=== PATIENT | male | born 1940 | race Caucasian/White ===

== ENCOUNTER 2016-10-09 20:54 | Inpatient (IN) ==
--- NOTE | 2016-10-09 21:07 | Emergency Department Note ---
Recheck HPI - General Chief Complaint: Recheck/Abnormal Lab/Rx Stated Complaint: abnormal lab Time Seen by Provider: 10/09/16 21:04 Source: family Mode of arrival: ambulatory Limitations: no limitations - History of Present Illness HPI Narrative: Patient is being sent in to the emergency department secondary to Dr. Marmolejo, her recommendations. She called me on the phone and recommended that he get Lasix 200 mg IV immediately when he comes in, he's been having decreased urine output , is at the point where his kidneys are shutting down. He does straight catheterize himself, has had some nerve damage and in the last 24 hours. He's had only about 500 cc out. He's continuing to swell more and more, his penis is very large, his scrotum is very large, his lower extremity swelling has worsened. He feels a little bit short of breath, although his O2 sat is still 96% on room air. MD complaint: abnormal lab - Related Data Home Medications Medication Instructions Recorded Confirmed aspirin 81 mg chewable tablet 81 mg PO QDAY tab 01/15/15 10/02/16 carvedilol 6.25 mg tablet 6.25 mg PO DAILY tab 01/15/15 10/02/16 sertraline 100 mg tablet 100 mg PO BID tab 01/15/15 10/02/16 atorvastatin 80 mg tablet 80 mg PO HS 90 Days 07/23/15 10/02/16 apixaban 5 mg tablet 5 mg PO BID 30 Days 04/21/16 10/02/16 Calcitriol [Rocaltrol] 0.25 mcg PO DAILY 10/02/16 Gabapentin 600 mg PO DAILY@1200 10/02/16 10/02/16 Gabapentin 900 mg PO BID@0900,2100 10/02/16 10/02/16 Lactobacillus [Culturelle] 1 cap PO DAILY 10/02/16 10/02/16 busPIRone [Buspar] 15 mg PO BID 10/02/16 10/02/16 morphine ER 15 mg tablet,extended 15 mg PO BID 30 Days 10/02/16 10/02/16 release Previous Rx's Medication Instructions Recorded torsemide 20 mg tablet 40 mg PO BID 30 Days 10/08/16 Allergies Allergy/AdvReac Type Severity Reaction Status Date / Time Penicillins Allergy Unknown Hives Verified 10/02/16 13:55 Review of Systems Constitutional: Denies: fever, chills ENT ED: Denies: ear pain Cardiovascular: Reports: palpitations, dyspnea on exertion. Denies: chest pain Respiratory: Denies: cough Gastrointestinal: Denies: abdominal pain, nausea Musculoskeletal: Reports: back pain Integumentary: Denies: rash Neurological: Reports: headache Endocrine: Reports: fatigue Hematological/Lymphatic: Reports: easy bleeding Past Medical History - Past Medical History Medical history: Reports: arthritis, coronary artery disease, hypertension, renal disease, other (Atrial fibrillation, coronary artery disease, cervical radiculopathy just of heart failure, hypertension, hyperlipidemia, hyperkalemia) Surgical history ED: Reports: coronary bypass (CABG), other (aaa, back surgery, CABG procedure, surgery, total right knee) Family history: Reports: no significant family history - Social History smoking status: Former smoker Alcohol use: Reports: Occasionally Drug use: Reports: none Physical Exam - General Limitations: no limitations General appearance: alert, in no apparent distress - Head Head exam: atraumatic, normocephalic - Eye Eye exam: Present: normal appearance, PERRL, EOMI - ENT ENT exam: normal exam, mucous membranes dry, TM's normal bilaterally - Neck Neck exam: Present: normal inspection, trachea midline. Absent: full ROM - Chest Chest inspection: Present: normal inspection - Respiratory Respiratory exam: Present: normal lung sounds bilaterally. Absent: respiratory distress, wheezes - Cardiovascular Cardiovascular exam: Present: irregular rhythm, gallop - Abdominal Exam Abdominal exam: Present: soft, distention, normal bowel sounds. Absent: tenderness, guarding - exam: Present: scrotal swelling, other (massive amount of scrotal and penile swelling). Absent: testicular tenderness - Extremities Exam Extremities exam: Present: normal inspection - Back Exam Back exam: Present: normal inspection, full ROM, other (History of back surgery with very limited range of motion.). Absent: CVA tenderness (R), CVA tenderness (L), vertebral tenderness - Neurological Exam Neurological exam: Present: alert, oriented X3, CN II-XII intact. Absent: motor sensory deficit - Psychiatric Psychiatric exam: Present: depressed - Skin Skin exam: Present: warm, dry. Absent: rash Course - Reevaluation(s) Reevaluation #1: Patient started on IV Lasix, we did give him a dose of carvedilol as we'll start him on nitrates as his blood pressure was too high. Casillas catheter was placed, Vital Signs Temperature 98.6 F 10/09/16 20:56 Pulse Rate 121 H 10/09/16 20:56 Respiratory Rate 18 10/09/16 20:56 Blood Pressure 161/119 10/09/16 20:56 Pulse Oximetry (%) 97 10/09/16 20:56 Temperature 98.6 F 10/09/16 20:56 Pulse Rate 141 H 10/09/16 22:30 Respiratory Rate 18 10/09/16 20:56 Blood Pressure 140/97 10/09/16 22:30 Pulse Oximetry (%) 99 10/09/16 22:30 Recheck/Abnormal Lab/Rx - MDM Narrative Medical decision making narrative: impressions end-stage renal failure. Plan is admit to hospital for dialysis. - Lab Data Result diagrams: 10/09/16 21:14 10/09/16 21:14 Lab Results 10/09/16 10/09/16 10/09/16 Range/Units 21:14 21:14 21:14 WBC 8.2 (4.5-11.0) K/mcL RBC 3.84 L (4.50-5.90) M/mcL Hgb 12.0 L (13.5-16.5) g/dL Hct 36.3 L (41.0-55.0) % POC Hct 40.0 L (41.0-55.0) % MCV 94.5 (80.0-100.0) fL MCH 31.2 (26.0-34.0) pg MCHC 33.0 (31.0-36.0) g/dL RDW 16.9 H (11.5-14.5) % Plt Count 135 L (140-440) K/mcL MPV 9.5 (7.4-10.4) fL Total Counted 100 Seg Neutrophils % 78 (38-78) % Band Neutrophils % Not Reportable Lymphocytes % 10 L (15-49) % Monocytes % (Manual) 11 H (1-9) % Basophils % (Manual) 1 (0-2) % WBC Morphology Normal (NORMAL) Platelet Estimate Decreased A (NORMAL) RBC Morphology Abnorm A (NORMAL) Anisocytosis 1+ A (NONE SEEN) PT 25.4 H (11.9-14.5) sec INR 2.2 H (0.9-1.1) APTT 41 H (20-37) sec POC Sodium 135 (133-145) mmol/L Sodium 134 (133-145) mmol/L POC Potassium 5.2 H (3.3-5.1) mmol/L Potassium 5.3 H (3.3-5.1) mmol/L POC Chloride 99 (96-108) mmol/L Chloride 95 L (96-108) mmol/L Carbon Dioxide 18 L (22-30) mmol/L POC Total CO2 22 (22-30) mmol/L Anion Gap 21.0 H (8-16) POC BUN 86 H (8-23) mg/dl BUN 91 H (8-23) mg/dl Creatinine 5.1 H* (0.7-1.2) mg/dl POC Creatinine 4.5 H (0.7-1.2) mg/dl GFR Calculation 10 Glucose 102 (70-105) mg/dL POC Glucose 102 (70-105) mg/dL Uric Acid 12.0 H (2.5-8.0) mg/dL Calcium 8.4 L (8.6-10.4) mg/dl POC WB Ioniz Calcium 1.02 L (1.16-1.32) mmol/L Phosphorus 6.4 H* (2.7-4.5) mg/dL Magnesium 2.2 (1.6-2.5) mg/dL Total Bilirubin 1.2 H (0.0-1.0) mg/dL Direct Bilirubin 0.4 H (0.0-0.3) mg/dL GGT 40 (8-61) U/L AST 27 (0-37) U/l ALT 24 (0-40) U/l Alkaline Phosphatase 139 H (39-117) U/L Lactate Dehydrogenase 188 (94-250) U/L Total Protein 6.7 (5.9-8.4) gm/dL Albumin 3.6 (3.2-5.2) gm/dL Globulin 3.1 (2.2-3.7) gm/dL Albumin/Globulin Ratio 1.2 (1.0-2.3) Triglycerides 88 (<150) mg/dl Disposition Clinical Impression: Secondary hyperparathyroidism of renal origin, Acute on chronic renal failure Disposition: Xfer As Inpt ([facility]) Condition: Serious Referrals: Naila Savage ARNP [Primary Care Provider] -
[2016-10-09] MEDS ORDERED: FUROSEMIDE 100 MG/10 ML VIAL IV ONE (21:11)
[2016-10-09] MEDS ORDERED: CARVEDILOL 6.25 MG TABLET PO ONE (21:12)
[2016-10-09] MEDS ORDERED: NITROGLYCERIN 1 GM OINT.TOP TD ONE (21:12)
[2016-10-09 21:58] LABS: Mean Cell Volume 94.5 fL (80.0-100.0); Mean Corpuscular Hemoglobin 31.2 pg (26.0-34.0); Platelet Count 135 K/mcL (140-440); RBC 3.84 M/mcL (4.50-5.90); Red Cell Distribution Width 16.9 % (11.5-14.5)
[2016-10-09 22:25] LABS: Anisocytosis 1+ (NONE SEEN); Basophils % (Manual) 1 % (0-2); Lymphocytes % 10 % (15-49); Monocytes % (Manual) 11 % (1-9); Platelet Estimate DECREASED (NORMAL); RBC Morphology ABNORM (NORMAL); Segmented Neutrophils % 78 % (38-78)
--- NOTE | 2016-10-09 22:30 | Nephrology Consult Note ---
History of Present Illness - Reason for Consult Patient information: Note initiated : 10/09/16 at 10:21 pm Service Date, if different from initiated Date: [] Patient: Marcello Nelson a 76 y/o M admitted on for abnormal lab. Chief Complaint: [] Consult date: 10/09/16 acute renal failure Requesting physician: Moses Singletary - Chief Complaint sob, edema - History of Present Illness Mr Nelson is a 76 y/o pleasant white male with PMH of HTN, Afib, CHF, AAA anuerysm endovascular repair and other medical issues who presented to the ED with SOB Patient has a complicated recent medical history Patient underwent angiogram recently for type 1 endoleak repair (had a leak in his enodvascular graft), the procedure was complicated by contrast induced nephropathy (he had h/o CKD stag iii, baseline s.creat of 1.5-1.7) He had some improvement in his renal function and was discharged, 2-3 weeks post procedure he developed acute worsening of his renal function again with hyperkalemia and worsening edema (last week). There was some concern of acute right ischemic limb so he was transferred to [facility], Patient there refused to initiate dialysis. He was not advised any vascular intervention by vascular surgery Patient now c/o worsening edema, SOB and poor urinary output He was asked to come to ED by me His exam is signifiant for 3+ edema, scrotal and penile edema He is hypertensive, has RVR and he has left pleural effusion with mild IE His labs are pending when I saw him, bu this K on POC lab was 5.2 Review of Systems All systems PM: reviewed and no additional remarkable complaints except as stated (fatigue, dry mouth) Past History Past medical history: HTN Afib CHF h/O CKD stage III Renal artery stenosis dyslipidemia anemia of chronic disease renal osteodystrophy Past surgical history: multiple spine surgery, has h/o trauma h/o AAA anuerysm repair in 2-3 yrs ago h/o endovascular leak (type 1) with aortogram and extension of AAA graft done in Aug 2016 Past family history: not contributory Past social history: lives in [facility] has daughters who support him his has he has no active addictions Medications and Allergies Home Medications Medication Instructions Recorded Confirmed Type aspirin 81 mg chewable tablet 81 mg PO QDAY tab 01/15/15 10/02/16 History carvedilol 6.25 mg tablet 6.25 mg PO DAILY tab 01/15/15 10/02/16 History sertraline 100 mg tablet 100 mg PO BID tab 01/15/15 10/02/16 History atorvastatin 80 mg tablet 80 mg PO HS 90 Days 07/23/15 10/02/16 History apixaban 5 mg tablet 5 mg PO BID 30 Days 04/21/16 10/02/16 History Calcitriol [Rocaltrol] 0.25 mcg PO DAILY 10/02/16 History Lactobacillus [Culturelle] 1 cap PO DAILY 10/02/16 10/02/16 History RX: Gabapentin 600 mg PO DAILY@1200 10/02/16 10/02/16 History RX: Gabapentin 900 mg PO BID@0900,2100 10/02/16 10/02/16 History busPIRone [Buspar] 15 mg PO BID 10/02/16 10/02/16 History morphine ER 15 mg tablet,extended 15 mg PO BID 30 Days 10/02/16 10/02/16 History release torsemide 20 mg tablet 40 mg PO BID 30 Days 10/08/16 Rx Allergies Allergy/AdvReac Type Severity Reaction Status Date / Time Penicillins Allergy Unknown Hives Verified 10/02/16 13:55 Exam - Vital Signs Vital signs: Temp Pulse Resp BP Pulse Ox 98.6 F 89 18 162/131 99 10/09/16 20:56 10/09/16 22:00 10/09/16 20:56 10/09/16 22:00 10/09/16 22:00 - General Appearance General appearance: appears started age, frail EENT: mucous membranes dry Neck: JVD Respiratory: clear Cardiology: no rub, edema (3+), irregular rhythm Gastrointestinal: no tenderness, no guarding Integumentary: hyperpigmentation, chronic venous stasis Neurologic: no focal deficit, alert and oriented x3 Musculoskeletal: no cyanosis, no clubbing Psychiatric: mood/affect appropriate Results - Lab Results 10/09/16 21:14 10/09/16 21:14 Assessment and Plan (1) Acute on chronic renal failure acute on chronic renal failure with fluid overload weight upto 210 lbs gained 6 lbs overnight, 3+ edema on exam, CXR shows interstitial edema with left pleural effusion mild hyperkalemia patient however is not tachypneic and saturating 97% on room air his INR Is 2.2 and PTT is mildy elevated to 41 and is on apixaban for anticoagulation Patient needs to initiate dialysis, he has been refusing this but now agrees I do not see a need for emergent dialysis tonight however I have discussed with surgery, we will plan for a temporary dial;ysis cath placement tomorrow and initiate HD he has received 100mg lasix in ED, I will repeat the same in 6 hrs, he has made around 300cc urine with this he will be NPO after midnight for cathetor placement tomorrow If he has K of more than 5.5 we will given him a dose of kayexalate tonight HTN: uncontrolled, received coreg if remains uncontrolled consider IV labetalol or hydralazine Please call if any concerns overnight Will follow Thank you for giving me an opportunity to participate in Mr Nelson's medical care , appreciate it Status: Acute
[2016-10-09 22:35] LABS: ALT/SGPT 24 U/l (0-40); Albumin 3.6 gm/dL (3.2-5.2); Albumin/Globulin Ratio 1.2 (1.0-2.3); Alkaline Phosphatase 139 U/L (39-117); Bilirubin,Direct 0.4 mg/dL (0.0-0.3); Blood Urea Nitrogen 91 mg/dl (8-23); Gamma Glutamyl Transpeptidase 40 U/L (8-61); Magnesium 2.2 mg/dL (1.6-2.5)
[2016-10-09] MEDS ORDERED: ONDANSETRON 4 MG/2 ML VIAL IV PRN ×2 (22:48→23:53)
[2016-10-09] MEDS ORDERED: oxyCODONE/APAP 5/325MG TABLET PO PRN ×2 (22:48→23:53)
[2016-10-09] MEDS ORDERED: DEXTROSE 5%-1/2NS 1,000 ML IV SCH (23:00)
[2016-10-09] MEDS ORDERED: ACETAMINOPHEN 1,000 MG/100 ML BOTTLE IV PRN (23:53)
[2016-10-09] MEDS ORDERED: guaiFENesin/CODEINE 10 ML UDC PO PRN (23:53)
[2016-10-09] MEDS ORDERED: ACETAMINOPHEN 325 MG TABLET PO PRN (23:53)
[2016-10-09] MEDS ORDERED: traZODone HCL 50 MG TABLET PO PRN (23:53)
[2016-10-10] MEDS: METOPROLOL TARTRATE 5 MG/5 ML VIAL IV SCH ×2 (02:05→02:06)
[2016-10-10 03:17] LABS: Appearance,Urine CLEAR; Bacteria,Urine FEW /hpf (0); Bilirubin,Urine NEG (NEG); Color,Urine STRAW; Glucose,Urine (UA) NEGATIVE (NEG); Leukocyte Esterase,Urine 25 /uL (NEG); Mucus,Urine FEW /hpf (0); Nitrate,Urine NEG (NEG); Protein,Urine NEG (NEG); Specific Gravity,Urine 1.006 (1.000-1.035); Urine Blood 0.2 mg/dL (<0.03); Urine Hyaline Cast 7 /lpf (0-2); Urine RBC 8 /hpf (0-1); Urine Squamous Epithelial Cell < 1 /hpf (0-4); Urine WBC 14 /hpf (0-4); Urobilinogen,Urine NEG (NEG)
[2016-10-10 05:38] LABS: Mean Cell Volume 97.2 fL (80.0-100.0); Mean Corpuscular HGB Conc 32.9 g/dL (31.0-36.0); Platelet Count 119 K/mcL (140-440); RBC 3.45 M/mcL (4.50-5.90); Red Cell Distribution Width 17.5 % (11.5-14.5)
[2016-10-10 06:05] LABS: ALT/SGPT 20 U/l (0-40); Albumin 3.1 gm/dL (3.2-5.2); Albumin/Globulin Ratio 1.1 (1.0-2.3); Alkaline Phosphatase 121 U/L (39-117); Bilirubin,Direct 0.4 mg/dL (0.0-0.3); Blood Urea Nitrogen 94 mg/dl (8-23); Gamma Glutamyl Transpeptidase 34 U/L (8-61); Magnesium 2.2 mg/dL (1.6-2.5); Uric Acid 12.5 mg/dL (2.5-8.0)
--- NOTE | 2016-10-10 06:56 | XRay Report ---
CLINICAL INFORMATION: Dyspnea COMPARISON: 05/03/2015 FINDINGS: The heart has increased slightly and now moderately enlarged. It is exaggerated by leftward rotation. Mediastinum is normal. Pulmonary vessels are slightly distended and there is minimal interstitial edema. Small left pleural effusion is noted. There is minor bibasilar atelectasis. IMPRESSION: Mild CHF Small left pleural effusion Interpreted and Authenticated by: Dwight Nguyen 10/10/16
[2016-10-10 06:58] LABS: Anisocytosis 1+ (NONE SEEN); Lymphocytes % 13 % (15-49); Monocytes % (Manual) 7 % (1-9); Platelet Estimate DECREASED (NORMAL); RBC Morphology ABNORM (NORMAL); Segmented Neutrophils % 80 % (38-78)
[2016-10-10] MEDS ORDERED: CARVEDILOL 6.25 MG TABLET PO SCH (08:00)
[2016-10-10] MEDS ORDERED: FUROSEMIDE 100 MG/10 ML VIAL IV SCH (09:00)
[2016-10-10] MEDS: FUROSEMIDE 100 MG/10 ML VIAL IV SCH ×2 (09:18→21:05)
[2016-10-10] MEDS: DOCUSATE SODIUM 100 MG CAPSULE PO SCH ×2 (09:27→21:05)
[2016-10-10] MEDS: MULTIVIT,THER IRON,CA,FA & MIN 1 TABLET PO SCH (09:27)
--- NOTE | 2016-10-10 09:58 | Internal Med Progress Note ---
Medical - PN: Subj Patient information: Note initiated : 10/10/16 at 9:56 am Service Date, if different from initiated Date: [] Patient: Marcello Nelson 76 y/o M admitted on 10/09/16 for abnormal lab. Chief Complaint: [] Interval history: 10/09- patient admitted with worsening shortness of breath and uremic symptoms. Referred by nephrology. BUN 91. Evidence of uremic encephalopathy/volume overload anasarca. However electrolytes stable not requiring emergent dialysis. Patient admitted for coordination of initiation of hemodialysis per nephrology. Admitted to telemetry in light of A. fib with occasional runs of RVR up to 130. 10/10- patient due for hemodialysis catheter placement at [place] by Dr. Dwight Javier. Patient consents for procedure. no overnight events. Foleys draining clear urine in response to high-dose Lasix per nephrology. Heart rate stable around 90s on twice-daily Coreg - Constitutional Vitals: Vital Signs Temp Pulse Resp BP Pulse Ox 97.2 F L 88 15 158/97 97 10/10/16 04:00 10/10/16 04:00 10/10/16 04:00 10/10/16 04:00 10/10/16 04:00 Period Temp Pulse Resp BP Sys/Whittaker Pulse Ox Last 24 Hr 97.2 F-98.7 F 86-110 15-18 158-162/97-112 92-99 Intake and Output 10/09/16 10/10/16 10/10/16 21:59 05:59 13:59 Intake Total 200 / 200 0 / 0 Output Total 950 / 1150 Balance -750 / -950 0 / 0 Intake & Output: Intake & Output 10/09/16 10/10/16 10/10/16 21:59 05:59 13:59 Intake Total 200 / 200 0 / 0 Output Total 950 / 1150 Balance -750 / -950 0 / 0 Intake: Oral 200 / 200 0 / 0 Output: Urine Catheter Amount 950 / 950 Other: Meal Breakfast Percent of Meal Consumed 0% # Voids 450 General appearance: cooperative, moderate distress (short of breath) Exam: generalized edema minimal anxiety Asterixis Abdomen nondistended late inspiratory Crackles in diminished breath sounds bases Medical - PN: Obj Da - Labs CBC & Chem 7: 10/10/16 03:35 10/10/16 03:35 Labs: Abnormal Lab Results 10/10/16 10/10/16 10/10/16 03:35 03:35 02:02 RBC 3.45 L Hgb 11.1 L Hct 33.6 L RDW 17.5 H Plt Count 119 L Seg Neutrophils % 80 H Lymphocytes % 13 L Platelet Estimate Decreased A RBC Morphology Abnorm A Anisocytosis 1+ A Carbon Dioxide 18 L Anion Gap 21.0 H BUN 94 H Creatinine 5.0 H Uric Acid 12.5 H Calcium 8.0 L Phosphorus 6.2 H* Direct Bilirubin 0.4 H Alkaline Phosphatase 121 H Total Protein 5.8 L Albumin 3.1 L Urine Occult Blood 0.2 A Ur Leukocyte Esterase 25 A Urine RBC 8 H Urine WBC 14 H Urine Bacteria Few A Hyaline Casts 7 H Meds: Medications Acetaminophen (Tylenol) 650 mg PO Q4-6HP PRN PRN Reason: PAIN/FEVER > 101 Carvedilol (Coreg) 6.25 mg PO BIDCC [facility] Last Admin: 10/10/16 09:16 Dose: 6.25 mg Docusate Sodium (Colace) 100 mg PO BID [facility] Last Admin: 10/10/16 09:27 Dose: Not Given Furosemide (Lasix) 100 mg IV Q12 [facility] Last Admin: 10/10/16 09:18 Dose: 100 mg Guaifenesin/Codeine Phosphate (Robitussin Ac) 10 ml PO Q4HP PRN PRN Reason: Cough Acetaminophen (Ofirmev) 1,000 mg in 100 mls @ 200 mls/hr IV Q6HP PRN PRN Reason: PAIN/FEVER > 101 Iron Carb/Multivit/[employer]/Folic Acid (Multivitamin W/Minerals) 1 tab PO DAILY [facility] Last Admin: 10/10/16 09:27 Dose: Not Given Ondansetron HCl (Zofran) 4 mg IV Q4HP PRN PRN Reason: Nausea And Vomiting Oxycodone/Acetaminophen (Percocet 5-325 Mg) 1 tab PO Q4HP PRN PRN Reason: Pain Senna/Docusate Sodium (Senna Plus Tablet) 1 tab PO [facility] Trazodone HCl (Desyrel) 50 mg PO HSP PRN PRN Reason: Insomnia Medical - PN: A/P - Time Spent With Patient Total time spent is greater than 50% in coordination of care (as documented) at patient's floor/unit and/or counseling patient: 25 - 35 minutes (1) Acute on chronic renal failure Status: Acute Assessment and plan: * Acute on chronic renal failure progressing to ESRD with uremic encephalopathy and volume overload-managed per nephrology. IR to place tunnel dialysis catheter. * Dyspnea secondary to volume overload from ESRD. Anticipate HD initiation in 24 hours for volume removal * A. fib with intermittent RVR on beta jhonny * Hyperlipidemia on statin * Anticoagulation for CVA prophylaxis on apixiban * Anxiety on BuSpar/sertraline * Recent renal stent placement/aortic endograft repair on aspirin * Neuropathy and gabapentin * CODE STATUS full code plan * IR to place HD catheter * HD per nephrology * Medical condition management as above * continue telemetry onitoring Current Visit: Yes Medical - PN: Qual - VTE Deep Vein Thrombosis/Pulmonary Embolism Present on Admission: No
--- NOTE | 2016-10-10 10:01 | History and Physical Report ---
DATE OF ADMISSION: 10/09/2016 REASON FOR ADMISSION: Worsening shortness of breath, weakness and generalized swelling. HISTORY OF CHIEF COMPLAINT: The patient is a 76-year-old who came to [facility] Emergency Room after he was referred by speech and drama teacher in light of progression of his stage 4 kidney disease to end-stage renal disease in anticipation of dialysis. The patient has been getting progressively fatigued, weak, lethargic, short of breath along with rising creatinine. He complains of generalized swelling affecting his lower extremities, scrotum and significant effort intolerance along with orthopnea. However, denies fever, chills, productive sputum. Significant to presenting history, the patient underwent AAA endograft placement [address] Dwight Javier, and he also carries history of atrial flutter-fibrillation along with CHF. He was transferred a week ago to [facility] with concerns of iliac artery occlusion. However, did not require any vascular interventions. The patient has been continued on antiplatelets along with anticoagulation on apixiban. Initial workup in the ER was significant for creatinine of 5.1, BUN 91, potassium 5.2, phosphorous 6.4 along with uremic symptoms with asterixis and uremic encephalopathy. Hospitalist Service was consulted for admission while Surgery and Nephrology was consulted for management of renal issues along with dialysis catheter placement. At the time of examination, the patient is alert, but intermittently confused. Involuntary jerking is noted. He was able to answer most of the questions. He was able to provide most of the history and also recent visit at [facility]. REVIEW OF SYSTEMS: Ten-point review of system was performed and negative except for the ones discussed above. PAST MEDICAL HISTORY: 1. Anxiety disorder. 2. ESRD. 3. History of renal stent placement. 4. Contrast-induced nephropathy after a recent AAA endograft placement at [facility]. 5. History of congestive heart failure. 6. Atrial flutter-fibrillation. 7. Anticoagulation for CVA prophylaxis on apixaban. 8. Hyperlipidemia. 9. Neuropathy. 10. Anemia of chronic disease. 11. Renal osteodystrophy. CURRENT MEDICATIONS: List is being verified; however, as per chart: 1. Gabapentin 600 a.m., 900 mg b.i.d. 2. Apixaban 5 mg. 3. Calcitriol 0.25 mcg daily. 4. Aspirin 81 mg. 5. Atorvastatin 80 mg. 6. BuSpar 15 mg b.i.d. 7. Coreg 6.25 mg daily. 8. Morphine 15 mg b.i.d. extended release. 9. Sertraline 100 mg b.i.d. 10. Torsemide 40 b.i.d. PAST SURGICAL HISTORY: Recent aortic endograft repair at [facility] by Dr. Javier. FAMILY HISTORY: Given advanced age and presenting symptoms noncontributory. SOCIAL HISTORY: The patient is . He denies a history of active smoking or alcoholism. He lives in [place]. CODE STATUS: FULL CODE. PHYSICAL EXAMINATION: GENERAL: The patient is alert, but intermittently confused. BMI 30. Height 5 feet 10 inches. VITAL SIGNS: Blood pressure 116/131, respiration rate 18, temperature 98.6, pulse 89, sats 99%. HEENT: Pupils bilaterally symmetric. Head normocephalic, atraumatic. No ear or nose discharge. NECK: No lymphadenopathy. Distended jugular veins noted. CHEST: S1 and S2, irregular rhythm. Atrial flutter on telemetry with variable block. ESM grade 1. Diminished breath sounds bilateral bases with late inspiratory crackles. ABDOMEN: Soft and nontender. LOWER EXTREMITIES: 2+ pitting edema, bilateral lower extremity along with scrotal edema. Bilateral stasis venous changes but no ulceration. SKIN: Otherwise, no suspicious lesions. PSYCH: Alert and cooperative, intermittent confusion, but oriented to place and person. NEURO: Nonfocal, normal higher functions. Moving all four extremities. LABS AND IMAGING: White count 8.2, hemoglobin 12, platelets 135. INR 2.2. Sodium 135, potassium 5.2, creatinine 5.1, BUN 91, phosphorous 6.2, calcium 8.4. LFTs unremarkable. UA 14 WBCs and bacteria. ASSESSMENT AND PLAN: A 76-year-old with advancing from chronic disease to end-stage renal disease admitted for hemodialysis and management of uremic encephalopathy and volume overload. 1. End-stage renal disease. Will be managed by Nephrology. With volume overload and uremic encephalopathy, the patient meets the criteria for hemodialysis. 2. Initiation of dialysis. Will be managed by Nephrology in coordination with Surgery/Interventional Radiology for tunneled catheter placement. 3. Issues managed by Hospitalist Service: a. Atrial flutter. Continue Coreg along with rate control measures as indicated. b. Anticoagulation for CVA prophylaxis, currently on Eliquis. Will discuss with Interventional Radiology with recent endograft repair and stent placement if holding anticoagulation would be a minimal risk as opposed to endograft occlusion/stent occlusion risk. The patient is also on antiplatelets for aspirin 81 mg. c. Hypertension. Will be managed by Nephrology. d. Hyperlipidemia. Continue statin. e. Anxiety disorder, continue BuSpar, sertraline. f. Neuropathy. Continue gabapentin. PLAN FOR TODAY: 1. Admit as inpatient. 2. Hemodialysis coordination as per Nephrology and Surgery. 3. Preexisting medical condition management as above. AA:myriam Job ID: [id number] Doc ID: [id number] Flip Beach MD [facility]
--- NOTE | 2016-10-10 12:28 | Nephrology Progress Note ---
Subjective Patient information: Note initiated : 10/10/16 at 12:25 pm Service Date, if different from initiated Date: [] Patient: Marcello Nelson 76 y/o M admitted on 10/09/16 for Abnormal Lab/ Hemodialysis, Volume Overload. Chief Complaint: SOB, edema] Principal diagnosis: acute on chronic renal failure, fluid overload Interval history: fair urinary output, edema a little better but still has significant edema SOB no worsening of symptoms no CP BUN is in 90's and s.creatinine is around [address] Yaya fagan tunneled cath at [facility], will dialyse the patient once he comes back Pertinent ROS: as above no nausea, vomiting no CP edema is a little better Objective - Vital Signs Vital signs: Vital Signs Temp Pulse Pulse Resp BP Pulse Ox 10/10/16 08:00 98.2 F 94 H 16 174/111 95 10/10/16 04:00 97.2 F L 88 15 158/97 97 10/10/16 00:10 97 10/10/16 00:09 110 H 18 99 10/10/16 00:00 86 16 159/112 99 10/09/16 23:53 98.7 F 95 H 16 162/101 92 Intake and Output 10/09/16 10/10/16 10/10/16 21:59 05:59 13:59 Intake Total 200 / 200 0 / 0 Output Total 950 / 1150 Balance -750 / -950 0 / 0 Intake: Oral 200 / 200 0 / 0 Output: Urine Catheter Amount 950 / 950 Other: Meal Breakfast Percent of Meal Consumed 0% # Voids 450 Weight 210 lb Patient Weight 10/11/16 05:59 Weight 210 lb Intake & Output: Intake & Output 10/09/16 10/10/16 10/10/16 21:59 05:59 13:59 Intake Total 200 / 200 0 / 0 Output Total 950 / 1150 Balance -750 / -950 0 / 0 Weight 210 lb Intake: Oral 200 / 200 0 / 0 Output: Urine Catheter Amount 950 / 950 Other: Meal Breakfast Percent of Meal Consumed 0% # Voids 450 - General Appearance General appearance: appears started age, chronically ill EENT: mucous membranes dry Neck: JVD Respiratory: clear Cardiology: no rub, edema, irregular rhythm Gastrointestinal: no tenderness, no guarding Integumentary: no rash, warm and dry Neurologic: alert and oriented x3 Musculoskeletal: no cyanosis, no clubbing Psychiatric: mood/affect appropriate - Lab 10/10/16 03:35 10/10/16 03:35 Most recent lab results Calcium 8.0 mg/dl (8.6-10.4) L 10/10/16 03:35 Phosphorus 6.2 mg/dL (2.7-4.5) H* 10/10/16 03:35 Magnesium 2.2 mg/dL (1.6-2.5) 10/10/16 03:35 Assessment and Plan (1) Acute on chronic renal failure will initiate HD today after tunneled cath is placed HD today for 2 hrs using revaclear 300 dialyser QB 200ml/min and QD 400ml/min, 2K/2.5 ca dialysate and UF goal of 500, will continue with HD over the weekend will ct furosemide 100mg bid will increase coreg to 12.5mg bid given HR and uncontrolled HTN Will add phoslo for elevated phosphorus ct other meds please dose meds to HD Will follow along Appreciate dr Campos's and Dr Beach's help in managing this pt Status: Acute
[2016-10-10] MEDS ORDERED: CARVEDILOL 6.25 MG TABLET PO ONE (12:30)
[2016-10-10] MEDS: CARVEDILOL 6.25 MG TABLET PO SCH ×2 (16:50→18:22)
[2016-10-10] MEDS: CALCIUM ACETATE 667 MG CAPSULE PO SCH (16:51)
[2016-10-10] MEDS ORDERED: amLODIPine 5 MG TABLET PO ONE (20:41)
[2016-10-10] MEDS: SENNOSIDES/DOCUSATE SODIUM 1 TAB TABLET PO SCH (21:05)
[2016-10-11 05:05] LABS: Mean Cell Volume 96.6 fL (80.0-100.0); Mean Corpuscular Hemoglobin 31.9 pg (26.0-34.0); Platelet Count 123 K/mcL (140-440); Red Cell Distribution Width 17.5 % (11.5-14.5)
[2016-10-11 05:18] LABS: ALT/SGPT 17 U/l (0-40); Albumin 3.1 gm/dL (3.2-5.2); Albumin/Globulin Ratio 1.3 (1.0-2.3); Alkaline Phosphatase 116 U/L (39-117); Bilirubin,Direct 0.4 mg/dL (0.0-0.3); Blood Urea Nitrogen 65 mg/dl (8-23); Gamma Glutamyl Transpeptidase 32 U/L (8-61); Magnesium 2.1 mg/dL (1.6-2.5); Uric Acid 10.3 mg/dL (2.5-8.0)
[2016-10-11 05:35] LABS: Anisocytosis 1+ (NONE SEEN); Eosinophils % (Manual) 1 % (0-7); Lymphocytes % 8 % (15-49); Monocytes % (Manual) 8 % (1-9); Platelet Estimate DECREASED (NORMAL); RBC Morphology ABNORM (NORMAL); Segmented Neutrophils % 83 % (38-78)
--- NOTE | 2016-10-11 09:28 | Internal Med Progress Note ---
Medical - PN: Subj Patient information: Note initiated : 10/11/16 at 9:25 am Service Date, if different from initiated Date: [] Patient: Marcello Nelson 76 y/o M admitted on 10/09/16 for Abnormal Lab/ Hemodialysis, Volume Overload. Chief Complaint: [] Interval history: 10/09- patient admitted with worsening shortness of breath and uremic symptoms. Referred by nephrology. BUN 91. Evidence of uremic encephalopathy/volume overload anasarca. However electrolytes stable not requiring emergent dialysis. Patient admitted for coordination of initiation of hemodialysis per nephrology. Admitted to telemetry in light of A. fib with occasional runs of RVR up to 130. 10/10- patient due for hemodialysis catheter placement at [place] by Dr. Dwight Javier. Patient consents for procedure. no overnight events. Foleys draining clear urine in response to high-dose Lasix per nephrology. Heart rate stable around 90s on twice-daily Coreg 10/11- Pt seen in ICU stable overnight, S/p temp HD catheter placement at [facility] , S/p HD yesterday, managed per Neph. Npo F/C/N/V. No active concerns. Tunnelled dialysis catheter placement prior to discharge as per Nephrology recommendations. - Constitutional Vitals: Vital Signs Temp Pulse Resp BP Pulse Ox 98.8 F 91 H 20 140/75 93 10/11/16 04:00 10/10/16 23:00 10/11/16 04:00 10/11/16 04:00 10/11/16 04:00 Period Temp Pulse Resp BP Sys/Whittaker Pulse Ox Last 24 Hr 98.3 F-99.6 F 81-123 14-20 130-172/60-120 91-94 Intake and Output 10/10/16 10/11/16 10/11/16 21:59 05:59 13:59 Intake Total 240 / 240 150 / 150 Output Total 2774 / 2774 250 / 250 Balance -2534 / -2534 -100 / -100 Weight 196 lb 1.6 oz Intake & Output: Intake & Output 10/10/16 10/11/16 10/11/16 21:59 05:59 13:59 Intake Total 240 / 240 150 / 150 Output Total 2774 / 2774 250 / 250 Balance -2534 / -2534 -100 / -100 Weight 196 lb 1.6 oz Intake: IV 100 / 100 Oral 240 / 240 50 / 50 Output: Urine Catheter Amount 700 / 700 250 / 250 Hemodialysis UF 2073 Other: Meal Lunch Dinner Percent of Meal Consumed 100% 40 Feeding Ability Assist with Tray Set Up # of times incontinent of 1 Bowels General appearance: cooperative, no acute distress Exam: A & O No labored breathing Non distended abd improved Lymphedema Medical - PN: Obj Da - Labs CBC & Chem 7: 10/11/16 03:30 10/11/16 03:30 Labs: Abnormal Lab Results 10/11/16 10/11/16 10/10/16 03:30 03:30 03:35 RBC 3.30 L Hgb 10.5 L Hct 31.9 L RDW 17.5 H Plt Count 123 L Seg Neutrophils % 83 H Lymphocytes % 8 L Platelet Estimate Decreased A RBC Morphology Abnorm A Anisocytosis 1+ A Carbon Dioxide 18 L Anion Gap 17.0 H 21.0 H BUN 65 H 94 H Creatinine 3.9 H 5.0 H Glucose 125 H Uric Acid 10.3 H 12.5 H Calcium 7.9 L 8.0 L Phosphorus 4.9 H 6.2 H* Direct Bilirubin 0.4 H 0.4 H Alkaline Phosphatase 121 H Total Protein 5.5 L 5.8 L Albumin 3.1 L 3.1 L Urine Occult Blood Ur Leukocyte Esterase Urine RBC Urine WBC Urine Bacteria Hyaline Casts 10/10/16 10/10/16 03:35 02:02 RBC 3.45 L Hgb 11.1 L Hct 33.6 L RDW 17.5 H Plt Count 119 L Seg Neutrophils % 80 H Lymphocytes % 13 L Platelet Estimate Decreased A RBC Morphology Abnorm A Anisocytosis 1+ A Carbon Dioxide Anion Gap BUN Creatinine Glucose Uric Acid Calcium Phosphorus Direct Bilirubin Alkaline Phosphatase Total Protein Albumin Urine Occult Blood 0.2 A Ur Leukocyte Esterase 25 A Urine RBC 8 H Urine WBC 14 H Urine Bacteria Few A Hyaline Casts 7 H Meds: Medications Acetaminophen (Tylenol) 650 mg PO Q4-6HP PRN PRN Reason: PAIN/FEVER > 101 Calcium Acetate (Phoslo) 667 mg PO TIDCC [facility] Last Admin: 10/10/16 16:51 Dose: Not Given Carvedilol (Coreg) 12.5 mg PO BIDCC [facility] Last Admin: 10/10/16 18:22 Dose: 12.5 mg Docusate Sodium (Colace) 100 mg PO BID [facility] Last Admin: 10/10/16 21:05 Dose: Not Given Furosemide (Lasix) 100 mg IV Q12 [facility] Last Admin: 10/10/16 21:05 Dose: 100 mg Guaifenesin/Codeine Phosphate (Robitussin Ac) 10 ml PO Q4HP PRN PRN Reason: Cough Acetaminophen (Ofirmev) 1,000 mg in 100 mls @ 200 mls/hr IV Q6HP PRN PRN Reason: PAIN/FEVER > 101 Last Infusion: 10/10/16 22:15 Dose: Infused Iron Carb/Multivit/[place]/Folic Acid (Multivitamin W/Minerals) 1 tab PO DAILY [facility] Last Admin: 10/10/16 09:27 Dose: Not Given Ondansetron HCl (Zofran) 4 mg IV Q4HP PRN PRN Reason: Nausea And Vomiting Oxycodone/Acetaminophen (Percocet 5-325 Mg) 1 tab PO Q4HP PRN PRN Reason: Pain Senna/Docusate Sodium (Senna Plus Tablet) 1 tab PO HS [facility] Last Admin: 10/10/16 21:05 Dose: Not Given Trazodone HCl (Desyrel) 50 mg PO HSP PRN PRN Reason: Insomnia Medical - PN: A/P - Time Spent With Patient Total time spent is greater than 50% in coordination of care (as documented) at patient's floor/unit and/or counseling patient: 15 - 24 minutes (1) Acute on chronic renal failure Status: Acute Assessment and plan: * Acute on chronic renal failure progressing to ESRD with uremic encephalopathy and volume overload-S/p HD by neph. Ongoing management per Nephrology * Dyspnea secondary to volume overload from ESRD. Clinical improvement noted * A. 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
--- NOTE | 2016-10-11 09:35 | Nephrology Progress Note ---
Subjective Patient information: Note initiated : 10/11/16 at 9:29 am Service Date, if different from initiated Date: [] Patient: Marcello Nelson 76 y/o M admitted on 10/09/16 for Abnormal Lab/ Hemodialysis, Volume Overload. Chief Complaint: [] Principal diagnosis: acute on chronic renal failure, fluid overload Interval history: IR could not place tunneled cathetor given risk of bleeding, he did get temp cathetor and dialysed after that he has no concerns today his edema is getting better but still 2+ no SOB today urine output also a little better with IV lasix Pertinent ROS: no SOB, CP no GI symptoms no dizziness Objective - Vital Signs Vital signs: Vital Signs Temp Pulse Pulse Resp BP BP Pulse Ox 10/11/16 04:00 98.8 F 20 140/75 93 10/11/16 00:00 99.1 F 20 130/60 93 10/10/16 23:00 91 H 10/10/16 20:29 100 H 91 10/10/16 20:05 99.6 F 102 H 155/89 10/10/16 20:00 99.5 F 20 155/89 93 10/10/16 19:27 123 H 154/114 10/10/16 18:57 102 H 157/103 10/10/16 18:29 92 H 140/81 10/10/16 18:05 98.6 F 81 142/120 10/10/16 15:45 99.1 F 92 H 18 172/102 94 10/10/16 12:00 98.3 F 89 14 172/105 94 Intake and Output 10/10/16 10/11/16 10/11/16 21:59 05:59 13:59 Intake Total 240 / 240 150 / 150 Output Total 2774 / 2774 250 / 250 Balance -2534 / -2534 -100 / -100 Intake: IV 100 / 100 Oral 240 / 240 50 / 50 Output: Urine Catheter Amount 700 / 700 250 / 250 Hemodialysis UF 2073 Other: Meal Lunch Dinner Percent of Meal Consumed 100% 40 Feeding Ability Assist with Tray Set Up # of times incontinent of 1 Bowels Weight 196 lb 1.6 oz Intake & Output: Intake & Output 10/10/16 10/11/16 10/11/16 21:59 05:59 13:59 Intake Total 240 / 240 150 / 150 Output Total 2774 / 2774 250 / 250 Balance -2534 / -2534 -100 / -100 Weight 196 lb 1.6 oz Intake: IV 100 / 100 Oral 240 / 240 50 / 50 Output: Urine Catheter Amount 700 / 700 250 / 250 Hemodialysis UF 2073 Other: Meal Lunch Dinner Percent of Meal Consumed 100% 40 Feeding Ability Assist with Tray Set Up # of times incontinent of 1 Bowels - General Appearance General appearance: appears started age EENT: mucous membranes moist Neck: no JVD Respiratory: clear Cardiology: edema, irregular rhythm Gastrointestinal: no tenderness, no guarding Integumentary: no rash, warm and dry Neurologic: alert and oriented x3 Musculoskeletal: no cyanosis, no clubbing Psychiatric: mood/affect appropriate - Lab 10/11/16 03:30 10/11/16 03:30 Most recent lab results Calcium 7.9 mg/dl (8.6-10.4) L 10/11/16 03:30 Phosphorus 4.9 mg/dL (2.7-4.5) H 10/11/16 03:30 Magnesium 2.1 mg/dL (1.6-2.5) 10/11/16 03:30 Assessment and Plan (1) Acute on chronic renal failure HD today for 3 hrs using revaclear 300 dialyser, QB 250ml/min, QD 600ML/MIN, 3k/ 2.5CA Dialyser, 1-1.5L if UF removal will need to optimize anticoagulation for tunnled cathetor placement early next week no discharge until then will ct IV lasix monitor I/O, daily weights dose meds to HD HTN: coreg increased to 12.5mg bid will add amlodipine 5mg po daily also fluid removal will help optimize HTN control Anemia: will obtain work up if tsat is at goal will need to initiate JOSE once Hb is below 10 renal osteodystrophy: started on phosphate binders malnutrition: Albumin down to 3.1 please give nepro with every meal will follow along Status: Acute
[2016-10-11] MEDS: FUROSEMIDE 100 MG/10 ML VIAL IV SCH ×2 (10:25→20:36)
[2016-10-11] MEDS: MULTIVIT,THER IRON,CA,FA & MIN 1 TABLET PO SCH (10:26)
[2016-10-11] MEDS: CARVEDILOL 6.25 MG TABLET PO SCH ×2 (10:26→18:29)
[2016-10-11] MEDS: CALCIUM ACETATE 667 MG CAPSULE PO SCH ×3 (10:26→19:53)
[2016-10-11] MEDS: DOCUSATE SODIUM 100 MG CAPSULE PO SCH ×2 (10:27→19:53)
[2016-10-11] MEDS: APIXABAN 2.5 MG TABLET PO SCH ×2 (16:22→20:36)
[2016-10-11] MEDS: SENNOSIDES/DOCUSATE SODIUM 1 TAB TABLET PO SCH (19:53)
[2016-10-11] MEDS ORDERED: HEPARIN 5,000 UNIT/ML VIAL SQ SCH (21:00)
[2016-10-12 05:07] LABS: Mean Cell Volume 96.9 fL (80.0-100.0); Mean Corpuscular HGB Conc 32.6 g/dL (31.0-36.0); Mean Corpuscular Hemoglobin 31.6 pg (26.0-34.0); Platelet Count 129 K/mcL (140-440); RBC 3.49 M/mcL (4.50-5.90); Red Cell Distribution Width 18.4 % (11.5-14.5)
[2016-10-12 05:30] LABS: ALT/SGPT 13 U/l (0-40); Albumin/Globulin Ratio 1.2 (1.0-2.3); Alkaline Phosphatase 122 U/L (39-117); Bilirubin,Direct 0.4 mg/dL (0.0-0.3); Blood Urea Nitrogen 39 mg/dl (8-23); Gamma Glutamyl Transpeptidase 33 U/L (8-61); Uric Acid 6.5 mg/dL (2.5-8.0)
[2016-10-12 06:44] LABS: Anisocytosis 1+ (NONE SEEN); Band Neutrophils % 2 % (0-10); Eosinophils % (Manual) 2 % (0-7); Lymphocytes % 8 % (15-49); Monocytes % (Manual) 6 % (1-9); Platelet Estimate DECREASED (NORMAL); RBC Morphology ABNORMAL (NORMAL); Segmented Neutrophils % 82 % (38-78)
[2016-10-12] MEDS ORDERED: VANCOMYCIN PER PHARMACY IV SCH (08:25)
[2016-10-12] MEDS ORDERED: GABAPENTIN 900 MG PO SCH (09:00)
--- NOTE | 2016-10-12 09:31 | Internal Med Progress Note ---
Medical - PN: Subj Patient information: Note initiated : 10/12/16 at 9:26 am Service Date, if different from initiated Date: [] Patient: Marcello Nelson 76 y/o M admitted on 10/09/16 for Abnormal Lab/ Hemodialysis, Volume Overload. Chief Complaint: [] Interval history: 10/09- patient admitted with worsening shortness of breath and uremic symptoms. Referred by nephrology. BUN 91. Evidence of uremic encephalopathy/volume overload anasarca. However electrolytes stable not requiring emergent dialysis. Patient admitted for coordination of initiation of hemodialysis per nephrology. Admitted to telemetry in light of A. fib with occasional runs of RVR up to 130. 10/10- patient due for hemodialysis catheter placement at [place] by Dr. Dwight Javier. Patient consents for procedure. no overnight events. Foleys draining clear urine in response to high-dose Lasix per nephrology. Heart rate stable around 90s on twice-daily Coreg 10/11- Pt seen in ICU stable overnight, S/p temp HD catheter placement at [facility] , S/p HD yesterday, managed per Neph. Npo F/C/N/V. No active concerns. Tunnelled dialysis catheter placement prior to discharge as per Nephrology recommendations. 10/12 Transfer of Care new hospitalist on service. The patient seen examined, no acute overnight issues. The patient had low grade temp overnight. Denies any chest pains, cough, nausea or vomiting, Tolerating po well. he was feeling low and not sure if he wanted to continue with Hemodialysis given that he lives alone. I have resumed his anti depressants and reassess his situation. He was off eliquis since admission. Given his stent and afib, He was given 2.5mg eliquis yesterday and one dose this AM. He will be off anti coagulation now till he gets his catheter tomorrow. His Urine culture is positive for enterococcus, started on IV vancomycin for same till sensitivities come back. Plan is to get Tunneled cath in place which will likely happen tomorrow. CXR chest to r/o pna given new temp. Pertinent ROS: Denies headache, dizziness Denies chest pain, palpitations Denies cough or shortness of breath Denies abdominal pain, nausea or vomiting. - Constitutional Vitals: Vital Signs Temp Pulse Resp BP Pulse Ox 100 F H 86 16 141/79 98 10/12/16 04:00 10/12/16 04:00 10/12/16 04:00 10/12/16 04:00 10/12/16 04:00 Period Temp Pulse Resp BP Sys/Whittaker Pulse Ox Last 24 Hr 98.1 F-100 F 80-100 14-20 138-175/74-96 96-98 Intake and Output 10/11/16 10/12/16 10/12/16 21:59 05:59 13:59 Intake Total 120 / 120 Output Total 7676 / 7676 175 / 175 400 / 400 Balance -7556 / -7556 -175 / -175 -400 / -400 Weight 200 lb 8 oz Intake & Output: Intake & Output 10/11/16 10/12/16 10/12/16 21:59 05:59 13:59 Intake Total 120 / 120 Output Total 7676 / 7676 175 / 175 400 / 400 Balance -7556 / -7556 -175 / -175 -400 / -400 Weight 200 lb 8 oz Intake: Oral 120 / 120 Output: Urine Catheter Amount 800 / 800 175 / 175 400 / 400 Hemodialysis UF 6876 / 6876 Other: Meal Dinner Percent of Meal Consumed 50% Feeding Ability Independent # Bowel Movements 1 Exam: Constitutional; Afebrile, cooperative, alert, not in distress. Eyes- No icterus, Pupils equal, reactive, No periorbital swelling Ears- Ext ear normal, hearing normal to conversation. Neck- Midline trachea, supple Respiratory system: Air Entry equal on both sides, No crackles or wheezing, no rhonchi. CVS- Rate rhythm regular, S1,S2 heard, no gallop, no rub. Abdomen- Soft nontender abdomen, no organomegaly, no tenderness, no guarding or rigidity, [employer]- AOOx3, moving all extremities, no focal deficit noted. Medical - PN: Obj Da - Labs CBC & Chem 7: 10/12/16 03:38 10/12/16 03:38 Labs: Abnormal Lab Results 10/12/16 10/12/16 10/11/16 03:38 03:38 03:30 RBC 3.49 L Hgb 11.0 L Hct 33.8 L RDW 18.4 H Plt Count 129 L Seg Neutrophils % 82 H Lymphocytes % 8 L Platelet Estimate Decreased A RBC Morphology Anisocytosis 1+ A Carbon Dioxide Anion Gap 17.0 H BUN 39 H 65 H Creatinine 3.1 H 3.9 H Glucose 125 H Uric Acid 10.3 H Calcium 8.0 L 7.9 L Phosphorus 4.9 H Direct Bilirubin 0.4 H 0.4 H Alkaline Phosphatase 122 H Total Protein 5.5 L 5.5 L Albumin 3.0 L 3.1 L Urine Occult Blood Ur Leukocyte Esterase Urine RBC Urine WBC Urine Bacteria Hyaline Casts 10/11/16 10/10/16 10/10/16 03:30 03:35 03:35 RBC 3.30 L 3.45 L Hgb 10.5 L 11.1 L Hct 31.9 L 33.6 L RDW 17.5 H 17.5 H Plt Count 123 L 119 L Seg Neutrophils % 83 H 80 H Lymphocytes % 8 L 13 L Platelet Estimate Decreased A Decreased A RBC Morphology Abnorm A Abnorm A Anisocytosis 1+ A 1+ A Carbon Dioxide 18 L Anion Gap 21.0 H BUN 94 H Creatinine 5.0 H Glucose Uric Acid 12.5 H Calcium 8.0 L Phosphorus 6.2 H* Direct Bilirubin 0.4 H Alkaline Phosphatase 121 H Total Protein 5.8 L Albumin 3.1 L Urine Occult Blood Ur Leukocyte Esterase Urine RBC Urine WBC Urine Bacteria Hyaline Casts 10/10/16 02:02 RBC Hgb Hct RDW Plt Count Seg Neutrophils % Lymphocytes % Platelet Estimate RBC Morphology Anisocytosis Carbon Dioxide Anion Gap BUN Creatinine Glucose Uric Acid Calcium Phosphorus Direct Bilirubin Alkaline Phosphatase Total Protein Albumin Urine Occult Blood 0.2 A Ur Leukocyte Esterase 25 A Urine RBC 8 H Urine WBC 14 H Urine Bacteria Few A Hyaline Casts 7 H Meds: Medications Acetaminophen (Tylenol) 650 mg PO Q4-6HP PRN PRN Reason: PAIN/FEVER > 101 Atorvastatin Calcium (Lipitor) 80 mg PO HS ON LICENSE OF [facility] Buspirone HCl (Buspar) 15 mg PO BID ON LICENSE OF [facility] Calcium Acetate (Phoslo) 667 mg PO TIDCC ON LICENSE OF [facility] Last Admin: 10/11/16 19:53 Dose: 667 mg [facility] Admin: 10/11/16 18:29 Dose: 12.5 mg Docusate Sodium (Colace) 100 mg PO BID [facility] Last Admin: 10/11/16 19:53 Dose: Not Given Furosemide (Lasix) 100 mg IV Q12 [facility] Last Admin: 10/11/16 20:36 Dose: 100 mg Guaifenesin/Codeine Phosphate (Robitussin Ac) 10 ml PO Q4HP PRN PRN Reason: Cough Acetaminophen (Ofirmev) 1,000 mg in 100 mls @ 200 mls/hr IV Q6HP PRN PRN Reason: PAIN/FEVER > 101 Last Infusion: 10/10/16 22:15 Dose: Infused Iron Carb/Multivit/[place]/Folic Acid (Multivitamin W/Minerals) 1 tab PO DAILY [facility] Last Admin: 10/11/16 10:26 Dose: 1 tab Ondansetron HCl (Zofran) 4 mg IV Q4HP PRN PRN Reason: Nausea And Vomiting Oxycodone/Acetaminophen (Percocet 5-325 Mg) 1 tab PO Q4HP PRN PRN Reason: Pain Pantoprazole Sodium (Protonix) 40 mg PO QAMAC [facility] Senna/Docusate Sodium (Senna Plus Tablet) 1 tab PO HS [facility] Last Admin: 10/11/16 19:53 Dose: Not Given Sertraline HCl (Zoloft) 100 mg PO BID [facility] Trazodone HCl (Desyrel) 50 mg PO HSP PRN PRN Reason: Insomnia Vancomycin HCl (Vancomycin Per Pharmacy) 1 order IV ONCE ONE Stop: 10/12/16 08:26 Medical - PN: A/P - Time Spent With Patient Total time spent is greater than 50% in coordination of care (as documented) at patient's floor/unit and/or counseling patient: - Narrative A/P Narrative: ESRD with fluid overload- On HD as per nephrology, Place and Tunneled Cath in AM. Hold eliquis for 24 hrs before procedure. Enterococcus UTI- Noted on microbiology, Sensitivities pending, Started on IV vancomycin. atrial fibrillation- Rate controlled, on beta blockers coreg, On eliquis for anticoagulatino Chr anticoagulation- for cva prophylaxis, on eliquis, dose held s/p recent Aortic endograft placement- on eliquis and asa (asa on hold in light of procedure and bleeding noted during last attempt) Fever - c xr , blood cultures, ordered CAD - on statin, bb, will resume asa after procedure, no cp or sob. Medical - PN: Qual - VTE Deep Vein Thrombosis/Pulmonary Embolism Present on Admission: No
[2016-10-12] MEDS: FUROSEMIDE 100 MG/10 ML VIAL IV SCH ×2 (09:37→21:04)
[2016-10-12] MEDS: SERTRALINE 50 MG TABLET PO SCH ×2 (09:37→21:04)
[2016-10-12] MEDS: CALCIUM ACETATE 667 MG CAPSULE PO SCH ×3 (09:38→17:47)
[2016-10-12] MEDS: MULTIVIT,THER IRON,CA,FA & MIN 1 TABLET PO SCH (09:38)
[2016-10-12] MEDS: CARVEDILOL 6.25 MG TABLET PO SCH ×2 (09:38→17:48)
[2016-10-12] MEDS: PANTOPRAZOLE 40 MG TABLET PO SCH (09:38)
[2016-10-12] MEDS: DOCUSATE SODIUM 100 MG CAPSULE PO SCH ×2 (09:39→21:04)
[2016-10-12] MEDS: busPIRone 5 MG TABLET PO SCH ×2 (09:46→21:21)
--- NOTE | 2016-10-12 10:06 | XRay Report ---
CLINICAL INFORMATION: Fever COMPARISON: 10/09/2016 FINDINGS: Moderate cardiomegaly is unchanged. Sternotomy changes noted. Mediastinum is unremarkable. Central venous catheter tip overlies the SVC right atrial junction. No pneumothorax or other complication from line placement The pulmonary vessels are normal. Airspace disease in left base has has worsened: there is now moderate consolidation atelectasis or filtrate. Small left pleural effusion noted. There is minor atelectasis in the right base also worsening IMPRESSION: 1. Moderate size region of consolidated atelectasis or infiltrate left base with small left pleural effusion worsening from exam three days ago. 2. minor right basilar atelectasis also worsening 3. Moderate cardiomegaly - CHF resolved Interpreted and Authenticated by: Dwight Nguyen 10/12/16
--- NOTE | 2016-10-12 10:35 | Nephrology Progress Note ---
Subjective Patient information: Note initiated : 10/12/16 at 10:32 am Service Date, if different from initiated Date: [] Patient: Marcello Nelson 76 y/o M admitted on 10/09/16 for Abnormal Lab/ Hemodialysis, Volume Overload. Chief Complaint: [] Principal diagnosis: acute on chronic renal failure, fluid overload Interval history: Patient tolerated HD well yesterday his edema is much improved He denies SOB, CP he does feel a little depressed because of multiple medical issues, restarted on antidepressants also had mild fever, Uc SHOWS enterococcus, on antibiotics for the same Pertinent ROS: as above Objective - Vital Signs Vital signs: Vital Signs Temp Pulse Pulse Resp BP BP Pulse Ox 10/12/16 04:00 100 F H 86 16 141/79 98 10/11/16 23:45 99.2 F 95 H 175/93 96 10/11/16 19:56 99.2 F 84 14 161/74 97 10/11/16 19:25 98.1 F 80 153/81 10/11/16 18:58 93 H 157/92 10/11/16 18:27 86 163/96 10/11/16 17:57 80 157/91 10/11/16 17:27 90 146/82 10/11/16 16:58 100 H 148/85 10/11/16 16:25 98.7 F 87 142/90 10/11/16 16:00 98.7 F 88 18 146/82 96 10/11/16 12:00 98.3 F 20 138/76 97 Intake and Output 10/11/16 10/12/16 10/12/16 21:59 05:59 13:59 Intake Total 120 / 120 Output Total 7676 / 7676 175 / 175 400 / 400 Balance -7556 / -7556 -175 / -175 -400 / -400 Intake: Oral 120 / 120 Output: Urine Catheter Amount 800 / 800 175 / 175 400 / 400 Hemodialysis UF 6876 / 6876 Other: Meal Dinner Percent of Meal Consumed 50% Feeding Ability Independent # Bowel Movements 1 Weight 200 lb 8 oz Intake & Output: Intake & Output 10/11/16 10/12/16 10/12/16 21:59 05:59 13:59 Intake Total 120 / 120 Output Total 7676 / 7676 175 / 175 400 / 400 Balance -7556 / -7556 -175 / -175 -400 / -400 Weight 200 lb 8 oz Intake: Oral 120 / 120 Output: Urine Catheter Amount 800 / 800 175 / 175 400 / 400 Hemodialysis UF 6876 / 6876 Other: Meal Dinner Percent of Meal Consumed 50% Feeding Ability Independent # Bowel Movements 1 - General Appearance General appearance: appears started age, chronically ill EENT: mucous membranes moist Neck: no JVD Respiratory: clear Cardiology: edema (much improved ), irregular rhythm Gastrointestinal: no tenderness, no guarding Integumentary: warm and dry Neurologic: alert and oriented x3 Musculoskeletal: no erythema, no clubbing Psychiatric: depressed - Lab 10/12/16 03:38 10/12/16 03:38 Most recent lab results Calcium 8.0 mg/dl (8.6-10.4) L 10/12/16 03:38 Phosphorus 2.9 mg/dL (2.7-4.5) 10/12/16 03:38 Magnesium 2.0 mg/dL (1.6-2.5) 10/12/16 03:38 Assessment and Plan (1) Acute on chronic renal failure will hold off on hd TODAY Hope to get tunneled cath tomorrow or thursday, so that he can be discharge home fluid status improving slowly BP also somewhat better follow i/o, dose meds to HD Will follow along Status: Acute
[2016-10-12] MEDS ORDERED: VANCOMYCIN 1,500 MG in 0.9 % SODIUM CHLORIDE 500 ML IV ONE (11:00)
[2016-10-12] MEDS ORDERED: NON FORMULARY MEDICATION 1 DOSE MISCELL (Gabapentin [Gabapentin] 600 MG) PO SCH (12:00)
[2016-10-12] MEDS: GABAPENTIN 300 MG CAPSULE PO SCH ×2 (12:03→21:04)
[2016-10-12] MEDS ORDERED: ATORVASTATIN 20 MG TABLET PO SCH (21:00)
[2016-10-12] MEDS: SENNOSIDES/DOCUSATE SODIUM 1 TAB TABLET PO SCH (21:04)
[2016-10-13 05:31] LABS: Mean Cell Volume 96.2 fL (80.0-100.0); Mean Corpuscular Hemoglobin 31.8 pg (26.0-34.0); Platelet Count 121 K/mcL (140-440); RBC 3.31 M/mcL (4.50-5.90); Red Cell Distribution Width 18.1 % (11.5-14.5)
[2016-10-13 05:39] LABS: ALT/SGPT 12 U/l (0-40); Albumin 2.9 gm/dL (3.2-5.2); Albumin/Globulin Ratio 1.3 (1.0-2.3); Alkaline Phosphatase 106 U/L (39-117); Bilirubin,Direct 0.4 mg/dL (0.0-0.3); Blood Urea Nitrogen 45 mg/dl (8-23); Gamma Glutamyl Transpeptidase 30 U/L (8-61); Uric Acid 7.7 mg/dL (2.5-8.0)
[2016-10-13] MEDS ORDERED: 0.9 % SODIUM CHLORIDE 10 ML SYRINGE IV SCH (06:00)
[2016-10-13 06:45] LABS: Anisocytosis 1+ (NONE SEEN); Eosinophils % (Manual) 2 % (0-7); Lymphocytes % 7 % (15-49); Monocytes % (Manual) 13 % (1-9); Platelet Estimate DECREASED (NORMAL); RBC Morphology ABNORM (NORMAL); Segmented Neutrophils % 78 % (38-78)
[2016-10-13] MEDS: PANTOPRAZOLE 40 MG TABLET PO SCH (07:27)
--- NOTE | 2016-10-13 08:29 | Internal Med Progress Note ---
Medical - PN: Subj Patient information: Note initiated : 10/13/16 at 8:27 am Service Date, if different from initiated Date: [] Patient: Marcello Nelson 76 y/o M admitted on 10/09/16 for Abnormal Lab/ Hemodialysis, Volume Overload. Chief Complaint: [] Interval history: 10/09- patient admitted with worsening shortness of breath and uremic symptoms. Referred by nephrology. BUN 91. Evidence of uremic encephalopathy/volume overload anasarca. However electrolytes stable not requiring emergent dialysis. Patient admitted for coordination of initiation of hemodialysis per nephrology. Admitted to telemetry in light of A. fib with occasional runs of RVR up to 130. 10/10- patient due for hemodialysis catheter placement at [place] by Dr. Dwight Javier. Patient consents for procedure. no overnight events. Foleys draining clear urine in response to high-dose Lasix per nephrology. Heart rate stable around 90s on twice-daily Coreg 10/11- Pt seen in ICU stable overnight, S/p temp HD catheter placement at [facility] , S/p HD yesterday, managed per Neph. Npo F/C/N/V. No active concerns. Tunnelled dialysis catheter placement prior to discharge as per Nephrology recommendations. 10/12 Transfer of Care new hospitalist on service. The patient seen examined, no acute overnight issues. The patient had low grade temp overnight. Denies any chest pains, cough, nausea or vomiting, Tolerating po well. he was feeling low and not sure if he wanted to continue with Hemodialysis given that he lives alone. I have resumed his anti depressants and reassess his situation. He was off eliquis since admission. Given his stent and afib, He was given 2.5mg eliquis yesterday and one dose this AM. He will be off anti coagulation now till he gets his catheter tomorrow. His Urine culture is positive for enterococcus, started on IV vancomycin for same till sensitivities come back. Plan is to get Tunneled cath in place which will likely happen tomorrow. CXR chest to r/o pna given new temp. 10/13: Pt seen examined, no fever overnight, sitting comfortably in chair having breakfast. Will continue HD and see how it works for him for now. he is off anticoagulation in anticipation of tunneled HD catheter today by Dr Javier at [facility] The patient CXR shows pna vs ateletasis, treat with incentive spirometery for now. The patient also had diarrhea, Cdiff positive and started on po vancomycin. Pt BP was on the higher end and we started him on amlodipine 5mg once daily. Plan to d/c to rehab once we have tunneled cath in place likely tomorrow or day. Pertinent ROS: Denies headache, dizziness Denies chest pain, palpitations Denies cough or shortness of breath Denies abdominal pain, nausea or vomiting. - Constitutional Vitals: Vital Signs Temp Pulse Resp BP Pulse Ox 98.4 F 88 20 173/101 98 10/13/16 07:31 10/13/16 07:31 10/13/16 07:31 10/13/16 07:31 10/13/16 07:31 Period Temp Pulse Resp BP Sys/Whittaker Pulse Ox Last 24 Hr 98.2 F-98.9 F 74-94 16-20 145-173/80-101 95-98 Intake and Output 10/12/16 10/13/16 10/13/16 21:59 05:59 13:59 Intake Total 720 / 720 740 / 740 Output Total 1950 / 1949 850 / 850 Balance -1230 / -1230 -110 / -110 Weight 194 lb Intake & Output: Intake & Output 10/12/16 10/13/16 10/13/16 21:59 05:59 13:59 Intake Total 720 / 720 740 / 740 Output Total 1949 / 1950 850 / 850 Balance -1230 / -1230 -110 / -110 Weight 194 lb Intake: Oral 720 / 720 740 / 740 Output: Urine Catheter Amount 1300 / 1300 800 / 800 Void Amount 650 / 650 Uretheral ([place]) 650 / 650 Stool 50 / 50 Other: Meal Dinner Percent of Meal Consumed 100% Feeding Ability Independent # Bowel Movements 1 1 # of times incontinent of 1 1 Bowels Exam: Constitutional; Afebrile, cooperative, alert, not in distress. Eyes- No icterus, Pupils equal, reactive, No periorbital swelling Ears- Ext ear normal, hearing normal to conversation. Neck- Midline trachea, supple Respiratory system: Air Entry equal on both sides, No crackles or wheezing, no rhonchi. CVS- Rate rhythm regular, S1,S2 heard, no gallop, no rub. Abdomen- Soft nontender abdomen, no organomegaly, no tenderness, no guarding or rigidity, INCLUSION SPECIALIST- AOOx3, moving all extremities, no focal deficit noted. Medical - PN: Obj Da - Labs CBC & Chem 7: 10/13/16 04:00 10/13/16 04:00 Labs: Abnormal Lab Results 10/13/16 10/13/16 10/12/16 04:00 04:00 03:38 RBC 3.31 L Hgb 10.5 L Hct 31.8 L RDW 18.1 H Plt Count 121 L Seg Neutrophils % Lymphocytes % 7 L Monocytes % (Manual) 13 H Platelet Estimate Decreased A RBC Morphology Abnorm A Anisocytosis 1+ A Anion Gap BUN 45 H 39 H Creatinine 3.4 H 3.1 H Glucose Uric Acid Calcium 7.9 L 8.0 L Phosphorus Total Bilirubin 1.1 H Direct Bilirubin 0.4 H 0.4 H Alkaline Phosphatase 122 H Total Protein 5.2 L 5.5 L Albumin 2.9 L 3.0 L 10/12/16 10/11/16 10/11/16 03:38 03:30 03:30 RBC 3.49 L 3.30 L Hgb 11.0 L 10.5 L Hct 33.8 L 31.9 L RDW 18.4 H 17.5 H Plt Count 129 L 123 L Seg Neutrophils % 82 H 83 H Lymphocytes % 8 L 8 L Monocytes % (Manual) Platelet Estimate Decreased A Decreased A RBC Morphology Abnorm A Anisocytosis 1+ A 1+ A Anion Gap 17.0 H BUN 65 H Creatinine 3.9 H Glucose 125 H Uric Acid 10.3 H Calcium 7.9 L Phosphorus 4.9 H Total Bilirubin Direct Bilirubin 0.4 H Alkaline Phosphatase Total Protein 5.5 L Albumin 3.1 L Meds: Medications Acetaminophen (Tylenol) 650 mg PO Q4-6HP PRN PRN Reason: PAIN/FEVER > 101 Last Admin: 10/12/16 09:37 Dose: 650 mg Amlodipine Besylate (Norvasc) 5 mg PO DAILY [facility] Atorvastatin Calcium (Lipitor) 80 mg PO HS [facility] Last Admin: 10/12/16 21:21 Dose: 80 mg Buspirone HCl (Buspar) 15 mg PO BID [facility] Last Admin: 10/12/16 21:21 Dose: 15 mg Calcium Acetate (Phoslo) 667 mg PO TIDCC [facility] Last Admin: 10/12/16 17:47 Dose: 667 mg Carvedilol (Coreg) 12.5 mg PO BIDCC [facility] Last Admin: 10/12/16 17:48 Dose: 12.5 mg Docusate Sodium (Colace) 100 mg PO BID [facility] Last Admin: 10/12/16 21:04 Dose: 100 mg Furosemide (Lasix) 100 mg IV Q12 [facility] Last Admin: 10/12/16 21:04 Dose: 100 mg Gabapentin (Neurontin) 900 mg PO BID [facility] Last Admin: 10/12/16 21:04 Dose: 900 mg Guaifenesin/Codeine Phosphate (Robitussin Ac) 10 ml PO Q4HP PRN PRN Reason: Cough Acetaminophen (Ofirmev) 1,000 mg in 100 mls @ 200 mls/hr IV Q6HP PRN PRN Reason: PAIN/FEVER > 101 Last Infusion: 10/10/16 22:15 Dose: Infused Iron Carb/Multivit/Senior It Engineer/Folic Acid (Multivitamin W/Minerals) 1 tab PO DAILY [facility] Last Admin: 10/12/16 09:38 Dose: 1 tab Ondansetron HCl (Zofran) 4 mg IV Q4HP PRN PRN Reason: Nausea And Vomiting Oxycodone/Acetaminophen (Percocet 5-325 Mg) 1 tab PO Q4HP PRN PRN Reason: Pain Last Admin: 10/13/16 02:42 Dose: 1 tab Pantoprazole Sodium (Protonix) 40 mg PO QAMAC [facility] Last Admin: 10/13/16 07:27 Dose: 40 mg Senna/Docusate Sodium (Senna Plus Tablet) 1 tab PO HS [facility] Last Admin: 10/12/16 21:04 Dose: 1 tab Sertraline HCl (Zoloft) 100 mg PO BID [facility] Last Admin: 10/12/16 21:04 Dose: 100 mg Sodium Chloride (Saline Flush) 10 ml IV Q8 [facility] Last Admin: 10/13/16 05:40 Dose: 10 ml Trazodone HCl (Desyrel) 50 mg PO HSP PRN PRN Reason: Insomnia Vancomycin HCl (Vancomycin Per Pharmacy) 1 order IV UD [facility] Vancomycin HCl (Vancomycin Oral Ingrid) 250 mg PO QID [facility] Medical - PN: A/P - Time Spent With Patient Total time spent is greater than 50% in coordination of care (as documented) at patient's floor/unit and/or counseling patient: - Narrative A/P Narrative: ESRD with fluid overload- On HD as per nephrology, Place and Tunneled Cath in today. eliquis held for 24 hrs before procedure. Enterococcus UTI- Noted on microbiology, Sensitivities reviewed, iraheta sensitive, pt allergic to penicillin, continue vancomycin IV for now. Cdiff Colitis: Start on po vancomycin, Atelectasis vs pna: noted on chest x ray, will monitor for now unlikely pna, incentive spirometry and aggressive pulmonary toilet, if develops fever again, will broaden antibiotic spectrum. 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 fever resolved. CAD - on statin, bb, will resume asa after procedure, no cp or sob. DVT prophylaxis: resume eqlius when able, Diet Renal Medical - PN: Qual - VTE Deep Vein Thrombosis/Pulmonary Embolism Present on Admission: No
[2016-10-13] MEDS: CARVEDILOL 6.25 MG TABLET PO SCH ×2 (08:58→17:18)
[2016-10-13] MEDS ORDERED: amLODIPine 5 MG TABLET PO SCH (09:00)
[2016-10-13] MEDS ORDERED: VANCOMYCIN ORAL SOL 1,000 MG/10 ML BOTTLE PO SCH (09:00)
[2016-10-13] MEDS ORDERED: HEPARIN 5,000 UNIT/ML VIAL SQ SCH ×2 (09:00→09:45)
[2016-10-13] MEDS: CALCIUM ACETATE 667 MG CAPSULE PO SCH ×3 (09:11→21:23)
[2016-10-13] MEDS: SERTRALINE 50 MG TABLET PO SCH ×2 (09:11→21:20)
[2016-10-13] MEDS: busPIRone 5 MG TABLET PO SCH ×2 (09:11→21:21)
[2016-10-13] MEDS: GABAPENTIN 300 MG CAPSULE PO SCH ×2 (09:11→21:21)
[2016-10-13] MEDS: FUROSEMIDE 100 MG/10 ML VIAL IV SCH (09:12)
[2016-10-13] MEDS: MULTIVIT,THER IRON,CA,FA & MIN 1 TABLET PO SCH (09:12)
[2016-10-13] MEDS: DOCUSATE SODIUM 100 MG CAPSULE PO SCH ×2 (09:12→21:23)
[2016-10-13] MEDS ORDERED: ACETAMINOPHEN 325 MG TABLET PO PRN (10:34)
[2016-10-13] MEDS ORDERED: guaiFENesin/CODEINE 10 ML UDC PO PRN (10:34)
[2016-10-13] MEDS ORDERED: traZODone HCL 50 MG TABLET PO PRN (10:34)
[2016-10-13] MEDS ORDERED: ONDANSETRON 4 MG/2 ML VIAL IV PRN (10:34)
[2016-10-13] MEDS ORDERED: VANCOMYCIN PER PHARMACY IV SCH (10:34)
[2016-10-13] MEDS ORDERED: ACETAMINOPHEN 1,000 MG/100 ML BOTTLE IV PRN (10:34)
--- NOTE | 2016-10-13 14:12 | Nephrology Progress Note ---
Subjective Patient information: Note initiated : 10/13/16 at 2:07 pm Service Date, if different from initiated Date: [] Patient: Marcello Nelson 76 y/o M admitted on 10/09/16 for Abnormal Lab/ Hemodialysis, Volume Overload. Chief Complaint: [] Principal diagnosis: acute on chronic renal failure, fluid overload Interval history: no overnight events no SOB, CP, dizziness edema much improved diagnosed to enterococcal UTI and C diff colitis on antibiotics discussed with Dr Javier, plan to have TCC placed tomorrow Pertinent ROS: as above Objective - Vital Signs Vital signs: Vital Signs Temp Pulse Pulse Pulse Resp BP BP 10/13/16 14:01 88 165/114 10/13/16 13:30 80 161/88 10/13/16 13:10 98.1 F 80 154/96 10/13/16 11:36 98.5 F 80 82 16 10/13/16 07:31 98.4 F 88 20 173/101 10/13/16 05:38 10/13/16 04:00 98.9 F 94 H 16 10/13/16 00:00 98.8 F 92 H 16 10/12/16 21:35 98.2 F 89 16 10/12/16 16:00 98.8 F 74 16 BP Pulse Ox 10/13/16 14:01 10/13/16 13:30 10/13/16 13:10 10/13/16 11:36 160/101 99 10/13/16 07:31 98 10/13/16 05:38 96 10/13/16 04:00 149/91 97 10/13/16 00:00 145/80 98 10/12/16 21:35 152/86 98 10/12/16 16:00 96 Intake and Output 10/13/16 10/13/16 10/13/16 05:59 13:59 21:59 Intake Total 740 / 740 420 / 420 Output Total 850 / 850 846 / 846 319 / 319 Balance -110 / -110 -426 / -426 -319 / -319 Intake: Oral 740 / 740 420 / 420 Output: Urine Catheter Amount 800 / 800 650 / 650 Stool 50 / 50 Hemodialysis UF 196 / 196 319 / 319 Other: Meal Lunch Percent of Meal Consumed 90 # Voids 1 # Bowel Movements 1 1 # of times incontinent of 1 Bowels Intake & Output: Intake & Output 04/03/17 04/03/17 04/03/17 05:59 13:59 21:59 Intake Total 740 / 740 420 / 420 Output Total 850 / 850 846 / 846 319 / 319 Balance -110 / -110 -426 / -426 -319 / -319 Intake: Oral 740 / 740 420 / 420 Output: Urine Catheter Amount 800 / 800 650 / 650 Stool 50 / 50 Hemodialysis UF 196 / 196 319 / 319 Other: Meal Lunch Percent of Meal Consumed 90 # Voids 1 # Bowel Movements 1 1 # of times incontinent of 1 Bowels - General Appearance General appearance: appears started age, chronically ill EENT: mucous membranes moist Neck: no JVD Respiratory: clear Cardiology: no rub, edema, irregular rhythm Gastrointestinal: no tenderness, no guarding Integumentary: warm and dry, skin tear, hyperpigmentation Neurologic: alert and oriented x3 Musculoskeletal: no erythema, no cyanosis Psychiatric: mood/affect appropriate (does feel depressed about his medical issues ) - Lab 10/13/16 04:00 10/13/16 04:00 Most recent lab results Calcium 7.9 mg/dl (8.6-10.4) L 10/13/16 04:00 Phosphorus 3.2 mg/dL (2.7-4.5) 10/13/16 04:00 Magnesium 2.0 mg/dL (1.6-2.5) 10/13/16 04:00 Assessment and Plan (1) Acute on chronic renal failure HD today for 3.5 hrs using revaclear dialyser, 3K/2.5Ca dialysate, UF goal of 0.5-1L patient can be discharged after Tunneled cath placement tomorrow if other medical issues not a problem he will then have dialysis as outpatient please dose meds per HD HTN: uncontrolled amlodipine added today will change to oral diuretics, torsemide 40mg bid ct coreg at 12.5mg bid (home dose is 6.25mg bid so this needs [place] changed on discharged) neuropathy on high dose gabapentin: will need to taper and cut back to 300mg po maintenance dose to avoid adverse effects Anemia: Hb stable and above threshold for denise renal osteodystrophy: Phos improved, on phoslo for phosphate binding no hyperkalemia Will follow along Appreciate hospitalist help in managing this patient Status: Acute
[2016-10-13] MEDS ORDERED: cloNIDine HCL 0.1 MG TABLET PO ONE (14:45)
[2016-10-13] MEDS: VANCOMYCIN ORAL SOL 1,000 MG/10 ML BOTTLE PO SCH ×3 (16:53→21:24)
[2016-10-13] MEDS: TORSEMIDE 10 MG TABLET PO SCH (16:55)
[2016-10-13] MEDS: 0.9 % SODIUM CHLORIDE 10 ML SYRINGE IV SCH ×2 (16:55→21:24)
[2016-10-13] MEDS ORDERED: ATORVASTATIN 20 MG TABLET PO SCH (21:00)
[2016-10-13] MEDS ORDERED: FUROSEMIDE 100 MG/10 ML VIAL IV SCH (21:00)
[2016-10-13] MEDS ORDERED: SENNOSIDES/DOCUSATE SODIUM 1 TAB TABLET PO SCH (21:00)
[2016-10-13] MEDS: oxyCODONE/APAP 5/325MG TABLET PO PRN (21:28)
[2016-10-14] MEDS: oxyCODONE/APAP 5/325MG TABLET PO PRN (01:14)
[2016-10-14 05:38] LABS: Mean Cell Volume 95.7 fL (80.0-100.0); Mean Corpuscular HGB Conc 33.2 g/dL (31.0-36.0); Mean Corpuscular Hemoglobin 31.7 pg (26.0-34.0); Platelet Count 116 K/mcL (140-440); RBC 3.34 M/mcL (4.50-5.90)
[2016-10-14] MEDS: 0.9 % SODIUM CHLORIDE 10 ML SYRINGE IV SCH ×2 (05:46→13:55)
[2016-10-14 06:20] LABS: ALT/SGPT 13 U/l (0-40); Albumin 2.7 gm/dL (3.2-5.2); Alkaline Phosphatase 100 U/L (39-117); Bilirubin,Direct 0.4 mg/dL (0.0-0.3); Blood Urea Nitrogen 26 mg/dl (8-23); Gamma Glutamyl Transpeptidase 28 U/L (8-61); Magnesium 1.9 mg/dL (1.6-2.5); Uric Acid 4.6 mg/dL (2.5-8.0)
[2016-10-14 06:45] LABS: Vancomycin,Random 11.2 ug/ml
[2016-10-14 06:47] LABS: Anisocytosis 1+ (NONE SEEN); Band Neutrophils % 1 % (0-10); Eosinophils % (Manual) 7 % (0-7); Lymphocytes % 10 % (15-49); Monocytes % (Manual) 6 % (1-12); Myelocytes % 1 % (0-0); Platelet Estimate DECREASED (NORMAL); RBC Morphology ABNORM (NORMAL); Segmented Neutrophils % 75 % (38-78)
[2016-10-14] MEDS ORDERED: PANTOPRAZOLE 40 MG TABLET PO SCH (07:30)
[2016-10-14] MEDS: SERTRALINE 50 MG TABLET PO SCH (07:34)
[2016-10-14] MEDS: GABAPENTIN 300 MG CAPSULE PO SCH (07:34)
[2016-10-14] MEDS: TORSEMIDE 10 MG TABLET PO SCH ×2 (07:34→16:07)
[2016-10-14] MEDS: CARVEDILOL 6.25 MG TABLET PO SCH (07:35)
[2016-10-14] MEDS: DOCUSATE SODIUM 100 MG CAPSULE PO SCH (07:35)
[2016-10-14] MEDS: busPIRone 5 MG TABLET PO SCH (07:35)
[2016-10-14] MEDS: CALCIUM ACETATE 667 MG CAPSULE PO SCH ×2 (07:36→11:55)
[2016-10-14] MEDS: VANCOMYCIN ORAL SOL 1,000 MG/10 ML BOTTLE PO SCH ×3 (07:36→17:35)
[2016-10-14] MEDS ORDERED: MULTIVIT,THER IRON,CA,FA & MIN 1 TABLET PO SCH (09:00)
[2016-10-14] MEDS ORDERED: amLODIPine 5 MG TABLET PO SCH (09:00)
[2016-10-14] MEDS ORDERED: VANCOMYCIN 1,500 MG in 0.9 % SODIUM CHLORIDE 500 ML IV ONE (10:00)
--- NOTE | 2016-10-14 13:09 | Internal Med Progress Note ---
Medical - PN: Subj Patient information: Note initiated : 10/14/16 at 1:07 pm Service Date, if different from initiated Date: [] Patient: Marcello Nelson 76 y/o M admitted on 10/09/16 for Abnormal Lab/ Hemodialysis, Volume Overload. Chief Complaint: [] Interval history: 10/09- patient admitted with worsening shortness of breath and uremic symptoms. Referred by nephrology. BUN 91. Evidence of uremic encephalopathy/volume overload anasarca. However electrolytes stable not requiring emergent dialysis. Patient admitted for coordination of initiation of hemodialysis per nephrology. Admitted to telemetry in light of A. fib with occasional runs of RVR up to 130. 10/10- patient due for hemodialysis catheter placement at [place] by Dr. Dwight Javier. Patient consents for procedure. no overnight events. Foleys draining clear urine in response to high-dose Lasix per nephrology. Heart rate stable around 90s on twice-daily Coreg 10/11- Pt seen in ICU stable overnight, S/p temp HD catheter placement at [facility] , S/p HD yesterday, managed per Neph. Npo F/C/N/V. No active concerns. Tunnelled dialysis catheter placement prior to discharge as per Nephrology recommendations. 10/12 Transfer of Care new hospitalist on service. The patient seen examined, no acute overnight issues. The patient had low grade temp overnight. Denies any chest pains, cough, nausea or vomiting, Tolerating po well. he was feeling low and not sure if he wanted to continue with Hemodialysis given that he lives alone. I have resumed his anti depressants and reassess his situation. He was off eliquis since admission. Given his stent and afib, He was given 2.5mg eliquis yesterday and one dose this AM. He will be off anti coagulation now till he gets his catheter tomorrow. His Urine culture is positive for enterococcus, started on IV vancomycin for same till sensitivities come back. Plan is to get Tunneled cath in place which will likely happen tomorrow. CXR chest to r/o pna given new temp. 10/13: Pt seen examined, no fever overnight, sitting comfortably in chair having breakfast. Will continue HD and see how it works for him for now. he is off anticoagulation in anticipation of tunneled HD catheter today by Dr Javier at [facility] The patient CXR shows pna vs ateletasis, treat with incentive spirometery for now. The patient also had diarrhea, Cdiff positive and started on po vancomycin. Pt BP was on the higher end and we started him on amlodipine 5mg once daily. Plan to d/c to rehab once we have tunneled cath in place likely tomorrow or day. 4/4 pt seen examined, no acute overnight events, wants to go home after HD catheter, which will happen at 2 today in another hospital otherwise doing well. NPO now for procedure. If he returns from procedure in time, will talk with nephrology and consider D/ C today evening, vs tomorrow AM after HD. Pertinent ROS: Denies headache, dizziness Denies chest pain, palpitations Denies cough or shortness of breath Denies abdominal pain, nausea or vomiting. - Constitutional Vitals: Vital Signs Temp Pulse Resp BP Pulse Ox 98.4 F 97 H 18 155/92 97 10/14/16 11:53 10/14/16 11:53 10/14/16 11:53 10/14/16 11:53 10/14/16 11:53 Period Temp Pulse Resp BP Sys/Whittaker Pulse Ox Last 24 Hr 98.1 F-99.8 F 75-97 16-20 144-175/75-139 94-100 Intake and Output 10/13/16 10/14/16 10/14/16 21:59 05:59 13:59 Intake Total 650 / 650 500 / 500 Output Total 7337 / 7337 400 / 400 Balance -7337 / -7337 250 / 250 500 / 500 Intake & Output: Intake & Output 10/13/16 10/14/16 10/14/16 21:59 05:59 13:59 Intake Total 650 / 650 500 / 500 Output Total 7337 / 7337 400 / 400 Balance -7337 / -7337 250 / 250 500 / 500 Intake: IV 500 / 500 Oral 650 / 650 Output: Urine Catheter Amount 1050 / 1050 400 / 400 Hemodialysis UF 6287 / 6287 Other: # Bowel Movements 1 # of times incontinent of 1 1 Bowels Exam: Constitutional; Afebrile, cooperative, alert, not in distress. Eyes- No icterus, no periorbital swelling. Ears- Ext ear normal, hearing normal to conversation. Neck- Midline trachea, supple Respiratory system: Air Entry equal on both sides, No crackles or wheezing, no rhonchi. CVS- Rate normal rhythm irregular, S1,S2 heard, no gallop, no rub. Abdomen- Soft nontender abdomen, no organomegaly, no tenderness, no guarding or rigidity, FRONT END ENGINEER- AOOx3, moving all extremities, no focal deficit noted. Medical - PN: Obj Da - Labs CBC & Chem 7: 10/14/16 04:35 10/14/16 04:35 Labs: Abnormal Lab Results 10/14/16 10/14/16 10/13/16 04:35 04:35 18:38 RBC 3.34 L Hgb 10.6 L Hct 31.9 L RDW 18.0 H Plt Count 116 L Seg Neutrophils % Lymphocytes % 10 L Monocytes % (Manual) Myelocytes % 1 H Platelet Estimate Decreased A RBC Morphology Abnorm A Anisocytosis 1+ A PT 16.8 H INR 1.3 H BUN 26 H Creatinine 2.8 H Calcium 7.9 L Total Bilirubin 1.2 H Direct Bilirubin 0.4 H Alkaline Phosphatase Total Protein 5.3 L Albumin 2.7 L 10/13/16 10/13/16 10/12/16 04:00 04:00 03:38 RBC 3.31 L Hgb 10.5 L Hct 31.8 L RDW 18.1 H Plt Count 121 L Seg Neutrophils % Lymphocytes % 7 L Monocytes % (Manual) 13 H Myelocytes % Platelet Estimate Decreased A RBC Morphology Abnorm A Anisocytosis 1+ A PT INR BUN 45 H 39 H Creatinine 3.4 H 3.1 H Calcium 7.9 L 8.0 L Total Bilirubin 1.1 H Direct Bilirubin 0.4 H 0.4 H Alkaline Phosphatase 122 H Total Protein 5.2 L 5.5 L Albumin 2.9 L 3.0 L 10/12/16 03:38 RBC 3.49 L Hgb 11.0 L Hct 33.8 L RDW 18.4 H Plt Count 129 L Seg Neutrophils % 82 H Lymphocytes % 8 L Monocytes % (Manual) Myelocytes % Platelet Estimate Decreased A RBC Morphology Anisocytosis 1+ A PT INR BUN Creatinine Calcium Total Bilirubin Direct Bilirubin Alkaline Phosphatase Total Protein Albumin Meds: Medications Acetaminophen (Tylenol) 650 mg PO Q4-6HP PRN PRN Reason: PAIN/FEVER > 101 Amlodipine Besylate (Norvasc) 5 mg PO DAILY [facility] Last Admin: 10/14/16 07:36 Dose: 5 mg Atorvastatin Calcium (Lipitor) 80 mg PO HS [facility] Last Admin: 10/13/16 21:20 Dose: 80 mg Buspirone HCl (Buspar) 15 mg PO BID [facility] Last Admin: 10/14/16 07:35 Dose: 15 mg Calcium Acetate (Phoslo) 667 mg PO TIDCC [facility] Last Admin: 10/14/16 11:55 Dose: Not Given Carvedilol (Coreg) 12.5 mg PO BIDCC [facility] Last Admin: 10/14/16 07:35 Dose: 12.5 mg Docusate Sodium (Colace) 100 mg PO BID [facility] Last Admin: 10/14/16 07:35 Dose: 100 mg Gabapentin (Neurontin) 900 mg PO BID [facility] Last Admin: 10/14/16 07:34 Dose: 900 mg Guaifenesin/Codeine Phosphate (Robitussin Ac) 10 ml PO Q4HP PRN PRN Reason: Cough Acetaminophen (Ofirmev) 1,000 mg in 100 mls @ 200 mls/hr IV Q6HP PRN PRN Reason: PAIN/FEVER > 101 Iron Carb/Multivit/[place]/Folic Acid (Multivitamin W/Minerals) 1 tab PO DAILY [facility] Last Admin: 10/14/16 07:36 Dose: 1 tab Ondansetron HCl (Zofran) 4 mg IV Q4HP PRN PRN Reason: Nausea And Vomiting Oxycodone/Acetaminophen (Percocet 5-325 Mg) 1 tab PO Q4HP PRN PRN Reason: Pain Last Admin: 10/14/16 01:14 Dose: 1 tab Pantoprazole Sodium (Protonix) 40 mg PO QAMAC [facility] Last Admin: 10/14/16 07:35 Dose: 40 mg Senna/Docusate Sodium (Senna Plus Tablet) 1 tab PO HS [facility] Last Admin: 10/13/16 21:23 Dose: Not Given Sertraline HCl (Zoloft) 100 mg PO BID [facility] Last Admin: 10/14/16 07:34 Dose: 100 mg Sodium Chloride (Saline Flush) 10 ml IV Q8 [facility] Last Admin: 10/14/16 05:46 Dose: 10 ml Torsemide (Demadex) 40 mg PO BIDD [facility] Last Admin: 10/14/16 07:34 Dose: 40 mg Trazodone HCl (Desyrel) 50 mg PO HSP PRN PRN Reason: Insomnia Last Admin: 10/13/16 21:28 Dose: 50 mg Vancomycin HCl (Vancomycin Oral Ingrid) 250 mg PO QID [facility] Last Admin: 10/14/16 11:55 Dose: Not Given Vancomycin HCl (Vancomycin Per Pharmacy) 1 order IV UD [facility] Medical - PN: A/P - Time Spent With Patient Total time spent is greater than 50% in coordination of care (as documented) at patient's floor/unit and/or counseling patient: - Narrative A/P Narrative: ESRD with fluid overload- On HD as per nephrology, Tunneled Cath planned today. will resume anticoagulation after procedure. Enterococcus UTI- Noted on microbiology, Sensitivities reviewed, iraheta sensitive, pt allergic to penicillin, continue vancomycin IV for now, will d/c on orals Cdiff Colitis: on po vancomycin Doing well, Atelectasis vs pna: noted on chest x ray, will monitor for now unlikely pna, incentive spirometry and aggressive pulmonary toilet, if develops fever again, will broaden antibiotic spectrum. 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 fever resolved. CAD - on statin, bb, will resume asa after procedure, no cp or sob. HTN: Uncontrolled, statarted on amlodipine yesterday with good response, monitor for now, consider increasing dose as outpatient. DVT prophylaxis: resume eqlius when able, Diet Renal Medical - PN: Qual - VTE Deep Vein Thrombosis/Pulmonary Embolism Present on Admission: No
--- NOTE | 2016-10-14 17:12 | Discharge Summary ---
Medical - DS: Prov Patient information: Note initiated : 10/14/16 at 5:06 pm Service Date, if different from initiated Date: [] Patient: Marcello Nelson 76 y/o M admitted on 10/09/16 for Abnormal Lab/ Hemodialysis, Volume Overload. Chief Complaint: [] Date of admission: 10/09/16 23:47 Discharge date: 10/14/16 Primary care physician: [f_Reg Prim Care Provider] Medical - DS: Meds - Discharge Medications Prescriptions: Apixaban [Eliquis] 2.5 mg PO BID #60 tablet Carvedilol [Coreg] 12.5 mg PO BIDCC #60 tablet Ciprofloxacin HCl [Cipro] 500 mg PO DAILY #6 tablet Vancomycin Oral Ingrid 250 mg PO QID #120 bottle amLODIPine [Norvasc] 5 mg PO DAILY #30 tablet Active and Home Medications: Home Medications aspirin 81 mg chewable tablet 81 mg PO QDAY tab 01/15/15 [History Confirmed Last Taken 10/09/16 08:00] carvedilol 6.25 mg tablet 6.25 mg PO DAILY tab 01/15/15 [History Confirmed Last Taken 10/10/16 09:15] sertraline 100 mg tablet 100 mg PO BID tab 01/15/15 [History Confirmed Last Taken 10/09/16 08:00] atorvastatin 80 mg tablet 80 mg PO HS 90 Days 07/23/15 [History Confirmed Last Taken 10/08/16 21:00] apixaban 5 mg tablet 5 mg PO BID 30 Days 04/21/16 [History Confirmed 10/10/16 Last Taken 10/09/16 08:00] Gabapentin 900 mg PO BID@0900,2100 10/02/16 [History Confirmed 10/10/16 Last Taken 10/09/16 08:00] busPIRone [Buspar] 15 mg PO BID 10/02/16 [History Confirmed 10/10/16 Last Taken 10/09/16 09:00] morphine ER 15 mg tablet,extended release 15 mg PO BID 30 Days 10/02/16 [ History Confirmed 10/10/16 Last Taken 10/09/16 08:00] torsemide 20 mg tablet 40 mg PO BID 30 Days 10/08/16 [Rx Confirmed 10/10/16 Last Taken 10/09/16 08:00] Gabapentin 600 mg PO DAILY@1200 10/10/16 [History Confirmed 10/10/16 Last Taken Unknown] Omeprazole [PriLOSEC] 20 mg PO ACB 10/10/16 [History Confirmed 10/10/16 Last Taken Unknown] Medical - DS: Hosp Hospital course: Mr nelson is a 76 [address] male admitted from [facility] for shortness of berath , anuria and uremic symptoms. on 10/09, he had a BUN 91. Evidence of uremic encephalopathy/volume overload anasarca. However electrolytes stable not requiring emergent dialysis. Patient admitted for coordination of initiation of hemodialysis per nephrology. Admitted to telemetry in light of A. fib with occasional runs of RVR up to 130. The patient plan was to have tunneled cath placed intially, however due to excessive bleeding the patient was unable to get a tunneled cath. Instead a temp cath was placed to initiate dialysis. Today the patient was able to have a tunneled cath. Pt underwent HD sessions as per Nephrology, last dialysis was yesterday, he will be on TTS schedule, next session is on as outpatient. Urinary tract infection, Urine cultures positive for enterococcus, iraheta sensitive , pt is allergic to penicillin, therefore he will be discharged on ciprofloxcin 500mg qd x 6 days. He had 1-2 days of IV vancomycin while he was here. Cdiff: Diarrhea while inpatient, positive for cdiff treat with oral vancomycin x 14 days total. HTN Bu was uncontrolled while in the hospital. Treated with increasing the dose of his coreg from 6.25mg bid to 12.5mg bid. He is also started on low dose amlodipine 5mg once daily. Chr pain: Pt takes morhpine as well as high dose of gabapentin. The dose of gabapentin needs to be adjusted for renal function. Presently takes 900mg bid and 600mg in AM. I have stopped the 600mg AM dose, and he needs to further be weaned off the Gabapentin dose as per his renal function. Afib, with RVR on beta blockers for rate control, on eliquis for anti coagulation. Pt needs to be 2.5mg bid of eliquis. Not 5mg bid as per his renal clearnce. If possible and if pt is willing he would be better of on coumadin. Aortic stent,: On statin and asa to continue same. Pt will be d/c home with his daughter and sister to take care of him. All changes in medications and plan of care has been explained, all questions answered. Discharge diagnosis: Acute Kidney INjury - Time Spent with Patient Total time spent providing and/or coordinating discharge services: Greater than 30 minutes Medical - DS: Exam - Constitutional Vitals: Vital Signs Temp Pulse Resp BP BP BP Pulse Ox 10/14/16 11:53 98.4 F 97 H 18 155/92 97 10/14/16 07:45 95 10/14/16 06:48 98.3 F 80 18 157/89 95 10/14/16 04:00 98.3 F 75 18 145/75 95 10/14/16 00:00 98.2 F 83 18 152/85 96 10/13/16 19:38 99.8 F H 20 150/95 94 Intake and Output 10/14/16 10/14/16 10/14/16 05:59 13:59 21:59 Intake Total 650 / 650 500 / 500 Output Total 400 / 400 Balance 250 / 250 500 / 500 Intake: IV 500 / 500 Oral 650 / 650 Output: Urine Catheter Amount 400 / 400 Other: # Voids 1 # Bowel Movements 1 # of times incontinent of 1 Bowels Weight 194 lb Patient Weight 10/15/16 05:59 Weight 194 lb Additional comments: Constitutional; Afebrile, cooperative, alert, not in distress. Eyes- No icterus, , No periorbital swelling Ears- Ext ear normal, hearing normal to conversation. Neck- Midline trachea, supple Respiratory system: Air Entry equal on both sides, No crackles or wheezing, no rhonchi. CVS- Rate rhythm regular, S1,S2 heard, no gallop, no rub. VARIETY LATHE OPERATOR- AOOx3, moving all extremities, no gross focal deficit noted. Medical - DS: Data Labs on day of discharge: Labs from last 24 hours 10/14/16 10/14/16 10/14/16 05:30 04:35 04:35 WBC 6.5 RBC 3.34 L Hgb 10.6 L Hct 31.9 L MCV 95.7 MCH 31.7 MCHC 33.2 RDW 18.0 H Plt Count 116 L MPV 8.7 Total Counted 100 Seg Neutrophils % 75 Band Neutrophils % 1 Lymphocytes % 10 L Monocytes % (Manual) 6 Eosinophils % (Manual) 7 Myelocytes % 1 H Platelet Estimate Decreased A RBC Morphology Abnorm A Anisocytosis 1+ A PT INR Sodium 135 Potassium 3.5 Chloride 96 Carbon Dioxide 27 Anion Gap 12.0 BUN 26 H Creatinine 2.8 H GFR Calculation 21 Glucose 99 Uric Acid 4.6 Calcium 7.9 L Phosphorus 3.0 Magnesium 1.9 Total Bilirubin 1.2 H Direct Bilirubin 0.4 H GGT 28 AST 19 ALT 13 Alkaline Phosphatase 100 Lactate Dehydrogenase 128 Total Protein 5.3 L Albumin 2.7 L Globulin 2.6 Albumin/Globulin Ratio 1.0 Triglycerides 70 Random Vancomycin 11.2 Vancomycin Dose Not Reportable Vanco Last Dose Time Not Reportable 10/13/16 18:38 WBC RBC Hgb Hct MCV MCH MCHC RDW Plt Count MPV Total Counted Seg Neutrophils % Band Neutrophils % Lymphocytes % Monocytes % (Manual) Eosinophils % (Manual) Myelocytes % Platelet Estimate RBC Morphology Anisocytosis PT 16.8 H INR 1.3 H Sodium Potassium Chloride Carbon Dioxide Anion Gap BUN Creatinine GFR Calculation Glucose Uric Acid Calcium Phosphorus Magnesium Total Bilirubin Direct Bilirubin GGT AST ALT Alkaline Phosphatase Lactate Dehydrogenase Total Protein Albumin Globulin Albumin/Globulin Ratio Triglycerides Random Vancomycin Vancomycin Dose Vanco Last Dose Time Preliminary micro results at discharge 10/12/16 09:00 Blood Culture - Preliminary Blood 10/12/16 08:55 Blood Culture - Preliminary Blood Medical - DS: A/P - Patient/Caregiver Discharge Instructions Activity: increase activity as tolerated Diet: Renal Additional Instructions: Outpatient Dialysis Thursday, , Thursday at 3:30 pm Dose of Coreg is increased from 6.25mg to 12.5mg Start on amlodipine 5mg once daily for blood pressure Stop the gabapentin 600mg AM dose, only take the 900mg BID, you need to be weaned off this medication to a renally appropriate dose. To be done by your physician Take only 2.5mg Eliquis twice daily, start your asa 81 again. Take ciprofloxacin 500mg once daily for 6 days. Continue self cath as before. Follow up with your pcp in 7-14 days. - Follow up Plan Follow up with: Naila Savage ARNP [Primary Care Provider] - Disposition: Home Health Service Prognosis: Fair Rehab Potential: Fair I certify that the patient requires SNF services: No Overall status at discharge: patient is progressing back to baseline Medical - DS: Qual - VTE Deep Vein Thrombosis/Pulmonary Embolism Present on Admission: No
== END 2016-10-14 18:15 | disposition home health service (06) | DRG 698 ==
LOC: ED 20:54 → ICU 23:47 → MEDSUR 10-13 19:16
PROVIDERS: ADMIT Internal Medicine; ATTEND Internal Medicine

== ENCOUNTER 2017-08-10 13:50 | Inpatient (IN) ==
[2017-08-10 15:15] LABS: Basophils # (Auto) 0 K/mcL (0.0-0.3); Basophils % (Auto) 0.5 % (0.0-2.0); Eosinophils # (Auto) 0.1 K/mcL (0.0-0.7); Eosinophils % (Auto) 2.1 % (0.0-7.0); Granulocytes % (Auto) 78.4 % (38.0-78.0); Lymphocytes # (Auto) 0.7 K/mcL (1.5-4.8); Lymphocytes % (Auto) 12.5 % (15.5-49.0); Mean Cell Volume 98.7 fL (80.0-100.0); Mean Corpuscular HGB Conc 33.1 g/dL (31.0-36.0); Mean Corpuscular Hemoglobin 32.7 pg (26.0-34.0); Monocytes # (Auto) 0.4 K/mcL (0.1-0.9); Monocytes % (Auto) 6.5 % (1.0-12.0); Platelet Count 87 K/mcL (140-440); RBC 2.79 M/mcL (4.50-5.90); Red Cell Distribution Width 17.3 % (11.5-14.5)
--- NOTE | 2017-08-10 15:17 | Emergency Department Note ---
Weakness HPI - General Chief complaint: Weakness Stated complaint: weakness Time Seen by Provider: 08/10/17 14:29 Source: patient, family Mode of arrival: ambulatory Limitations: no limitations - History of Present Illness HPI Narrative: Patient presents with family to the ER. States "feels achy and weak". Apparently off dialysis for more than 25 days. Had been noncompliant prior to that point. Did contact Dr. Marmolejo, had been advised to come to the ER for labs. No chest pain no shortness of breath above his baseline, no fevers or chills. No abdominal complaints. No lower extremity edema. - Related Data Home Medications Medication Instructions Recorded Confirmed aspirin 81 mg chewable tablet 81 mg PO QDAY tab 01/15/15 06/24/17 apixaban 2.5 mg tablet 2.5 mg PO QDAY tab 07/30/17 pantoprazole 40 mg tablet,delayed 40 mg PO QAM 07/30/17 release Previous Rx's Medication Instructions Recorded atorvastatin 80 mg tablet 80 mg PO HS 90 Days #90 tab 03/20/17 buspirone 15 mg tablet 15 mg PO BID #90 tab 03/20/17 carvedilol 6.25 mg tablet 12.5 mg PO BIDCC #60 tab 03/20/17 cyanocobalamin (vit B-12) ER 2,000 2,000 mcg PO QDAY #90 tab 03/20/17 mcg tablet,extended release gabapentin 600 mg tablet 300 mg PO QDAY #30 tab 03/20/17 sertraline 100 mg tablet 100 mg PO BID #60 tab 03/20/17 vitamin B complex-vitamin C 100 1 tab PO QDAY #90 tab 03/20/17 mg-folic acid 1 mg tablet Allergies Allergy/AdvReac Type Severity Reaction Status Date / Time Penicillins Allergy Mild Hives Verified 10/11/16 10:18 Review of Systems All systems ED: reviewed and negative except as stated. Past Medical History - Past Medical History Attestation: Yes: The following information was validated with the patient. Medical history: Reports: arthritis, coronary artery disease, hypertension, renal disease (Dialysis dependent), other (Atrial fibrillation, coronary artery disease, cervical radiculopathy just of heart failure, hypertension, hyperlipidemia, hyperkalemia) Surgical history ED: Reports: coronary bypass (CABG), other (aaa, back surgery, CABG procedure, surgery, total right knee) - Social History smoking status: Former smoker Alcohol use: Reports: Occasionally Drug use: Reports: none Physical Exam Limitations: no limitations General appearance: alert, in no apparent distress Head: atraumatic Eye: Present: normal appearance ENT: normal exam, mucous membranes moist Neck: Present: normal inspection Chest: Present: normal inspection Respiratory: Present: normal lung sounds bilaterally. Absent: respiratory distress Cardiovascular: Present: regular rate, irregular rhythm Abdominal: Present: soft. Absent: tenderness Extremities: Present: normal inspection. Absent: pedal edema, pretibial edema Neurological: Present: alert, oriented X3 Skin: Present: warm Course Vital Signs Temperature 98.1 F 08/10/17 13:51 Pulse Rate 112 H 08/10/17 13:51 Respiratory Rate 22 08/10/17 13:51 Blood Pressure 158/104 08/10/17 13:51 Pulse Oximetry (%) 99 08/10/17 13:51 Temperature 98.1 F 08/10/17 13:51 Pulse Rate 118 H 08/10/17 15:01 Respiratory Rate 20 08/10/17 15:01 Blood Pressure 158/130 08/10/17 15:01 Pulse Oximetry (%) 98 08/10/17 15:01 Weakness - Lab Data Lab results reviewed: Yes I reviewed the patient's lab results. Result diagrams: 08/10/17 14:47 08/10/17 14:47 Lab Results 08/10/17 Range/Units 14:47 WBC 5.6 (4.5-11.0) K/mcL RBC 2.79 L (4.50-5.90) M/mcL Hgb 9.1 L (13.5-16.5) g/dL Hct 27.6 L (41.0-55.0) % MCV 98.7 (80.0-100.0) fL MCH 32.7 (26.0-34.0) pg MCHC 33.1 (31.0-36.0) g/dL RDW 17.3 H (11.5-14.5) % Plt Count 87 L (140-440) K/mcL MPV 8.7 (7.4-10.4) fL Gran % 78.4 H (38.0-78.0) % Lymph % (Auto) 12.5 L (15.5-49.0) % [place] % (Auto) 6.5 (1.0-12.0) % Eos % (Auto) 2.1 (0.0-7.0) % Baso % (Auto) 0.5 (0.0-2.0) % Gran # 4.4 (1.8-8.0) K/mcL Lymph # (Auto) 0.7 L (1.5-4.8) K/mcL [place] # (Auto) 0.4 (0.1-0.9) K/mcL Eos # (Auto) 0.1 (0.0-0.7) K/mcL Baso # (Auto) 0 (0.0-0.3) K/mcL Disposition Pt seen by [employer] DRIER OPERATOR/PA only: No Clinical Impression: CKD (chronic kidney disease) requiring chronic dialysis, Hyperkalemia Summary: signed out to Dr Abby Marmolejo called with lab result, requested to bedside Disposition: Still a Patient Referrals: Naila Savage ARNP [Primary Care Provider] -
[2017-08-10 15:55] LABS: ALT/SGPT 9 U/l (0-40); Albumin 3.6 gm/dL (3.2-5.2); Albumin/Globulin Ratio 1.4 (1.0-2.3); Alkaline Phosphatase 89 U/L (39-117); Blood Urea Nitrogen 56 mg/dl (8-23)
[2017-08-10] MEDS ORDERED: INSULIN REGULAR, HUMAN 1 UNIT/0.01 ML UNIT IV ONE (16:17)
[2017-08-10] MEDS ORDERED: CALCIUM GLUCONATE 7 MEQ in DEXTROSE 5% IN WATER 50 ML IV ONE (16:17)
[2017-08-10] MEDS ORDERED: ALBUTEROL SULFATE 5 MG/ML NEB SOLUTION BOTTLE NEB ONE (16:17)
[2017-08-10] MEDS ORDERED: DEXTROSE 50% 50 ML VIAL IV ONE (16:17)
[2017-08-10] MEDS ORDERED: SODIUM POLYSTYRENE SULFONATE 15 GM/60 ML SUSPENSION PO ONE (16:18)
[2017-08-10] MEDS ORDERED: CALCIUM GLUCONATE IV ONE ×3 (16:30→17:48)
[2017-08-10] MEDS ORDERED: WATER IV ONE (16:30)
[2017-08-10] MEDS ORDERED: SODIUM BICARBONATE 50 MEQ/50 ML VIAL IV SCH (16:30)
[2017-08-10] MEDS ORDERED: DEXTROSE 5% IV ONE (16:30)
[2017-08-10] MEDS ORDERED: SODIUM CHLORIDE 0.9% IV ONE ×2 (16:30→17:48)
[2017-08-10] MEDS ORDERED: CALCIUM GLUCONATE 4.65 MEQ/10 ML VIAL ONE (16:36)
--- NOTE | 2017-08-10 16:38 | XRay Report ---
HISTORY: Reason for Exam:weakness, chf? FINDINGS: Heart is moderately enlarged. This is unchanged since four 0-17. There are bibasilar alveolar opacities. There is greater involvement on the right side than left. Bibasilar infiltrates are also seen on four 0-17. The right lower lobe infiltrate is worse today than it was previously and the left side is less densely consolidated. The upper lung shukla are clear. The pulmonary vessels, best seen in the upper lobes are normal in caliber. No pleural effusion is present. Dual lumen catheter remains well-positioned in the superior vena cava. There are Kenny rods in the lumbar spine and lower thoracic spine. The patient has also had a prior sternotomy performed and cervical fusion. IMPRESSION: Stable moderate cardiomegaly Mild to moderate infiltrate in the right lower lobe with small left lower lobe infiltrate. The appearance is more compatible with that of pneumonia rather than pulmonary edema. Interpreted and Authenticated by: Allen Ro 08/10/17
[2017-08-10] MEDS ORDERED: SODIUM BICARBONATE 50 MEQ/50 ML VIAL ONE (16:45)
--- NOTE | 2017-08-10 16:47 | Nephrology Consult Note ---
History of Present Illness - Reason for Consult Patient information: Note initiated : 08/10/17 at 4:44 pm Service Date, if different from initiated Date: [] Patient: Marcello Nelson a 77 y/o M admitted on for weakness. Chief Complaint: [] Consult date: 08/10/17 end stage renal disease, hyperkalemia Requesting physician: Hussain Jerome - Chief Complaint SOB, weakness - History of Present Illness Mr Nelson is a 77 y/o white male with multiple medical issues who was requested to go to ER by me given progressive SOB and weakness Patient has h/o ESRD from HTN and ended up on dialysis post contrast procedure for aortic bypass repair Patient was maintained on three times a week dialysis but he decided to stop this and do it only if needed even though he was explained sudden cardiac from severe hyperkalemia. His dialysis was on 07/16 He did have dialysis cath dressing change since He states that he was getting more weak and had more SOB and hence decided to resume dialysis and came to ER today. One of his daughters have been staying with him to help with his ADL'S He denies nausea, vomiting no c/o fever or cough but CXR is suggestive of ? PNA he does have some worsening LE edema he denies CP no other issues Review of Systems All systems PM: reviewed and no additional remarkable complaints except as stated Past History Past medical history: HTN Afib/CHF, CAD h/o ESRD on HD PVD h/o neurogenic bladder dyslipidemia CVA h/o c diff infection Past surgical history: h/o trauma to spine and back surgery h/o Aortic aneurysm and endograft repair x 2 h/o knee surgery Past family history: father had CAD, mother had h/o ca breast Past social history: lives alone, currently one of his daughter is helping him out, plan to eventually move to [place] to be with his kids no addictions Medications and Allergies Home Medications Medication Instructions Recorded Confirmed Type aspirin 81 mg chewable tablet 81 mg PO QDAY tab 01/15/15 06/24/17 History atorvastatin 80 mg tablet 80 mg PO HS 90 Days #90 tab 03/20/17 06/24/17 Rx buspirone 15 mg tablet 15 mg PO BID #90 tab 03/20/17 06/24/17 Rx carvedilol 6.25 mg tablet 12.5 mg PO BIDCC #60 tab 03/20/17 06/24/17 Rx cyanocobalamin (vit B-12) ER 2,000 2,000 mcg PO QDAY #90 tab 03/20/17 06/24/17 Rx mcg tablet,extended release gabapentin 600 mg tablet 300 mg PO QDAY #30 tab 03/20/17 06/24/17 Rx sertraline 100 mg tablet 100 mg PO BID #60 tab 03/20/17 06/24/17 Rx vitamin B complex-vitamin C 100 1 tab PO QDAY #90 tab 03/20/17 06/24/17 Rx mg-folic acid 1 mg tablet apixaban 2.5 mg tablet 2.5 mg PO QDAY tab 07/30/17 History pantoprazole 40 mg tablet,delayed 40 mg PO QAM 07/30/17 History release Allergies Allergy/AdvReac Type Severity Reaction Status Date / Time Penicillins Allergy Mild Hives Verified 10/11/16 10:18 Exam - Vital Signs Vital signs: Temp Pulse Resp BP Pulse Ox 98.1 F 126 H 23 H 156/135 97 08/10/17 13:51 08/10/17 16:31 08/10/17 16:31 08/10/17 16:31 08/10/17 16:31 - General Appearance General appearance: appears started age, chronically ill EENT: mucous membranes moist Neck: JVD Respiratory: clear Cardiology: edema, rapid rhythm, irregular rhythm Gastrointestinal: no tenderness, no guarding Integumentary: warm and dry Neurologic: alert and oriented x3 Musculoskeletal: no erythema, no cyanosis Psychiatric: mood/affect appropriate Results - Lab Results 08/10/17 14:47 08/10/17 14:47 Most recent lab results Calcium 8.2 mg/dl (8.6-10.4) L 08/10/17 14:47 Assessment and Plan (1) ESRD (end stage renal disease) on dialysis Patient with severe hyperkalemia with EKG changes, hyperkalemia secondary to stopping HD does have some fluid overload CXR with PNA, pt has rapid ventricular rhythm mild anemia sec to ESRD labs discussed with the pt given his hemodynamics, Xray finding and severe hyperkalemia would recommend admission to tele requested to start hyperkalemia protocol telma given again severe hyperkalemia will arrange for dialysis TELMA PNA and management of other medical issues per hospitalist will need to involve case management to decide regarding goals of care in this patient eventual prognosis extremely poor Status: Acute
[2017-08-10] MEDS ORDERED: VANCOMYCIN PER PHARMACY IV SCH (17:48)
[2017-08-10] MEDS ORDERED: ONDANSETRON 4 MG/2 ML VIAL IV PRN (17:48)
[2017-08-10] MEDS ORDERED: CEFEPIME 1 GM VIAL IV ONE (17:48)
[2017-08-10] MEDS ORDERED: NALOXONE HCL 0.4 MG/ML VIAL IV PRN (17:48)
[2017-08-10] MEDS ORDERED: VANCOMYCIN 1,000 MG in 0.9 % SODIUM CHLORIDE 250 ML IV ONE (18:00)
--- NOTE | 2017-08-10 19:47 | Internal Med History&Physical ---
Medical - H&P: HPI Patient information: Note initiated : 08/10/17 at 7:43 pm Service Date, if different from initiated Date: [] Patient: Marcello Nelson 77 y/o M admitted on 08/10/17 for weakness. Chief Complaint: [] History of present illness: Mr. Nelson is a 77 year old Male with multiple medical issues, ESRd on HD, who had missed dialysis for 25 days presents ot the ER today with complaints of not feeling well over last few days. The patient noted that he did not feel dialysis was helping him much and therefore decided not to come for his HD sessions. HE was home and did not have any issues, unitil a few days ago, he started to feel tired,fatigued and worn out, he had shortness of breath with minimal exertion. He had some cough, with light sputum, no blood. The patient denies any fever, chills, does have poor appetite, has some headache, mild dizziness, denies any palpitations, chest pain, or sob at rest, he has no nausea or vomiting, able to urinate well, no constipation, intermittent diarrhea. The patient called his women's soccer coach with the above symptoms, and since he had no HD over 25 days, he was asked to come to the ER In the ER he was noted to have normal white count, but severly elvated K, at 7.5 , His bun was 56, creat 5.3, bicarb 17 , EKG showed lafb, rbbb, peak t waves and broaded qrs complex Valve Setter evaluated the patient promplty and advised medical management of his Elevated K till dialysis could be instituted. The pt got calcium gluconate, insulin dextrose, albuterol neb, and bicarbonaet INj, and was admitted to ICU for close monitoring patient x ray showed left lobe pna, blod cx and antibiotics ordered. All systems: reviewed and no additional remarkable complaints except as stated ( as per HPI) Medical - H&P: PMH Medical history: Medical History Chest wall pain (Acute) Postop check (Acute) Acute on chronic renal failure (Acute) Hyperparathyroidism due to renal insufficiency (Chronic) Renal artery stenosis (Chronic) Secondary hyperparathyroidism of renal origin (Chronic) UTI (urinary tract infection) (Acute) Renal failure, acute (Acute) Pulmonary hypertension (Acute) Peripheral vascular disease (Acute) Onychomycosis (Acute) Neuropathy (Acute) Acquired portal-systemic shunt (Acute) Hypertensive renal disease (Chronic 08/09/13) Hypertension (Acute) Hyperlipemia (Acute) Hyperkeratosis (Acute) Hyperkalemia (Acute 08/09/13) Edema (Acute) Depressive disorder (Acute) Disc degeneration (Acute) Cystitis, acute (Acute) Congestive heart failure (Acute) Chronic kidney disease, stage IV (severe) (Acute 09/23/13) Chronic kidney disease, stage III (moderate) (Chronic 07/20/13) Cervical radiculopathy (Acute) CAD (coronary artery disease) (Acute) Atrial fibrillation (Acute) Arthralgia (Acute) Surgical history: Past Surgical History History of knee surgery (Acute) History of total knee arthroplasty (Acute) History of coronary artery bypass graft (Acute) History of colonoscopy (Acute 01/02/91) History of back surgery (Acute) History of aortic aneurysm repair (Acute) Pertinent family history: Family History Brother Alcohol abuse Family history of lung disease Family history of coronary artery disease Father Congestive heart failure Family history of coronary artery disease Mother Family history of malignant neoplasm of breast Acute myocardial infarction Sister Essential hypertension Medical - H&P: Meds Home Medications Medication Instructions Recorded Confirmed Type aspirin 81 mg chewable tablet 81 mg PO QDAY tab 01/15/15 06/24/17 History atorvastatin 80 mg tablet 80 mg PO HS 90 Days #90 tab 03/20/17 06/24/17 Rx buspirone 15 mg tablet 15 mg PO BID #90 tab 03/20/17 06/24/17 Rx carvedilol 6.25 mg tablet 12.5 mg PO BIDCC #60 tab 03/20/17 06/24/17 Rx cyanocobalamin (vit B-12) ER 2,000 2,000 mcg PO QDAY #90 tab 03/20/17 06/24/17 Rx mcg tablet,extended release gabapentin 600 mg tablet 300 mg PO QDAY #30 tab 03/20/17 06/24/17 Rx sertraline 100 mg tablet 100 mg PO BID #60 tab 03/20/17 06/24/17 Rx vitamin B complex-vitamin C 100 1 tab PO QDAY #90 tab 03/20/17 06/24/17 Rx mg-folic acid 1 mg tablet apixaban 2.5 mg tablet 2.5 mg PO QDAY tab 01/18/18 History pantoprazole 40 mg tablet,delayed 40 mg PO QAM 07/30/17 History release Allergies Allergy/AdvReac Type Severity Reaction Status Date / Time Penicillins Allergy Mild Hives Verified 10/11/16 10:18 Medical - H&P: Exam - Constitutional Vitals: Temp Pulse Resp BP Pulse Ox 97.4 F 93 H 21 161/89 96 08/10/17 18:35 08/10/17 19:39 08/10/17 17:54 08/10/17 19:39 08/10/17 17:54 Exam: GENERAL: The patient is a well-developed, well-nourished in no apparent distress. Is alert and oriented x3. VITAL SIGNS: Reviewed and as noted elsewhere. HEENT: Head is normocephalic and atraumatic. Extraocular muscles are intact. Pupils are equal, round, and reactive to light. Nares appeared normal. Mouth appears any without lesions. Mucous membranes are dry NECK: Normal to inspection, Supple, No lymphadenopathy or thyromegaly. LUNGS: Air entry equal on both sides, no wheezing,bibasilar crackles left > right, No accessory muscles of respiration HEART: Regular rate and rhythm irregular, S1 and S2 heard, no Gallop, S3 or Rub Noted, ABDOMEN: Soft, nontender, and nondistended. Positive bowel sounds. No hepatosplenomegaly was noted. EXTREMITIES: No cyanosis, clubbing, rash, lesions or edema. NEUROLOGIC: Cranial nerves II through XII are grossly intact. Motor and Sensory System Grossly Intact PSYCHIATRIC: Normal affect, Normal Mood. Appropriate Behavior. SKIN: No ulceration or wounds noted, No jaundice, No rash noted. Medical - H&P: Reslt - Labs CBC & Chem 7: 08/10/17 14:47 08/10/17 14:47 Labs: Short CBC 08/10/17 Range/Units 14:47 WBC 5.6 (4.5-11.0) K/mcL Hgb 9.1 L (13.5-16.5) g/dL Hct 27.6 L (41.0-55.0) % Plt Count 87 L (140-440) K/mcL BMP 08/10/17 14:47 Sodium 138 Potassium 7.5 H* Chloride 108 Carbon Dioxide 17 L BUN 56 H Creatinine 5.3 H* Glucose 96 Calcium 8.2 L Liver Function 08/10/17 Range/Units 14:47 Total Bilirubin 0.3 (0.0-1.0) mg/dL AST 10 (0-37) U/l ALT 9 (0-40) U/l Alkaline Phosphatase 89 (39-117) U/L Albumin 3.6 (3.2-5.2) gm/dL Medical - H&P: A/P - Narrative A/P Narrative: A/P Acute hyperkalemia: with ekg changes, Calcium gluconate given promptly, nephrology plans of HD as soon as pt is moved to ICU, HCAP pneumonia: vanco and cefepime for now, blood cx ordered. trend labs ESRD on HD,: poor comploance with same, followed by nephrology HTN: elevated bp, resume home bp meds after dialysis and no concern for severe sepsis CHF: h/o systolic chf, last echo? patient does not seem to be today in acute exacerbation, JVP not raised, no gross edema, and lung crackes likely from pna than chf. DM: sliding scale insulin for now, and lantus Anemia: due to anemia of chr disease, monotor Acidosis/ nagma: due to renal failure, HD by nephrology, bicarb given in the ER AFib: ion eliqluis continue same, rate controlled, today. CAD: resume asa, and statin as soon as verified. DVT on eliqluis DNR code status Diet: renal diabetic, cardiac diet. Medical - H&P: Qual - Stroke Symptom Onset Unknown: No - VTE Deep Vein Thrombosis/Pulmonary Embolism Present on Admission: No Social History - Tobacco smoking status: Never smoker - Alcohol alcohol intake frequency: former alcohol drinker
[2017-08-10] MEDS ORDERED: SENNOSIDES 1 TABLET PO PRN (21:00)
[2017-08-10] MEDS: HEPARIN 5,000 UNIT/ML VIAL SQ SCH (23:41)
[2017-08-10] MEDS: FAMOTIDINE/PF 20 MG/2 ML VIAL IV SCH (23:42)
[2017-08-10] MEDS: 0.9 % SODIUM CHLORIDE 10 ML SYRINGE IV SCH (23:44)
[2017-08-11] MEDS: ACETAMINOPHEN 325 MG TABLET PO PRN ×2 (00:01→22:36)
[2017-08-11] MEDS: HYDROmorphone 2 MG/ML VIAL IV PRN ×2 (02:17→23:03)
[2017-08-11 05:34] LABS: Basophils # (Auto) 0 K/mcL (0.0-0.3); Basophils % (Auto) 0.5 % (0.0-2.0); Eosinophils # (Auto) 0.2 K/mcL (0.0-0.7); Eosinophils % (Auto) 3.6 % (0.0-7.0); Granulocytes % (Auto) 76.2 % (38.0-78.0); Lymphocytes # (Auto) 0.7 K/mcL (1.5-4.8); Lymphocytes % (Auto) 12.1 % (15.5-49.0); Mean Cell Volume 99.2 fL (80.0-100.0); Mean Corpuscular Hemoglobin 32.7 pg (26.0-34.0); Monocytes # (Auto) 0.5 K/mcL (0.1-0.9); Monocytes % (Auto) 7.6 % (1.0-12.0); Platelet Count 89 K/mcL (140-440); RBC 2.71 M/mcL (4.50-5.90); Red Cell Distribution Width 16.4 % (11.5-14.5)
[2017-08-11] MEDS: 0.9 % SODIUM CHLORIDE 10 ML SYRINGE IV SCH ×3 (05:53→21:39)
[2017-08-11 06:00] LABS: ALT/SGPT 8 U/l (0-40); Albumin 3.2 gm/dL (3.2-5.2); Albumin/Globulin Ratio 1.5 (1.0-2.3); Alkaline Phosphatase 82 U/L (39-117); Bilirubin,Direct < 0.2 mg/dL (0.0-0.3); Blood Urea Nitrogen 27 mg/dl (8-23); Gamma Glutamyl Transpeptidase 16 U/L (8-61); Uric Acid 3.5 mg/dL (2.5-8.0)
[2017-08-11] MEDS: HEPARIN 5,000 UNIT/ML VIAL SQ SCH ×2 (08:24→21:37)
--- NOTE | 2017-08-11 13:16 | Nephrology Progress Note ---
Subjective Patient information: Note initiated : 08/11/17 at 1:14 pm Service Date, if different from initiated Date: [] Patient: Marcello Nelson 77 y/o M admitted on 08/10/17 for Weakness/Hyperkalemia , Pneumonia. Chief Complaint: [] Principal diagnosis: hyperkalemia, pneumonia Interval history: Patient was dialysed yesterday, no overnight events feels better, did PT with no issues still feels weak but no SOB, CP no other concerns reported Pertinent ROS: as above Objective - Vital Signs Vital signs: Vital Signs Temp Pulse Resp BP BP Pulse Ox 08/11/17 12:14 86 16 98 08/11/17 12:05 98.6 F 89 18 162/106 100 08/11/17 11:03 85 99 08/11/17 11:01 78 146/85 98 08/11/17 10:01 85 144/69 98 08/11/17 09:08 83 12 100 08/11/17 09:01 86 17 149/92 96 08/11/17 08:02 101 H 21 168/90 96 08/11/17 08:00 99 H 21 168/90 95 08/11/17 07:14 93 H 17 174/104 97 08/11/17 07:08 16 08/11/17 07:07 19 08/11/17 07:00 174/104 08/11/17 06:01 83 13 195/111 99 08/11/17 06:00 97 08/11/17 05:40 83 16 94 08/11/17 05:01 83 179/107 97 08/11/17 04:01 89 16 165/97 96 08/11/17 03:01 88 12 147/95 95 08/11/17 02:01 101 H 19 147/95 91 08/11/17 01:35 85 22 95 08/11/17 01:01 65 21 131/102 96 08/11/17 00:52 96 08/11/17 00:01 99.5 F H 92 H 17 174/94 95 08/10/17 23:01 87 19 165/97 97 08/10/17 22:46 90 21 164/92 98 08/10/17 22:34 59 L 19 184/122 95 08/10/17 22:31 69 18 163/109 99 08/10/17 22:23 17 177/107 08/10/17 22:20 98.1 F 91 H 163/109 08/10/17 22:10 101 H 177/107 08/10/17 22:01 20 175/90 08/10/17 21:56 96 H 175/90 08/10/17 21:46 19 184/114 08/10/17 21:39 100 H 184/114 08/10/17 21:31 18 178/113 08/10/17 21:27 96 H 178/113 08/10/17 21:16 14 178/106 08/10/17 21:10 84 178/106 08/10/17 21:01 19 171/94 08/10/17 20:59 96 H 171/94 08/10/17 20:46 82 20 179/105 93 08/10/17 20:39 87 179/105 08/10/17 20:31 96 H 22 167/102 88 L 08/10/17 20:24 91 H 167/102 08/10/17 20:16 91 H 19 161/83 100 08/10/17 20:11 89 161/83 08/10/17 20:01 98.7 F 84 15 158/101 97 08/10/17 19:56 85 158/101 08/10/17 19:46 87 19 161/89 96 08/10/17 19:39 93 H 161/89 08/10/17 19:31 18 165/90 08/10/17 19:26 81 165/90 08/10/17 19:23 98 08/10/17 19:16 19 190/102 08/10/17 19:09 88 190/102 08/10/17 19:01 39 L 20 195/128 99 08/10/17 18:54 96 H 195/128 08/10/17 18:46 95 H 19 171/122 94 08/10/17 18:45 95 H 177/122 08/10/17 18:40 91 H 24 H 201/124 95 08/10/17 18:35 97.4 F 95 H 201/124 08/10/17 18:31 78 22 182/123 100 08/10/17 18:01 90 22 163/110 100 08/10/17 17:54 98.5 F 21 157/104 96 08/10/17 17:53 109 H 21 157/104 95 08/10/17 17:31 92 H 17 163/96 100 08/10/17 17:01 136 H 23 H 172/126 99 08/10/17 16:46 129 H 20 168/134 100 08/10/17 16:31 126 H 23 H 156/135 97 08/10/17 16:16 129 H 21 166/120 99 08/10/17 16:01 127 H 22 152/107 99 08/10/17 15:47 127 H 20 164/112 99 08/10/17 15:31 130 H 24 H 146/111 100 08/10/17 15:17 125 H 21 168/123 99 08/10/17 15:01 118 H 20 158/130 98 08/10/17 14:31 98 H 22 173/111 100 08/10/17 14:13 133 H 22 156/118 98 08/10/17 13:51 98.1 F 112 H 22 158/104 99 Intake and Output 08/10/17 08/11/17 08/11/17 21:59 05:59 13:59 Intake Total 840 / 840 240 / 240 Output Total 780 / 780 Balance 60 / 60 240 / 240 Intake: Oral 840 / 840 240 / 240 Output: Hemodialysis UF 780 / 780 Other: Meal Dinner Lunch Percent of Meal Consumed 100% 90 Feeding Ability Assist with Tray Set Up Assist with Tray Set Up # Voids 1 # Bowel Movements 1 # Emeses 1 Weight 173 lb 6.4 oz Intake & Output: Intake & Output 08/10/17 08/11/17 08/11/17 21:59 05:59 13:59 Intake Total 840 / 840 240 / 240 Output Total 780 / 780 Balance 60 / 60 240 / 240 Weight 173 lb 6.4 oz Intake: Oral 840 / 840 240 / 240 Output: Hemodialysis UF 780 / 780 Other: Meal Dinner Lunch Percent of Meal Consumed 100% 90 Feeding Ability Assist with Tray Set Up Assist with Tray Set Up # Voids 1 # Bowel Movements 1 # Emeses 1 - General Appearance General appearance: appears started age EENT: mucous membranes moist Neck: no JVD Respiratory: clear Cardiology: no rub, irregular rhythm Gastrointestinal: no tenderness, no guarding Integumentary: no rash, warm and dry Neurologic: no asterixis, alert and oriented x3 Musculoskeletal: no erythema, no cyanosis Psychiatric: mood/affect appropriate - Lab 08/11/17 03:49 08/11/17 03:49 Most recent lab results Calcium 7.9 mg/dl (8.6-10.4) L 08/11/17 03:49 Phosphorus 2.5 mg/dL (2.7-4.5) L 08/11/17 03:49 Magnesium 1.7 mg/dL (1.6-2.5) 08/11/17 03:49 Assessment and Plan (1) ESRD (end stage renal disease) on dialysis Status: Acute (2) ESRD (end stage renal disease) on dialysis no indication for dialysis discussed further plan, patient wants to continue with dialysis, states does not want to he however has been struggling as outpatient with short term memory loss due to which he his not able to help himself did discuss that it is unsafe for him to live by himself He wants to continues to aggressive intervention he would either need placement or he will have move to [place] to be closer to his family as he has very little help here in [place] Discussed with case management and Ms Schuster will discuss with family and let me know, would be happy to discuss this with them Appreciate hospitalist help in managing this pt Status: Acute (3) Anemia Status: Acute
--- NOTE | 2017-08-11 14:27 | Internal Med Progress Note ---
Medical - PN: Subj Patient information: Note initiated : 08/11/17 at 2:22 pm Service Date, if different from initiated Date: [] Patient: Marcello Nelson 77 y/o M admitted on 08/10/17 for Weakness/Hyperkalemia , Pneumonia. Chief Complaint: [] Interval history: Mr. Nelson is a 77 year old Male with multiple medical issues, ESRd on HD, who had missed dialysis for 25 days presents ot the ER today with complaints of not feeling well over last few days. The patient noted that he did not feel dialysis was helping him much and therefore decided not to come for his HD sessions. HE was home and did not have any issues, unitil a few days ago, he started to feel tired,fatigued and worn out, he had shortness of breath with minimal exertion. He had some cough, with light sputum, no blood. The patient denies any fever, chills, does have poor appetite, has some headache, mild dizziness, denies any palpitations, chest pain, or sob at rest, he has no nausea or vomiting, able to urinate well, no constipation, intermittent diarrhea. 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 The pt got calcium gluconate, insulin dextrose, albuterol neb, and bicarbonaet INj, and was admitted to ICU for close monitoring patient x ray showed left lobe pna, blod cx and antibiotics ordered. 08/11-patient doing better. Status post dialysis. Potassium down to 4.5 from 7.5. Breathing a lot better. On antibiotic coverage for healthcare pneumonia. Cultures negative so far. Plan to de-escalate antibiotics in 24 hours if clinically improved. Possible discharge with clinical improvement with outpatient hemodialysis. On today's at home medications. No overnight fever chills hemodynamic changes. No concerns per staff. Patient alert and sitting on chair nondistressed. - Constitutional Vitals: Vital Signs Temp Pulse Resp BP Pulse Ox 98.6 F 84 19 119/79 99 08/11/17 12:05 08/11/17 14:00 08/11/17 14:00 08/11/17 14:00 08/11/17 14:00 Period Temp Pulse Resp BP Sys/Whittaker Pulse Ox Last 24 Hr 97.4 F-99.5 F 39-136 12-24 119-201/69-135 88-100 Intake and Output 08/11/17 08/11/17 08/11/17 05:59 13:59 21:59 Intake Total 840 / 840 240 / 240 Output Total 780 / 780 Balance 60 / 60 240 / 240 Intake & Output: Intake & Output 08/11/17 08/11/17 08/11/17 05:59 13:59 21:59 Intake Total 840 / 840 240 / 240 Output Total 780 / 780 Balance 60 / 60 240 / 240 Intake: Oral 840 / 840 240 / 240 Output: Hemodialysis UF 780 / 780 Other: Meal Dinner Lunch Percent of Meal Consumed 100% 90 Feeding Ability Assist with Tray Set Up Assist with Tray Set Up # Voids 1 # Bowel Movements 1 # Emeses 1 General appearance: cooperative, no acute distress Exam: alert oriented nonlabored breathing Nondistended abdomen No telemetry events no anxiety Medical - PN: Obj Da - Labs CBC & Chem 7: 08/11/17 03:49 08/11/17 03:49 Labs: Abnormal Lab Results 08/11/17 08/11/17 08/10/17 03:49 03:49 14:47 RBC 2.71 L Hgb 8.9 L Hct 26.9 L RDW 16.4 H Plt Count 89 L Gran % Lymph % (Auto) 12.1 L Lymph # (Auto) 0.7 L Potassium 7.5 H* Carbon Dioxide 17 L BUN 27 H 56 H Creatinine 3.0 H 5.3 H* Glucose 111 H Calcium 7.9 L 8.2 L Phosphorus 2.5 L Total Protein 5.4 L 08/10/17 14:47 RBC 2.79 L Hgb 9.1 L Hct 27.6 L RDW 17.3 H Plt Count 87 L Gran % 78.4 H Lymph % (Auto) 12.5 L Lymph # (Auto) 0.7 L Potassium Carbon Dioxide BUN Creatinine Glucose Calcium Phosphorus Total Protein Meds: Medications Acetaminophen (Tylenol) 650 mg PO Q4-6HP PRN PRN Reason: PAIN/FEVER > 101 Last Admin: 08/11/17 00:01 Dose: 650 mg Cefepime HCl (Maxipime) 0.5 gm IV Q24H [facility] Famotidine (Pepcid) 20 mg IV HS [facility] Last Admin: 08/10/17 23:42 Dose: 20 mg Heparin Sodium (Porcine) (Heparin) 5,000 unit SQ Q12 [facility] Last Admin: 08/11/17 08:24 Dose: 5,000 unit Hydromorphone HCl (Dilaudid) 0.5 mg IV Q2HP PRN PRN Reason: PAIN LEVEL > 6 Last Admin: 08/11/17 02:17 Dose: 0.5 mg Naloxone HCl (Narcan) 0.1 mg IV Q2MIN PRN PRN Reason: Opiate Reversal Ondansetron HCl (Zofran) 4 mg IV Q4-6HP PRN PRN Reason: Nausea And Vomiting Last Admin: 08/11/17 06:52 Dose: 4 mg Senna (Senokot) 2 tab PO HSP PRN PRN Reason: Constipation Sodium Chloride (Saline Flush) 10 ml IV Q8 [facility] Last Admin: 08/11/17 05:53 Dose: 10 ml Vancomycin HCl (Vancomycin Per Pharmacy) 1 order [place] [facility] [place] - PN: A/P - Time Spent With Patient Total time spent is greater than 50% in coordination of care (as documented) at patient's floor/unit and/or counseling patient: 25 - 35 minutes - Narrative A/P Narrative: [id number] with ESRDadmitted with critical hyperkalemia after he missed dialysis for approximately 25 days * life threatening hyperkalemia with classic EKG changes with QRS widening and T waves. Status post emergent dialysis with potassium down from 7.5-4.5. * Healthcare associated pneumonia clinically improving on antibiotic coverage continue renally adjusted cefepime and vancomycin and de-escalate based on clinical improvement and cultures results. * Volume overload with CHF status post hemodialysis and fluid removal- clinically much improved with resolution of dyspnea.now on room air * ESRD on HD management nephrology * Hypertension restart home meds. * history of CAD on home meds * Anemia at baseline. * DM type II-continue basal prandial insulin * anticoagulation on apixiban * full code Plan * awaiting blood cultures rule out catheter infection * Continue antibiotic coverage and de-escalate as indicated * pre-existing medical condition management as above * Physical therapy Medical - PN: Qual - Stroke Symptom Onset Unknown: No - VTE Deep Vein Thrombosis/Pulmonary Embolism Present on Admission: No
[2017-08-11] MEDS ORDERED: CEFEPIME 1 GM VIAL IV SCH (15:00)
[2017-08-11] MEDS ORDERED: APIXABAN 5 MG TABLET PO ONE (15:30)
[2017-08-11] MEDS: CARVEDILOL 12.5 MG TABLET PO SCH (16:18)
[2017-08-11] MEDS ORDERED: VANCOMYCIN 1,000 MG in 0.9 % SODIUM CHLORIDE 250 ML IV ONE (19:00)
[2017-08-11] MEDS ORDERED: ATORVASTATIN 20 MG TABLET PO SCH (21:00)
[2017-08-11] MEDS: FAMOTIDINE/PF 20 MG/2 ML VIAL IV SCH (21:36)
[2017-08-11] MEDS: busPIRone 15 MG TABLET PO SCH (21:37)
[2017-08-11] MEDS: SERTRALINE 50 MG TABLET PO SCH (21:38)
[2017-08-12] MEDS: 0.9 % SODIUM CHLORIDE 10 ML SYRINGE IV SCH ×3 (05:46→21:59)
[2017-08-12 06:32] LABS: Basophils # (Auto) 0 K/mcL (0.0-0.3); Basophils % (Auto) 0.5 % (0.0-2.0); Eosinophils # (Auto) 0.2 K/mcL (0.0-0.7); Eosinophils % (Auto) 3.1 % (0.0-7.0); Granulocytes % (Auto) 68.3 % (38.0-78.0); Lymphocytes % (Auto) 18.1 % (15.5-49.0); Mean Cell Volume 99.3 fL (80.0-100.0); Mean Corpuscular Hemoglobin 32.8 pg (26.0-34.0); Monocytes # (Auto) 0.5 K/mcL (0.1-0.9); Platelet Count 92 K/mcL (140-440); RBC 2.72 M/mcL (4.50-5.90)
[2017-08-12 07:11] LABS: ALT/SGPT 8 U/l (0-40); Albumin 3.3 gm/dL (3.2-5.2); Albumin/Globulin Ratio 1.4 (1.0-2.3); Alkaline Phosphatase 83 U/L (39-117); Bilirubin,Direct < 0.2 mg/dL (0.0-0.3); Blood Urea Nitrogen 34 mg/dl (8-23); Gamma Glutamyl Transpeptidase 18 U/L (8-61); Uric Acid 4.6 mg/dL (2.5-8.0)
[2017-08-12] MEDS ORDERED: PANTOPRAZOLE 40 MG TABLET PO SCH (07:30)
[2017-08-12 07:38] LABS: Vitamin B12 1323 pg/ml (232-1245)
[2017-08-12] MEDS: CARVEDILOL 12.5 MG TABLET PO SCH ×2 (08:12→17:18)
[2017-08-12] MEDS: SERTRALINE 50 MG TABLET PO SCH ×2 (08:12→21:56)
[2017-08-12] MEDS: HEPARIN 5,000 UNIT/ML VIAL SQ SCH ×2 (08:12→21:59)
[2017-08-12] MEDS: busPIRone 15 MG TABLET PO SCH ×2 (08:44→21:55)
[2017-08-12] MEDS ORDERED: CARVEDILOL 12.5 MG TABLET PO ONE (08:45)
[2017-08-12] MEDS ORDERED: APIXABAN 5 MG TABLET PO SCH (09:00)
[2017-08-12] MEDS ORDERED: GABAPENTIN 300 MG CAPSULE PO SCH (09:00)
[2017-08-12] MEDS ORDERED: ASPIRIN 81 MG TAB.CHEW PO SCH (09:00)
--- NOTE | 2017-08-12 09:27 | Internal Med Progress Note ---
Medical - PN: Subj Patient information: Note initiated : 08/12/17 at 9:23 am Service Date, if different from initiated Date: [] Patient: Marcello Nelson 77 y/o M admitted on 08/10/17 for Weakness/Hyperkalemia , Pneumonia. Chief Complaint: [] Interval history: Mr. Nelson is a 77 year old Male with multiple medical issues, ESRd on HD, who had missed dialysis for 25 days presents ot the ER today with complaints of not feeling well over last few days. The patient noted that he did not feel dialysis was helping him much and therefore decided not to come for his HD sessions. HE was home and did not have any issues, unitil a few days ago, he started to feel tired,fatigued and worn out, he had shortness of breath with minimal exertion. He had some cough, with light sputum, no blood. The patient denies any fever, chills, does have poor appetite, has some headache, mild dizziness, denies any palpitations, chest pain, or sob at rest, he has no nausea or vomiting, able to urinate well, no constipation, intermittent diarrhea. The patient called his pressure control supervisor with the above symptoms, and since he had no HD over 25 days, he was asked to come to the ER In the ER he was noted to have normal white count, but severly elvated K, at 7.5 , His bun was 56, creat 5.3, bicarb 17 , EKG showed lafb, rbbb, peak t waves and broaded qrs complex Resident Surgeon evaluated the patient promplty and advised medical management of his Elevated K till dialysis could be instituted. The pt got calcium gluconate, insulin dextrose, albuterol neb, and bicarbonaet INj, and was admitted to ICU for close monitoring patient x ray showed left lobe pna, blod cx and antibiotics ordered. 08/11-patient doing better. Status post dialysis. Potassium down to 4.5 from 7.5. Breathing a lot better. On antibiotic coverage for healthcare pneumonia. Cultures negative so far. Plan to de-escalate antibiotics in 24 hours if clinically improved. Possible discharge with clinical improvement with outpatient hemodialysis. On today's at home medications. No overnight fever chills hemodynamic changes. No concerns per staff. Patient alert and sitting on chair nondistressed. 08/12-patient doing better. Status post hemodialysis 2. Cultures negative so far. nephrology following. Recommends additional 24-hour monitoring. No leukocytosis. Electrolytes within normal range. Transfer to telemetry. No overnight cardiac arrhythmias chest pain shortness of breath or concerns per staff - Constitutional Vitals: Vital Signs Temp Pulse Resp BP Pulse Ox 99.3 F H 90 17 179/108 96 08/12/17 04:00 08/12/17 06:00 08/12/17 07:01 08/12/17 07:01 08/12/17 07:01 Period Temp Pulse Resp BP Sys/Whittaker Pulse Ox Last 24 Hr 98.6 F-100.6 F 61-115 13-26 117-184/60-128 94-100 Intake and Output 08/11/17 08/12/17 08/12/17 21:59 05:59 13:59 Intake Total 930 / 930 360 / 360 Output Total 2 / 2 Balance 928 / 928 360 / 360 Weight 174 lb Intake & Output: Intake & Output 08/11/17 08/12/17 08/12/17 21:59 05:59 13:59 Intake Total 930 / 930 360 / 360 Output Total 2 / 2 Balance 928 / 928 360 / 360 Weight 174 lb Intake: IV 250 / 250 Vancomycin 1,000 mg In Sodium 250 / 250 Chloride 0.9% 250 ml @ 250 mls/ hr IV ONCE ONE Rx#:[id number] Oral 320 / 320 GI Tube Flush 360 / 360 360 / 360 Output: # of times incontinent of urine 2 / 2 Other: Meal Dinner Percent of Meal Consumed 100% # [place]es[place] 1 General appearance: cooperative, no acute distress Exam: alert , no anxiety nonlabored breathing Nondistended abdomen No telemetry events Minimally confused Medical - PN: Obj Da - Labs CBC & Chem 7: 08/12/17 03:54 08/12/17 03:54 Labs: Abnormal Lab Results 08/12/17 08/12/17 08/11/17 03:54 03:54 03:49 RBC 2.72 L Hgb 8.9 L Hct 27.0 L RDW 17.0 H Plt Count 92 L Gran % Lymph % (Auto) Lymph # (Auto) 1.0 L Potassium Carbon Dioxide BUN 34 H 27 H Creatinine 3.5 H 3.0 H Glucose 120 H 111 H Calcium 8.0 L 7.9 L Phosphorus 2.5 L Total Protein 5.7 L 5.4 L Vitamin B12 1323 H 08/11/17 08/10/17 08/10/17 03:49 14:47 14:47 RBC 2.71 L 2.79 L Hgb 8.9 L 9.1 L Hct 26.9 L 27.6 L RDW 16.4 H 17.3 H Plt Count 89 L 87 L Gran % 78.4 H Lymph % (Auto) 12.1 L 12.5 L Lymph # (Auto) 0.7 L 0.7 L Potassium 7.5 H* Carbon Dioxide 17 L BUN 56 H Creatinine 5.3 H* Glucose Calcium 8.2 L Phosphorus Total Protein Vitamin B12 Meds: Medications Acetaminophen (Tylenol) 650 mg PO Q4-6HP PRN PRN Reason: PAIN/FEVER > 101 Last Admin: 08/11/17 22:36 Dose: 650 mg Aspirin (Aspirin) 81 mg PO QDAY [facility] Last Admin: 08/12/17 08:12 Dose: 81 mg Atorvastatin Calcium (Lipitor) 80 mg PO [facility] Last Admin: 08/11/17 21:36 Dose: 80 mg Buspirone HCl (Buspar) 15 mg PO BID [facility] Last Admin: 08/12/17 08:44 Dose: 15 mg [facility] Cefepime HCl (Maxipime) 0.5 gm IV Q24H [facility] Last Admin: 08/11/17 15:17 Dose: 0.5 gm Famotidine (Pepcid) 20 mg IV [facility] Last Admin: 08/11/17 21:36 Dose: 20 mg Gabapentin (Neurontin) 300 mg PO DAILY [facility] Last Admin: 08/12/17 08:13 Dose: 300 mg Heparin Sodium (Porcine) (Heparin) 5,000 unit SQ Q12 [facility] Last Admin: 08/12/17 08:12 Dose: 5,000 unit Hydromorphone HCl (Dilaudid) 0.5 mg IV Q2HP PRN PRN Reason: PAIN LEVEL > 6 Last Admin: 08/11/17 23:03 Dose: 0.5 mg Naloxone HCl (Narcan) 0.1 mg IV Q2MIN PRN PRN Reason: Opiate Reversal Ondansetron HCl (Zofran) 4 mg IV Q4-6HP PRN PRN Reason: Nausea And Vomiting Last Admin: 08/11/17 06:52 Dose: 4 mg Pantoprazole Sodium (Protonix) 40 mg PO QAMAC [facility] Last Admin: 08/12/17 08:12 Dose: 40 mg Senna (Senokot) 2 tab PO HSP PRN PRN Reason: Constipation Sertraline HCl (Zoloft) 100 mg PO BID [facility] Last Admin: 08/12/17 08:12 Dose: 100 mg Sodium Chloride (Saline Flush) 10 ml IV Q8 [facility] Last Admin: 08/12/17 05:46 Dose: 10 ml Vancomycin HCl (Vancomycin Per Pharmacy) 1 order IV UD [facility] Medical - PN: A/P - Time Spent With Patient Total time spent is greater than 50% in coordination of care (as documented) at patient's floor/unit and/or counseling patient: 15 - 24 minutes - Narrative A/P Narrative: [id number] with ESRDadmitted with critical hyperkalemia after he missed dialysis for approximately 25 days * Critical Hyperkalemia 7.5 with classic EKG changes with QRS widening and T waves. Status post emergent dialysis. esolved * Healthcare associated pneumonia clinically improving on antibiotic coverage- continue renally adjusted cefepime and vancomycin. Cultures negative so far * Volume overload with CHF -resolved with hemodialysis.now on room air. * ESRD on HD management nephrology * suboptimally controlled hypertension managed per nephrology with active dose titration * history of CAD on home meds * Anemia at baseline around 9 * DM type II-continue basal prandial insulin * anticoagulation on apixiban * full code Plan * continue antibiotic coverage * Hemodialysis and hypertension management per nephrology * pre-existing medical condition management as above * Physical therapy * discharge as per nephrology recommendations likely in 24-48 hours if cultures negative. Medical - PN: Qual - Stroke Symptom Onset Unknown: No - VTE Deep Vein Thrombosis/Pulmonary Embolism Present on Admission: No
[2017-08-12] MEDS ORDERED: NALOXONE HCL 0.4 MG/ML VIAL IV PRN (10:05)
[2017-08-12] MEDS ORDERED: HYDROmorphone 2 MG/ML VIAL IV PRN (10:05)
[2017-08-12] MEDS ORDERED: SENNOSIDES 1 TABLET PO PRN (10:05)
[2017-08-12] MEDS ORDERED: VANCOMYCIN PER PHARMACY IV SCH (10:05)
[2017-08-12] MEDS ORDERED: ONDANSETRON 4 MG/2 ML VIAL IV PRN (10:05)
[2017-08-12] MEDS: ACETAMINOPHEN 325 MG TABLET PO PRN ×2 (13:12→22:04)
[2017-08-12 13:28] LABS: Iron 38 mcg/dl (61-157); Transferrin % Saturation 14 % (20-50); Unsaturated Iron Binding 227 mcg/dL (112-346)
[2017-08-12] MEDS ORDERED: cloNIDine HCL 0.1 MG TABLET PO ONE (13:45)
[2017-08-12] MEDS ORDERED: amLODIPine 10 MG TABLET PO ONE (16:10)
--- NOTE | 2017-08-12 16:13 | Nephrology Progress Note ---
Subjective Patient information: Note initiated : 08/12/17 at 4:11 pm Service Date, if different from initiated Date: [] Patient: Marcello Nelson 77 y/o M admitted on 08/10/17 for Weakness/Hyperkalemia , Pneumonia. Chief Complaint: [] Principal diagnosis: hyperkalemia, pneumonia Interval history: no overnight events though BP remains elevated and so does HR no other concerns denies SOB, CP no edema no other concerns Pertinent ROS: as above Objective - Vital Signs Vital signs: Vital Signs Temp Pulse Pulse Resp BP Pulse Ox 08/12/17 14:04 95 H 184/110 08/12/17 13:58 78 190/111 08/12/17 13:44 68 162/111 08/12/17 13:29 97 H 165/122 08/12/17 13:12 89 191/114 08/12/17 12:42 91 H 166/107 08/12/17 12:17 97 H 141/93 08/12/17 11:48 98.0 F 18 140/83 99 08/12/17 11:39 77 140/83 08/12/17 11:21 16 112/88 98 08/12/17 11:18 99.0 F H 77 112/88 08/12/17 11:01 16 127/66 98 08/12/17 10:01 18 144/76 95 08/12/17 09:01 14 161/126 96 08/12/17 08:01 98.4 F 16 178/96 95 08/12/17 08:00 118 H 18 96 08/12/17 07:01 17 179/108 96 08/12/17 06:01 21 178/128 100 08/12/17 06:00 90 17 168/119 97 08/12/17 05:46 80 20 96 08/12/17 05:02 93 H 16 174/95 98 08/12/17 04:01 88 13 149/99 98 08/12/17 04:00 99.3 F H 81 13 149/99 97 08/12/17 03:01 83 15 146/89 97 08/12/17 03:00 99 H 17 94 08/12/17 02:29 88 15 97 08/12/17 02:01 93 H 13 134/67 97 08/12/17 01:03 107 H 17 97 08/12/17 01:00 114 H 19 170/110 97 08/12/17 00:15 91 H 15 97 08/12/17 00:01 99.3 F H 92 H 16 117/60 96 08/11/17 23:10 61 19 95 08/11/17 23:04 99 H 20 159/119 98 08/11/17 23:02 96 H 19 161/101 99 08/11/17 23:01 68 18 164/104 96 08/11/17 22:36 100.6 F H 08/11/17 22:31 88 18 98 08/11/17 22:01 91 H 26 H 138/78 97 08/11/17 21:14 89 19 100 08/11/17 21:01 99.9 F H 85 18 129/68 99 08/11/17 20:52 80 17 99 08/11/17 20:01 86 20 158/92 99 08/11/17 20:00 99.0 F H 90 14 158/92 99 08/11/17 19:01 95 H 16 148/103 99 08/11/17 18:30 87 20 97 08/11/17 17:12 19 08/11/17 17:01 98 H 18 184/103 99 08/11/17 16:43 84 17 164/107 100 08/11/17 16:30 91 H 22 175/108 99 08/11/17 16:16 84 20 100 Intake and Output 08/12/17 08/12/17 08/12/17 05:59 13:59 21:59 Intake Total 360 / 360 Output Total 300 / 300 1502 / 1502 Balance 360 / 360 -300 / -300 -1502 / -1502 Intake: GI Tube Flush 360 / 360 Output: Void Amount 300 / 300 # of times incontinent of urine 2 / 2 Hemodialysis UF 1500 / 1500 Other: Weight 174 lb Patient Weight 08/13/17 05:59 Weight 174 lb Intake & Output: Intake & Output 08/12/17 08/12/17 08/12/17 05:59 13:59 21:59 Intake Total 360 / 360 Output Total 300 / 300 1502 / 1502 Balance 360 / 360 -300 / -300 -1502 / -1502 Weight 174 lb Intake: GI Tube Flush 360 / 360 Output: Void Amount 300 / 300 # of times incontinent of urine 2 / 2 Hemodialysis UF 1500 / 1500 - General Appearance General appearance: appears started age, chronically ill EENT: mucous membranes moist Neck: no JVD Respiratory: clear Cardiology: no rub, no edema, irregular rhythm Gastrointestinal: no tenderness, no guarding Integumentary: warm and dry Neurologic: alert and oriented x3 Musculoskeletal: no erythema Psychiatric: mood/affect appropriate - Lab 08/12/17 03:54 08/12/17 03:54 Most recent lab results Calcium 8.0 mg/dl (8.6-10.4) L 08/12/17 03:54 Phosphorus 3.1 mg/dL (2.7-4.5) 08/12/17 03:54 Magnesium 1.8 mg/dL (1.6-2.5) 08/12/17 03:54 Assessment and Plan (1) ESRD (end stage renal disease) on dialysis HD done today for 3 hrs using revaclear dialyser, 2K/2.5Ca dialysate, UF goal of 0.5-1L next HD on thursday HTN: uncontrolled given dose of clonidine with some improvement coreg increased to 25mg bid and amlodipine will be added will follow and optimize if needed anemia: low tsat will initiate IV iron replacement other labs stable Will follow Status: Acute (2) ESRD (end stage renal disease) on dialysis no indication for dialysis discussed further plan, patient wants to continue with dialysis, states does not want to he however has been struggling as outpatient with short term memory loss due to which he his not able to help himself did discuss that it is unsafe for him to live by himself He wants to continues to aggressive intervention he would either need placement or he will have move to [place] to be closer to his family as he has very little help here in [place] Discussed with case management and Ms Schuster will discuss with family and let me know, would be happy to discuss this with them Appreciate hospitalist help in managing this pt Status: Acute (3) Anemia Status: Acute
[2017-08-12] MEDS ORDERED: CARVEDILOL 12.5 MG TABLET PO SCH (17:30)
[2017-08-12] MEDS ORDERED: VANCOMYCIN 1,000 MG in 0.9 % SODIUM CHLORIDE 250 ML IV ONE (18:00)
[2017-08-12] MEDS: FAMOTIDINE/PF 20 MG/2 ML VIAL IV SCH (21:54)
[2017-08-12] MEDS: ATORVASTATIN 20 MG TABLET PO SCH (21:54)
[2017-08-12] MEDS: CEFEPIME 1 GM VIAL IV SCH (21:56)
[2017-08-13] MEDS: 0.9 % SODIUM CHLORIDE 10 ML SYRINGE IV SCH ×3 (05:24→20:16)
[2017-08-13] MEDS: ACETAMINOPHEN 325 MG TABLET PO PRN (05:28)
[2017-08-13 06:26] LABS: Basophils # (Auto) 0 K/mcL (0.0-0.3); Basophils % (Auto) 0.6 % (0.0-2.0); Eosinophils # (Auto) 0.2 K/mcL (0.0-0.7); Eosinophils % (Auto) 3.6 % (0.0-7.0); Granulocytes % (Auto) 65.4 % (38.0-78.0); Lymphocytes % (Auto) 20.2 % (15.5-49.0); Mean Cell Volume 97.7 fL (80.0-100.0); Mean Corpuscular HGB Conc 33.6 g/dL (31.0-36.0); Mean Corpuscular Hemoglobin 32.8 pg (26.0-34.0); Monocytes # (Auto) 0.5 K/mcL (0.1-0.9); Monocytes % (Auto) 10.2 % (1.0-12.0); Platelet Count 99 K/mcL (140-440); RBC 2.66 M/mcL (4.50-5.90); Red Cell Distribution Width 16.7 % (11.5-14.5)
[2017-08-13] MEDS ORDERED: IRON SUCROSE COMPLEX 100 MG/5 ML VIAL IV ONE (06:44)
[2017-08-13] MEDS: PANTOPRAZOLE 40 MG TABLET PO SCH (06:55)
[2017-08-13 07:06] LABS: ALT/SGPT 7 U/l (0-40); Albumin 3.4 gm/dL (3.2-5.2); Albumin/Globulin Ratio 1.6 (1.0-2.3); Alkaline Phosphatase 79 U/L (39-117); Bilirubin,Direct < 0.2 mg/dL (0.0-0.3); Blood Urea Nitrogen 22 mg/dl (8-23); Gamma Glutamyl Transpeptidase 17 U/L (8-61); Uric Acid 3.2 mg/dL (2.5-8.0)
[2017-08-13] MEDS: HEPARIN 5,000 UNIT/ML VIAL SQ SCH ×2 (08:44→20:15)
[2017-08-13] MEDS: APIXABAN 5 MG TABLET PO SCH (08:45)
[2017-08-13] MEDS: GABAPENTIN 300 MG CAPSULE PO SCH (08:46)
[2017-08-13] MEDS: SERTRALINE 50 MG TABLET PO SCH ×2 (08:46→20:15)
[2017-08-13] MEDS: busPIRone 15 MG TABLET PO SCH ×2 (08:47→20:16)
[2017-08-13] MEDS: amLODIPine 5 MG TABLET PO SCH (08:47)
[2017-08-13] MEDS: ASPIRIN 81 MG TAB.CHEW PO SCH (08:47)
[2017-08-13] MEDS: CARVEDILOL 12.5 MG TABLET PO SCH ×2 (08:52→17:53)
[2017-08-13] MEDS ORDERED: amLODIPine 10 MG TABLET PO SCH (09:00)
--- NOTE | 2017-08-13 17:00 | Nephrology Progress Note ---
Subjective Patient information: Note initiated : 08/13/17 at 4:58 pm Service Date, if different from initiated Date: [] Patient: Marcello Nelson 77 y/o M admitted on 08/10/17 for Weakness/Hyperkalemia , Pneumonia. Chief Complaint: [] Principal diagnosis: hyperkalemia, pneumonia Interval history: no new issues denies SOB, CP no edema confused overnight BP control improved with addition of amlodipine Pertinent ROS: as above Objective - Vital Signs Vital signs: Vital Signs Temp Pulse Resp BP Pulse Ox 08/13/17 16:00 97.9 F 76 18 140/71 96 08/13/17 12:00 97.8 F 78 18 146/74 96 08/13/17 07:36 97.0 F 85 18 141/85 98 08/13/17 04:00 98.5 F 84 16 126/84 93 08/13/17 00:00 97.3 F 81 14 120/80 95 08/12/17 19:44 96.8 F L 77 18 116/60 93 Intake and Output 08/13/17 08/13/17 08/13/17 05:59 13:59 21:59 Intake Total 100 / 100 120 / 120 240 / 240 Output Total Balance 97 / 97 120 / 120 239 / 239 Intake: Oral 100 / 100 120 / 120 240 / 240 Output: # of times incontinent of urine Other: Meal Breakfast Lunch Percent of Meal Consumed 100% 100% Feeding Ability Independent Independent Weight 171 lb 8 oz Intake & Output: Intake & Output 08/13/17 08/13/17 08/13/17 05:59 13:59 21:59 Intake Total 100 / 100 120 / 120 240 / 240 Output Total Balance 97 / 97 120 / 120 239 / 239 Weight 171 lb 8 oz Intake: Oral 100 / 100 120 / 120 240 / 240 Output: # of times incontinent of urine Other: Meal Breakfast Lunch Percent of Meal Consumed 100% 100% Feeding Ability Independent Independent - General Appearance General appearance: appears started age EENT: mucous membranes moist Neck: no JVD Respiratory: clear Cardiology: no edema, irregular rhythm Gastrointestinal: no tenderness, no guarding Integumentary: no rash, warm and dry Neurologic: alert and oriented x3 Musculoskeletal: no erythema, no cyanosis Psychiatric: mood/affect appropriate - Lab 08/13/17 05:17 08/13/17 05:17 Most recent lab results Calcium 8.1 mg/dl (8.6-10.4) L 08/13/17 05:17 Phosphorus 3.0 mg/dL (2.7-4.5) 08/13/17 05:17 Magnesium 1.8 mg/dL (1.6-2.5) 08/13/17 05:17 Assessment and Plan (1) ESRD (end stage renal disease) on dialysis HD tomorrow HTN: improved control, ct coreg and amlodipine anemia: low tsat IV iron today will ct every day other labs stable patient will change to swing status, unsafe for discharge, no caregivers locally , has confusion from short term memory loss, case management will touch base with his daughters/POA and arrange for safe discharge plan Will follow Status: Acute (2) ESRD (end stage renal disease) on dialysis no indication for dialysis discussed further plan, patient wants to continue with dialysis, states does not want to he however has been struggling as outpatient with short term memory loss due to which he his not able to help himself did discuss that it is unsafe for him to live by himself He wants to continues to aggressive intervention he would either need placement or he will have move to [place] to be closer to his family as he has very little help here in [place] Discussed with case management and Ms Schuster will discuss with family and let me know, would be happy to discuss this with them Appreciate hospitalist help in managing this pt Status: Acute (3) Anemia Status: Acute
--- NOTE | 2017-08-13 18:58 | Internal Med Progress Note ---
Medical - PN: Subj Patient information: Note initiated : 08/13/17 at 6:55 pm Service Date, if different from initiated Date: [] Patient: Marcello Nelson 77 y/o M admitted on 08/10/17 for Weakness/Hyperkalemia , Pneumonia. Chief Complaint: f/u missed HD, PNA Interval history: Mr. Nelson is a 77 year old Male with multiple medical issues, ESRD on HD, who had missed dialysis for 25 days presents ot the ER today with complaints of not feeling well over last few days. The patient noted that he did not feel dialysis was helping him much and therefore decided not to come for his HD sessions. HE was home and did not have any issues, until a few days ago, he started to feel tired,fatigued and worn out, he had shortness of breath with minimal exertion. He had some cough, with light sputum, no blood. The patient denies any fever, chills, does have poor appetite, has some headache, mild dizziness, denies any palpitations, chest pain, or sob at rest, he has no nausea or vomiting, able to urinate well, no constipation, intermittent diarrhea. The patient called his superintendent meters with the above symptoms, and since he had no HD over 25 days, he was asked to come to the ER In the ER he was noted to have normal white count, but severely elevated K, at 7.5, His bun was 56, creat 5.3, bicarb 17, EKG showed lafb, rbbb, peak t waves and broadened qrs complex Environmental Services Aide evaluated the patient promptly and advised medical management of his Elevated K till dialysis could be instituted. The pt got calcium gluconate, insulin dextrose, albuterol neb, and bicarbonate INj, and was admitted to ICU for close monitoring patient x ray showed left lobe pna, blood cx and antibiotics ordered. 08/11-patient doing better. Status post dialysis. Potassium down to 4.5 from 7.5. Breathing a lot better. On antibiotic coverage for healthcare pneumonia. Cultures negative so far. Plan to de-escalate antibiotics in 24 hours if clinically improved. Possible discharge with clinical improvement with outpatient hemodialysis. On today's at home medications. No overnight fever chills hemodynamic changes. No concerns per staff. Patient alert and sitting on chair non-distressed. 08/12-patient doing better. Status post hemodialysis 2. Cultures negative so far. nephrology following. Recommends additional 24-hour monitoring. No leukocytosis. Electrolytes within normal range. Transfer to telemetry. No overnight cardiac arrhythmias chest pain shortness of breath or concerns per staff 08/13-no particular complaints today. No dyspnea. No nausea or vomiting. Appetite is improved. Case discussed with Dr. Marmolejo, patient does not have local support, has memory issues, possibly from recent cerebrovascular accident. Not safe for discharge, as does not fully understand and follow up with dialysis. - Constitutional Vitals: Vital Signs Temp Pulse Resp BP Pulse Ox 97.9 F 76 18 140/71 96 08/13/17 16:00 08/13/17 16:00 08/13/17 16:00 08/13/17 16:00 08/13/17 16:00 Period Temp Pulse Resp BP Sys/Whittaker Pulse Ox Last 24 Hr 96.8 F-98.5 F 76-85 14-18 116-146/60-85 93-98 Intake and Output 08/13/17 08/13/17 08/13/17 05:59 13:59 21:59 Intake Total 100 / 100 120 / 120 240 / 240 Output Total Balance 97 / 97 120 / 120 239 / 239 Weight 171 lb 8 oz Intake & Output: Intake & Output 08/13/17 08/13/17 08/13/17 05:59 13:59 21:59 Intake Total 100 / 100 120 / 120 240 / 240 Output Total Balance 97 / 97 120 / 120 239 / 239 Weight 171 lb 8 oz Intake: Oral 100 / 100 120 / 120 240 / 240 Output: # of times incontinent of urine Other: Meal Breakfast Lunch Percent of Meal Consumed 100% 100% Feeding Ability Independent Independent Exam: General: Sitting up eating dinner, no acute distress Chest: Clear, no rales Cardiovascular: Irregular, no edema Abdomen: Soft, nontender Neuro: Alert, oriented to self,in the hospital, is not fully appear to grasp severity of illness Medical - PN: Obj Da - Labs CBC & Chem 7: 08/13/17 05:17 08/13/17 05:17 Labs: Abnormal Lab Results 08/13/17 08/13/17 08/12/17 05:17 05:17 03:54 RBC 2.66 L Hgb 8.7 L Hct 26.0 L RDW 16.7 H Plt Count 99 L Lymph % (Auto) Lymph # (Auto) 1.0 L BUN 34 H Creatinine 2.5 H 3.5 H Glucose 120 H Calcium 8.1 L 8.0 L Phosphorus Iron 38 L Transferrin % Sat 14 L Total Protein 5.5 L 5.7 L Globulin 2.1 L Vitamin B12 1323 H 08/12/17 08/11/17 08/11/17 03:54 03:49 03:49 RBC 2.72 L 2.71 L Hgb 8.9 L 8.9 L Hct 27.0 L 26.9 L RDW 17.0 H 16.4 H Plt Count 92 L 89 L Lymph % (Auto) 12.1 L Lymph # (Auto) 1.0 L 0.7 L BUN 27 H Creatinine 3.0 H Glucose 111 H Calcium 7.9 L Phosphorus 2.5 L Iron Transferrin % Sat Total Protein 5.4 L Globulin Vitamin B12 Meds: Medications Acetaminophen (Tylenol) 650 mg PO Q4-6HP PRN PRN Reason: PAIN/FEVER > 101 Last Admin: 08/13/17 05:28 Dose: 650 mg Amlodipine Besylate (Norvasc) 5 mg PO DAILY [facility] Last Admin: 08/13/17 08:47 Dose: 5 mg Aspirin (Aspirin) 81 mg PO QDAY [facility] Last Admin: 08/13/17 08:47 Dose: 81 mg Atorvastatin Calcium (Lipitor) 80 mg PO HS [facility] Last Admin: 08/12/17 21:54 Dose: 80 mg Buspirone HCl (Buspar) 15 mg PO BID [facility] Last Admin: 08/13/17 08:47 Dose: 15 mg [facility] Last Admin: 08/13/17 17:53 Dose: 25 mg Cefepime HCl (Maxipime) 0.5 gm IV Q24H [facility] Last Admin: 08/12/17 21:56 Dose: 0.5 gm Famotidine (Pepcid) 20 mg IV HS [facility] Last Admin: 08/12/17 21:54 Dose: 20 mg Gabapentin (Neurontin) 300 mg PO DAILY [facility] Last Admin: 08/13/17 08:46 Dose: 300 mg Heparin Sodium (Porcine) (Heparin) 5,000 unit SQ Q12 [facility] Last Admin: 08/13/17 08:44 Dose: 5,000 unit Hydromorphone HCl (Dilaudid) 0.5 mg IV Q2HP PRN PRN Reason: PAIN LEVEL > 6 Naloxone HCl (Narcan) 0.1 mg IV Q2MIN PRN PRN Reason: Opiate Reversal Ondansetron HCl (Zofran) 4 mg IV Q4-6HP PRN PRN Reason: Nausea And Vomiting Pantoprazole Sodium (Protonix) 40 mg PO QAMAC [facility] Last Admin: 08/13/17 06:55 Dose: 40 mg Senna (Senokot) 2 tab PO HSP PRN PRN Reason: Constipation Sertraline HCl (Zoloft) 100 mg PO BID [facility] Last Admin: 08/13/17 08:46 Dose: 100 mg Sodium Chloride (Saline Flush) 10 ml IV Q8 [facility] Last Admin: 08/13/17 13:46 Dose: 10 ml Vancomycin HCl (Vancomycin Per Pharmacy) 1 order IV UD [facility] Medical - PN: A/P - Narrative A/P Narrative: 77-year-old with ESRD admitted with critical hyperkalemia after he missed dialysis for approximately 25 days Missed dialysis with critical hyperkalemia, volume overload, pulmonary edema. Resolved after hemodialysis in hospital. Plan: Continue scheduled dialysis. Healthcare associated pneumonia, present on admission. Improving. Cultures without growth. Lungs clear. Plan: Continue with cefepime and vancomycin. Hypertension. Improving with addition of amlodipine. Plan: Titrate as needed Coronary artery disease without current symptoms. Plan: Continue medical regimen. Type 2 diabetes mellitus. Plan: Continue insulin. Atrial fibrillation. Apixiban discontinued, now on SQ heparin. Plan: Continue Anemia associated with ESRD Plan: Monitor Medical - PN: Qual - Stroke Symptom Onset Unknown: No - VTE Deep Vein Thrombosis/Pulmonary Embolism Present on Admission: No
[2017-08-13] MEDS: ATORVASTATIN 20 MG TABLET PO SCH (20:15)
[2017-08-13] MEDS: CEFEPIME 1 GM VIAL IV SCH (20:15)
[2017-08-13] MEDS: FAMOTIDINE/PF 20 MG/2 ML VIAL IV SCH (20:16)
[2017-08-14] MEDS: 0.9 % SODIUM CHLORIDE 10 ML SYRINGE IV SCH ×2 (04:07→14:49)
[2017-08-14 06:05] LABS: Basophils # (Auto) 0 K/mcL (0.0-0.3); Basophils % (Auto) 0.7 % (0.0-2.0); Eosinophils # (Auto) 0.2 K/mcL (0.0-0.7); Eosinophils % (Auto) 3.7 % (0.0-7.0); Granulocytes % (Auto) 69.3 % (38.0-78.0); Lymphocytes # (Auto) 0.9 K/mcL (1.5-4.8); Lymphocytes % (Auto) 16.2 % (15.5-49.0); Mean Corpuscular HGB Conc 33.4 g/dL (31.0-36.0); Mean Corpuscular Hemoglobin 32.7 pg (26.0-34.0); Monocytes # (Auto) 0.5 K/mcL (0.1-0.9); Monocytes % (Auto) 10.1 % (1.0-12.0); Platelet Count 113 K/mcL (140-440); Red Cell Distribution Width 16.5 % (11.5-14.5)
[2017-08-14 06:41] LABS: ALT/SGPT 7 U/l (0-40); Albumin 3.5 gm/dL (3.2-5.2); Albumin/Globulin Ratio 1.5 (1.0-2.3); Alkaline Phosphatase 84 U/L (39-117); Bilirubin,Direct < 0.2 mg/dL (0.0-0.3); Blood Urea Nitrogen 35 mg/dl (8-23); Gamma Glutamyl Transpeptidase 20 U/L (8-61); Uric Acid 4.4 mg/dL (2.5-8.0)
[2017-08-14] MEDS: PANTOPRAZOLE 40 MG TABLET PO SCH (07:29)
[2017-08-14] MEDS: CARVEDILOL 12.5 MG TABLET PO SCH (07:46)
[2017-08-14] MEDS: busPIRone 15 MG TABLET PO SCH (08:58)
[2017-08-14] MEDS: GABAPENTIN 300 MG CAPSULE PO SCH (08:58)
[2017-08-14] MEDS: ASPIRIN 81 MG TAB.CHEW PO SCH (08:58)
[2017-08-14] MEDS: amLODIPine 5 MG TABLET PO SCH (08:59)
[2017-08-14] MEDS: SERTRALINE 50 MG TABLET PO SCH (08:59)
[2017-08-14] MEDS: HEPARIN 5,000 UNIT/ML VIAL SQ SCH (09:00)
[2017-08-14] MEDS: APIXABAN 5 MG TABLET PO SCH (09:00)
--- NOTE | 2017-08-14 17:13 | Discharge Summary ---
Medical - DS: Prov Patient information: Note initiated : 08/14/17 at 4:55 pm Service Date, if different from initiated Date: [] Patient: Marcello Nelson 77 y/o M admitted on 08/10/17 for Weakness/Hyperkalemia , Pneumonia. Date of admission: 08/10/17 17:39 Discharge date: 08/14/17 Primary care physician: Naila Savage Admitting clinician: Billy Robin Consults: 08/10/17 16:28 Consult to Physician [CONS] Stat Comment: Consulting Provider: Cindi Marmolejo Reason For Exam: Physician to Consult Consult to Physician [CONS] Stat Comment: Consulting Provider: Billy Robin Reason For Exam: Physician to Consult Discharging clinician: Antonella Nguyen Medical - DS: Meds - Discharge Medications Active and Home Medications: Home Medications aspirin 81 mg chewable tablet 81 mg PO QDAY tab 01/15/15 [History Confirmed Last Taken 10/09/16 08:00] buspirone 15 mg tablet 15 mg PO BID #90 tab 03/20/17 [Rx Confirmed 08/11/17 Last Taken Unknown] cyanocobalamin (vit B-12) ER 2,000 mcg tablet,extended release 2,000 mcg PO QDAY #90 tab 03/20/17 [Rx Confirmed 08/11/17 Last Taken Unknown] gabapentin 600 mg tablet 300 mg PO QDAY #30 tab 03/20/17 [Rx Confirmed 08/11/17 Last Taken Unknown] vitamin B complex-vitamin C 100 mg-folic acid 1 mg tablet 1 tab PO QDAY #90 tab 03/20/17 [Rx Confirmed 08/11/17 Last Taken Unknown] apixaban 2.5 mg tablet 2.5 mg PO QDAY tab 07/30/17 [History Confirmed 08/11/17 Last Taken Unknown] pantoprazole 40 mg tablet,delayed release 40 mg PO QAM 07/30/17 [History Confirmed 08/11/17 Last Taken Unknown] Acetaminophen [Tylenol] 650 mg PO Q4-6HP PRN tablet 08/14/17 [Rx Last Taken Unknown] Atorvastatin [Lipitor] 80 mg PO HS tablet 08/14/17 [Rx Last Taken Unknown] Carvedilol [Coreg] 25 mg PO BIDCC tablet 02/02/18 [Rx Last Taken Unknown] Cefepime [Maxipime] 0.5 gm IV Q24H vial 08/14/17 [Rx Last Taken Unknown] Heparin 5,000 unit SQ Q12 vial 08/14/17 [Rx Last Taken Unknown] Ondansetron [Zofran] 4 mg IV Q4-6HP PRN vial 08/14/17 [Rx Last Taken Unknown] Sennosides [Senokot] 2 tab PO HSP PRN tablet 08/14/17 [Rx Last Taken Unknown] Sertraline [Zoloft] 100 mg PO BID tablet 08/14/17 [Rx Last Taken Unknown] amLODIPine [Norvasc] 5 mg PO DAILY tablet 08/14/17 [Rx Last Taken Unknown] Medical - DS: Hosp Hospital course: Mr. Nelson is a 77 year old Male with multiple medical issues, ESRD on HD, who had missed dialysis for 25 days presents ot the ER today with complaints of not feeling well over last few days. The patient noted that he did not feel dialysis was helping him much and therefore decided not to come for his HD sessions. HE was home and did not have any issues, until a few days ago, he started to feel tired,fatigued and worn out, he had shortness of breath with minimal exertion. He had some cough, with light sputum, no blood. The patient denies any fever, chills, does have poor appetite, has some headache, mild dizziness, denies any palpitations, chest pain, or sob at rest, he has no nausea or vomiting, able to urinate well, no constipation, intermittent diarrhea. The patient called his household personal assistant with the above symptoms, and since he had no HD over 25 days, he was asked to come to the ER In the ER he was noted to have normal white count, but severely elevated K, at 7.5, His bun was 56, creat 5.3, bicarb 17, EKG showed lafb, rbbb, peak t waves and broadened qrs complex Engineering Operator evaluated the patient promptly and advised medical management of his Elevated K till dialysis could be instituted. The pt got calcium gluconate, insulin dextrose, albuterol neb, and bicarbonate INj, and was admitted to ICU for close monitoring patient x ray showed left lobe pna, blood cx and antibiotics ordered. 08/11-patient doing better. Status post dialysis. Potassium down to 4.5 from 7.5. Breathing a lot better. On antibiotic coverage for healthcare pneumonia. Cultures negative so far. Plan to de-escalate antibiotics in 24 hours if clinically improved. Possible discharge with clinical improvement with outpatient hemodialysis. On today's at home medications. No overnight fever chills hemodynamic changes. No concerns per staff. Patient alert and sitting on chair non-distressed. 08/12-patient doing better. Status post hemodialysis 2. Cultures negative so far. nephrology following. Recommends additional 24-hour monitoring. No leukocytosis. Electrolytes within normal range. Transfer to telemetry. No overnight cardiac arrhythmias chest pain shortness of breath or concerns per staff 08/13-no particular complaints today. No dyspnea. No nausea or vomiting. Appetite is improved. Case discussed with Dr. Marmolejo, patient does not have local support, has memory issues, possibly from recent cerebrovascular accident. Not safe for discharge, as does not fully understand and follow up with dialysis. 08/14-Patient initially very adamant about leaving the hospital. He displays decreased insight into his condition. That has raised difficulties with his care, as he is missed dialysis in the past (was without dialysis for approximately 25 days prior to presentation with hyperkalemia). Made a comment about getting a gun and shooting himself, was seen by crisis intervention, was cleared of suicidality, that appears to have been a gesture of frustration with being in the hospital. He was also resistant hearing that it's unsafe for him to drive. Patient is now amenable to continue with hospitalization on swing bed status to continue with IV antibiotics for treatment of his pneumonia which was present on admission. Patient would be best served having antibiotics given intravenously under supervision to assure drug delivery. Patient is amenable to swing bed admission. Hospital Problems: -Missed dialysis with critical hyperkalemia, volume overload, pulmonary edema. Resolved. -Healthcare associated pneumonia, present on admission. Improving. Continuing antibiotics on swing bed. -Hypertension. Improving with addition of amlodipine. -Coronary artery disease without current symptoms. -Type 2 diabetes mellitus. -Atrial fibrillation. On Apixiban. -Anemia associated with ESRD Discharge diagnosis: Hyperkalemia, Pneumonia - Time Spent with Patient Total time spent providing and/or coordinating discharge services: Greater than 30 minutes Medical - DS: Exam - Constitutional Vitals: Vital Signs Temp Pulse Resp BP Pulse Ox 08/14/17 15:25 97.8 F 86 16 121/74 99 08/14/17 11:59 97.8 F 16 121/74 99 08/14/17 07:01 98.4 F 16 122/73 99 08/14/17 04:00 98.2 F 74 18 142/78 95 08/14/17 00:00 98.3 F 80 18 156/74 98 08/13/17 20:00 97.6 F 79 22 170/82 100 Intake and Output 08/14/17 08/14/17 08/14/17 05:59 13:59 21:59 Intake Total 400 / 400 Output Total 3 / 3 Balance 397 / 397 Intake: Oral 400 / 400 Output: # of times incontinent of urine 3 / 3 Other: Meal sandwich, jello Percent of Meal Consumed 100% Feeding Ability Independent # of times incontinent of 1 Bowels Additional comments: General: No acute distress Chest: Respirations are unlabored Cardiovascular: Irregular, no peripheral edema Abdomen: Nondistended Neuro: Alert, oriented to self, displays poor grasp of situation. Medical - DS: Data Labs on day of discharge: Labs from last 24 hours 08/14/17 08/14/17 08/14/17 04:46 04:46 04:46 WBC 5.3 RBC 2.70 L Hgb 8.8 L Hct 26.5 L MCV 98.0 MCH 32.7 MCHC 33.4 RDW 16.5 H Plt Count 113 L MPV 8.6 Gran % 69.3 Lymph % (Auto) 16.2 Garfield % (Auto) 10.1 Eos % (Auto) 3.7 Baso % (Auto) 0.7 Gran # 3.7 Lymph # (Auto) 0.9 L Garfield # (Auto) 0.5 Eos # (Auto) 0.2 Baso # (Auto) 0 Sodium 138 Potassium 4.2 Chloride 100 Carbon Dioxide 26 Anion Gap 12.0 BUN 35 H Creatinine 3.3 H GFR Calculation 17 Glucose 119 H Uric Acid 4.4 Calcium 8.3 L Phosphorus 3.2 Magnesium 1.9 Total Bilirubin 0.3 Direct Bilirubin < 0.2 GGT 20 AST 12 ALT 7 Alkaline Phosphatase 84 Lactate Dehydrogenase 130 Total Protein 5.9 Albumin 3.5 Globulin 2.4 Albumin/Globulin Ratio 1.5 Triglycerides 51 Random Vancomycin 14.0 Vancomycin Dose Not Reportable Vanco Last Dose Time Not Reportable Preliminary micro results at discharge 08/10/17 18:09 Blood Culture - Preliminary Blood 08/10/17 18:03 Blood Culture - Preliminary Blood - Impressions Echocardiogram, normal left ventricular size with moderate concentric left ventricular hypertrophy. Left ventricular systolic function is normal The right and left atria are severely dilated. - Imaging and Cardiology Chest x-ray Additional comments: IMPRESSION: Stable moderate cardiomegaly Mild to moderate infiltrate in the right lower lobe with small left lower lobe infiltrate. The appearance is more compatible with that of pneumonia rather than pulmonary edema. Medical - DS: A/P - Patient/Caregiver Discharge Instructions Activity: increase activity as tolerated Diet: Renal/Consistent Carbs - Follow up Plan Follow up with: Naila Savage ARNP [Primary Care Provider] - Disposition: [facility] Swing Bed Prognosis: Fair Rehab Potential: Fair I certify that the patient requires SNF services: Yes Overall status at discharge: patient is progressing back to baseline Medical - DS: Qual - VTE Deep Vein Thrombosis/Pulmonary Embolism Present on Admission: No
== END 2017-08-14 15:24 | disposition other institution (70) | DRG 640 ==
LOC: ED 13:50 → ICU 17:39 → MEDSUR 08-12 15:26 → ICU 08-13 05:33
PROVIDERS: ADMIT Internal Medicine; ATTEND Internal Medicine

== ENCOUNTER 2017-08-14 12:41 | Inpatient (IN) ==
--- NOTE | 2017-08-14 15:06 | Nephrology Progress Note ---
Subjective Patient information: Note initiated : 08/14/17 at 3:04 pm Service Date, if different from initiated Date: [] Patient: Marcello Nelson 77 y/o M admitted on 08/14/17 for Antibiotics. Chief Complaint: [] Principal diagnosis: pneumonia, severe hyperkalemia Interval history: No overnight events denies SOB, CP, dizziness no edema eating ok Patient refuses to go to assisted living facility his kids refuse to come and take him back home in [place], his daughter from [place] will leave tomorrow Patient is very adamant and will likely be discharged home eventually Pertinent ROS: as above Objective - General Appearance General appearance: appears started age, chronically ill EENT: mucous membranes moist Neck: no JVD Respiratory: clear Cardiology: no edema, irregular rhythm Gastrointestinal: no tenderness, no guarding Integumentary: warm and dry Neurologic: alert and oriented x3 (has short term memory issues with periods of confusion) Musculoskeletal: no erythema, no cyanosis Psychiatric: mood/affect appropriate Assessment and Plan (1) Pneumonia Status: Acute (2) ESRD (end stage renal disease) on dialysis Patient on swing status to get antibiotics for PNA, he has memory issues and does not reliably take meds refusing placement no family to help briefly mentioned killing himself, assessed by [facility] and cleared Patient thinking about trying assisted living facility, will request case management to help patient with his decisions Will ct HD outpt while on swing status requested anemia management nurse in dialysis to initiate IV iron and aranesp for anemia please dose antibiotics to HD Also given his confusion from short term memory issues will request DMV to retest the patient to ensure no public hazard from patient driving his car Status: Acute
[2017-08-15] MEDS: 0.9 % SODIUM CHLORIDE 10 ML SYRINGE IV SCH ×4 (00:50→20:27)
[2017-08-15] MEDS ORDERED: SENNOSIDES 1 TABLET PO PRN (15:16)
[2017-08-15] MEDS ORDERED: ACETAMINOPHEN 325 MG TABLET PO PRN (15:16)
[2017-08-15] MEDS ORDERED: APIXABAN 5 MG TABLET PO ONE (16:00)
[2017-08-15] MEDS: CEFEPIME 1 GM VIAL IV SCH (17:18)
[2017-08-15] MEDS: CARVEDILOL 12.5 MG TABLET PO SCH (17:18)
--- NOTE | 2017-08-15 19:26 | Internal Med History&Physical ---
Medical - H&P: [facility] Patient information: Note initiated : 08/15/17 at 7:24 pm Service Date, if different from initiated Date: [] Patient: Marcello Nelson 77 y/o M admitted on 08/14/17 for Antibiotics. Chief Complaint: Swelling bed admission for IV antibiotics History of present illness: The patient is a 77-year-old male with end-stage renal disease, on dialysis, hypertension, history congestive heart failure, hyperlipidemia on treatment, atrial fibrillation rate controlled and on anticoagulation who was admitted to swing bed. Patient was admitted for acute medical care when he presented to the ED on August 10 with weakness. He had missed hemodialysis for 25 days. He had critical hyperkalemia with a potassium of 7.5, volume overload and also lower lobe pneumonia. He was treated emergently as outlined in the discharge summary. Patient's now admitted to swing bed for further intravenous antibiotics. He has no complaints today. No pain. No fever. No cough, no sputum production. All systems: reviewed and no additional remarkable complaints except as stated Medical - H&P: H Medical history: Chest wall pain (Acute) Postop check (Acute) Acute on chronic renal failure (Acute) Hyperparathyroidism due to renal insufficiency (Chronic) Renal artery stenosis (Chronic) Secondary hyperparathyroidism of renal origin (Chronic) UTI (urinary tract infection) (Acute) Renal failure, acute (Acute) Pulmonary hypertension (Acute) Peripheral vascular disease (Acute) Onychomycosis (Acute) Neuropathy (Acute) Acquired portal-systemic shunt (Acute) Hypertensive renal disease (Chronic 08/09/13) Hypertension (Acute) Hyperlipemia (Acute) Hyperkeratosis (Acute) Hyperkalemia (Acute 08/09/13) Edema (Acute) Depressive disorder (Acute) Disc degeneration (Acute) Cystitis, acute (Acute) Congestive heart failure (Acute) Chronic kidney disease, stage IV (severe) (Acute 09/23/13) Chronic kidney disease, stage III (moderate) (Chronic 07/20/13) Cervical radiculopathy (Acute) CAD (coronary artery disease) (Acute) Atrial fibrillation (Acute) Arthralgia (Acute) Surgical history: History of knee surgery (Acute) History of total knee arthroplasty (Acute) History of coronary artery bypass graft (Acute) History of colonoscopy (Acute 01/02/91) History of back surgery (Acute) History of aortic aneurysm repair (Acute) Pertinent family history: Brother Alcohol abuse Family history of lung disease Family history of coronary artery disease Father Congestive heart failure Family history of coronary artery disease Mother Family history of malignant neoplasm of breast Acute myocardial infarction Sister Essential hypertension Social history: Social history is complicated. The patient lives outside of [facility]. He has a trailer in [facility] as well, where he stays weak and receive hemodialysis. He recently had moved to the [place] area to live with his children, however apparently he dislikes some of their directions and suggestions and left without telling in 1, coming back to [place]. Somewhere after that he had missed dialysis. His difficulty with activities of daily living due to memory issues. He's had a frontal lobe stroke. Attempts been made to find appropriate placement. He does not smoke, he does not drink alcohol. Medical - H&P: Meds Home Medications Medication Instructions Recorded Confirmed Type aspirin 81 mg chewable tablet 81 mg PO QDAY tab 01/15/15 08/14/17 History buspirone 15 mg tablet 15 mg PO BID #90 tab 03/20/17 08/14/17 Rx cyanocobalamin (vit B-12) ER 2,000 2,000 mcg PO QDAY #90 tab 03/20/17 08/14/17 Rx mcg tablet,extended release gabapentin 600 mg tablet 300 mg PO QDAY #30 tab 03/20/17 08/14/17 Rx vitamin B complex-vitamin C 100 1 tab PO QDAY #90 tab 03/20/17 08/14/17 Rx mg-folic acid 1 mg tablet apixaban 2.5 mg tablet 2.5 mg PO QDAY tab 07/30/17 08/14/17 History pantoprazole 40 mg tablet,delayed 40 mg PO QAM 07/30/17 08/14/17 History release Acetaminophen [Tylenol] 650 mg PO Q4-6HP PRN tablet 08/14/17 08/14/17 Rx Atorvastatin [Lipitor] 80 mg PO HS tablet 08/14/17 08/14/17 Rx Carvedilol [Coreg] 25 mg PO BIDCC tablet 08/14/17 08/14/17 Rx Cefepime [Maxipime] 0.5 gm IV Q24H vial 08/14/17 08/14/17 Rx Heparin 5,000 unit SQ Q12 vial 08/14/17 08/14/17 Rx Ondansetron [Zofran] 4 mg IV Q4-6HP PRN vial 08/14/17 08/14/17 Rx Sennosides [Senokot] 2 tab PO HSP PRN tablet 08/14/17 08/14/17 Rx Sertraline [Zoloft] 100 mg PO BID tablet 08/14/17 08/14/17 Rx amLODIPine [Norvasc] 5 mg PO DAILY tablet 08/14/17 08/14/17 Rx Allergies Allergy/AdvReac Type Severity Reaction Status Date / Time Penicillins Allergy Mild Hives Verified 10/11/16 10:18 Medical - H&P: Exam - Constitutional Vitals: Temp Pulse Resp BP Pulse Ox 98.3 F 78 16 140/76 97 08/15/17 08:00 08/15/17 03:56 08/15/17 08:00 08/15/17 08:00 08/15/17 08:00 Exam: General: Alert, in no acute distress HEENT: Normocephalic. Pupils are equally round, conjunctiva not injected and sclera are anicteric. Oropharynx is with moist mucous membranes, no lip or gum lesions. Tongue is midline. Neck: Supple, no meningismus. No thyromegaly. Chest: Few left basal rales, otherwise clear. No wheezes. No accessory muscle use. Right chest dialysis catheter. Cardiovascular: Irregularly irregular with 1/6 systolic murmur in the precordium. Carotid pulses are 2+ without bruit. There is no lower extremity edema. JVP is normal. Abdomen: Soft, nontender without guarding or rebound. Active bowel sounds. No hepatosplenomegaly. Skin: Warm, dry. No rash. Skin turgor is decreased, scattered eccymoses Musculoskeletal: No joint erythema or tenderness. Normal range of motion in the upper and lower extremities. Strength 5/5 in upper and lower extremities. Digits without cyanosis or clubbing. Neuro: Alert, oriented to person, place, does not fully grasp situation.. Cranial nerves II through XII grossly intact. Sensation intact to light touch. Psychiatric: Affect normal, impulsive and with decreased insight. Medical - H&P: Reslt - Labs Labs: Labs from 08/14 White count 5.3, hemoglobin 8.8, platelet count 113,000 with 75% segs and 1% bands on differential. Sodium 138, potassium 4.2, chloride 100, bicarbonate 26, BUN 35, creatinine 3.3. - Impressions Echocardiogram 08/11 Left ventricle normal size with moderate concentric left ventricular hypertrophy and normal systolic function. - Imaging and Cardiology Chest x-ray Status: image reviewed by me (08/10/17) Additional comments: IMPRESSION: -Stable moderate cardiomegaly -Mild to moderate infiltrate in the right lower lobe with small left lower lobe infiltrate. The appearance is more compatible with that of pneumonia rather than pulmonary edema. Medical - H&P: A/P - Narrative A/P Narrative: 77-year-old male with complex past medical history, including end-stage renal disease, frontal lobe cerebrovascular accident with memory lapse and poor judgment, on swing bed for further antibiotic therapy. Pneumonia, bilateral. Treating for healthcare acquired pneumonia. Plan: Continue cefepime. End-stage renal disease. Stable. Plan: Hemodialysis per nephrology. Hypertension. Stable. Plan: Continue home regimen. Atrial fibrillation, rate controlled. Plan: Continue anticoagulation with apixaban Cognitive impairment. Stable, but difficulty maintaining ADLs and attending to medical needs Plan: financial services manager consultation. Medical - H&P: Qual - Stroke Symptom Onset Unknown: No - VTE Deep Vein Thrombosis/Pulmonary Embolism Present on Admission: No
[2017-08-15] MEDS: busPIRone 15 MG TABLET PO SCH (20:27)
[2017-08-15] MEDS: SERTRALINE 50 MG TABLET PO SCH (20:27)
[2017-08-15] MEDS ORDERED: ATORVASTATIN 20 MG TABLET PO SCH (21:00)
[2017-08-16] MEDS: 0.9 % SODIUM CHLORIDE 10 ML SYRINGE IV SCH ×2 (05:39→14:58)
[2017-08-16] MEDS ORDERED: PANTOPRAZOLE 40 MG TABLET PO SCH (07:30)
[2017-08-16] MEDS: busPIRone 15 MG TABLET PO SCH (08:54)
[2017-08-16] MEDS: CARVEDILOL 12.5 MG TABLET PO SCH ×2 (08:55→17:13)
[2017-08-16] MEDS: SERTRALINE 50 MG TABLET PO SCH (08:56)
[2017-08-16] MEDS ORDERED: CYANOCOBALAMIN (VITAMIN B-12) 500 MCG TABLET PO SCH (09:00)
[2017-08-16] MEDS ORDERED: ASPIRIN 81 MG TAB.CHEW PO SCH (09:00)
[2017-08-16] MEDS ORDERED: GABAPENTIN 300 MG CAPSULE PO SCH (09:00)
[2017-08-16] MEDS ORDERED: APIXABAN 5 MG TABLET PO SCH (09:00)
[2017-08-16] MEDS ORDERED: FOLIC ACID/VITAMIN B COMP W-C 1 TAB TABLET PO SCH (09:00)
[2017-08-16] MEDS ORDERED: amLODIPine 5 MG TABLET PO SCH (09:00)
[2017-08-16] MEDS: CEFEPIME 1 GM VIAL IV SCH (09:50)
--- NOTE | 2017-08-16 18:37 | Discharge Summary ---
Medical - DS: Prov Patient information: Note initiated : 08/16/17 at 6:34 pm Service Date, if different from initiated Date: [] Patient: Marcello Nelson 77 y/o M admitted on 08/14/17 for Antibiotics. Date of admission: 08/14/17 12:44 Discharge date: 08/16/17 Primary care physician: Naila Savage Admitting clinician: Antonella Nguyen Discharging clinician: Antonella Nguyen Medical - DS: Meds - Discharge Medications Prescriptions: amLODIPine [Norvasc] 5 mg PO DAILY #30 tab Carvedilol [Coreg] 25 mg PO BIDCC #60 tab Active and Home Medications: Home Medications aspirin 81 mg chewable tablet 81 mg PO QDAY tab 01/15/15 [History Confirmed 08/30 Last Taken 08/14/17 09:00] buspirone 15 mg tablet 15 mg PO BID #90 tab 03/20/17 [Rx Confirmed 08/14/17 Last Taken 08/14/17 09:00] cyanocobalamin (vit B-12) ER 2,000 mcg tablet,extended release 2,000 mcg PO QDAY #90 tab 03/20/17 [Rx Confirmed 08/14/17 Last Taken Unknown] gabapentin 600 mg tablet 300 mg PO QDAY #30 tab 03/20/17 [Rx Confirmed 08/14/17 Last Taken 08/14/17 09:00] vitamin B complex-vitamin C 100 mg-folic acid 1 mg tablet 1 tab PO QDAY #90 tab 03/20/17 [Rx Confirmed 08/14/17 Last Taken Unknown] apixaban 2.5 mg tablet 2.5 mg PO QDAY tab 07/30/17 [History Confirmed 08/14/17 Last Taken 08/14/17 09:00] pantoprazole 40 mg tablet,delayed release 40 mg PO QAM 07/30/17 [History Confirmed 08/14/17 Last Taken 08/14/17 09:00] Atorvastatin [Lipitor] 80 mg PO HS tablet 08/14/17 [Rx Confirmed 08/14/17 Last Taken 08/13/17 21:00] Sertraline [Zoloft] 100 mg PO BID tablet 08/14/17 [Rx Confirmed 08/14/17 Last Taken 08/14/17 09:00] Carvedilol [Coreg] 25 mg PO BIDCC #60 tab 08/16/17 [Rx Last Taken Unknown] amLODIPine [Norvasc] 5 mg PO DAILY #30 tab 08/16/17 [Rx Last Taken Unknown] Medical - DS: Hosp Hospital course: The patient is 77-year-old male with end-stage renal disease hypertension, history of frontal lobe stroke with cognitive impairment too was admitted to swing bed for further antibiotics and to finish treatment of pneumonia. Pneumonia was present when he was admitted to acute care last month. For full details please see that H&P and discharge summary. Briefly he presented after missing dialysis for 25 days with a volume overload and hyperkalemia as well as pneumonia. On swing bed, the evening of admission to [facility], the patient was speaking to his daughter and was planning to leave, though she never arrived to pick him up. Plan was to continue antibiotics through the weekend. On the evening of discharge, he contacted his sister and asked her to come pick him up. She was agreeable to picking him up and taking him back to her home. Given his cognitive impairment, he should not be driving, that been stressed repeatedly to the patient and the family. DMV referral for retesting will be put in place by his outpatient physician. APS will also be involved as well. The patient completed antibiotics while he was on swing bed. The remainder of his medical problems remained stable. He was given a prescription for amlodipine, new medication as well as for carvedilol 25 mg tablets as the dose was increased from 12.5 mg. Remainder of his meds are unchanged from his original hospital admission. Discharge diagnosis: Pneumonia Secondary discharge diagnosis: ESRD Hypertension Cerebrovascular disease Cognitive impairment/vascular dementia - Time Spent with Patient Total time spent providing and/or coordinating discharge services: Greater than 30 minutes Medical - DS: Exam - Constitutional Vitals: Vital Signs Temp Pulse Resp BP Pulse Ox 08/16/17 08:00 97.7 F 16 132/80 96 08/15/17 20:00 98.2 F 82 16 138/68 100 Intake and Output 08/16/17 08/16/17 08/16/17 05:59 13:59 21:59 Intake Total 780 / 780 220 / 220 820 / 820 Output Total 2 / 2 Balance 778 / 778 220 / 220 819 / 819 Intake: Oral 780 / 780 220 / 220 820 / 820 Output: # of times incontinent of urine 2 / 2 Other: Meal Nourishment/Supplement Breakfast Lunch Percent of Meal Consumed 100% 100% 100% Feeding Ability Independent Independent # Bowel Movements 0 Additional comments: General: Patient remains in no acute distress Chest: Respirations are unlabored Cardiovascular: Pulses are regular. Abdomen: Benign. Neuro: Patient's impulsive at times, forgetful, needs reorientation at times. Ambulates independently with normal gait. Medical - DS: A/P - Patient/Caregiver Discharge Instructions Activity: increase activity as tolerated Diet: Renal Additional Instructions: Do not drive vehicles. Follow up with outpatient dialysis. Call on Thursday to find out your Dialysis date/time. [phone]. Increase activity as tolerated. Prescriptions: amLODIPine [Norvasc] 5 mg PO DAILY #30 tab Carvedilol [Coreg] 25 mg PO BIDCC #60 tab - Follow up Plan Follow up with: Naila Savage ARNP [Primary Care Provider] - (Call for an appointment as needed.) Disposition: Home, Self-Care Prognosis: Fair Rehab Potential: Fair I certify that the patient requires SNF services: No Overall status at discharge: patient is back to baseline Medical - DS: Qual - VTE Deep Vein Thrombosis/Pulmonary Embolism Present on Admission: No
== END 2017-08-16 19:15 | disposition home or self-care (01) | DRG 193 ==
LOC: MEDSUR 12:44 → ICU 15:30
PROVIDERS: ADMIT Internal Medicine; ATTEND Internal Medicine

== ENCOUNTER 2018-06-04 18:05 | Inpatient (IN) ==
--- NOTE | 2018-06-04 20:22 | Internal Med History&Physical ---
Medical - H&P: HPI Patient information: Note initiated : 06/04/18 at 8:18 pm Service Date, if different from initiated Date: [] Patient: Marcello Nelson a 78 y/o M admitted on 06/04/18 for Hyperkalemia . Chief Complaint: [] History of present illness: Mr. Nelson is a 78 year old M end-stage renal disease who was brought into [facility] ER for weakness confusions falls. Apparently has not been to hemodialysis sessions since the . Per notes brother noted that he refused to go on several occasions. He fell down several days ago he has had. The brother reported that he has has baseline confusion but that he seemed more confused and more weak. He was brought in to dialysis center who sent him to the ER. In the ER was noted to have a potassium of 5.9 otherwise vital signs are stable and other labs were unremarkable except for chronic anemia and his poor renal function. He did have a EKG which showed A. fib and a CT brain which I do not have the report but no report of any bleeding per discussion with the ER physician. Chest x-ray was unremarkable per the note from the ER physician. Case discussed with the patient's packaging sales representative and patient was felt to need urgent dialysis and changes unable to provide over the weekend thus patient was transferred to [facility]. Per the packaging sales representative patient will have hemodialysis in the morning. Patient is asymptomatic at this time denies any chest pain he does have some chronic dyspnea on exertion, no current shortness of breath otherwise. In talking the patient he knows where he is at and is able to answer questions appropriately feels a little more tired than usual but otherwise no other complaints. Patient seems to be a poor historian however. Review of Systems: Positive for tiredness , denies headache/fever/chills/nausea/vomiting/chest or abdominal pain/cough/dyspnea/diarrhea. Many 10 point review of systems reviewed and negative Medical - H&P: PM Medical history: Medical History Chest wall pain (Acute) Postop check (Acute) Acute on chronic renal failure (Acute) Hyperparathyroidism due to renal insufficiency (Chronic) Renal artery stenosis (Chronic) Secondary hyperparathyroidism of renal origin (Chronic) UTI (urinary tract infection) (Acute) Renal failure, acute (Acute) Pulmonary hypertension (Acute) Peripheral vascular disease (Acute) Onychomycosis (Acute) Neuropathy (Acute) Acquired portal-systemic shunt (Acute) Hypertensive renal disease (Chronic 08/09/13) Hypertension (Acute) Hyperlipemia (Acute) Hyperkeratosis (Acute) Hyperkalemia (Acute 08/09/13) Edema (Acute) Depressive disorder (Acute) Disc degeneration (Acute) Cystitis, acute (Acute) Congestive heart failure (Acute) Chronic kidney disease, stage IV (severe) (Acute 09/23/13) Chronic kidney disease, stage III (moderate) (Chronic 07/20/13) Cervical radiculopathy (Acute) CAD (coronary artery disease) (Acute) Atrial fibrillation (Acute) Arthralgia (Acute) Past Surgical History History of knee surgery (Acute) History of total knee arthroplasty (Acute) History of coronary artery bypass graft (Acute) History of colonoscopy (Acute 01/02/91) History of back surgery (Acute) History of aortic aneurysm repair (Acute) Family History Brother Alcohol abuse Family history of lung disease Family history of coronary artery disease Father Congestive heart failure Family history of coronary artery disease Mother Family history of malignant neoplasm of breast Acute myocardial infarction Sister Essential hypertension Social History Patient quit smoking 1997 Denies alcohol use Uses a walker and a cane to walk outside but not in the house Lives by himself Medical - H&P: Meds Home Medications Medication Instructions Recorded Confirmed Type aspirin 81 mg chewable tablet 81 mg PO QDAY tab 01/15/15 08/14/17 History cyanocobalamin (vit B-12) ER 2,000 2,000 mcg PO QDAY #90 tab 03/20/17 08/14/17 Rx mcg tablet,extended release gabapentin 600 mg tablet 300 mg PO QDAY #30 tab 03/20/17 06/04/18 Rx vitamin B complex-vitamin C 100 1 tab PO QDAY #90 tab 03/20/17 08/14/17 Rx mg-folic acid 1 mg tablet apixaban 2.5 mg tablet 2.5 mg PO QDAY tab 07/30/17 08/14/17 History atorvastatin 20 mg tablet 80 mg PO HS tab 01/01/18 06/04/18 Rx buspirone 15 mg tablet 15 mg PO BID #90 tab 02/24/18 06/04/18 Rx sertraline 50 mg tablet 100 mg PO BID #60 tab 03/10/18 06/04/18 Rx carvedilol 25 mg tablet 25 mg PO BIDCC #180 tab 04/20/18 06/04/18 Rx folic acid 1 mg tablet 1 mg PO QDAY #90 tab 04/20/18 06/04/18 Rx pantoprazole 40 mg tablet,delayed 40 mg PO QAM #90 tab 04/20/18 06/04/18 Rx release amLODIPine [Norvasc] 10 mg PO DAILY 06/04/18 06/04/18 History Allergies Allergy/AdvReac Type Severity Reaction Status Date / Time Penicillins Allergy Mild Hives Verified 10/11/16 10:18 Medical - H&P: Exam - Constitutional Vitals: Temp Resp BP Pulse Ox 96.0 F L 20 111/74 100 06/04/18 18:20 06/04/18 18:20 06/04/18 18:20 06/04/18 18:20 Exam: General: Alert, Awake, No acute Distress Eyes/N/T: EOMI, pupils equal round reactive to light Head/Neck: neck supple, normocephalic atraumatic CV: Irregular, No murmurs, normal s1/s2 Pulm: Clear b/l, no wheezing/rhonchi/rales Abd: soft, nontender, +BS x4 Ext: no clubbing/cyanosis/edema Neuro: Alert, no focal deficits, moves all extremities, oriented x4 Skin: warm/dry Medical - H&P: Reslt - Impressions EKG with [place] christiansen Chest x-ray per ER physician was unremarkable I do not have the report or the image CT brain was also done I do not have the report but no report was given of any abnormalities Medical - H&P: A/P - Narrative A/P Narrative: A: *Hyperkalemia: Secondary to renal failure missed hemodialysis sessions *Renal failure, ESRD: *AMS, acute on chronic: Secondary to likely uremia *Inability to care for self at home/Deconditioning/Debility: *Generalized weakness/falls: *A. fib, chronic: On Eliquis/bb *CAD w/cabg: *Hypertension: *Chronic anemia *Anxiety/depression * P: -Kayexalate per packaging sales representative -Follow-up potassium -Obtain CT brain report -Continue home cardiac medications and blood pressure medications -Continue home psych medication -Dr. Cintron for nephrology; plan is for HD in morning -pt/ot, CM - -ppx: eliquis/home ppi full code
[2018-06-04] MEDS ORDERED: ACETAMINOPHEN 325 MG TABLET PO PRN (20:40)
[2018-06-04] MEDS ORDERED: ONDANSETRON 4 MG/2 ML VIAL IV PRN (20:40)
[2018-06-04] MEDS ORDERED: IPRATROPIUM/ALBUTEROL 3 ML AMPUL.NEB NEB PRN (20:40)
[2018-06-04] MEDS: ATORVASTATIN 20 MG TABLET PO SCH (21:27)
[2018-06-04] MEDS: SERTRALINE 50 MG TABLET PO SCH (21:27)
[2018-06-04] MEDS: busPIRone 5 MG TABLET PO SCH (21:27)
[2018-06-04 21:44] LABS: ALT/SGPT 10 U/l (0-40); Albumin/Globulin Ratio 1.3 (1.0-2.3); Alkaline Phosphatase 133 U/L (39-117); Bilirubin,Direct < 0.2 mg/dL (0.0-0.3); Blood Urea Nitrogen 97 mg/dl (8-23); Gamma Glutamyl Transpeptidase 18 U/L (8-61); Uric Acid 9.2 mg/dL (2.5-8.0)
[2018-06-04] MEDS ORDERED: INSULIN REGULAR, HUMAN 1 UNIT/0.01 ML UNIT IV ONE (21:47)
[2018-06-04] MEDS ORDERED: DEXTROSE 50% 50 ML VIAL IV ONE (21:47)
[2018-06-04] MEDS ORDERED: SODIUM BICARBONATE ADULT 50 MEQ/50 ML SYRINGE IV ONE (21:48)
[2018-06-04] MEDS: 0.9 % SODIUM CHLORIDE 10 ML SYRINGE IV SCH (22:09)
[2018-06-04] MEDS ORDERED: SODIUM BICARBONATE 50 MEQ/50 ML VIAL IV ONE (22:45)
[2018-06-05] MEDS: 0.9 % SODIUM CHLORIDE 10 ML SYRINGE IV SCH ×3 (06:09→21:34)
[2018-06-05 06:42] LABS: Basophils # (Auto) 0 K/mcL (0.0-0.3); Basophils % (Auto) 0.6 % (0.0-2.0); Eosinophils # (Auto) 0.2 K/mcL (0.0-0.7); Eosinophils % (Auto) 2.1 % (0.0-7.0); Granulocytes % (Auto) 75.1 % (38.0-78.0); Lymphocytes # (Auto) 0.9 K/mcL (1.5-4.8); Lymphocytes % (Auto) 13.1 % (15.5-49.0); Mean Cell Volume 100.1 fL (80.0-100.0); Mean Corpuscular HGB Conc 33.4 g/dL (31.0-36.0); Mean Corpuscular Hemoglobin 33.4 pg (26.0-34.0); Monocytes # (Auto) 0.7 K/mcL (0.1-0.9); Monocytes % (Auto) 9.1 % (1.0-12.0); Platelet Count 153 K/mcL (140-440); Red Cell Distribution Width 14.3 % (11.5-14.5)
[2018-06-05 07:21] LABS: ALT/SGPT 9 U/l (0-40); Albumin 3.3 gm/dL (3.2-5.2); Albumin/Globulin Ratio 1.3 (1.0-2.3); Alkaline Phosphatase 122 U/L (39-117); Bilirubin,Direct < 0.2 mg/dL (0.0-0.3); Blood Urea Nitrogen 98 mg/dl (8-23); Gamma Glutamyl Transpeptidase 19 U/L (8-61); Uric Acid 8.7 mg/dL (2.5-8.0)
[2018-06-05] MEDS: PANTOPRAZOLE 40 MG TABLET PO SCH (07:23)
[2018-06-05] MEDS: busPIRone 5 MG TABLET PO SCH ×2 (07:28→21:33)
--- NOTE | 2018-06-05 07:28 | Internal Med Progress Note ---
Medical - PN: Subj Patient information: Note initiated : 06/05/18 at 7:25 am Service Date, if different from initiated Date: [] Patient: Marcello Nelson 78 y/o M admitted on 06/04/18 for Hyperkalemia . Chief Complaint: [] Interval history: Mr. Nelson is a 78 year old M end-stage renal disease who was brought into [facility] ER for weakness confusions falls. Apparently has not been to hemodialysis sessions since the . Per notes brother noted that he refused to go on several occasions. He fell down several days ago he has had. The brother reported that he has has baseline confusion but that he seemed more confused and more weak. He was brought in to dialysis center who sent him to the ER. In the ER was noted to have a potassium of 5.9 otherwise vital signs are stable and other labs were unremarkable except for chronic anemia and his poor renal function. He did have a EKG which showed A. fib and a CT brain which I do not have the report but no report of any bleeding per discussion with the ER physician. Chest x-ray was unremarkable per the note from the ER physician. Case discussed with the patient's channel man and patient was felt to need urgent dialysis and changes unable to provide over the weekend thus patient was transferred to [facility]. Per the channel man patient will have hemodialysis in the morning. Patient is asymptomatic at this time denies any chest pain he does have some chronic dyspnea on exertion, no current shortness of breath otherwise. In talking the patient he knows where he is at and is able to answer questions appropriately feels a little more tired than usual but otherwise no other complaints. Patient seems to be a poor historian however. 06/05 Slept well, no overnight events, no new complaints. Just tired. Review of Systems: denies headache/fever/chills/nausea/vomiting/chest or abdominal pain/cough/ dyspnea/diarrhea. Otherwise see above. - Constitutional Vitals: Vital Signs Temp Pulse Resp BP Pulse Ox 98.3 F 70 16 103/55 99 06/05/18 04:01 06/04/18 18:05 06/05/18 04:01 06/05/18 04:01 06/05/18 02:02 Period Temp Pulse Resp BP Sys/Whittaker Pulse Ox Last 24 Hr 96 F-98.3 F 70 16-20 99-144/55-84 92-100 Intake and Output 06/04/18 06/05/18 06/05/18 21:59 05:59 13:59 Intake Total 340 / 340 340 / 340 Balance 340 / 340 340 / 340 Weight 68.492 kg Intake & Output: Intake & Output 06/04/18 06/05/18 06/05/18 21:59 05:59 13:59 Intake Total 340 / 340 340 / 340 Balance 340 / 340 340 / 340 Weight 68.492 kg Intake: Oral 340 / 340 340 / 340 Other: Meal Nourishment/Supplement Percent of Meal Consumed 100% Feeding Ability Independent Stool Size Large Stool Color Yellow Stool Consistency Formed Liquid # Bowel Movements 1 # of times incontinent of 1 Bowels Exam: General: Alert, Awake, No acute Distress Eyes/N/T: EOMI, Head/Neck: neck supple, CV: Irregular, No murmurs, normal s1/s2 Pulm: Clear b/l, no wheezing/rhonchi/rales Abd: soft, nontender, +BS x4 Ext: no clubbing/cyanosis/edema Neuro: Alert, no focal deficits, moves all extremities, oriented x4 Skin: warm/dry Medical - PN: Obj Da - Labs CBC & Chem 7: 06/05/18 04:13 06/05/18 04:13 Labs: Abnormal Lab Results 06/05/18 06/05/18 06/04/18 04:13 04:13 20:40 RBC 3.50 L Hgb 11.7 L Hct 35.0 L MCV 100.1 H Lymph % (Auto) 13.1 L Lymph # (Auto) 0.9 L Potassium 6.1 H* Carbon Dioxide 17 L Anion Gap 19.0 H BUN 98 H Creatinine 5.4 H* Glucose 139 H Uric Acid 8.7 H Calcium 7.9 L Alkaline Phosphatase 122 H 06/04/18 20:40 RBC Hgb Hct MCV Lymph % (Auto) Lymph # (Auto) Potassium 6.1 H* Carbon Dioxide 18 L Anion Gap 17.0 H BUN 97 H Creatinine 5.9 H* Glucose 107 H Uric Acid 9.2 H Calcium 8.3 L Alkaline Phosphatase 133 H Meds: Medications Acetaminophen (Tylenol) 650 mg PO Q6HP PRN PRN Reason: PAIN/FEVER > 101 Albuterol/Ipratropium (Duoneb) 3 ml NEB Q4HRT PRN PRN Reason: dyspnea Amlodipine Besylate (Norvasc) 10 mg PO DAILY [facility] Atorvastatin Calcium (Lipitor) 80 mg PO HS [facility] Last Admin: 06/04/18 21:27 Dose: 80 mg Buspirone HCl (Buspar) 15 mg PO BID [facility] Last Admin: 06/04/18 21:27 Dose: 15 mg Carvedilol (Coreg) 25 mg PO BIDCC [facility] Folic Acid (Folic Acid) 1 mg PO QDAY [facility] Gabapentin (Neurontin) 300 mg PO DAILY [facility] Ondansetron HCl (Zofran) 4 mg IV Q4HP PRN PRN Reason: Nausea And Vomiting Pantoprazole Sodium (Protonix) 40 mg PO QAMAC [facility] Last Admin: 06/05/18 07:23 Dose: 40 mg Sertraline HCl (Zoloft) 100 mg PO BID [facility] Last Admin: 06/04/18 21:27 Dose: 100 mg Sodium Chloride (Saline Flush) 10 ml IV Q8 [facility] Last Admin: 06/05/18 06:09 Dose: 10 ml Medical - PN: A/P - Time Spent With Patient Total time spent is greater than 50% in coordination of care (as documented) at patient's floor/unit and/or counseling patient: - Narrative A/P Narrative: A: *Hyperkalemia: Secondary to renal failure missed hemodialysis sessions -resolved *Renal failure, ESRD: *Anemia, chronic: *AMS, acute on chronic: Secondary to likely uremia and ?underlying dementia *Inability to care for self at home/Deconditioning/Debility: *Generalized weakness/falls: *A. fib, chronic: On Eliquis/bb *CAD w/cabg: *Hypertension: on coreg/norvasc *Chronic anemia *Anxiety/depression * P: -Obtain CT brain report -Continue home cardiac medications and blood pressure medications -Continue home psych medication -Dr. Cintron for nephrology; plan is for HD this morning -pt/ot, CM for placement - -ppx: eliquis/home ppi full code Medical - PN: Qual - VTE Deep Vein Thrombosis/Pulmonary Embolism Present on Admission: No
[2018-06-05] MEDS: CARVEDILOL 12.5 MG TABLET PO SCH ×2 (07:30→17:57)
[2018-06-05] MEDS: GABAPENTIN 300 MG CAPSULE PO SCH (08:37)
[2018-06-05] MEDS: amLODIPine 5 MG TABLET PO SCH (08:37)
[2018-06-05] MEDS: SERTRALINE 50 MG TABLET PO SCH ×2 (08:37→21:33)
[2018-06-05] MEDS: FOLIC ACID 1 MG TABLET PO SCH (08:37)
[2018-06-05] MEDS: APIXABAN 2.5 MG TABLET PO SCH (13:00)
[2018-06-05] MEDS: ATORVASTATIN 20 MG TABLET PO SCH (21:33)
[2018-06-06 05:14] LABS: Basophils # (Auto) 0 K/mcL (0.0-0.3); Basophils % (Auto) 0.6 % (0.0-2.0); Eosinophils # (Auto) 0.2 K/mcL (0.0-0.7); Granulocytes % (Auto) 72.5 % (38.0-78.0); Lymphocytes # (Auto) 1.2 K/mcL (1.5-4.8); Lymphocytes % (Auto) 15.4 % (15.5-49.0); Mean Cell Volume 98.4 fL (80.0-100.0); Mean Corpuscular HGB Conc 33.7 g/dL (31.0-36.0); Mean Corpuscular Hemoglobin 33.2 pg (26.0-34.0); Monocytes # (Auto) 0.7 K/mcL (0.1-0.9); Monocytes % (Auto) 9.5 % (1.0-12.0); Platelet Count 172 K/mcL (140-440); RBC 3.57 M/mcL (4.50-5.90); Red Cell Distribution Width 14.5 % (11.5-14.5)
--- NOTE | 2018-06-06 05:40 | Internal Med Progress Note ---
Medical - PN: Subj Patient information: Note initiated : 06/06/18 at 5:39 am Service Date, if different from initiated Date: [] Patient: Marcello Nelson 78 y/o M admitted on 06/04/18 for Hyperkalemia . Chief Complaint: [] Interval history: Mr. Nelson is a 78 year old M end-stage renal disease who was brought into [facility] ER for weakness confusions falls. Apparently has not been to hemodialysis sessions since the . Per notes brother noted that he refused to go on several occasions. He fell down several days ago he has had. The brother reported that he has has baseline confusion but that he seemed more confused and more weak. He was brought in to dialysis center who sent him to the ER. In the ER was noted to have a potassium of 5.9 otherwise vital signs are stable and other labs were unremarkable except for chronic anemia and his poor renal function. He did have a EKG which showed A. fib and a CT brain which I do not have the report but no report of any bleeding per discussion with the ER physician. Chest x-ray was unremarkable per the note from the ER physician. Case discussed with the patient's scalp treatment operator and patient was felt to need urgent dialysis and changes unable to provide over the weekend thus patient was transferred to [facility]. Per the scalp treatment operator patient will have hemodialysis in the morning. Patient is asymptomatic at this time denies any chest pain he does have some chronic dyspnea on exertion, no current shortness of breath otherwise. In talking the patient he knows where he is at and is able to answer questions appropriately feels a little more tired than usual but otherwise no other complaints. Patient seems to be a poor historian however. 06/05 Slept well, no overnight events, no new complaints. Just tired. 06/06 Hemodialysis yesterday. No issues overnight no new complaints. PT OT discussed case management regarding placement or home health care needs. Review of Systems: denies headache/fever/chills/nausea/vomiting/chest or abdominal pain/cough/ dyspnea/diarrhea. Otherwise see above. - Constitutional Vitals: Vital Signs Temp Pulse Resp BP Pulse Ox 99.4 F H 73 16 111/73 94 06/05/18 20:07 06/05/18 17:00 06/05/18 04:01 06/06/18 01:21 06/06/18 01:21 Period Temp Pulse Resp BP Sys/Whittaker Pulse Ox Last 24 Hr 97.9 F-99.4 F 64-78 89-139/58-92 94-100 Intake and Output 06/05/18 06/05/18 06/06/18 13:59 21:59 05:59 Intake Total 400 / 400 120 / 120 240 / 240 Output Total 2501 / 2501 Balance 400 / 400 -2381 / -2381 240 / 240 Weight 68.492 kg 69.49 kg Patient Weight 06/06/18 05:59 Weight 69.49 kg Intake & Output: Intake & Output 06/05/18 06/05/18 06/06/18 13:59 21:59 05:59 Intake Total 400 / 400 120 / 120 240 / 240 Output Total 2501 / 2501 Balance 400 / 400 -2381 / -2381 240 / 240 Weight 68.492 kg 69.49 kg Intake: Oral 400 / 400 120 / 120 240 / 240 Output: # of times incontinent of urine Hemodialysis UF 2500 / 2500 Other: Meal Breakfast Lunch Percent of Meal Consumed 100% 100% Feeding Ability Independent Stool Size Moderate Stool Color Brown Stool Consistency Soft Exam: General: Alert, Awake, No acute Distress Eyes/N/T: EOMI, Head/Neck: neck supple, CV: Irregular, No murmurs, normal s1/s2 Pulm: Clear b/l, no wheezing/rhonchi/rales Abd: soft, nontender, +BS x4 Ext: no clubbing/cyanosis/edema Neuro: Alert, no focal deficits, moves all extremities, oriented x4 Skin: warm/dry Medical - PN: Obj Da - Labs CBC & Chem 7: 06/06/18 03:53 06/06/18 03:53 Labs: Abnormal Lab Results 06/06/18 06/05/18 06/05/18 03:53 04:13 04:13 RBC 3.57 L 3.50 L Hgb 11.9 L 11.7 L Hct 35.2 L 35.0 L MCV 100.1 H Lymph % (Auto) 15.4 L 13.1 L Lymph # (Auto) 1.2 L 0.9 L Potassium Carbon Dioxide 17 L Anion Gap 19.0 H BUN 98 H Creatinine 5.4 H* Glucose 139 H Uric Acid 8.7 H Calcium 7.9 L Alkaline Phosphatase 122 H 06/04/18 06/04/18 20:40 20:40 RBC Hgb Hct MCV Lymph % (Auto) Lymph # (Auto) Potassium 6.1 H* 6.1 H* Carbon Dioxide 18 L Anion Gap 17.0 H BUN 97 H Creatinine 5.9 H* Glucose 107 H Uric Acid 9.2 H Calcium 8.3 L Alkaline Phosphatase 133 H Meds: Medications Acetaminophen (Tylenol) 650 mg PO Q6HP PRN PRN Reason: PAIN/FEVER > 101 Albuterol/Ipratropium (Duoneb) 3 ml NEB Q4HRT PRN PRN Reason: dyspnea Amlodipine Besylate (Norvasc) 10 mg PO DAILY [facility] Last Admin: 06/05/18 08:37 Dose: 10 mg Apixaban (Eliquis) 2.5 mg PO QDAY [facility] Last Admin: 06/05/18 13:00 Dose: 2.5 mg Aspirin (Aspirin) 81 mg PO QDAY [facility] Atorvastatin Calcium (Lipitor) 80 mg PO HS [facility] Last Admin: 06/05/18 21:33 Dose: 80 mg Buspirone HCl (Buspar) 15 mg PO BID [facility] Last Admin: 06/05/18 21:33 Dose: 15 mg Carvedilol (Coreg) 25 mg PO BIDCC [facility] Last Admin: 06/05/18 17:57 Dose: 25 mg Donepezil HCl (Aricept) 10 mg PO DAILY [facility] Folic Acid (Folic Acid) 1 mg PO QDAY [facility] Last Admin: 06/05/18 08:37 Dose: 1 mg Gabapentin (Neurontin) 300 mg PO DAILY [facility] Last Admin: 06/05/18 08:37 Dose: 300 mg Ondansetron HCl (Zofran) 4 mg IV Q4HP PRN PRN Reason: Nausea And Vomiting Pantoprazole Sodium (Protonix) 40 mg PO QAMAC [facility] Last Admin: 06/05/18 07:23 Dose: 40 mg Sertraline HCl (Zoloft) 100 mg PO BID [facility] Last Admin: 06/05/18 21:33 Dose: 100 mg Sodium Chloride (Saline Flush) 10 ml IV Q8 [facility] Last Admin: 06/05/18 21:34 Dose: 10 ml Medical - PN: A/P - Time Spent With Patient Total time spent is greater than 50% in coordination of care (as documented) at patient's floor/unit and/or counseling patient: - Narrative A/P Narrative: A: *Hyperkalemia: Secondary to renal failure missed hemodialysis sessions -resolved *Renal failure, ESRD: *Anemia, chronic: *AMS, acute on chronic: Secondary to likely uremia and ?underlying dementia -resolved -CT brain done given fall/hit head; results unremarkable for bleed or acute pathology *Inability to care for self at home/Deconditioning/Debility: *Generalized weakness/falls: *A. fib, chronic: On Eliquis/bb *CAD w/cabg: *Hypertension: on coreg/norvasc *Chronic anemia *Anxiety/depression * P: -Continue home cardiac medications and blood pressure medications -Continue home psych medication -Dr. Cintron for nephrology; for HD -pt/ot, CM for placement vs HHC - -ppx: eliquis/home ppi full code Medical - PN: Qual - VTE Deep Vein Thrombosis/Pulmonary Embolism Present on Admission: No
[2018-06-06] MEDS: 0.9 % SODIUM CHLORIDE 10 ML SYRINGE IV SCH ×3 (05:43→20:25)
[2018-06-06 05:55] LABS: ALT/SGPT 9 U/l (0-40); Albumin 3.6 gm/dL (3.2-5.2); Albumin/Globulin Ratio 1.3 (1.0-2.3); Alkaline Phosphatase 123 U/L (39-117); Bilirubin,Direct < 0.2 mg/dL (0.0-0.3); Blood Urea Nitrogen 55 mg/dl (8-23); Gamma Glutamyl Transpeptidase 18 U/L (8-61); Uric Acid 4.7 mg/dL (2.5-8.0)
[2018-06-06] MEDS: amLODIPine 5 MG TABLET PO SCH (08:15)
[2018-06-06] MEDS: APIXABAN 2.5 MG TABLET PO SCH (08:16)
[2018-06-06] MEDS: FOLIC ACID 1 MG TABLET PO SCH (08:16)
[2018-06-06] MEDS: busPIRone 5 MG TABLET PO SCH ×2 (08:16→20:22)
[2018-06-06] MEDS: CARVEDILOL 12.5 MG TABLET PO SCH ×2 (08:16→17:52)
[2018-06-06] MEDS: GABAPENTIN 300 MG CAPSULE PO SCH (08:17)
[2018-06-06] MEDS: PANTOPRAZOLE 40 MG TABLET PO SCH (08:18)
[2018-06-06] MEDS: SERTRALINE 50 MG TABLET PO SCH ×2 (08:18→20:21)
[2018-06-06] MEDS ORDERED: DONEPEZIL 10 MG TABLET PO SCH (09:00)
[2018-06-06] MEDS ORDERED: amLODIPine 10 MG TABLET PO SCH (09:00)
[2018-06-06] MEDS ORDERED: ASPIRIN 81 MG TAB.CHEW PO SCH (09:00)
[2018-06-06] MEDS ORDERED: GABAPENTIN 300 MG CAPSULE PO SCH (09:00)
--- NOTE | 2018-06-06 09:00 | Discharge Summary ---
Medical - DS: Prov Patient information: Note initiated : 06/06/18 at 8:58 am Service Date, if different from initiated Date: [] Patient: Marcello Nelson 78 y/o M admitted on 06/04/18 for Hyperkalemia . Chief Complaint: [] Date of admission: 06/04/18 18:05 Discharge date: 06/07/18 Primary care physician: Naila Savage Consults: 06/04/18 20:40 Consult to Physician [CONS] Routine Comment: Consulting Provider: Frank Cintron Reason For Exam: Physician to Consult Medical - DS: Meds - Discharge Medications Active and Home Medications: Home Medications aspirin 81 mg chewable tablet 81 mg PO QDAY tab 01/15/15 [History Confirmed Last Taken 08/14/17 09:00] vitamin B complex-vitamin C 100 mg-folic acid 1 mg tablet 1 tab PO QDAY #90 tab 03/20/17 [Rx Confirmed 06/05/18 Last Taken Unknown] atorvastatin 20 mg tablet 80 mg PO HS tab 01/01/18 [Rx Confirmed 06/04/18 Last Taken 06/03/18 21:00] buspirone 15 mg tablet 15 mg PO BID #90 tab 02/24/18 [Rx Confirmed 06/04/18 Last Taken 06/04/18 09:00] sertraline 50 mg tablet 100 mg PO BID #60 tab 03/10/18 [Rx Confirmed 06/04/18 Last Taken 06/04/18 09:00] carvedilol 25 mg tablet 25 mg PO BIDCC #180 tab 04/20/18 [Rx Confirmed 06/04/18 Last Taken 06/04/18 09:00] folic acid 1 mg tablet 1 mg PO QDAY #90 tab 04/20/18 [Rx Confirmed 06/04/18 Last Taken 06/04/18 09:00] pantoprazole 40 mg tablet,delayed release 40 mg PO QAM #90 tab 04/20/18 [Rx Confirmed 06/04/18 Last Taken 06/04/18 09:00] Apixaban [Eliquis] 1 tab PO QDAY 06/04/18 [History Confirmed 06/04/18 Last Taken Unknown] Cyanocobalamin (Vitamin B-12) [Vitamin B-12] 2,000 mcg SL DAILY 06/05/18 [ History Confirmed 06/05/18 Last Taken Unknown] Donepezil [Aricept] 10 mg PO DAILY 06/05/18 [History Confirmed 06/05/18 Last Taken Unknown] Gabapentin [Neurontin] 300 mg PO DAILY 06/05/18 [History Confirmed 06/05/18 Last Taken Unknown] amLODIPine [Norvasc] 10 mg PO DAILY 06/05/18 [History Confirmed 06/05/18 Last Taken Unknown] Medical - DS: Hosp Hospital course: Mr. Nelson is a 78 year old M end-stage renal disease who was brought into [facility] ER for weakness confusions falls. Apparently has not been to hemodialysis sessions since the . Per notes brother noted that he refused to go on several occasions. He fell down several days ago he has had. The brother reported that he has has baseline confusion but that he seemed more confused and more weak. He was brought in to dialysis center who sent him to the ER. In the ER was noted to have a potassium of 5.9 otherwise vital signs are stable and other labs were unremarkable except for chronic anemia and his poor renal function. He did have a EKG which showed A. fib and a CT brain which I do not have the report but no report of any bleeding per discussion with the ER physician. Chest x-ray was unremarkable per the note from the ER physician. Case discussed with the patient's director orange and patient was felt to need urgent dialysis and changes unable to provide over the weekend thus patient was transferred to [facility]. Per the director orange patient will have hemodialysis in the morning. Patient is asymptomatic at this time denies any chest pain he does have some chronic dyspnea on exertion, no current shortness of breath otherwise. In talking the patient he knows where he is at and is able to answer questions appropriately feels a little more tired than usual but otherwise no other complaints. Patient seems to be a poor historian however. 06/05 Slept well, no overnight events, no new complaints. Just tired. 06/06 Hemodialysis yesterday. No issues overnight no new complaints. PT OT discussed case management regarding placement or home health care needs. 06/07 He needs to do well no overnight events. Patient stable for discharge Discharge diagnosis: Hyperkalemia, renal failure, AMS - Time Spent with Patient Total time spent providing and/or coordinating discharge services: Greater than 30 minutes Medical - DS: Exam - Constitutional Vitals: Vital Signs Temp Pulse Resp BP BP Pulse Ox 06/06/18 08:00 98.3 F 18 118/62 100 06/06/18 05:28 125/76 06/06/18 04:00 99.6 F H 16 06/06/18 01:21 111/73 94 06/06/18 01:00 99 06/06/18 00:00 101 F H 16 97 06/05/18 20:07 99.4 F H 100 06/05/18 20:06 99.4 F H 104/76 100 06/05/18 18:00 114/74 06/05/18 17:01 103/70 06/05/18 17:00 73 105/79 06/05/18 16:55 105/79 06/05/18 16:46 102/81 06/05/18 16:45 78 102/81 06/05/18 16:31 102/76 06/05/18 16:30 68 102/76 06/05/18 16:20 100/67 06/05/18 16:16 94/74 06/05/18 16:15 71 100/67 06/05/18 16:01 98.6 F 112/58 06/05/18 16:00 67 112/58 06/05/18 15:46 112/76 06/05/18 15:45 73 112/76 06/05/18 15:31 109/75 06/05/18 15:30 74 109/75 06/05/18 15:16 103/70 06/05/18 15:15 64 103/70 06/05/18 15:01 102/62 06/05/18 15:00 72 102/62 06/05/18 14:46 106/69 06/05/18 14:45 71 106/69 06/05/18 14:34 104/67 06/05/18 14:32 89/64 06/05/18 14:30 69 104/67 06/05/18 14:16 102/67 06/05/18 14:15 73 102/67 06/05/18 14:02 106/59 06/05/18 14:00 71 106/59 06/05/18 13:47 98/58 06/05/18 13:45 73 98/58 11/24/18 13:31 112/67 06/05/18 13:30 72 112/67 06/05/18 13:20 97.9 F 69 108/58 06/05/18 13:16 108/58 06/05/18 13:07 110/62 06/05/18 12:00 97.9 F 102/67 06/05/18 09:02 122/66 Intake and Output 06/05/18 06/06/18 06/06/18 21:59 05:59 13:59 Intake Total 120 / 120 240 / 240 240 / 240 Output Total 2501 / 2501 Balance -2381 / -2381 239 / 239 240 / 240 Intake: Oral 120 / 120 240 / 240 240 / 240 Output: # of times incontinent of urine Hemodialysis UF 2500 / 2500 Other: Meal Lunch Breakfast Percent of Meal Consumed 100% 100% Feeding Ability Independent Independent Stool Size Moderate Stool Color Brown Stool Consistency Soft Weight 69.49 kg Medical - DS: Data Labs on day of discharge: Labs from last 24 hours 06/06/18 06/06/18 03:53 03:53 WBC 7.6 RBC 3.57 L Hgb 11.9 L Hct 35.2 L MCV 98.4 MCH 33.2 MCHC 33.7 RDW 14.5 Plt Count 172 MPV 8.7 Gran % 72.5 Lymph % (Auto) 15.4 L [place] % (Auto) 9.5 Eos % (Auto) 2.0 Baso % (Auto) 0.6 Gran # 5.5 Lymph # (Auto) 1.2 L [place] # (Auto) 0.7 Eos # (Auto) 0.2 Baso # (Auto) 0 Sodium 135 Potassium 4.2 Chloride 98 Carbon Dioxide 21 L Anion Gap 16.0 BUN 55 H Creatinine 3.9 H GFR Calculation 14 Glucose 91 Uric Acid 4.7 Calcium 7.9 L Phosphorus 2.8 Magnesium 1.9 Total Bilirubin 0.3 Direct Bilirubin < 0.2 GGT 18 AST 7 ALT 9 Alkaline Phosphatase 123 H Lactate Dehydrogenase 111 Total Protein 6.4 Albumin 3.6 Globulin 2.8 Albumin/Globulin Ratio 1.3 Triglycerides 68 Medical - DS: A/P - Patient/Caregiver Discharge Instructions Activity: increase activity as tolerated Diet: Renal Additional Instructions: Is very important for you to make it to hemodialysis sessions. - Follow up Plan Disposition: Home Health Service Prognosis: Fair Rehab Potential: Fair Overall status at discharge: patient is back to baseline Medical - DS: Qual - VTE Deep Vein Thrombosis/Pulmonary Embolism Present on Admission: No
[2018-06-06] MEDS ORDERED: IPRATROPIUM/ALBUTEROL 3 ML AMPUL.NEB NEB PRN (09:11)
[2018-06-06] MEDS ORDERED: ONDANSETRON 4 MG/2 ML VIAL IV PRN (09:11)
[2018-06-06] MEDS: ATORVASTATIN 20 MG TABLET PO SCH (20:21)
[2018-06-06] MEDS: ACETAMINOPHEN 325 MG TABLET PO PRN (20:22)
[2018-06-07 06:10] LABS: Blood Urea Nitrogen 75 mg/dl (8-23)
[2018-06-07] MEDS: 0.9 % SODIUM CHLORIDE 10 ML SYRINGE IV SCH ×3 (06:37→20:35)
[2018-06-07] MEDS: PANTOPRAZOLE 40 MG TABLET PO SCH (07:49)
--- NOTE | 2018-06-07 08:56 | Internal Med Progress Note ---
Medical - PN: Subj Patient information: Note initiated : 06/07/18 at 8:56 am Service Date, if different from initiated Date: [] Patient: Marcello Nelson 78 y/o M admitted on 06/04/18 for Hyperkalemia . Chief Complaint: [] Interval history: Mr. Nelson is a 78 year old M end-stage renal disease who was brought into [facility] ER for weakness confusions falls. Apparently has not been to hemodialysis sessions since the . Per notes brother noted that he refused to go on several occasions. He fell down several days ago he has had. The brother reported that he has has baseline confusion but that he seemed more confused and more weak. He was brought in to dialysis center who sent him to the ER. In the ER was noted to have a potassium of 5.9 otherwise vital signs are stable and other labs were unremarkable except for chronic anemia and his poor renal function. He did have a EKG which showed A. fib and a CT brain which I do not have the report but no report of any bleeding per discussion with the ER physician. Chest x-ray was unremarkable per the note from the ER physician. Case discussed with the patient's bridge worker apprentice and patient was felt to need urgent dialysis and changes unable to provide over the weekend thus patient was transferred to [facility]. Per the bridge worker apprentice patient will have hemodialysis in the morning. Patient is asymptomatic at this time denies any chest pain he does have some chronic dyspnea on exertion, no current shortness of breath otherwise. In talking the patient he knows where he is at and is able to answer questions appropriately feels a little more tired than usual but otherwise no other complaints. Patient seems to be a poor historian however. 06/05 Slept well, no overnight events, no new complaints. Just tired. 06/06 Hemodialysis yesterday. No issues overnight no new complaints. PT OT discussed case management regarding placement or home health care needs. 06/07 Overnight events no new complaints. Mentation good. Review of Systems: denies headache/fever/chills/nausea/vomiting/chest or abdominal pain/cough/ dyspnea/diarrhea. Otherwise see above. - Constitutional Vitals: Vital Signs Temp Pulse Resp BP Pulse Ox 97.3 F 63 16 133/80 98 06/07/18 08:00 06/07/18 08:00 06/07/18 08:05 06/07/18 08:00 06/07/18 08:00 Period Temp Pulse Resp BP Sys/Whittaker Pulse Ox Last 24 Hr 97.3 F-98.1 F 63-76 14-20 94-133/60-80 96-98 Intake and Output 06/06/18 06/07/18 06/07/18 21:59 05:59 13:59 Intake Total 450 / 450 600 / 600 Output Total Balance 448 / 448 599 / 599 Weight 69.853 kg Intake & Output: Intake & Output 06/06/18 06/07/18 06/07/18 21:59 05:59 13:59 Intake Total 450 / 450 600 / 600 Output Total Balance 448 / 448 599 / 599 Weight 69.853 kg Intake: Oral 600 / 600 GI Tube Flush 450 / 450 Output: # of times incontinent of urine Other: Meal [place] Percent of Meal Consumed 100% Feeding Ability Independent Stool Size Smear # of times incontinent of 1 Bowels Exam: General: Alert, Awake, No acute Distress Eyes/N/T: EOMI, Head/Neck: neck supple, CV: Irregular, No murmurs, normal s1/s2 Pulm: Clear b/l, no wheezing/rhonchi/rales Abd: soft, nontender, +BS x4 Ext: no clubbing/cyanosis/edema Neuro: Alert, no focal deficits, moves all extremities, Skin: warm/dry Medical - PN: Obj Da - Labs CBC & Chem 7: 06/06/18 03:53 06/07/18 04:44 Labs: Abnormal Lab Results 06/07/18 06/06/18 06/06/18 04:44 03:53 03:53 RBC 3.57 L Hgb 11.9 L Hct 35.2 L MCV Lymph % (Auto) 15.4 L Lymph # (Auto) 1.2 L Potassium 5.3 H Carbon Dioxide 21 L Anion Gap BUN 75 H 55 H Creatinine 4.7 H 3.9 H Glucose Uric Acid Calcium 8.3 L 7.9 L Alkaline Phosphatase 123 H 06/05/18 06/05/18 06/04/18 04:13 04:13 20:40 RBC 3.50 L Hgb 11.7 L Hct 35.0 L MCV 100.1 H Lymph % (Auto) 13.1 L Lymph # (Auto) 0.9 L Potassium 6.1 H* Carbon Dioxide 17 L Anion Gap 19.0 H BUN 98 H Creatinine 5.4 H* Glucose 139 H Uric Acid 8.7 H Calcium 7.9 L Alkaline Phosphatase 122 H 06/04/18 20:40 RBC Hgb Hct MCV Lymph % (Auto) Lymph # (Auto) Potassium 6.1 H* Carbon Dioxide 18 L Anion Gap 17.0 H BUN 97 H Creatinine 5.9 H* Glucose 107 H Uric Acid 9.2 H Calcium 8.3 L Alkaline Phosphatase 133 H Meds: Medications Acetaminophen (Tylenol) 650 mg PO Q6HP PRN PRN Reason: PAIN/FEVER > 101 Last Admin: 06/06/18 20:22 Dose: 650 mg Albuterol/Ipratropium (Duoneb) 3 ml NEB Q4HRT PRN PRN Reason: dyspnea Amlodipine Besylate (Norvasc) 10 mg PO DAILY [facility] Apixaban (Eliquis) 2.5 mg PO QDAY [facility] Aspirin (Aspirin) 81 mg PO QDAY [facility] Atorvastatin Calcium (Lipitor) 80 mg PO HS [facility] Last Admin: 06/06/18 20:21 Dose: 80 mg Buspirone HCl (Buspar) 15 mg PO BID [facility] Last Admin: 06/06/18 20:22 Dose: 15 mg [facility] Last Admin: 06/06/18 17:52 Dose: 25 mg Donepezil HCl (Aricept) 10 mg PO DAILY [facility] Folic Acid (Folic Acid) 1 mg PO QDAY [facility] Gabapentin (Neurontin) 300 mg PO DAILY [facility] Ondansetron HCl (Zofran) 4 mg IV Q4HP PRN PRN Reason: Nausea And Vomiting Pantoprazole Sodium (Protonix) 40 mg PO QAMAC [facility] Last Admin: 06/07/18 07:49 Dose: 40 mg Sertraline HCl (Zoloft) 100 mg PO BID [facility] Last Admin: 06/06/18 20:21 Dose: 100 mg Sodium Chloride (Saline Flush) 10 ml IV Q8 [facility] Last Admin: 06/07/18 06:37 Dose: Not Given Medical - PN: A/P - Time Spent With Patient Total time spent is greater than 50% in coordination of care (as documented) at patient's floor/unit and/or counseling patient: - Narrative A/P Narrative: A: *Hyperkalemia: Secondary to renal failure missed hemodialysis sessions -resolved *Renal failure, ESRD: *Anemia, chronic: *AMS, acute on chronic: Secondary to likely uremia and ?underlying dementia -resolved -CT brain done given fall/hit head; results unremarkable for bleed or acute pathology *Inability to care for self at home/Deconditioning/Debility: *Generalized weakness/falls: *A. fib, chronic: On Eliquis/bb *CAD w/cabg: *Hypertension: on coreg/norvasc *Chronic anemia *Anxiety/depression * P: -Continue home cardiac medications and blood pressure medications -Continue home psych medication -Dr. Cintron for nephrology; for HD -pt/ot, CM for placement vs HHC -d/c in AM -ppx: eliquis/home ppi full code Medical - PN: Qual - VTE Deep Vein Thrombosis/Pulmonary Embolism Present on Admission: No
[2018-06-07] MEDS: CARVEDILOL 12.5 MG TABLET PO SCH ×2 (08:57→17:36)
[2018-06-07] MEDS: APIXABAN 2.5 MG TABLET PO SCH (08:58)
[2018-06-07] MEDS: GABAPENTIN 300 MG CAPSULE PO SCH (08:58)
[2018-06-07] MEDS: busPIRone 5 MG TABLET PO SCH ×2 (08:59→20:35)
[2018-06-07] MEDS: SERTRALINE 50 MG TABLET PO SCH ×2 (09:00→20:36)
[2018-06-07] MEDS: amLODIPine 10 MG TABLET PO SCH (09:00)
[2018-06-07] MEDS: FOLIC ACID 1 MG TABLET PO SCH (09:00)
[2018-06-07] MEDS: DONEPEZIL 10 MG TABLET PO SCH (09:01)
[2018-06-07] MEDS: ASPIRIN 81 MG TAB.CHEW PO SCH (09:02)
[2018-06-07] MEDS: ATORVASTATIN 20 MG TABLET PO SCH (20:35)
[2018-06-07] MEDS: ACETAMINOPHEN 325 MG TABLET PO PRN (20:36)
[2018-06-08] MEDS: 0.9 % SODIUM CHLORIDE 10 ML SYRINGE IV SCH ×2 (05:39→13:06)
[2018-06-08 07:28] LABS: Blood Urea Nitrogen 33 mg/dl (8-23)
[2018-06-08] MEDS: PANTOPRAZOLE 40 MG TABLET PO SCH (07:40)
[2018-06-08] MEDS: CARVEDILOL 12.5 MG TABLET PO SCH (07:40)
[2018-06-08] MEDS: APIXABAN 2.5 MG TABLET PO SCH (09:36)
[2018-06-08] MEDS: DONEPEZIL 10 MG TABLET PO SCH (09:36)
[2018-06-08] MEDS: ACETAMINOPHEN 325 MG TABLET PO PRN (09:37)
[2018-06-08] MEDS: amLODIPine 10 MG TABLET PO SCH (09:38)
[2018-06-08] MEDS: SERTRALINE 50 MG TABLET PO SCH (09:38)
[2018-06-08] MEDS: GABAPENTIN 300 MG CAPSULE PO SCH (09:39)
[2018-06-08] MEDS: busPIRone 5 MG TABLET PO SCH (09:39)
[2018-06-08] MEDS: FOLIC ACID 1 MG TABLET PO SCH (09:40)
[2018-06-08] MEDS: ASPIRIN 81 MG TAB.CHEW PO SCH (09:40)
== END 2018-06-08 15:20 | disposition home health service (06) | DRG 640 ==
LOC: ICU 18:05 → MEDSUR 06-06 11:56
PROVIDERS: ADMIT Internal Medicine; ATTEND Internal Medicine
CPT/HCPCS: 97161; 97167; 99231; A9270; J1815

== ENCOUNTER 2019-05-03 15:09 | Inpatient (IN) ==
--- NOTE | 2019-05-03 15:22 | Emergency Department Note ---
Altered Mental Status HPI - General Chief Complaint: Altered Mental Status Stated Complaint: altered mental status Time Seen by Provider: 05/03/19 15:17 Source: patient Mode of arrival: ambulatory Limitations: no limitations - History of Present Illness HPI Narrative: This is a dialysis patient who lives in [place] and apparently dialyzes at [facility] and has not had dialysis in a week. He is transported by ambulance to [facility] ER for altered mental status and he cannot participate in his history. Family is on the way currently. - Related Data Home Medications Medication Instructions Recorded Confirmed aspirin 81 mg chewable tablet 81 mg PO QDAY tab 01/15/15 06/05/18 Apixaban [Eliquis] 1 tab PO QDAY 06/04/18 06/04/18 Cyanocobalamin (Vitamin B-12) 2,000 mcg SL DAILY 06/05/18 06/05/18 [Vitamin B-12] Donepezil [Aricept] 10 mg PO DAILY 06/05/18 06/05/18 Gabapentin [Neurontin] 300 mg PO DAILY 06/05/18 06/05/18 amLODIPine [Norvasc] 10 mg PO DAILY 06/05/18 06/05/18 Previous Rx's Medication Instructions Recorded B complex-vitamin C-folic acid 100 1 tab PO QDAY #90 tab 03/20/17 mg-folic acid 1 mg tablet atorvastatin 20 mg tablet 80 mg PO HS tab 01/01/18 buspirone 15 mg tablet 15 mg PO BID #90 tab 02/24/18 sertraline 50 mg tablet 100 mg PO BID #60 tab 03/10/18 carvedilol 25 mg tablet 25 mg PO BIDCC #180 tab 04/20/18 folic acid 1 mg tablet 1 mg PO QDAY #90 tab 04/20/18 pantoprazole 40 mg tablet,delayed 40 mg PO QAM #90 tab 04/20/18 release Allergies Allergy/AdvReac Type Severity Reaction Status Date / Time Penicillins Allergy Mild Hives Verified 10/11/16 10:18 Review of Systems All systems ED: reviewed and negative except as stated. Past Medical History - Past Medical History PMF Narrative: Medical History Chest wall pain (Acute) Postop check (Acute) Acute on chronic renal failure (Acute) Hyperparathyroidism due to renal insufficiency (Chronic) Renal artery stenosis (Chronic) Secondary hyperparathyroidism of renal origin (Chronic) UTI (urinary tract infection) (Acute) Renal failure, acute (Acute) Pulmonary hypertension (Acute) Peripheral vascular disease (Acute) Onychomycosis (Acute) Neuropathy (Acute) Acquired portal-systemic shunt (Acute) Hypertensive renal disease (Chronic 08/09/13) Hypertension (Acute) Hyperlipemia (Acute) Hyperkeratosis (Acute) Hyperkalemia (Acute 08/09/13) Edema (Acute) Depressive disorder (Acute) Disc degeneration (Acute) Cystitis, acute (Acute) Congestive heart failure (Acute) Chronic kidney disease, stage IV (severe) (Acute 09/23/13) Chronic kidney disease, stage III (moderate) (Chronic 07/20/13) Cervical radiculopathy (Acute) CAD (coronary artery disease) (Acute) Atrial fibrillation (Acute) Arthralgia (Acute) Past Surgical History History of knee surgery (Acute) History of total knee arthroplasty (Acute) History of coronary artery bypass graft (Acute) History of colonoscopy (Acute 01/02/91) History of back surgery (Acute) History of aortic aneurysm repair (Acute) Family History Brother Alcohol abuse Family history of lung disease Family history of coronary artery disease Father Congestive heart failure Family history of coronary artery disease Mother Family history of malignant neoplasm of breast Acute myocardial infarction Sister Essential hypertension Medical history: Reports: arthritis, CAD (coronary artery disease), hypertension, renal disease (Dialysis dependent), other (Atrial fibrillation, coronary artery disease, cervical radiculopathy just of heart failure, hypertension, hyperlipidemia, hyperkalemia) Surgical history ED: Reports: coronary bypass (CABG), other (aaa, back surgery, CABG procedure, surgery, total right knee) - Social History smoking status: Former smoker Alcohol use: Reports: Occasionally Drug use: Reports: none Physical Exam Limitations: altered mental status General appearance: alert, in no apparent distress Head: atraumatic, normocephalic Eye: Present: normal appearance Chest: Present: normal inspection Respiratory: Present: normal lung sounds bilaterally Cardiovascular: Present: tachycardia, normal heart sounds Abdominal: Present: soft. Absent: distention, tenderness Extremities: Absent: pedal edema, pretibial edema Skin: Present: cool, intact Course Vital Signs Temperature 97.1 F 05/03/19 15:10 Pulse Rate 74 05/03/19 15:10 Respiratory Rate 16 05/03/19 15:10 Blood Pressure 163/103 05/03/19 15:10 Temperature 97.1 F 05/03/19 15:10 Pulse Rate 78 05/03/19 17:01 Respiratory Rate 22 05/03/19 17:01 Blood Pressure 175/103 05/03/19 17:01 Pulse Oximetry (%) 100 05/03/19 17:01 Altered Mental Status - MDM Narrative Medical decision making narrative: I discussed the patient Dr. Cintron and he wants him to go to get dialysis today. He did require IV diltiazem and is on a drip for atrial fibrillation are. Omi thurston has baseline a little confused but according the family is more confused today than usual. Sounds like he has not taken his medication in a week or had dialysis in a week. He will be admitted to the hospital by Dr. Moser. - Lab Data Lab results reviewed: Yes I reviewed the patient's lab results. Result diagrams: 05/03/19 15:28 05/03/19 15:28 Lab Results 05/03/19 05/03/19 05/03/19 Range/Units 15:28 15:28 15:28 WBC 9.0 (4.5-11.0) K/mcL RBC 4.20 L (4.50-5.90) M/mcL Hgb 13.9 (13.5-16.5) g/dL Hct 41.8 (41.0-55.0) % MCV 99.4 (80.0-100.0) fL MCH 33.2 (26.0-34.0) pg MCHC 33.4 (31.0-36.0) g/dL RDW 16.5 H (11.5-14.5) % Plt Count 179 (140-440) K/mcL MPV 8.2 (7.4-10.4) fL Gran % 79.7 H (38.0-78.0) % Lymph % (Auto) 9.3 L (15.5-49.0) % [place] % (Auto) 10.5 (1.0-12.0) % Eos % (Auto) 0.2 (0.0-7.0) % Baso % (Auto) 0.3 (0.0-2.0) % Gran # 7.2 (1.8-8.0) K/mcL Lymph # (Auto) 0.8 L (1.5-4.8) K/mcL [place] # (Auto) 0.9 (0.1-0.9) K/mcL Eos # (Auto) 0 (0.0-0.7) K/mcL Baso # (Auto) 0 (0.0-0.3) K/mcL VBG Lactic Acid (0.5-2.0) mmol/L Sodium 139 (133-145) mmol/L Potassium 5.9 H* (3.3-5.1) mmol/L Chloride 103 (96-108) mmol/L Carbon Dioxide 13 L (22-30) mmol/L Anion Gap 23.0 H (8-16) BUN 63 H (8-23) mg/dl Creatinine 4.8 H (0.7-1.2) mg/dl GFR Calculation 11 Glucose 103 (70-105) mg/dL Calcium 9.3 (8.6-10.4) mg/dl Total Bilirubin 0.8 (0.0-1.0) mg/dL AST 11 (0-37) U/l ALT 5 (0-40) U/l Alkaline Phosphatase 126 H (39-117) U/L Ammonia (16-60) umol/L Troponin T 0.05 H* (0-0.03) ng/ml Total Protein 8.0 (5.9-8.4) gm/dL Albumin 4.1 (3.2-5.2) gm/dL Globulin 3.9 H (2.2-3.7) gm/dL Albumin/Globulin Ratio 1.1 (1.0-2.3) 05/03/19 05/03/19 Range/Units 15:28 15:50 WBC (4.5-11.0) K/mcL RBC (4.50-5.90) M/mcL Hgb (13.5-16.5) g/dL Hct (41.0-55.0) % MCV (80.0-100.0) fL MCH (26.0-34.0) pg MCHC (31.0-36.0) g/dL RDW (11.5-14.5) % Plt Count (140-440) K/mcL MPV (7.4-10.4) fL Gran % (38.0-78.0) % Lymph % (Auto) (15.5-49.0) % [place] % (Auto) (1.0-12.0) % Eos % (Auto) (0.0-7.0) % Baso % (Auto) (0.0-2.0) % Gran # (1.8-8.0) K/mcL Lymph # (Auto) (1.5-4.8) K/mcL [place] # (Auto) (0.1-0.9) K/mcL Eos # (Auto) (0.0-0.7) K/mcL Baso # (Auto) (0.0-0.3) K/mcL VBG Lactic Acid 1.7 (0.5-2.0) mmol/L Sodium (133-145) mmol/L Potassium (3.3-5.1) mmol/L Chloride (96-108) mmol/L Carbon Dioxide (22-30) mmol/L Anion Gap (8-16) BUN (8-23) mg/dl Creatinine (0.7-1.2) mg/dl GFR Calculation Glucose (70-105) mg/dL Calcium (8.6-10.4) mg/dl Total Bilirubin (0.0-1.0) mg/dL AST (0-37) U/l ALT (0-40) U/l Alkaline Phosphatase (39-117) U/L Ammonia < 10 L (16-60) umol/L Troponin T (0-0.03) ng/ml Total Protein (5.9-8.4) gm/dL Albumin (3.2-5.2) gm/dL Globulin (2.2-3.7) gm/dL Albumin/Globulin Ratio (1.0-2.3) - Radiology Data Radiology results reviewed: Yes I reviewed the patient's radiology results. Disposition Pt seen by THRESHING DEPARTMENT SUPERVISOR/PA only: No Clinical Impression: Altered mental status, CKD (chronic kidney disease) requiring chronic dialysis, Atrial fibrillation Disposition: Xfer As Inpt ([facility]) Condition: Fair Referrals: Naila Savage ARNP [Primary Care Provider] - Time of Disposition: 17:18
[2019-05-03] MEDS ORDERED: DILTIAZEM 25 MG/5 ML VIAL IV ONE (15:40)
[2019-05-03] MEDS ORDERED: DILTIAZEM 125 MG in DEXTROSE 5% IN WATER 100 ML IV SCH (15:45)
--- NOTE | 2019-05-03 15:47 | XRay Report ---
INDICATION: Altered level of consciousness TECHNIQUE: AP chest x-ray,portable semiupright COMPARISON: Previous examination dated 08/10/2017 FINDINGS:Previous median sternotomy. Large caliber right central venous catheter with its tip at the junction of the superior vena cava and right atrium. There are spinal stabilization rods in the lower thoracic spine. No focal pulmonary parenchymal infiltrate. No pulmonary parenchymal mass. Lungs are negative. Heart size and vascularity are normal. No pulmonary edema or pulmonary congestion. There is right convex thoracic scoliosis IMPRESSION: No acute or focal abnormality Interpreted and Authenticated by: Dwight Zazueta 05/03/19
--- NOTE | 2019-05-03 15:50 | Cat Scan Report ---
CLINICAL INFORMATION: Altered mental status TECHNIQUE: Axial noncontrast enhanced images through the brain. Sagittal and coronal reformatted images COMPARISON: Previous brain CT scans dated 06/17/2018, 06/14/2018 FINDINGS: No acute intracranial hemorrhage. No intra-axial hematoma. No focal intra-axial attenuation abnormality or localized mass effect. No midline shift. Brain volume is within normal limits for age. There is mild white matter abnormality consistent with small vessel ischemic change in this 79-year-old patient. No focal abnormality of the brainstem or cerebellum. There appears to be low density within the adriana which is also consistent with small vessel ischemic change. No extra-axial, intracranial abnormality. No subdural hematoma. No subarachnoid hemorrhage. No calvarial lesions. No fracture. No lytic lesion. No significant interval change IMPRESSION: 1. No acute abnormality. 2. No interval change since 06/17/2018 Interpreted and Authenticated by: Dwight Zazueta 05/03/19
[2019-05-03 16:00] LABS: Basophils # (Auto) 0 K/mcL (0.0-0.3); Basophils % (Auto) 0.3 % (0.0-2.0); Eosinophils # (Auto) 0 K/mcL (0.0-0.7); Eosinophils % (Auto) 0.2 % (0.0-7.0); Granulocytes % (Auto) 79.7 % (38.0-78.0); Hematocrit 41.8 % (41.0-55.0); Hemoglobin 13.9 g/dL (13.5-16.5); Lymphocytes # (Auto) 0.8 K/mcL (1.5-4.8); Lymphocytes % (Auto) 9.3 % (15.5-49.0); Mean Cell Volume 99.4 fL (80.0-100.0); Mean Corpuscular HGB Conc 33.4 g/dL (31.0-36.0); Mean Platelet Volume 8.2 fL (7.4-10.4); Monocytes # (Auto) 0.9 K/mcL (0.1-0.9); Monocytes % (Auto) 10.5 % (1.0-12.0); Platelet Count 179 K/mcL (140-440); Red Cell Distribution Width 16.5 % (11.5-14.5)
[2019-05-03 16:22] LABS: ALT/SGPT 5 U/l (0-40); AST/SGOT 11 U/l (0-37); Albumin 4.1 gm/dL (3.2-5.2); Albumin/Globulin Ratio 1.1 (1.0-2.3); Alkaline Phosphatase 126 U/L (39-117); Bilirubin,Total 0.8 mg/dL (0.0-1.0); Blood Urea Nitrogen 63 mg/dl (8-23); Calcium 9.3 mg/dl (8.6-10.4); Carbon Dioxide 13 mmol/L (22-30); Chloride 103 mmol/L (96-108); Globulin 3.9 gm/dL (2.2-3.7); Glomerular Filtration Rate 11; Glucose 103 mg/dL (70-105)
--- NOTE | 2019-05-03 17:20 | Internal Med History&Physical ---
Medical - H&P: [facility] Patient information: Note initiated : 05/03/19 at 5:18 pm Service Date, if different from initiated Date: [] Patient: Marcello Nelson a 79 y/o M admitted on for altered mental status. Chief Complaint: [] Chief complaint: Found in a near unresponsive state History of present illness: Mr. Nelson is a 79 year old M with a history of end-stage renal disease on hemodialysis. Patient lives at [place] and has missed dialysis for a week. Follow-up call was made to patient's sister who then checked on him and found him unresponsive laying on the bed on his own feces. Patient was subsequently brought into [place] ER initial work-up was consistent with uremia/hyperkalemia along with acidosis in light of missed hemodialysis. Patient was also found in A. fib with RVR and was subsequently diltiazem drip was started. EKG was consistent with hyperkalemia changes. Nephrology was consulted and patient was requested for admission for emergent hemodialysis. Through the course of emergency room visit patient remained minimally responsive very confused disoriented and lethargic. Most of the history was obtained from review of medical records and from ER physician. Patient was unable to participate in either history or review of systems. He remains disoriented and confused Review of systems 10 point review of system was attempted but could not performed due to patient's mental status Medical - H&P: [facility] Medical history: ESRD on HD Hyperparathyroidism due to renal insufficiency Renal artery stenosis Secondary hyperparathyroidism of renal origin Pulmonary hypertension Peripheral vascular disease Onychomycosis Neuropathy Hypertension Hyperlipemia Depressive disorder Disc degeneration CAD (coronary artery disease) Atrial fibrillation Past Surgical History History of knee surgery (Acute) History of total knee arthroplasty (Acute) History of coronary artery bypass graft (Acute) History of colonoscopy (Acute 01/02/91) History of back surgery (Acute) History of aortic aneurysm repair (Acute) Family History Brother Alcohol abuse Family history of lung disease Family history of coronary artery disease Father Congestive heart failure Family history of coronary artery disease Mother Family history of malignant neoplasm of breast Acute myocardial infarction Sister Essential hypertension Social History Patient quit smoking 1997 Denies alcohol use Uses a walker and a cane to walk outside but not in the house Lives by himself at [facility] Medical - H&P: Meds Home Medications Medication Instructions Recorded Confirmed Type aspirin 81 mg chewable tablet 81 mg PO QDAY tab 01/15/15 06/05/18 History B complex-vitamin C-folic acid 100 1 tab PO QDAY #90 tab 03/20/17 06/05/18 Rx mg-folic acid 1 mg tablet atorvastatin 20 mg tablet 80 mg PO HS tab 01/01/18 06/04/18 Rx buspirone 15 mg tablet 15 mg PO BID #90 tab 02/24/18 05/03/19 Rx sertraline 50 mg tablet 100 mg PO BID #60 tab 03/10/18 06/04/18 Rx carvedilol 25 mg tablet 25 mg PO BIDCC #180 tab 04/20/18 06/04/18 Rx folic acid 1 mg tablet 1 mg PO QDAY #90 tab 04/20/18 05/03/19 Rx pantoprazole 40 mg tablet,delayed 40 mg PO QAM #90 tab 04/20/18 06/04/18 Rx release Apixaban [Eliquis] 1 tab PO QDAY 06/04/18 06/04/18 History Cyanocobalamin (Vitamin B-12) 2,000 mcg SL DAILY 06/05/18 06/05/18 History [Vitamin B-12] Donepezil [Aricept] 10 mg PO DAILY 06/05/18 06/05/18 History Gabapentin [Neurontin] 300 mg PO DAILY 06/05/18 06/05/18 History amLODIPine [Norvasc] 10 mg PO DAILY 06/05/18 06/05/18 History Allergies Allergy/AdvReac Type Severity Reaction Status Date / Time Penicillins Allergy Mild Hives Verified 10/11/16 10:18 Medical - H&P: Exam - Constitutional Vitals: Temp Pulse Resp BP Pulse Ox 97.1 F 78 22 175/103 100 05/03/19 15:10 05/03/19 17:01 05/03/19 17:01 05/03/19 17:01 05/03/19 17:01 General appearance: no acute distress Exam: Confused and disoriented Lethargic Head normocephalic Oral cavity dry No ear nose discharge Dry mucous membranes Neck no lymphadenopathy or JVD S1-S2 tachycardia, irregular Diminished breath sounds bases Abdomen soft nontender Lower extremity no cyanosis clubbing or joint swelling Skin no suspicious lesion Psych confused disoriented with no agitation Neuro higher functions could not be performed. Patient moving all 4 extremities symmetrically Medical - H&P: Reslt - Labs CBC & Chem 7: 05/03/19 15:28 05/03/19 15:28 Labs: Short CBC 05/03/19 Range/Units 15:28 WBC 9.0 (4.5-11.0) K/mcL Hgb 13.9 (13.5-16.5) g/dL Hct 41.8 (41.0-55.0) % Plt Count 179 (140-440) K/mcL BMP 05/03/19 15:28 Sodium 139 Potassium 5.9 H* Chloride 103 Carbon Dioxide 13 L BUN 63 H Creatinine 4.8 H Glucose 103 Calcium 9.3 Cardiac Enzymes 05/03/19 Range/Units 15:28 Troponin T 0.05 H* (0-0.03) ng/ml Liver Function 05/03/19 Range/Units 15:28 Total Bilirubin 0.8 (0.0-1.0) mg/dL AST 11 (0-37) U/l ALT 5 (0-40) U/l Alkaline Phosphatase 126 H (39-117) U/L Albumin 4.1 (3.2-5.2) gm/dL Medical - H&P: A/P (1) Acute hyperkalemia Current visit: Yes Status: Acute * Acute hyperkalemia secondary to missed hemodialysis. Nephrology consulted for emergent hemodialysis. Admit patient to ICU for close monitoring. * Atrial fibrillation with RVR continue diltiazem drip and wean as tolerated. Transition to beta-jhonny once patient lucid and alert and able take orally. Patient on apixaban for CVA prophylaxis * Acute change in mental status secondary to missed hemodialysis/uremia. No o bvious secondary cause including occult infection. Will reevaluate postdialysis. Start thiamine * History of dementia continue donepezil once patient able to take orally * Neuropathy will be restarted on home gabapentin * Anxiety disorder will be continued on home sertraline/BuSpar * Hyperlipidemia continue statin * History of CAD on aspirin statin/apixaban/Coreg * History of hypertension continue Coreg/amlodipine once patient is able take orally * Full code * DVT prophylaxis on anticoagulation Plan * Inpatient admission ICU. * Emergent hemodialysis/nephrology consult * Rate control measures * Thiamine * Restart home medications for pre-existing medical disorders once patient able to take orally * PT OT/nutrition support * Discharge planning per case management. High risk deconditioning since suma t lives alone and is clearly unable to take care of himself * In the setting of acute change mental status/A. fib RVR and hyperkalemia a minimum of 2 midnight hospitalization is mandated Time spent with history and physical/review of records and discussion with physician in excess of 70 minutes Additional 35 minutes critical time spent on management of A. fib RVR/labs and imaging interpretation/encephalopathy evaluation/coordination with nephrology for hyperkalemia management.
[2019-05-03 17:56] LABS: Appearance,Urine CLEAR; Bacteria,Urine 0 /hpf (0); Bilirubin,Urine NEG (NEG); Color,Urine YELLOW; Glucose,Urine (UA) NEGATIVE (NEG); Ketones,Urine 5/TR mg/dL (NEG); Leukocyte Esterase,Urine NEG /uL (NEG); Mucus,Urine FEW /hpf (0); Nitrate,Urine NEG (NEG); Protein,Urine >=500 mg/dL (NEG); Specific Gravity,Urine 1.019 (1.000-1.035); Urine Blood 0.03 mg/dL (<0.03); Urine RBC 31 /hpf (0-1); Urine Squamous Epithelial Cell 0 /hpf (0-4); Urine WBC 2 /hpf (0-4); Urobilinogen,Urine NEG (NEG)
[2019-05-03] MEDS ORDERED: ACETAMINOPHEN 650 MG/65 ML BOTTLE IV PRN (19:52)
[2019-05-03] MEDS ORDERED: ACETAMINOPHEN 325 MG TABLET PO PRN (19:52)
[2019-05-03] MEDS ORDERED: ONDANSETRON 4 MG/2 ML VIAL IV PRN (19:52)
[2019-05-03] MEDS ORDERED: MELATONIN 3 MG TABLET PO PRN (19:52)
[2019-05-03] MEDS: METOPROLOL TARTRATE 5 MG/5 ML VIAL IV SCH ×3 (20:15→21:03)
[2019-05-04] MEDS: DOCUSATE SODIUM 100 MG CAPSULE PO SCH ×3 (00:21→20:53)
[2019-05-04] MEDS: CYANOCOBALAMIN (VITAMIN B-12) 500 MCG TABLET PO SCH ×3 (00:21→20:53)
[2019-05-04] MEDS: SENNOSIDES/DOCUSATE SODIUM 1 TAB TABLET PO SCH ×2 (00:21→20:53)
[2019-05-04] MEDS: 0.9 % SODIUM CHLORIDE 10 ML SYRINGE IV SCH ×4 (00:21→20:54)
[2019-05-04] MEDS ORDERED: DILTIAZEM 125 MG in DEXTROSE 5% IN WATER 100 ML IV SCH (03:45)
[2019-05-04 05:18] LABS: Hematocrit 38.8 % (41.0-55.0); Hemoglobin 12.9 g/dL (13.5-16.5); Mean Cell Volume 100.4 fL (80.0-100.0); Mean Corpuscular HGB Conc 33.3 g/dL (31.0-36.0); Mean Platelet Volume 8.1 fL (7.4-10.4); Platelet Count 176 K/mcL (140-440); RBC 3.87 M/mcL (4.50-5.90); Red Cell Distribution Width 15.8 % (11.5-14.5); WBC 9.3 K/mcL (4.5-11.0)
[2019-05-04 05:54] LABS: ALT/SGPT 5 U/l (0-40); AST/SGOT 8 U/l (0-37); Albumin 3.9 gm/dL (3.2-5.2); Albumin/Globulin Ratio 1.1 (1.0-2.3); Alkaline Phosphatase 118 U/L (39-117); Bilirubin,Direct 0.3 mg/dL (0.0-0.3); Blood Urea Nitrogen 25 mg/dl (8-23); Calcium 8.9 mg/dl (8.6-10.4); Carbon Dioxide 20 mmol/L (22-30); Chloride 97 mmol/L (96-108); Globulin 3.4 gm/dL (2.2-3.7); Glomerular Filtration Rate 21; Glucose 97 mg/dL (70-105); Lactate Dehydrogenase 108 U/L (94-250); Phosphorous 3.2 mg/dL (2.7-4.5); Triglycerides 116 mg/dl (<150)
[2019-05-04 06:17] LABS: Lymphocytes % 12 % (15-49); Macrocytosis 1+ (NONE SEEN); Monocytes % (Manual) 11 % (1-12); Platelet Estimate NORMAL (NORMAL); RBC Morphology ABNORMAL (NORMAL); Segmented Neutrophils % 77 % (38-78)
[2019-05-04] MEDS: MUPIROCIN OINT 2% 22GM NARES SCH ×2 (09:09→20:53)
[2019-05-04] MEDS: THIAMINE 100 MG TABLET PO SCH (09:10)
[2019-05-04] MEDS: MULTIVIT,THER IRON,CA,FA & MIN 1 TABLET PO SCH (09:10)
[2019-05-04] MEDS: FOLIC ACID 1 MG TABLET PO SCH (09:11)
--- NOTE | 2019-05-04 10:24 | Consultation ---
DATE OF CONSULTATION: 05/04/2019 REFERRING PHYSICIAN: Flip Campos MD REASON FOR HOSPITALIZATION: Hyperkalemia. HISTORY OF PRESENT ILLNESS: The patient is a 79-year-old gentleman with past medical history significant for end-stage renal disease on hemodialysis. He dialyzes Thursday, Thursday, Thursday. He has missed his dialysis treatments for 1 whole week. A sister checked on him and found him unresponsive, lying in the bed his own feces. The patient was subsequently brought into the emergency room and found to be hyperkalemic with metabolic acidosis. He also was in a-fib with rapid RVR. He was treated with a diltiazem drip and hospitalized, and a consultation with Nephrology was obtained. His hyperkalemia was treated with dialysis therapy. Dialysis therapy has also helped his confusion and he is a lot better this morning. PAST MEDICAL HISTORY: Significant for: 1. End-stage renal disease on hemodialysis. He dialyzes Thursday, Wednesdays, Fridays. 2. Hyperparathyroidism on due to renal insufficiency. 3. History of renal stenosis. 4. Pulmonary hypertension. 5. Peripheral vascular disease. 6. Depression. 7. Coronary artery disease. 8. Atrial fibrillation. PAST SURGICAL HISTORY: 1. History of knee surgery, history of total arthroplasty. 2. Coronary artery bypass and graft. 3. Colonoscopy. 4. Back surgery. 5. Aortic aneurysm repair. FAMILY HISTORY: There is history of alcohol use and lung disease in the family; also history of coronary artery disease, and hypertension. SOCIAL HISTORY: The patient quit smoking in 1997. He denies any alcohol use. He lives by himself in [place]. MEDICATIONS ON ADMISSION: 1. Aspirin 81 mg once daily. 2. Nephro-Vera 1 tablet once daily. 3. Atorvastatin 20 mg once daily. 4. Buspirone 15 mg at night. 5. Sertraline 50 mg once daily. 6. Carvedilol 25 mg twice daily. 7. Pantoprazole 40 mg once daily. 8. Apixaban Eliquis 1 tablet once daily. 9. B12 2000 mcg sublingual once daily. 10. Aricept 10 mg daily. 11. Neurontin 300 mg daily. 12. Amlodipine 10 mg daily. ALLERGIES: PENICILLIN. PHYSICAL EXAMINATION: GENERAL: Alert and oriented x2 today. VITAL SIGNS: Blood pressures have been 110 to 125 systolic with a diastolic in the 70s. Pulse rates have been in the 80s. Temperature 98.7 with a pulse oximetry of 96%. I's and O's: He had 186 in and 2000 mL out. HEENT: NC/AT. Pupils are reactive. External auditory canals appear normal. Oral cavity reveals normal mucosa. NECK: Supple. He does not have any jugular venous distention. No lymphadenopathy. No thyromegaly. No carotid bruits. LUNGS: Decreased air entry bilaterally. No rales or rhonchi heard. CARDIAC: S1 and S2 heard. No S3, S4. No murmurs. No rubs. ABDOMEN: Soft, nontender. No organomegaly. Positive bowel sounds. No mass, no rebound. EXTREMITIES: Did not show any evidence of edema; difficult to palpate his dorsalis pedis and posterior tibials. No skin rash or joint swellings noted. NEURO: He is moving all 4 extremities. He is oriented x2 and does not appear to have any deficits. LABORATORY DATA: White count is 9.3 with hemoglobin of 12.9 and a platelet count of 176. Sodium 138, potassium 4.0, chloride of 97, CO2 20, BUN 25, creatinine of 2.8, alkaline phosphatase is 118. ASSESSMENT AND PLAN: 1. Hyperkalemia secondary to missing dialysis and he had significant metabolic acidosis. That was corrected with hemodialysis. 2. End-stage renal disease. He is still slightly confused. He is somewhat uremic. We will dialyze him again and that will correct his metabolic acidosis as well. 3. Hypertension, adequately controlled. 4. Dementia. The patient will likely need placement as he is not functional by himself. Thank you, Dr. Campos, for referring this patient for consultation. WILMER:pradip Job ID: [id number] Doc ID: [id number] Frank Campos MD
[2019-05-04] MEDS ORDERED: DILTIAZEM 125 MG in DEXTROSE 5% IN WATER 100 ML IV PRN (12:15)
[2019-05-04 14:03] LABS: Appearance,Urine CLOUDY; Bacteria,Urine MOD /hpf (0); Bilirubin,Urine NEG (NEG); Color,Urine BROWN; Culture Indicated,Urine NO; Glucose,Urine (UA) NEGATIVE (NEG); Ketones,Urine 5/TR mg/dL (NEG); Leukocyte Esterase,Urine NEG /uL (NEG); Mucus,Urine MOD /hpf (0); Nitrate,Urine NEG (NEG); Protein,Urine 100 mg/dL (NEG); Specific Gravity,Urine 1.024 (1.000-1.035); Urine Blood 0.2 mg/dL (<0.03); Urine RBC > 182 /hpf (0-1); Urine Squamous Epithelial Cell 7 /hpf (0-4); Urine WBC > 182 /hpf (0-4); Urobilinogen,Urine NEG (NEG)
[2019-05-04] MEDS ORDERED: DILTIAZEM 25 MG/5 ML VIAL IV ONE (14:18)
[2019-05-04] MEDS: CARVEDILOL 12.5 MG TABLET PO SCH (14:32)
[2019-05-04] MEDS ORDERED: NON FORMULARY MEDICATION 1 DOSE MISCELL (Carvedilol [Coreg] 25 MG) PO SCH (17:30)
[2019-05-04] MEDS ORDERED: 0.9 % SODIUM CHLORIDE 500 ML IV ONE (19:05)
--- NOTE | 2019-05-04 19:07 | Internal Med Progress Note ---
Medical - PN: Subj Patient information: Note initiated : 05/04/19 at 7:04 pm Service Date, if different from initiated Date: [] Patient: Marcello Nelson a 79 y/o M admitted on 05/03/19 for altered mental status. Chief Complaint: [] Interval history: Mr. Nelson is a 79 year old M with a history of end-stage renal disease on hemodialysis. Patient lives at [place] and has missed dialysis for a week. Follow-up call was made to patient's sister who then checked on him and found him unresponsive laying on the bed on his own feces. Patient was subsequently brought into [place] ER initial work-up was consistent with uremia/hyperkalemia along with acidosis in light of missed hemodialysis. Patient was also found in A. fib with RVR and was subsequently diltiazem drip was started. EKG was consistent with hyperkalemia changes. Nephrology was consulted and patient was requested for admission for emergent hemodialysis. Through the course of emergency room visit patient remained minimally responsive very confused disoriented and lethargic. Most of the history was obtained from review of medical records and from ER physician. Patient was unable to participate in either history or review of systems. He remains disoriented and confused 05/04-patient underwent dialysis yesterday and then subsequently today. Much improved mentation. Able to answer some of the questions. Hemodynamic stable. Improved encephalopathy. Traumatic Casillas's insertion with bloody urine. Potassium down to 4. Overnight A. fib with RVR currently on diltiazem drip weaning as tolerated - Constitutional Vitals: Vital Signs Temp Pulse Resp BP Pulse Ox 100 F H 82 18 142/63 99 05/04/19 16:30 05/04/19 16:30 05/04/19 12:01 05/04/19 16:30 05/04/19 09:01 Period Temp Pulse Resp BP Sys/Whittaker Pulse Ox Last 24 Hr 94.8 F-100.1 F 57-99 - 85-195/63-121 85-100 Intake and Output 05/04/19 05/04/19 05/04/19 05:59 13:59 21:59 Intake Total 169 240 65 Output Total 1050 1729 Balance -881 240 -1664 Weight 181 lb Patient Weight 05/05/19 05:59 Weight 181 lb Intake & Output: Intake & Output 05/04/19 05/04/19 05/04/19 05:59 13:59 21:59 Intake Total 169 240 65 Output Total 1050 1729 Balance -881 240 -1664 Weight 181 lb Intake: Nourishment/Supplement quantity 120 (ml) IV 49 65 Cardizem 125 mg In Dextrose 5% 49 in Water 100 ml @ 5 MG/HR 5 mls /hr IV Q12H [facility] Rx#:[id number] Oral 240 Output: Urine Catheter Amount 100 50 Hemodialysis UF 950 1679 Other: Meal Nourishment/Supplement Lunch Percent of Meal Consumed 100% 100% Feeding Ability Independent Assist with Tray Set Up Nourishment/Supplement name jello Urine Appearance Hematuria Hematuria Clear Urine Color Blood Tinged Blood Tinged Dark Laure General appearance: no acute distress Exam: Alert but disoriented No agitation or anxiety Atrial fibrillation on telemetry with RVR Diminished breath sounds bases Dry mucous membranes No lymphedema Tunneled HD catheter right anterior chest Medical - PN: Obj Da - Labs CBC & Chem 7: 05/04/19 04:15 05/04/19 04:15 Labs: Abnormal Lab Results 05/04/19 05/04/19 05/04/19 13:01 04:15 04:15 RBC 3.87 L Hgb 12.9 L Hct 38.8 L MCV 100.4 H RDW 15.8 H Gran % Lymph % (Auto) Lymph # (Auto) Lymphocytes % 12 L Macrocytosis 1+ A Potassium Carbon Dioxide 20 L Anion Gap 21.0 H BUN 25 H Creatinine 2.8 H Alkaline Phosphatase 118 H Ammonia Troponin T Globulin Urine Protein 100 A Urine Ketones 5/tr A Urine Occult Blood 0.2 A Urine RBC > 182 H Urine WBC > 182 H Ur Squamous Epith Cells 7 H Urine Bacteria Mod A 05/03/19 05/03/19 05/03/19 17:23 15:50 15:28 RBC Hgb Hct MCV RDW Gran % Lymph % (Auto) Lymph # (Auto) Lymphocytes % Macrocytosis Potassium Carbon Dioxide Anion Gap BUN Creatinine Alkaline Phosphatase Ammonia < 10 L Troponin T 0.05 H* Globulin Urine Protein >=500 A Urine Ketones 5/tr A Urine Occult Blood 0.03 A Urine RBC 31 H Urine WBC Ur Squamous Epith Cells Urine Bacteria 05/03/19 05/03/19 15:28 15:28 RBC 4.20 L Hgb Hct MCV RDW 16.5 H Gran % 79.7 H Lymph % (Auto) 9.3 L Lymph # (Auto) 0.8 L Lymphocytes % Macrocytosis Potassium 5.9 H* Carbon Dioxide 13 L Anion Gap 23.0 H BUN 63 H Creatinine 4.8 H Alkaline Phosphatase 126 H Ammonia Troponin T Globulin 3.9 H Urine Protein Urine Ketones Urine Occult Blood Urine RBC Urine WBC Ur Squamous Epith Cells Urine Bacteria Meds: Medications Acetaminophen (Tylenol) 650 mg PO Q4-6HP PRN; Protocol PRN Reason: Per Pain Protocol/Fever > 101 Apixaban (Eliquis) 2.5 mg PO QDAY [facility] Atorvastatin Calcium (Lipitor) 80 mg PO HS [facility] Buspirone HCl (Buspar) 15 mg PO BID [facility] Last Admin: 05/04/19 14:32 Dose: 25 mg Documented by: Cyanocobalamin (Vitamin B-12) 1,000 mcg PO BID [facility] Stop: 05/08/19 09:01 Last Admin: 05/04/19 09:10 Dose: 1,000 mcg Documented by: Docusate Sodium (Colace) 100 mg PO BID [facility] Last Admin: 05/04/19 09:26 Dose: Not Given Documented by: Donepezil HCl (Aricept) 10 mg PO DAILY [facility] Folic Acid (Folic Acid) 1 mg PO DAILY [facility] Last Admin: 05/04/19 09:11 Dose: 1 mg Documented by: Acetaminophen (Ofirmev) 650 mg in 65 mls @ 130 mls/hr IV Q6HP PRN; Protocol PRN Reason: Per Pain Protocol/Fever > 101 Last Infusion: 05/04/19 16:30 Dose: Infused Documented by: Diltiazem HCl 125 mg/ Dextrose 125 mls @ 5 mls/hr IV Q12HP PRN; Protocol PRN Reason: Tachyarrhythmias Iron Carb/Multivit/Legal Writing Professor/Folic Acid (Multivitamin W/Minerals) 1 tab PO DAILY [facility] Last Admin: 05/04/19 09:10 Dose: 1 tab Documented by: Melatonin (Melatonin 3mg Tablet) 3 mg PO HSP PRN PRN Reason: Insomnia Multivit/Ca Carb/B Cmplx/FA/Prenat (Diatx) 1 tab PO DAILY [facility] Mupirocin (Bactroban Oint 2%) 1 dose NARES BID [facility] Last Admin: 05/04/19 09:09 Dose: 1 dose Documented by: Ondansetron HCl (Zofran) 4 mg IV Q4-6HP PRN; Protocol PRN Reason: Nausea And Vomiting Pantoprazole Sodium (Protonix) 40 mg PO QAMAC [facility] Senna/Docusate Sodium (Senna Plus Tablet) 1 tab PO HS [facility] Last Admin: 05/04/19 00:21 Dose: Not Given Documented by: Sertraline HCl (Zoloft) 100 mg PO BID [facility] Sodium Chloride (Saline Flush) 10 ml IV Q8 [facility] Last Admin: 05/04/19 14:32 Dose: 10 ml Documented by: Thiamine HCl (Vitamin B1) 100 mg PO DAILY [facility] Last Admin: 05/04/19 09:10 Dose: 100 mg Documented by: Medical - PN: A/P - Time Spent With Patient Total time spent is greater than 50% in coordination of care (as documented) at patient's floor/unit and/or counseling patient: 25 - 35 minutes (1) Acute hyperkalemia Status: Acute Assessment and plan: * Hypertensive urgency with acute change mental status/endorgan dysfunction including A. fib RVR-clinically improving. Systolics much better after hemodialysis and fluid removal. * Acute hyperkalemia secondary to missed hemodialysis. Resolved post hemodialysis. Nephrology on board. * Atrial fibrillation with RVR continue on diltiazem drip. Transition to oral Coreg. Patient on apixaban for CVA prophylaxis * Acute change in mental status secondary to missed hemodialysis/uremia. Clinically improving postdialysis * History of dementia continue donepezil * Neuropathy * Anxiety disorder restart SSRI/BuSpar * Hyperlipidemia continue statin * History of CAD on aspirin statin/apixaban/Coreg * DVT prophylaxis on anticoagulation * Full code Plan * wean diltiazem drip * HD per nephrology * Continue pre-existing well condition management on home meds * PT OT/nutrition support * Discharge planning per case management. High risk deconditioning since patient lives alone and is clearly unable to take care of himself Current Visit: Yes Medical - PN: Qual - VTE Deep Vein Thrombosis/Pulmonary Embolism Present on Admission: No
[2019-05-04] MEDS: busPIRone 5 MG TABLET PO SCH (20:53)
[2019-05-04] MEDS: ATORVASTATIN 40 MG TABLET PO SCH (20:53)
[2019-05-04] MEDS: SERTRALINE 50 MG TABLET PO SCH (20:53)
[2019-05-05] MEDS: CARVEDILOL 12.5 MG TABLET PO SCH ×3 (05:26→19:47)
[2019-05-05] MEDS: 0.9 % SODIUM CHLORIDE 10 ML SYRINGE IV SCH ×3 (05:26→20:48)
[2019-05-05 05:54] LABS: Hematocrit 41.9 % (41.0-55.0); Hemoglobin 13.9 g/dL (13.5-16.5); Mean Cell Volume 100.9 fL (80.0-100.0); Mean Corpuscular HGB Conc 33.1 g/dL (31.0-36.0); Mean Platelet Volume 8.8 fL (7.4-10.4); Platelet Count 170 K/mcL (140-440); RBC 4.15 M/mcL (4.50-5.90); Red Cell Distribution Width 15.8 % (11.5-14.5); WBC 8.5 K/mcL (4.5-11.0)
[2019-05-05 06:27] LABS: ALT/SGPT 6 U/l (0-40); AST/SGOT 10 U/l (0-37); Albumin/Globulin Ratio 1.1 (1.0-2.3); Alkaline Phosphatase 119 U/L (39-117); Bilirubin,Direct 0.3 mg/dL (0.0-0.3); Bilirubin,Total 0.8 mg/dL (0.0-1.0); Blood Urea Nitrogen 29 mg/dl (8-23); Carbon Dioxide 17 mmol/L (22-30); Chloride 98 mmol/L (96-108); Globulin 3.6 gm/dL (2.2-3.7); Glomerular Filtration Rate 15; Glucose 100 mg/dL (70-105); Lactate Dehydrogenase 122 U/L (94-250); Phosphorous 3.6 mg/dL (2.7-4.5); Triglycerides 121 mg/dl (<150); Uric Acid 3.8 mg/dL (2.5-8.0)
[2019-05-05] MEDS: PANTOPRAZOLE 40 MG TABLET PO SCH (07:50)
[2019-05-05 08:26] LABS: Basophils % (Manual) 1 % (0-2); Eosinophils % (Manual) 1 % (0-7); Lymphocytes % 14 % (15-49); Macrocytosis 1+ (NONE SEEN); Monocytes % (Manual) 14 % (1-12); Platelet Estimate NORMAL (NORMAL); RBC Morphology ABNORM (NORMAL); Segmented Neutrophils % 70 % (38-78)
--- NOTE | 2019-05-05 09:11 | Nephrology Progress Note ---
Subjective Patient information: Note initiated : 05/05/19 at 9:09 am Service Date, if different from initiated Date: [] Patient: Marcello Nelson 79 y/o M admitted on 05/03/19 for altered mental status. Chief Complaint: []Had low bp with dialysis yesterday. He is still confused today. Objective - Vital Signs Vital signs: Vital Signs Temp Pulse Resp BP Pulse Ox 05/05/19 04:01 98.9 F 20 99/87 94 05/05/19 02:01 99.1 F H 18 119/76 95 05/05/19 01:02 99.1 F H 18 102/77 98 05/05/19 00:01 99.2 F H 20 115/73 98 05/04/19 23:01 99.2 F H 20 107/72 98 05/04/19 22:01 99.0 F 20 116/81 97 05/04/19 21:18 99.1 F H 20 106/79 95 05/04/19 21:01 99.1 F H 18 86/59 100 05/04/19 20:01 99.3 F H 20 101/61 97 05/04/19 19:08 99.4 F H 20 83/60 100 05/04/19 19:01 99.4 F H 20 73/52 95 05/04/19 18:25 99.5 F H 18 87/68 98 05/04/19 17:16 99.6 F H 106/71 05/04/19 17:04 99.7 F H 109/62 05/04/19 17:02 99.8 F H 77/64 05/04/19 16:46 99.9 F H 142/63 05/04/19 16:31 100.1 F H 135/77 05/04/19 16:30 100 F H 82 142/63 05/04/19 16:29 100.1 F H 121/75 05/04/19 16:22 100.1 F H 88/70 05/04/19 16:17 100.0 F H 05/04/19 16:16 100.0 F H 91/68 05/04/19 16:15 100.1 F H 59 L 88/70 05/04/19 16:05 69 108/68 05/04/19 16:01 99.9 F H 108/68 05/04/19 15:56 99.8 F H 106/64 05/04/19 15:50 79 106/64 05/04/19 15:47 99.7 F H 120/101 05/04/19 15:35 73 124/76 05/04/19 15:31 99.6 F H 124/76 05/04/19 15:20 57 L 133/71 05/04/19 15:16 99.5 F H 133/71 05/04/19 15:11 99.5 F H 123/70 05/04/19 15:05 72 123/70 05/04/19 15:01 99.5 F H 148/101 05/04/19 14:50 85 151/84 05/04/19 14:46 99.6 F H 151/84 05/04/19 14:35 58 L 142/94 05/04/19 14:31 99.5 F H 142/94 05/04/19 14:20 62 156/90 05/04/19 14:16 99.5 F H 156/90 05/04/19 14:05 59 L 143/82 05/04/19 14:01 99.4 F H 143/82 05/04/19 13:50 63 142/87 05/04/19 13:46 99.4 F H 160/94 05/04/19 13:35 73 160/94 05/04/19 13:31 99.3 F H 146/97 05/04/19 13:20 87 146/97 05/04/19 13:17 99.2 F H 152/85 05/04/19 13:01 99.2 F H 142/87 05/04/19 13:00 99.2 F H 83 152/85 05/04/19 12:03 99.0 F 05/04/19 12:01 99.1 F H 18 146/78 05/04/19 11:01 99.0 F 134/86 05/04/19 10:01 98.8 F 148/88 Intake and Output 05/04/19 05/05/19 05/05/19 21:59 05:59 13:59 Intake Total 650 0 Output Total 1729 0 Balance -1079 0 Intake: IV 290 Sodium Chloride 0.9% 500 ml @ 225 Wide Open IV [facility] Rx#: [id number] Oral 360 0 Output: Urine Catheter Amount 50 0 Hemodialysis UF 1679 Other: Meal Dinner Percent of Meal Consumed Refused Urine Appearance Clear Urine Color Dark Laure Uretheral (Casillas) Dark Yellow Weight 172 lb 2 oz Intake & Output: Intake & Output 05/04/19 05/05/19 05/05/19 21:59 05:59 13:59 Intake Total 650 0 Output Total 1729 0 Balance -1079 0 Weight 172 lb 2 oz Intake: IV 290 Sodium Chloride 0.9% 500 ml @ 225 Wide Open IV [facility] Rx#: [id number] Oral 360 0 Output: Urine Catheter Amount 50 0 Hemodialysis UF 1679 Other: Meal Dinner Percent of Meal Consumed Refused Urine Appearance Clear Urine Color Dark Laure Uretheral (Casillas) Dark Yellow - General Appearance General appearance: appears started age EENT: ATNC Neck: no JVD Cardiology: diastolic murmur Gastrointestinal: no tenderness Neurologic: no focal deficit - Lab 05/05/19 03:35 05/05/19 03:35 Most recent lab results Calcium 9.0 mg/dl (8.6-10.4) 05/05/19 03:35 Phosphorus 3.6 mg/dL (2.7-4.5) 05/05/19 03:35 Magnesium 2.1 mg/dL (1.6-2.5) 05/05/19 03:35 Assessment and Plan (1) ESRD (end stage renal disease) on dialysis Status: Acute Comment: Had dialysis yesterday and it was hard. Will plan for tomorrow.
[2019-05-05] MEDS: DOCUSATE SODIUM 100 MG CAPSULE PO SCH ×2 (09:23→20:47)
[2019-05-05] MEDS: APIXABAN 2.5 MG TABLET PO SCH (09:23)
[2019-05-05] MEDS: busPIRone 5 MG TABLET PO SCH ×2 (09:23→20:47)
[2019-05-05] MEDS: FOLIC ACID/VITAMIN B COMP W-C 1 TAB TABLET PO SCH (09:23)
[2019-05-05] MEDS: DONEPEZIL 10 MG TABLET PO SCH (09:26)
[2019-05-05] MEDS: MUPIROCIN OINT 2% 22GM NARES SCH ×2 (09:26→20:47)
--- NOTE | 2019-05-05 10:05 | Internal Med Progress Note ---
Medical - PN: Subj Patient information: Note initiated : 05/05/19 at 10:00 am Service Date, if different from initiated Date: [] Patient: Marcello Nelson a 79 y/o M admitted on 05/03/19 for altered mental status. Chief Complaint: [] Interval history: Mr. Nelson is a 79 year old M with a history of end-stage renal disease on hemodialysis. Patient lives at [facility] and has missed dialysis for a week. Follow-up call was made to patient's sister who then checked on him and found him unresponsive laying on the bed on his own feces. Patient was subsequently brought into [place] [facility] initial work-up was consistent with uremia/hyperkalemia along with acidosis in light of missed hemodialysis. Patient was also found in A. fib with RVR and was subsequently diltiazem drip was started. EKG was consistent with hyperkalemia changes. Nephrology was consulted and patient was requested for admission for emergent hemodialysis. Through the course of emergency room visit patient remained minimally responsive very confused disoriented and lethargic. Most of the history was obtained from review of medical records and from ER physician. Patient was unable to participate in either history or review of systems. He remains disoriented and confused 05/04-patient underwent dialysis yesterday and then subsequently today. Much improved mentation. Able to answer some of the questions. Hemodynamic stable. Improved encephalopathy. Traumatic Casillas's insertion with bloody urine. Potassium down to 4. Overnight A. fib with RVR currently on diltiazem drip weaning as tolerated 05/05-patient remarkably confused and totally disoriented to time place and person. He however is awake. He had a rough dialysis session yesterday with labile hypertension dropping down to 90s. Patient required crystalloid challenge to keep map above goal. Much improved today. No dialysis today. Casillas is draining bloody urine. No overnight fever chills or concerns per staff. Labs normalized postdialysis. Systolics around 100. No family at bedside. Case management to coordinate a safe discharge plan in light of significant mental status change in inability to take care of self - Constitutional Vitals: Vital Signs Temp Pulse Resp BP Pulse Ox 98.9 F 82 20 99/87 94 05/05/19 04:01 05/04/19 16:30 05/05/19 04:01 05/05/19 04:01 05/05/19 04:01 Period Temp Pulse Resp BP Sys/Whittaker Pulse Ox Last 24 Hr 98.8 F-100.1 F 57-87 18-20 73-160/52-101 94-100 Intake and Output 05/04/19 05/05/19 05/05/19 21:59 05:59 13:59 Intake Total 650 0 Output Total 1729 0 Balance -1079 0 Weight 172 lb 2 oz Intake & Output: Intake & Output 05/04/19 05/05/19 05/05/19 21:59 05:59 13:59 Intake Total 650 0 Output Total 1729 0 Balance -1079 0 Weight 172 lb 2 oz Intake: IV 290 Sodium Chloride 0.9% 500 ml @ 225 Wide Open IV BOLUS ONE Rx#: [id number] Oral 360 0 Output: Urine Catheter Amount 50 0 Hemodialysis UF 1679 Other: Meal Dinner Percent of Meal Consumed Refused Urine Appearance Clear Urine Color Dark Laure Uretheral (Casillas) Dark Yellow General appearance: no acute distress Exam: Alert and cooperative but completely disoriented Nonlabored breathing No telemetry events Casillas draining blood-tinged urine No lymphedema Medical - PN: Obj Da - Labs CBC & Chem 7: 05/05/19 03:35 05/05/19 03:35 Labs: Abnormal Lab Results 05/05/19 05/05/19 05/04/19 03:35 03:35 13:01 RBC 4.15 L Hgb Hct MCV 100.9 H RDW 15.8 H Gran % Lymph % (Auto) Lymph # (Auto) Lymphocytes % 14 L Monocytes % (Manual) 14 H RBC Morphology Abnorm A Macrocytosis 1+ A Potassium Carbon Dioxide 17 L Anion Gap 22.0 H BUN 29 H Creatinine 3.6 H Alkaline Phosphatase 119 H Ammonia Troponin T Globulin Urine Protein 100 A Urine Ketones 5/tr A Urine Occult Blood 0.2 A Urine RBC > 182 H Urine WBC > 182 H Ur Squamous Epith Cells 7 H Urine Bacteria Mod A 05/04/19 05/04/19 05/03/19 04:15 04:15 17:23 RBC 3.87 L Hgb 12.9 L Hct 38.8 L MCV 100.4 H RDW 15.8 H Gran % Lymph % (Auto) Lymph # (Auto) Lymphocytes % 12 L Monocytes % (Manual) RBC Morphology Macrocytosis 1+ A Potassium Carbon Dioxide 20 L Anion Gap 21.0 H BUN 25 H Creatinine 2.8 H Alkaline Phosphatase 118 H Ammonia Troponin T Globulin Urine Protein >=500 A Urine Ketones 5/tr A Urine Occult Blood 0.03 A Urine RBC 31 H Urine WBC Ur Squamous Epith Cells Urine Bacteria 05/03/19 05/03/19 05/03/19 15:50 15:28 15:28 RBC Hgb Hct MCV RDW Gran % Lymph % (Auto) Lymph # (Auto) Lymphocytes % Monocytes % (Manual) RBC Morphology Macrocytosis Potassium 5.9 H* Carbon Dioxide 13 L Anion Gap 23.0 H BUN 63 H Creatinine 4.8 H Alkaline Phosphatase 126 H Ammonia < 10 L Troponin T 0.05 H* Globulin 3.9 H Urine Protein Urine Ketones Urine Occult Blood Urine RBC Urine WBC Ur Squamous Epith Cells Urine Bacteria 05/03/19 15:28 RBC 4.20 L Hgb Hct MCV RDW 16.5 H Gran % 79.7 H Lymph % (Auto) 9.3 L Lymph # (Auto) 0.8 L Lymphocytes % Monocytes % (Manual) RBC Morphology Macrocytosis Potassium Carbon Dioxide Anion Gap BUN Creatinine Alkaline Phosphatase Ammonia Troponin T Globulin Urine Protein Urine Ketones Urine Occult Blood Urine RBC Urine WBC Ur Squamous Epith Cells Urine Bacteria Meds: Medications Acetaminophen (Tylenol) 650 mg PO Q4-6HP PRN; Protocol PRN Reason: Per Pain Protocol/Fever > 101 Last Admin: 05/05/19 09:23 Dose: 650 mg Documented by: Apixaban (Eliquis) 2.5 mg PO QDAY [facility] Last Admin: 05/05/19 09:23 Dose: 2.5 mg Documented by: Atorvastatin Calcium (Lipitor) 80 mg PO [facility] Last Admin: 05/04/19 20:53 Dose: 80 mg Documented by: Buspirone HCl (Buspar) 15 mg PO BID [facility] Last Admin: 05/05/19 09:23 Dose: 15 mg Documented by: Carvedilol (Coreg) 25 mg PO [facility] Last Admin: 05/05/19 09:23 Dose: 25 mg Documented by: Cyanocobalamin (Vitamin B-12) 1,000 mcg PO BID [facility] Stop: 05/08/19 09:01 Last Admin: 05/04/19 20:53 Dose: 1,000 mcg Documented by: Docusate Sodium (Colace) 100 mg PO BID [facility] Last Admin: 05/05/19 09:23 Dose: 100 mg Documented by: Donepezil HCl (Aricept) 10 mg PO DAILY [facility] Last Admin: 05/05/19 09:26 Dose: 10 mg Documented by: Folic Acid (Folic Acid) 1 mg PO DAILY [facility] Last Admin: 05/04/19 09:11 Dose: 1 mg Documented by: Acetaminophen (Ofirmev) 650 mg in 65 mls @ 130 mls/hr IV Q6HP PRN; Protocol PRN Reason: Per Pain Protocol/Fever > 101 Last Infusion: 05/04/19 16:30 Dose: Infused Documented by: Diltiazem HCl 125 mg/ Dextrose 125 mls @ 5 mls/hr IV Q12HP PRN; Protocol PRN Reason: Tachyarrhythmias Iron Carb/Multivit/Waiter/Waitress Tourist Class/Folic Acid (Multivitamin W/Minerals) 1 tab PO DAILY [facility] Last Admin: 05/04/19 09:10 Dose: 1 tab Documented by: Melatonin (Melatonin 3mg Tablet) 3 mg PO HSP PRN PRN Reason: Insomnia Multivit/Ca Carb/B Cmplx/FA/Prenat (Diatx) 1 tab PO DAILY [facility] Last Admin: 05/05/19 09:23 Dose: 1 tab Documented by: Mupirocin (Bactroban Oint 2%) 1 dose NARES BID [facility] Last Admin: 05/05/19 09:26 Dose: 1 dose Documented by: Ondansetron HCl (Zofran) 4 mg IV Q4-6HP PRN; Protocol PRN Reason: Nausea And Vomiting Pantoprazole Sodium (Protonix) 40 mg PO QAMAC [facility] Last Admin: 05/05/19 07:50 Dose: 40 mg Documented by: Senna/Docusate Sodium (Senna Plus Tablet) 1 tab PO HS [facility] Last Admin: 05/04/19 20:53 Dose: 1 tab Documented by: Sertraline HCl (Zoloft) 100 mg PO BID [facility] Last Admin: 05/04/19 20:53 Dose: 100 mg Documented by: Sodium Chloride (Saline Flush) 10 ml IV Q8 [facility] Last Admin: 05/05/19 05:26 Dose: 10 ml Documented by: Thiamine HCl (Vitamin B1) 100 mg PO DAILY [facility] Last Admin: 05/04/19 09:10 Dose: 100 mg Documented by: Medical - PN: A/P - Time Spent With Patient Total time spent is greater than 50% in coordination of care (as documented) at patient's floor/unit and/or counseling patient: 25 - 35 minutes (1) Acute hyperkalemia Status: Acute Assessment and plan: * Acute change in mental status with disorientation. Unclear etiology. On thiamine. No improvement post hemodialysis. No evidence of hypoxia/hypercapnia. No evidence of AERONAUTICAL INSPECTOR infection. Neuroimaging unremarkable. * Episode of hypotension postdialysis-lower dose of Coreg to 12.5 * End-stage renal disease on hemodialysis * Hyperkalemia resolved post hemodialysis * Hypertensive urgency with acute change mental status/endorgan dysfunction including A. fib RVR-clinically resolved after hemodialysis * Atrial fibrillation now rate controlled, Off dilt drip. On oral Coreg. Patient on apixaban for CVA prophylaxis * Acute change in mental status secondary to missed hemodialysis/uremia. Clinically improving postdialysis * History of dementia continue donepezil * Neuropathy * Anxiety disorder on SSRI/BuSpar * Hyperlipidemia continue statin * History of CAD on aspirin statin/apixaban/Coreg * DVT prophylaxis on anticoagulation * Full code Plan * Neurochecks * HD per nephrology * DC [place] * Lower Coreg dose to 12.5 * Continue pre-existing medical condition management on home meds * DAILY PT OT * nutrition support * Discharge planning per case management. High risk deconditioning since patient lives alone and is clearly unable to take care of himself Current Visit: Yes Medical - PN: Qual - VTE Deep Vein Thrombosis/Pulmonary Embolism Present on Admission: No
[2019-05-05] MEDS: CYANOCOBALAMIN (VITAMIN B-12) 500 MCG TABLET PO SCH ×2 (16:03→20:48)
[2019-05-05] MEDS: SERTRALINE 50 MG TABLET PO SCH ×2 (16:04→20:48)
[2019-05-05] MEDS: FOLIC ACID 1 MG TABLET PO SCH (16:04)
[2019-05-05] MEDS: MULTIVIT,THER IRON,CA,FA & MIN 1 TABLET PO SCH (16:04)
[2019-05-05] MEDS: THIAMINE 100 MG TABLET PO SCH (16:04)
[2019-05-05] MEDS: ATORVASTATIN 40 MG TABLET PO SCH (20:47)
[2019-05-05] MEDS: SENNOSIDES/DOCUSATE SODIUM 1 TAB TABLET PO SCH (20:48)
[2019-05-06 05:26] LABS: Hematocrit 41.1 % (41.0-55.0); Hemoglobin 13.5 g/dL (13.5-16.5); Mean Cell Volume 100.8 fL (80.0-100.0); Mean Corpuscular HGB Conc 32.9 g/dL (31.0-36.0); Mean Platelet Volume 8.9 fL (7.4-10.4); Platelet Count 204 K/mcL (140-440); RBC 4.08 M/mcL (4.50-5.90); Red Cell Distribution Width 15.7 % (11.5-14.5); WBC 8.5 K/mcL (4.5-11.0)
[2019-05-06] MEDS: 0.9 % SODIUM CHLORIDE 10 ML SYRINGE IV SCH ×3 (05:39→21:20)
[2019-05-06 05:43] LABS: ALT/SGPT 5 U/l (0-40); AST/SGOT 8 U/l (0-37); Albumin 4.1 gm/dL (3.2-5.2); Albumin/Globulin Ratio 1.2 (1.0-2.3); Alkaline Phosphatase 121 U/L (39-117); Bilirubin,Direct 0.3 mg/dL (0.0-0.3); Bilirubin,Total 0.8 mg/dL (0.0-1.0); Blood Urea Nitrogen 47 mg/dl (8-23); Calcium 8.8 mg/dl (8.6-10.4); Carbon Dioxide 19 mmol/L (22-30); Chloride 98 mmol/L (96-108); Globulin 3.5 gm/dL (2.2-3.7); Glomerular Filtration Rate 9; Glucose 88 mg/dL (70-105); Lactate Dehydrogenase 99 U/L (94-250); Triglycerides 117 mg/dl (<150); Uric Acid 5.7 mg/dL (2.5-8.0)
--- NOTE | 2019-05-06 06:12 | Internal Med Progress Note ---
Medical - PN: Subj Patient information: Note initiated : 05/06/19 at 6:10 am Service Date, if different from initiated Date: [] Patient: Marcello Nelson a 79 y/o M admitted on 05/03/19 for altered mental status. Chief Complaint: [] Interval history: Mr. Nelson is a 79 year old M with a history of end-stage renal disease on hemodialysis. Patient lives at [place] and has missed dialysis for a week. Follow-up call was made to patient's sister who then checked on him and found him unresponsive laying on the bed on his own feces. Patient was subsequently brought into [place] ER initial work-up was consistent with uremia/hyperkalemia along with acidosis in light of missed hemodialysis. Patient was also found in A. fib with RVR and was subsequently diltiazem drip was started. EKG was consistent with hyperkalemia changes. Nephrology was consulted and patient was requested for admission for emergent hemodialysis. Through the course of emergency room visit patient remained minimally responsive very confused disoriented and lethargic. Most of the history was obtained from review of medical records and from ER physician. Patient was unable to participate in either history or review of systems. He remains disoriented and confused 05/04-patient underwent dialysis yesterday and then subsequently today. Much improved mentation. Able to answer some of the questions. Hemodynamic stable. Improved encephalopathy. Traumatic Casillas's insertion with bloody urine. Potassium down to 4. Overnight A. fib with RVR currently on diltiazem drip weaning as tolerated 05/05-patient remarkably confused and totally disoriented to time place and person. He however is awake. He had a rough dialysis session yesterday with labile hypertension dropping down to 90s. Patient required crystalloid challenge to keep map above goal. Much improved today. No dialysis today. Casillas is draining bloody urine. No overnight fever chills or concerns per staff. Labs normalized postdialysis. Systolics around 100. No family at bedside. Case management to coordinate a safe discharge plan in light of significant mental status change in inability to take care of self 05/06-patient continues to remain disoriented to time and place. He however is more lucid able to answer some question. Was able to affirm that he gets dialysis 3 times a week and follows up with Dr. Cintron. He says he usually drives himself to the dialysis clinic but cannot remember where he lives. No overnight fever or chills or telemetry events. No other concerns expressed by nursing staff other than persistent confusion/mental change. Due for dialysis today. Acidosis improved. - Constitutional Vitals: Vital Signs Temp Pulse Resp BP Pulse Ox 98.4 F 82 16 131/84 98 05/06/19 03:54 05/04/19 16:30 05/06/19 03:54 05/06/19 03:54 05/06/19 03:54 Period Temp Pulse Resp BP Sys/Whittaker Pulse Ox Last 24 Hr 97.5 F-99.0 F 14-16 92-133/62-102 96-98 Intake and Output 05/05/19 05/06/19 05/06/19 21:59 05:59 13:59 Intake Total 200 240 Output Total 60 0 Balance 140 240 Weight 176 lb 6.4 oz Intake & Output: Intake & Output 05/05/19 05/06/19 05/06/19 21:59 05:59 13:59 Intake Total 200 240 Output Total 60 0 Balance 140 240 Weight 176 lb 6.4 oz Intake: Oral 200 240 Output: Void Amount 60 0 Other: Meal Lunch Percent of Meal Consumed 25% Stool Size Moderate Stool Color Brown Stool Consistency Soft # of times incontinent of 1 Bowels Exam: Intermittent agitation and persistent confusion but improved since previous day Nonlabored breathing Nondistended abdomen Tunneled HD catheter right anterior chest Medical - PN: Obj Da - Labs CBC & Chem 7: 05/06/19 03:08 05/06/19 03:08 Labs: Abnormal Lab Results 05/06/19 05/06/19 05/05/19 03:08 03:08 03:35 RBC 4.08 L Hgb Hct MCV 100.8 H RDW 15.7 H Gran % Lymph % (Auto) Lymph # (Auto) Lymphocytes % Monocytes % (Manual) RBC Morphology Macrocytosis Potassium Carbon Dioxide 19 L 17 L Anion Gap 19.0 H 22.0 H BUN 47 H 29 H Creatinine 5.5 H* 3.6 H Phosphorus 5.0 H Alkaline Phosphatase 121 H 119 H Ammonia Troponin T Globulin Urine Protein Urine Ketones Urine Occult Blood Urine RBC Urine WBC Ur Squamous Epith Cells Urine Bacteria 05/05/19 05/04/19 05/04/19 03:35 13:01 04:15 RBC 4.15 L Hgb Hct MCV 100.9 H RDW 15.8 H Gran % Lymph % (Auto) Lymph # (Auto) Lymphocytes % 14 L Monocytes % (Manual) 14 H RBC Morphology Abnorm A Macrocytosis 1+ A Potassium Carbon Dioxide 20 L Anion Gap 21.0 H BUN 25 H Creatinine 2.8 H Phosphorus Alkaline Phosphatase 118 H Ammonia Troponin T Globulin Urine Protein 100 A Urine Ketones 5/tr A Urine Occult Blood 0.2 A Urine RBC > 182 H Urine WBC > 182 H Ur Squamous Epith Cells 7 H Urine Bacteria Mod A 05/04/19 05/03/19 05/03/19 04:15 17:23 15:50 RBC 3.87 L Hgb 12.9 L Hct 38.8 L MCV 100.4 H RDW 15.8 H Gran % Lymph % (Auto) Lymph # (Auto) Lymphocytes % 12 L Monocytes % (Manual) RBC Morphology Macrocytosis 1+ A Potassium Carbon Dioxide Anion Gap BUN Creatinine Phosphorus Alkaline Phosphatase Ammonia < 10 L Troponin T Globulin Urine Protein >=500 A Urine Ketones 5/tr A Urine Occult Blood 0.03 A Urine RBC 31 H Urine WBC Ur Squamous Epith Cells Urine Bacteria 05/03/19 05/03/19 05/03/19 15:28 15:28 15:28 RBC 4.20 L Hgb Hct MCV RDW 16.5 H Gran % 79.7 H Lymph % (Auto) 9.3 L Lymph # (Auto) 0.8 L Lymphocytes % Monocytes % (Manual) RBC Morphology Macrocytosis Potassium 5.9 H* Carbon Dioxide 13 L Anion Gap 23.0 H BUN 63 H Creatinine 4.8 H Phosphorus Alkaline Phosphatase 126 H Ammonia Troponin T 0.05 H* Globulin 3.9 H Urine Protein Urine Ketones Urine Occult Blood Urine RBC Urine WBC Ur Squamous Epith Cells Urine Bacteria Meds: Medications Acetaminophen (Tylenol) 650 mg PO Q4-6HP PRN; Protocol PRN Reason: Per Pain Protocol/Fever > 101 Last Admin: 05/05/19 09:23 Dose: 650 mg Documented by: Apixaban (Eliquis) 2.5 mg PO QDAY [facility] Last Admin: 05/05/19 09:23 Dose: 2.5 mg Documented by: Atorvastatin Calcium (Lipitor) 80 mg PO HS [facility] Last Admin: 05/05/19 20:47 Dose: 80 mg Documented by: Buspirone HCl (Buspar) 15 mg PO BID [facility] Last Admin: 05/05/19 20:47 Dose: 15 mg Documented by: [facility] Last Admin: 05/05/19 19:47 Dose: 12.5 mg Documented by: Cyanocobalamin (Vitamin B-12) 1,000 mcg PO BID [facility] Stop: 05/08/19 09:01 Last Admin: 05/05/19 20:48 Dose: 1,000 mcg Documented by: Docusate Sodium (Colace) 100 mg PO BID [facility] Last Admin: 05/05/19 20:47 Dose: Not Given Documented by: Donepezil HCl (Aricept) 10 mg PO DAILY [facility] Last Admin: 05/05/19 09:26 Dose: 10 mg Documented by: Folic Acid (Folic Acid) 1 mg PO DAILY [facility] Last Admin: 05/05/19 16:04 Dose: Not Given Documented by: Acetaminophen (Ofirmev) 650 mg in 65 mls @ 130 mls/hr IV Q6HP PRN; Protocol PRN Reason: Per Pain Protocol/Fever > 101 Last Infusion: 05/04/19 16:30 Dose: Infused Documented by: Diltiazem HCl 125 mg/ Dextrose 125 mls @ 5 mls/hr IV Q12HP PRN; Protocol PRN Reason: Tachyarrhythmias Iron Carb/Multivit/[place]/Folic Acid (Multivitamin W/Minerals) 1 tab PO DAILY [facility] Last Admin: 05/05/19 16:04 Dose: 1 tab Documented by: Melatonin (Melatonin 3mg Tablet) 3 mg PO HSP PRN PRN Reason: Insomnia Multivit/Ca Carb/B Cmplx/FA/Prenat (Diatx) 1 tab PO DAILY [facility] Last Admin: 05/05/19 09:23 Dose: 1 tab Documented by: Mupirocin (Bactroban Oint 2%) 1 dose NARES BID [facility] Last Admin: 05/05/19 20:47 Dose: 1 dose Documented by: Ondansetron HCl (Zofran) 4 mg IV Q4-6HP PRN; Protocol PRN Reason: Nausea And Vomiting Pantoprazole Sodium (Protonix) 40 mg PO QAMAC [facility] Last Admin: 05/05/19 07:50 Dose: 40 mg Documented by: Senna/Docusate Sodium (Senna Plus Tablet) 1 tab PO HS [facility] Last Admin: 05/05/19 20:48 Dose: Not Given Documented by: Sertraline HCl (Zoloft) 100 mg PO BID [facility] Last Admin: 05/05/19 20:48 Dose: 100 mg Documented by: Sodium Chloride (Saline Flush) 10 ml IV Q8 [facility] Last Admin: 05/06/19 05:39 Dose: 10 ml Documented by: Thiamine HCl (Vitamin B1) 100 mg PO DAILY [facility] Last Admin: 05/05/19 16:04 Dose: 100 mg Documented by: Medical - PN: A/P - Time Spent With Patient Total time spent is greater than 50% in coordination of care (as documented) at patient's floor/unit and/or counseling patient: 25 - 35 minutes (1) Acute hyperkalemia Status: Acute Assessment and plan: * Acute change in mental status with disorientation. Likely secondary to uremia. Gradually improving. No seizure activity. Ongoing hemodialysis. Continue thiamine. No evidence of hypoxia/hypercapnia or METAL DOOR ASSEMBLER infection. Neuroimaging unremarkable. Continue monitoring * Episode of hypotension postdialysis-improved after lowering dose of Coreg to 12.5 * End-stage renal disease on hemodialysis managed per nephrology * Hyperkalemia resolved * Hypertensive urgency with acute change mental status/endorgan dysfunction including A. fib RVR-clinically resolved * Atrial fibrillation now rate controlled, Off dilt drip. On oral Coreg. * CVA prophylaxis on apixaban * History of dementia continue donepezil * Neuropathy * Anxiety disorder on SSRI/BuSpar * Hyperlipidemia continue statin * History of CAD on aspirin statin/apixaban/Coreg * DVT prophylaxis on anticoagulation * Full code Plan * Telemetry monitoring * HD per nephrology * Continue lowered Coreg dose at 12.5 and uptitrate if indicated * Continue pre-existing medical condition management on home meds * Continue PT OT * nutrition support * Discharge planning per case management. Patient will require placement at SNF due to inability to take care of self Current Visit: Yes Medical - PN: Qual - VTE Deep Vein Thrombosis/Pulmonary Embolism Present on Admission: No
[2019-05-06 06:29] LABS: Eosinophils % (Manual) 2 % (0-7); Lymphocytes % 16 % (15-49); Macrocytosis 1+ (NONE SEEN); Monocytes % (Manual) 12 % (1-12); Platelet Estimate NORMAL (NORMAL); RBC Morphology ABNORM (NORMAL); Segmented Neutrophils % 70 % (38-78)
[2019-05-06] MEDS: PANTOPRAZOLE 40 MG TABLET PO SCH (09:51)
[2019-05-06] MEDS: DOCUSATE SODIUM 100 MG CAPSULE PO SCH ×2 (09:52→21:20)
[2019-05-06] MEDS: CARVEDILOL 12.5 MG TABLET PO SCH ×2 (09:52→17:57)
--- NOTE | 2019-05-06 11:00 | Internal Med Progress Note ---
Medical - PN: Subj Patient information: Note initiated : 05/06/19 at 10:54 am Service Date, if different from initiated Date: [] Patient: Marcello Nelson a 79 y/o M admitted on 05/03/19 for altered mental status. Chief Complaint: [] Interval history: Mr. Nelson is a 79 year old M with a history of end-stage renal disease on hemodialysis. Patient lives at [facility] and has missed dialysis for a week. Follow-up call was made to patient's sister who then checked on him and found him unresponsive laying on the bed on his own feces. Patient was subsequently brought into [place] ER initial work-up was consistent with uremia/hyperkalemia along with acidosis in light of missed hemodialysis. Patient was also found in A. fib with RVR and was subsequently diltiazem drip was started. EKG was consistent with hyperkalemia changes. Nephrology was consulted and patient was requested for admission for emergent hemodialysis. Through the course of emergency room visit patient remained minimally responsive very confused disoriented and lethargic. Most of the history was obtained from review of medical records and from ER physician. Patient was unable to participate in either history or review of systems. He remains disoriented and confused 05/04-patient underwent dialysis yesterday and then subsequently today. Much improved mentation. Able to answer some of the questions. Hemodynamic stable. Improved encephalopathy. Traumatic Casillas's insertion with bloody urine. Potassium down to 4. Overnight A. fib with RVR currently on diltiazem drip weaning as tolerated 05/05-patient remarkably confused and totally disoriented to time place and person. He however is awake. He had a rough dialysis session yesterday with labile hypertension dropping down to 90s. Patient required crystalloid challenge to keep map above goal. Much improved today. No dialysis today. Casillas is draining bloody urine. No overnight fever chills or concerns per staff. Labs normalized postdialysis. Systolics around 100. No family at bedside. Case management to coordinate a safe discharge plan in light of significant mental status change in inability to take care of self 05/06-patient continues to remain disoriented to time and place. He however is more lucid able to answer some question. Was able to affirm that he gets dialysis 3 times a week and follows up with Dr. Cintron. He says he usually drives himself to the dialysis clinic but cannot remember where he lives. No overnight fever or chills or telemetry events. No other concerns expressed by nursing staff other than persistent confusion/mental change. Due for dialysis today. Acidosis improved. - Constitutional Vitals: Vital Signs Temp Pulse Resp BP Pulse Ox 97.6 F 90 16 124/80 98 05/06/19 08:32 05/06/19 10:43 05/06/19 08:05 05/06/19 10:43 05/06/19 08:05 Period Temp Pulse Resp BP Sys/Whittaker Pulse Ox Last 24 Hr 97.5 F-98.9 F 82-100 14-16 101-140/62-102 96-98 Intake and Output 05/05/19 05/06/19 05/06/19 21:59 05:59 13:59 Intake Total 200 240 Output Total 60 0 Balance 140 240 Weight 80.014 kg Intake & Output: Intake & Output 05/05/19 05/06/19 05/06/19 21:59 05:59 13:59 Intake Total 200 240 Output Total 60 0 Balance 140 240 Weight 80.014 kg Intake: Oral 200 240 Output: Void Amount 60 0 Other: Meal Lunch Percent of Meal Consumed 25% Stool Size Moderate Stool Color Brown Stool Consistency Soft # of times incontinent of 1 Bowels Exam: General: Alert, Awake, No acute Distress Eyes/N/T: EOMI, Head/Neck: neck supple, CV: RRR, No murmurs, Pulm: Clear b/l, no wheezing/rhonchi/rales Abd: soft, nontender, +BS x4 Ext: no clubbing/cyanosis/edema Neuro: Intermittent agitation and confusion but improving, moves all extremities, b/l upper/lower Skin: warm/dry Medical - PN: Obj Da - Labs CBC & Chem 7: 05/06/19 03:08 05/06/19 03:08 Labs: Abnormal Lab Results 05/06/19 05/06/19 05/05/19 03:08 03:08 03:35 RBC 4.08 L Hgb Hct MCV 100.8 H RDW 15.7 H Gran % Lymph % (Auto) Lymph # (Auto) Lymphocytes % Monocytes % (Manual) RBC Morphology Abnorm A Macrocytosis 1+ A Potassium Carbon Dioxide 19 L 17 L Anion Gap 19.0 H 22.0 H BUN 47 H 29 H Creatinine 5.5 H* 3.6 H Phosphorus 5.0 H Alkaline Phosphatase 121 H 119 H Ammonia Troponin T Globulin Urine Protein Urine Ketones Urine Occult Blood Urine RBC Urine WBC Ur Squamous Epith Cells Urine Bacteria 05/05/19 05/04/19 05/04/19 03:35 13:01 04:15 RBC 4.15 L Hgb Hct MCV 100.9 H RDW 15.8 H Gran % Lymph % (Auto) Lymph # (Auto) Lymphocytes % 14 L Monocytes % (Manual) 14 H RBC Morphology Abnorm A Macrocytosis 1+ A Potassium Carbon Dioxide 20 L Anion Gap 21.0 H BUN 25 H Creatinine 2.8 H Phosphorus Alkaline Phosphatase 118 H Ammonia Troponin T Globulin Urine Protein 100 A Urine Ketones 5/tr A Urine Occult Blood 0.2 A Urine RBC > 182 H Urine WBC > 182 H Ur Squamous Epith Cells 7 H Urine Bacteria Mod A 05/04/19 05/03/19 05/03/19 04:15 17:23 15:50 RBC 3.87 L Hgb 12.9 L Hct 38.8 L MCV 100.4 H RDW 15.8 H Gran % Lymph % (Auto) Lymph # (Auto) Lymphocytes % 12 L Monocytes % (Manual) RBC Morphology Macrocytosis 1+ A Potassium Carbon Dioxide Anion Gap BUN Creatinine Phosphorus Alkaline Phosphatase Ammonia < 10 L Troponin T Globulin Urine Protein >=500 A Urine Ketones 5/tr A Urine Occult Blood 0.03 A Urine RBC 31 H Urine WBC Ur Squamous Epith Cells Urine Bacteria 05/03/19 05/03/19 05/03/19 15:28 15:28 15:28 RBC 4.20 L Hgb Hct MCV RDW 16.5 H Gran % 79.7 H Lymph % (Auto) 9.3 L Lymph # (Auto) 0.8 L Lymphocytes % Monocytes % (Manual) RBC Morphology Macrocytosis Potassium 5.9 H* Carbon Dioxide 13 L Anion Gap 23.0 H BUN 63 H Creatinine 4.8 H Phosphorus Alkaline Phosphatase 126 H Ammonia Troponin T 0.05 H* Globulin 3.9 H Urine Protein Urine Ketones Urine Occult Blood Urine RBC Urine WBC Ur Squamous Epith Cells Urine Bacteria Meds: Medications Acetaminophen (Tylenol) 650 mg PO Q4-6HP PRN; Protocol PRN Reason: Per Pain Protocol/Fever > 101 Last Admin: 05/05/19 09:23 Dose: 650 mg Documented by: Apixaban (Eliquis) 2.5 mg PO QDAY [facility] Last Admin: 05/05/19 09:23 Dose: 2.5 mg Documented by: Atorvastatin Calcium (Lipitor) 80 mg PO HS [facility] Last Admin: 05/05/19 20:47 Dose: 80 mg Documented by: Buspirone HCl (Buspar) 15 mg PO BID [facility] Last Admin: 05/05/19 20:47 Dose: 15 mg Documented by: [facility] Last Admin: 05/06/19 09:52 Dose: Not Given Documented by: Cyanocobalamin (Vitamin B-12) 1,000 mcg PO BID [facility] Stop: 05/08/19 09:01 Last Admin: 05/05/19 20:48 Dose: 1,000 mcg Documented by: Docusate Sodium (Colace) 100 mg PO BID [facility] Last Admin: 05/06/19 09:52 Dose: Not Given Documented by: Donepezil HCl (Aricept) 10 mg PO DAILY [facility] Last Admin: 05/05/19 09:26 Dose: 10 mg Documented by: Folic Acid (Folic Acid) 1 mg PO DAILY [facility] Last Admin: 05/05/19 16:04 Dose: Not Given Documented by: Acetaminophen (Ofirmev) 650 mg in 65 mls @ 130 mls/hr IV Q6HP PRN; Protocol PRN Reason: Per Pain Protocol/Fever > 101 Last Infusion: 05/04/19 16:30 Dose: Infused Documented by: Diltiazem HCl 125 mg/ Dextrose 125 mls @ 5 mls/hr IV Q12HP PRN; Protocol PRN Reason: Tachyarrhythmias Iron Carb/Multivit/Welding Supervisor/Folic Acid (Multivitamin W/Minerals) 1 tab PO DAILY [facility] Last Admin: 05/05/19 16:04 Dose: 1 tab Documented by: Melatonin (Melatonin 3mg Tablet) 3 mg PO HSP PRN PRN Reason: Insomnia Multivit/Ca Carb/B Cmplx/FA/Prenat (Diatx) 1 tab PO DAILY [facility] Last Admin: 05/05/19 09:23 Dose: 1 tab Documented by: Mupirocin (Bactroban Oint 2%) 1 dose NARES BID [facility] Last Admin: 05/05/19 20:47 Dose: 1 dose Documented by: Ondansetron HCl (Zofran) 4 mg IV Q4-6HP PRN; Protocol PRN Reason: Nausea And Vomiting Pantoprazole Sodium (Protonix) 40 mg PO QAMAC [facility] Last Admin: 05/06/19 09:51 Dose: Not Given Documented by: Senna/Docusate Sodium (Senna Plus Tablet) 1 tab PO HS [facility] Last Admin: 05/05/19 20:48 Dose: Not Given Documented by: Sertraline HCl (Zoloft) 100 mg PO BID [facility] Last Admin: 05/05/19 20:48 Dose: 100 mg Documented by: Sodium Chloride (Saline Flush) 10 ml IV Q8 [facility] Last Admin: 05/06/19 05:39 Dose: 10 ml Documented by: Thiamine HCl (Vitamin B1) 100 mg PO DAILY [facility] Last Admin: 05/05/19 16:04 Dose: 100 mg Documented by: Medical - PN: A/P - Time Spent With Patient Total time spent is greater than 50% in coordination of care (as documented) at patient's floor/unit and/or counseling patient: - Narrative A/P Narrative: A: *Acute mental status w/disorientation: 2/2 Likely uremia (missed a week of HD) superimposed on underlying dementia -Gradually improving, No seizure activity, No evidence of hypoxia/hypercapnia or OUTPATIENT FACILITY PHYSICAL THERAPIST infection -Neuroimaging unremarkable *Episode of hypotension postdialysis: improved after lowering dose of Coreg to 12.5 *ESRD: Follows with Dr. Cintron *Hyperkalemia: resolved *HTN Emergency with acute change mental status/endorgan dysfunction including A. fib RVR: clinically resolved *AFib: now rate controlled, Off dilt drip. On oral Coreg. home apixaban *Dementia continue donepezil *Neuropathy: *Anxiety d/o: SSRI/BuSpar *CAD: on aspirin statin/apixaban/Coreg Plan -HD per nephro -thiamine -Telemetry monitoring -off dilt gtt to home coreg - -Continue PT/ OT -nutrition support -Discharge planning per case management. Patient will require placement at SNF due to inability to take care of self -ppx: Apixaban Full code Medical - PN: Qual - VTE Deep Vein Thrombosis/Pulmonary Embolism Present on Admission: No
[2019-05-06] MEDS: APIXABAN 2.5 MG TABLET PO SCH (14:24)
[2019-05-06] MEDS: busPIRone 5 MG TABLET PO SCH ×2 (14:24→21:19)
[2019-05-06] MEDS: SERTRALINE 50 MG TABLET PO SCH ×2 (14:24→21:20)
[2019-05-06] MEDS: DONEPEZIL 10 MG TABLET PO SCH (14:25)
[2019-05-06] MEDS: MULTIVIT,THER IRON,CA,FA & MIN 1 TABLET PO SCH (14:41)
[2019-05-06] MEDS: FOLIC ACID/VITAMIN B COMP W-C 1 TAB TABLET PO SCH (14:41)
[2019-05-06] MEDS: FOLIC ACID 1 MG TABLET PO SCH (14:41)
[2019-05-06] MEDS: CYANOCOBALAMIN (VITAMIN B-12) 500 MCG TABLET PO SCH ×2 (14:42→21:20)
[2019-05-06] MEDS: THIAMINE 100 MG TABLET PO SCH (14:42)
--- NOTE | 2019-05-06 16:27 | Discharge Summary ---
Medical - DS: Prov Patient information: Note initiated : 05/06/19 at 4:25 pm Service Date, if different from initiated Date: [] Patient: Marcello Nelson 79 y/o M admitted on 05/03/19 for altered mental status. Chief Complaint: [] Date of admission: 05/03/19 19:10 Discharge date: 05/07/19 Primary care physician: Naila Savage Consults: 05/03/19 Consult to Physician [CONS] Stat Comment: Consulting Provider: Flip Capmos Reason For Exam: Physician to Consult Consult to Physician [CONS] Stat Comment: Consulting Provider: Frank Cintron Reason For Exam: Physician to Consult Medical - DS: Meds - Discharge Medications Active and Home Medications: Home Medications B complex-vitamin C-folic acid 100 mg-folic acid 1 mg tablet 1 tab PO QDAY #90 tab 03/20/17 [Rx Confirmed 05/04/19 Last Taken Unknown] atorvastatin 20 mg tablet 80 mg PO HS tab 01/01/18 [Rx Confirmed 05/04/19 Last Taken 06/03/18 21:00] sertraline 50 mg tablet 100 mg PO BID #60 tab 03/10/18 [Rx Confirmed 05/04/19 Last Taken 06/04/18 09:00] folic acid 1 mg tablet 1 mg PO QDAY #90 tab 04/20/18 [Rx Confirmed 05/03/19 Last Taken 06/04/18 09:00] Gabapentin [Neurontin] 300 mg PO TID 06/05/18 [History Confirmed 05/04/19 Last Taken Unknown] Aspirin 81 mg PO DAILY 05/04/19 [History Confirmed 05/04/19 Last Taken Unknown] Carvedilol [Coreg] 12.5 mg PO BIDCC 05/04/19 [History Confirmed 05/04/19 Last Taken Unknown] Memantine [Namenda] 10 mg PO BID 05/04/19 [History Confirmed 05/04/19 Last Taken Unknown] Pantoprazole Sodium [Protonix] 40 mg PO QAMAC 05/04/19 [History Confirmed 05/04/19 Last Taken Unknown] Sevelamer [Renvela] 800 mg PO TIDCC 05/04/19 [History Confirmed 05/04/19 Last Taken Unknown] Medical - DS: Hosp Hospital Course: Mr. Nelson is a 79 year old M with a history of end-stage renal disease on hemodialysis. Patient lives at [facility] and has missed dialysis for a week. Follow-up call was made to patient's sister who then checked on him and found him unresponsive laying on the bed on his own feces. Patient was subsequently brought into [place] ER initial work-up was consistent with uremia/hyperkalemia along with acidosis in light of missed hemodialysis. Patient was also found in A. fib with RVR and was subsequently diltiazem drip was started. EKG was consistent with hyperkalemia changes. Nephrology was consulted and patient was requested for admission for emergent hemodialysis. Through the course of emergency room visit patient remained minimally responsive very confused disoriented and lethargic. Most of the history was obtained from review of medical records and from ER physician. Patient was unable to participate in either history or review of systems. He remains disoriented and confused 05/04-patient underwent dialysis yesterday and then subsequently today. Much improved mentation. Able to answer some of the questions. Hemodynamic stable. Improved encephalopathy. Traumatic Casillas's insertion with bloody urine. Potassium down to 4. Overnight A. fib with RVR currently on diltiazem drip weaning as tolerated 05/05-patient remarkably confused and totally disoriented to time place and per son. He however is awake. He had a rough dialysis session yesterday with labile hypertension dropping down to 90s. Patient required crystalloid challenge to keep map above goal. Much improved today. No dialysis today. Casillas is draining bloody urine. No overnight fever chills or concerns per staff. Labs normalized postdialysis. Systolics around 100. No family at bedside. Case management to coordinate a safe discharge plan in light of significant mental status change in inability to take care of self 05/06-patient continues to remain disoriented to time and place. He however is more lucid able to answer some question. Was able to affirm that he gets dialysis 3 times a week and follows up with Dr. Cintron. He says he usually drives himself to the dialysis clinic but cannot remember where he lives. No overnight fever or chills or telemetry events. No other concerns expressed by nursing staff other than persistent confusion/mental change. Due for dialysis today. Acidosis improved. 05/07 No overnight events. Patient cooperative with taking medications this morning. No new complaints. Stable for discharge to nursing facility today. Discharge diagnosis: Encephalopathy acute on chronic (dementia), uremia end- stage renal disease Secondary discharge diagnosis: Hypertensive emergency Atrial fibrillation neuropathy anxiety CAD - Time Spent with Patient Total time spent providing and/or coordinating discharge services: Greater than 30 minutes Medical - DS: Exam - Constitutional Vitals: Vital Signs Temp Pulse Resp BP Pulse Ox 05/06/19 16:01 97.7 F 15 124/82 98 05/06/19 14:16 129/112 05/06/19 14:01 133/97 05/06/19 13:46 133/99 05/06/19 13:31 113/86 05/06/19 13:16 132/87 99 05/06/19 13:01 128/99 99 05/06/19 12:46 125/80 98 05/06/19 12:31 107/71 98 05/06/19 12:16 97.7 F 16 115/62 98 05/06/19 12:06 134/88 97 05/06/19 12:01 123/73 98 05/06/19 11:55 97.0 F 103 H 123/73 05/06/19 11:46 113/77 100 05/06/19 11:40 101 H 113/77 05/06/19 11:31 136/85 100 05/06/19 11:29 87 136/85 05/06/19 11:16 95 H 131/85 98 05/06/19 11:01 138/118 100 05/06/19 10:55 86 139/118 05/06/19 10:46 124/80 96 05/06/19 10:43 90 124/80 05/06/19 10:31 121/74 98 05/06/19 10:28 96 H 121/74 05/06/19 10:16 123/84 100 05/06/19 10:13 88 123/84 05/06/19 10:01 130/94 100 05/06/19 09:56 89 130/94 05/06/19 09:46 114/82 100 05/06/19 09:42 100 H 114/82 05/06/19 09:31 115/71 95 05/06/19 09:26 97 H 115/71 05/06/19 09:16 120/75 98 05/06/19 09:15 90 120/75 05/06/19 09:01 126/88 100 05/06/19 08:58 87 126/88 05/06/19 08:46 136/83 99 05/06/19 08:44 82 136/83 05/06/19 08:36 140/70 98 05/06/19 08:32 97.6 F 83 140/70 05/06/19 08:05 97.7 F 16 124/76 98 05/06/19 03:54 98.4 F 16 131/84 98 05/05/19 20:00 16 96 05/05/19 19:47 98.0 F 16 123/80 98 Intake and Output 05/06/19 05/06/19 05/06/19 05:59 13:59 21:59 Intake Total 240 60 Output Total 0 1000 Balance 240 -940 Intake: Oral 240 60 Output: Void Amount 0 Hemodialysis UF 1000 Other: Meal Lunch Percent of Meal Consumed 25% Feeding Ability Assist with Tray Set Up Medical - DS: Data Labs on day of discharge: Labs from last 24 hours 05/06/19 05/06/19 03:08 03:08 WBC 8.5 RBC 4.08 L Hgb 13.5 Hct 41.1 MCV 100.8 H MCH 33.2 MCHC 32.9 RDW 15.7 H Plt Count 204 MPV 8.9 Total Counted 100 Seg Neutrophils % 70 Band Neutrophils % Not Reportable Lymphocytes % 16 Monocytes % (Manual) 12 Eosinophils % (Manual) 2 Platelet Estimate Normal RBC Morphology Abnorm A Macrocytosis 1+ A Sodium 136 Potassium 4.5 Chloride 98 Carbon Dioxide 19 L Anion Gap 19.0 H BUN 47 H Creatinine 5.5 H* GFR Calculation 9 Glucose 88 Uric Acid 5.7 Calcium 8.8 Phosphorus 5.0 H Magnesium 2.1 Total Bilirubin 0.8 Direct Bilirubin 0.3 GGT 23 AST 8 ALT 5 Alkaline Phosphatase 121 H Lactate Dehydrogenase 99 Total Protein 7.6 Albumin 4.1 Globulin 3.5 Albumin/Globulin Ratio 1.2 Triglycerides 117 Medical - DS: A/P - Patient/Caregiver Discharge Instructions Activity: as per physical therapy Diet: Renal - Follow up Plan Follow up with: Naila Savage ARNP [Primary Care Provider] - Frank Cintron MD [Physician] - Disposition: Xfer SNF Prognosis: Undetermined Rehab Potential: Fair I certify that the patient requires SNF services: Yes Overall status at discharge: patient is progressing back to baseline Medical - DS: Qual - VTE Deep Vein Thrombosis/Pulmonary Embolism Present on Admission: No
--- NOTE | 2019-05-06 16:31 | Nephrology Progress Note ---
Subjective Patient information: Note initiated : 05/06/19 at 4:30 pm Service Date, if different from initiated Date: [] Patient: Marcello Nelson 79 y/o M admitted on 05/03/19 for altered mental status. Chief Complaint: [] Confused. Denies any complaints. Objective - Vital Signs Vital signs: Vital Signs Temp Pulse Resp BP Pulse Ox 05/06/19 16:01 97.7 F 15 124/82 98 05/06/19 14:16 129/112 05/06/19 14:01 133/97 05/06/19 13:46 133/99 05/06/19 13:31 113/86 05/06/19 13:16 132/87 99 05/06/19 13:01 128/99 99 05/06/19 12:46 125/80 98 05/06/19 12:31 107/71 98 05/06/19 12:16 97.7 F 16 115/62 98 05/06/19 12:06 134/88 97 05/06/19 12:01 123/73 98 05/06/19 11:55 97.0 F 103 H 123/73 05/06/19 11:46 113/77 100 05/06/19 11:40 101 H 113/77 05/06/19 11:31 136/85 100 05/06/19 11:29 87 136/85 05/06/19 11:16 95 H 131/85 98 05/06/19 11:01 138/118 100 05/06/19 10:55 86 139/118 05/06/19 10:46 124/80 96 05/06/19 10:43 90 124/80 05/06/19 10:31 121/74 98 05/06/19 10:28 96 H 121/74 05/06/19 10:16 123/84 100 05/06/19 10:13 88 123/84 05/06/19 10:01 130/94 100 05/06/19 09:56 89 130/94 05/06/19 09:46 114/82 100 05/06/19 09:42 100 H 114/82 05/06/19 09:31 115/71 95 05/06/19 09:26 97 H 115/71 05/06/19 09:16 120/75 98 05/06/19 09:15 90 120/75 05/06/19 09:01 126/88 100 05/06/19 08:58 87 126/88 05/06/19 08:46 136/83 99 05/06/19 08:44 82 136/83 05/06/19 08:36 140/70 98 05/06/19 08:32 97.6 F 83 140/70 05/06/19 08:05 97.7 F 16 124/76 98 05/06/19 03:54 98.4 F 16 131/84 98 05/05/19 20:00 16 96 05/05/19 19:47 98.0 F 16 123/80 98 Intake and Output 05/06/19 05/06/19 05/06/19 05:59 13:59 21:59 Intake Total 240 60 Output Total 0 1000 Balance 240 -940 Intake: Oral 240 60 Output: Void Amount 0 Hemodialysis UF 1000 Other: Meal Lunch Percent of Meal Consumed 25% Feeding Ability Assist with Tray Set Up Intake & Output: Intake & Output 05/06/19 05/06/19 05/06/19 05:59 13:59 21:59 Intake Total 240 60 Output Total 0 1000 Balance 240 -940 Intake: Oral 240 60 Output: Void Amount 0 Hemodialysis UF 1000 Other: Meal Lunch Percent of Meal Consumed 25% Feeding Ability Assist with Tray Set Up - General Appearance General appearance: appears started age EENT: ATNC Neck: no JVD Cardiology: no murmurs Gastrointestinal: normoactive bowel sounds Neurologic: no focal deficit - Lab 05/06/19 03:08 05/06/19 03:08 Most recent lab results Calcium 8.8 mg/dl (8.6-10.4) 05/06/19 03:08 Phosphorus 5.0 mg/dL (2.7-4.5) H 05/06/19 03:08 Magnesium 2.1 mg/dL (1.6-2.5) 05/06/19 03:08 Assessment and Plan (1) ESRD (end stage renal disease) on dialysis Status: Acute Comment: Had dialysis today. Plan for discharge tomorrow. Hemodynamically stable.
[2019-05-06] MEDS: MUPIROCIN OINT 2% 22GM NARES SCH ×2 (17:53→21:19)
[2019-05-06] MEDS: ATORVASTATIN 40 MG TABLET PO SCH (21:19)
[2019-05-06] MEDS: SENNOSIDES/DOCUSATE SODIUM 1 TAB TABLET PO SCH (21:20)
[2019-05-07] MEDS: 0.9 % SODIUM CHLORIDE 10 ML SYRINGE IV SCH (05:26)
[2019-05-07 05:54] LABS: Hematocrit 43.1 % (41.0-55.0); Hemoglobin 14.2 g/dL (13.5-16.5); Mean Cell Volume 100.7 fL (80.0-100.0); Mean Corpuscular HGB Conc 32.9 g/dL (31.0-36.0); Mean Platelet Volume 8.7 fL (7.4-10.4); Platelet Count 201 K/mcL (140-440); RBC 4.28 M/mcL (4.50-5.90); Red Cell Distribution Width 16.5 % (11.5-14.5); WBC 9.2 K/mcL (4.5-11.0)
[2019-05-07 06:14] LABS: ALT/SGPT 7 U/l (0-40); AST/SGOT 12 U/l (0-37); Albumin 3.9 gm/dL (3.2-5.2); Alkaline Phosphatase 126 U/L (39-117); Bilirubin,Direct 0.3 mg/dL (0.0-0.3); Bilirubin,Total 0.8 mg/dL (0.0-1.0); Blood Urea Nitrogen 36 mg/dl (8-23); Calcium 8.8 mg/dl (8.6-10.4); Carbon Dioxide 19 mmol/L (22-30); Chloride 95 mmol/L (96-108); Globulin 3.9 gm/dL (2.2-3.7); Glomerular Filtration Rate 11; Glucose 92 mg/dL (70-105); Lactate Dehydrogenase 130 U/L (94-250); Phosphorous 5.3 mg/dL (2.7-4.5); Triglycerides 131 mg/dl (<150); Uric Acid 4.3 mg/dL (2.5-8.0)
[2019-05-07 08:09] LABS: Anisocytosis 1+ (NONE SEEN); Eosinophils % (Manual) 1 % (0-7); Lymphocytes % 12 % (15-49); Macrocytosis 1+ (NONE SEEN); Monocytes % (Manual) 12 % (1-12); Platelet Estimate NORMAL (NORMAL); RBC Morphology ABNORM (NORMAL); Segmented Neutrophils % 75 % (38-78)
[2019-05-07] MEDS: DONEPEZIL 10 MG TABLET PO SCH (08:19)
[2019-05-07] MEDS: APIXABAN 2.5 MG TABLET PO SCH (08:19)
[2019-05-07] MEDS: CARVEDILOL 12.5 MG TABLET PO SCH (08:19)
[2019-05-07] MEDS: SERTRALINE 50 MG TABLET PO SCH (08:19)
[2019-05-07] MEDS: PANTOPRAZOLE 40 MG TABLET PO SCH (08:19)
[2019-05-07] MEDS: busPIRone 5 MG TABLET PO SCH (08:19)
[2019-05-07] MEDS: DOCUSATE SODIUM 100 MG CAPSULE PO SCH (10:06)
[2019-05-07] MEDS: MUPIROCIN OINT 2% 22GM NARES SCH (10:28)
[2019-05-07] MEDS: FOLIC ACID/VITAMIN B COMP W-C 1 TAB TABLET PO SCH (10:29)
[2019-05-07] MEDS: THIAMINE 100 MG TABLET PO SCH (10:29)
[2019-05-07] MEDS: CYANOCOBALAMIN (VITAMIN B-12) 500 MCG TABLET PO SCH (10:29)
[2019-05-07] MEDS: FOLIC ACID 1 MG TABLET PO SCH (10:29)
[2019-05-07] MEDS: MULTIVIT,THER IRON,CA,FA & MIN 1 TABLET PO SCH (10:29)
== END 2019-05-07 10:35 | DRG 70 ==
LOC: ED 15:09 → ICU 19:10
PROVIDERS: ADMIT Internal Medicine; ATTEND Internal Medicine

== ENCOUNTER 2019-11-21 21:02 | Inpatient (IN) ==
[2019-11-21] MEDS ORDERED: 0.9 % SODIUM CHLORIDE 1,000 ML IV ONE (21:20)
[2019-11-21] MEDS ORDERED: cefTRIAXone 1 GM VIAL IV ONE (21:28)
--- NOTE | 2019-11-21 21:45 | Emergency Department Note ---
Fever HPI - General Chief Complaint: Fever Stated Complaint: fever UTI Time Seen by Provider: 11/21/19 21:26 Mode of arrival: ambulatory - History of Present Illness HPI Narrative: 79-year-old patient presenting to the emergency department the chief complaint of fever. Patient with onset of symptoms prior to arrival. There are no exacerbating or ameliorating factors for this issue. The symptoms are sudden onset. Patient denies warm, flushed skin, cool extremities, cyanosis, mottling, decreased urine output, restlessness, obtundation. Patient claims fever, cough, does have some confusion, feeling systemically ill. - Related Data Home Medications Medication Instructions Recorded Confirmed Gabapentin [Neurontin] 300 mg PO TID 06/05/18 11/21/19 Aspirin 81 mg PO DAILY 05/04/19 11/21/19 Carvedilol [Coreg] 12.5 mg PO BIDCC 05/04/19 08/09/19 Memantine [Namenda] 10 mg PO BID 05/04/19 11/21/19 Pantoprazole Sodium [Protonix] 40 mg PO QAMAC 05/04/19 11/21/19 Sevelamer [Renvela] 800 mg PO TIDCC 05/04/19 08/09/19 Apixaban [Eliquis] 1 tab PO DAILY 05/07/19 11/21/19 Donepezil [Aricept] 1 tab PO DAILY 05/07/19 11/21/19 amLODIPine [Norvasc] 25 tab PO DAILY 05/07/19 11/21/19 busPIRone [Buspar] 1 tab PO BID 05/07/19 11/21/19 Cephalexin [Keflex] 500 mg PO BID 11/21/19 11/21/19 Previous Rx's Medication Instructions Recorded B complex-vitamin C-folic acid 100 1 tab PO QDAY #90 tab 03/20/17 mg-folic acid 1 mg tablet atorvastatin 20 mg tablet 80 mg PO HS tab 01/01/18 sertraline 50 mg tablet 100 mg PO BID #60 tab 03/10/18 folic acid 1 mg tablet 1 mg PO QDAY #90 tab 04/20/18 HYDROcodone/APAP 5/325MG [[place] 1 tab PO Q8HP PRN #10 tab 07/14/19 5-325Mg] Allergies Allergy/AdvReac Type Severity Reaction Status Date / Time Penicillins Allergy Mild Hives Verified 11/21/19 21:10 Review of Systems All systems ED: reviewed and negative except as stated. Fever PMH - Past Medical History PMFSH Narrative: All Active Problems Chest wall pain (Acute) Postop check (Acute) Acute on chronic renal failure (Acute) CKD (chronic kidney disease) requiring chronic dialysis (Acute) ESRD (end stage renal disease) on dialysis (Acute) ESRD (end stage renal disease) on dialysis (Acute) Anemia (Acute) Pneumonia (Acute) Facial abrasion (Acute) Acute hyperkalemia (Acute) Altered mental status (Acute) CKD (chronic kidney disease) requiring chronic dialysis (Acute) Atrial fibrillation (Acute) Knee pain, right (Acute) Hyperparathyroidism due to renal insufficiency (Chronic) Renal artery stenosis (Chronic) Secondary hyperparathyroidism of renal origin (Chronic) UTI (urinary tract infection) (Acute) History of knee surgery (Acute) History of total knee arthroplasty (Acute) History of coronary artery bypass graft (Acute) History of colonoscopy (Acute 01/02/91) History of back surgery (Acute) History of aortic aneurysm repair (Acute) Renal failure, acute (Acute) Pulmonary hypertension (Acute) Peripheral vascular disease (Acute) Onychomycosis (Acute) Neuropathy (Acute) Acquired portal-systemic shunt (Acute) Hypertensive renal disease (Chronic 08/09/13) Hypertension (Acute) Hyperlipemia (Acute) Hyperkeratosis (Acute) Hyperkalemia (Acute 08/09/13) Edema (Acute) Depressive disorder (Acute) Disc degeneration (Acute) Cystitis, acute (Acute) Congestive heart failure (Acute) Chronic kidney disease, stage IV (severe) (Acute 09/23/13) Chronic kidney disease, stage III (moderate) (Chronic 07/20/13) Cervical radiculopathy (Acute) CAD (coronary artery disease) (Acute) Atrial fibrillation (Acute) Arthralgia (Acute) Medical history: Reports: arthritis, CAD (coronary artery disease), hypertension, renal disease (Dialysis dependent), other (Atrial fibrillation, coronary artery disease, cervical radiculopathy just of heart failure, hypertension, hyperlipidemia, hyperkalemia) - Social History smoking status: Never smoker Alcohol use: Reports: Occasionally Drug use: Reports: none Physical Exam Physical exam directed toward trying to find a source for possible infection in this patient. General: Alert, interactive, appropriate Head: Atraumatic, normocephalic Eyes: Extraocular movements intact, sclera anicteric, no conjunctival injection Ears: Pinnae normal, no discharge Mouth: Oral mucosa moist, no acute swelling or evidence of infection Nares: No nasal discharge, patent bilaterally Neck: Trachea midline, full range of motion Chest: Symmetrical chest wall rise, breathing normally; nonlabored respirations Cardiovascular: Patient with excellent perfusion to the extremities; without tachycardia/bradycardia Skin: Patient without area of erythema, patient is without rash, no ascending lymphangitis or lymphadenopathy Extremities: Full range of motion joints, no obvious deformities Neuro: Alert, oriented x3, cranial nerves II through XII grossly intact, patient without lateralizing findings such as weakness, or abnormal reflexes Psychiatric: Normal affect, normal mood Course Vital Signs Temperature 103.0 F H 11/21/19 21:03 Pulse Rate 118 H 11/21/19 21:03 Respiratory Rate 25 H 11/21/19 21:03 Blood Pressure 131/69 11/21/19 21:03 Pulse Oximetry (%) 93 11/21/19 21:03 Temperature 101.7 F H 11/21/19 23:01 Pulse Rate 30 L 11/21/19 22:46 Respiratory Rate 20 11/21/19 23:01 Blood Pressure 132/65 11/21/19 23:01 Pulse Oximetry (%) 94 11/21/19 22:46 Fever - MDM Narrative Medical decision making narrative: 79-Year-old patient presenting to the emergency department chief complaint of fever/sepsis. Differential diagnosis considered in this case included infectious etiologies and various organ systems, drug fever/medication reaction, malignancy, ICH, NMS, meningococcus, RMSF, endocarditis. Seen earlier at dialysis and was started antibiotics for possible UTI. However his fever worsened over the day and he is and presented for further evaluation in the emergency department. Patient is noted to be significantly febrile on presentation with a temperature 103 and is tachycardic as well as tachypneic. With negative chest x-ray for acute pathology. Patient does have elevated white blood cell count. Lactic acid was normal. Patient is a dialysis patient but appears septic and was given a liter of fluid not being more aggressive than that to avoid volume overload. Patient was some improvement during stay in the ED. Antibiotic of choice is going to be vancomycin and cefepime. Patient did receive vancomycin and Rocephin in the ED. Discussed case with Dr. Moser and the consensus medical opinion is to admit the patient for ongoing care. - Lab Data Result diagrams: 11/21/19 21:30 11/21/19 21:30 Lab Results 11/21/19 11/21/19 11/21/19 Range/Units 21:30 21:30 21:30 WBC 15.0 H (4.50-11.00) K/mcL RBC 3.53 L (4.63-6.08) M/mcL Hgb 10.8 L (13.7-17.5) g/dL Hct 32.3 L (40.1-51.0) % MCV 91.5 (80.0-100.0) fL MCH 30.6 (26.0-34.0) pg MCHC 33.4 (31.0-36.0) g/dL RDW 18.8 H (11.5-14.5) % Plt Count 230 (140-440) K/mcL MPV 11.0 H (7.4-10.4) fL Gran % 88.8 H (38.0-78.0) % Lymph % (Auto) 4.6 L (15.5-49.0) % [place] % (Auto) 6.4 (1.0-12.0) % Eos % (Auto) 0.1 (0.0-7.0) % Baso % (Auto) 0.1 (0.0-2.0) % Gran # 13.33 H (1.80-8.00) K/mcL Lymph # (Auto) 0.69 L (1.50-4.80) K/mcL [place] # (Auto) 0.96 H (0.10-0.90) K/mcL Eos # (Auto) 0.01 (0.00-0.70) K/mcL Baso # (Auto) 0.02 (0.00-0.30) K/mcL VBG Lactic Acid 1.4 (0.5-2.0) mmol/L Sodium 137 (133-145) mmol/L Potassium 3.4 (3.3-5.1) mmol/L Chloride 94 L (96-108) mmol/L Carbon Dioxide 25 (22-30) mmol/L Anion Gap 18.0 H (8-16) BUN 32 H (8-23) mg/dl Creatinine 2.6 H (0.7-1.2) mg/dl GFR Calculation 23 Glucose 92 (70-105) mg/dL Calcium 8.6 (8.6-10.4) mg/dl Total Bilirubin 1.2 H (0.0-1.0) mg/dL AST 40 H (0-37) U/l ALT 36 (0-40) U/l Alkaline Phosphatase 185 H (39-117) U/L Total Protein 6.6 (5.9-8.4) gm/dL Albumin 3.0 L (3.2-5.2) gm/dL Globulin 3.6 (2.2-3.7) gm/dL Albumin/Globulin Ratio 0.8 L (1.0-2.3) Urine Color Urine Appearance Urine pH (5.0-9.0) Ur Specific [place] (1.000-1.035) Urine Protein (NEG) mg/dL Urine Glucose (UA) (NEG) mg/dL Urine Ketones (NEG) mg/dL Urine Occult Blood (<0.03) mg/dL Urine Nitrate (NEG) Urine Bilirubin (NEG) mg/dL Urine Urobilinogen (NEG) mg/dL Ur Leukocyte Esterase (NEG) /uL Urine RBC (0-1) /hpf Urine WBC (0-4) /hpf Ur Squamous Epith Cells (0-4) /hpf Urine Bacteria (0) /hpf Ur Culture Indicated? 11/21/19 Range/Units 21:45 WBC (4.50-11.00) K/mcL RBC (4.63-6.08) M/mcL Hgb (13.7-17.5) g/dL Hct (40.1-51.0) % MCV (80.0-100.0) fL MCH (26.0-34.0) pg MCHC (31.0-36.0) g/dL RDW (11.5-14.5) % Plt Count (140-440) K/mcL MPV (7.4-10.4) fL Gran % (38.0-78.0) % Lymph % (Auto) (15.5-49.0) % [place] % (Auto) (1.0-12.0) % Eos % (Auto) (0.0-7.0) % Baso % (Auto) (0.0-2.0) % Gran # (1.80-8.00) K/mcL Lymph # (Auto) (1.50-4.80) K/mcL [place] # (Auto) (0.10-0.90) K/mcL Eos # (Auto) (0.00-0.70) K/mcL Baso # (Auto) (0.00-0.30) K/mcL VBG Lactic Acid (0.5-2.0) mmol/L Sodium (133-145) mmol/L Potassium (3.3-5.1) mmol/L Chloride (96-108) mmol/L Carbon Dioxide (22-30) mmol/L Anion Gap (8-16) BUN (8-23) mg/dl Creatinine (0.7-1.2) mg/dl GFR Calculation Glucose (70-105) mg/dL Calcium (8.6-10.4) mg/dl Total Bilirubin (0.0-1.0) mg/dL AST (0-37) U/l ALT (0-40) U/l Alkaline Phosphatase (39-117) U/L Total Protein (5.9-8.4) gm/dL Albumin (3.2-5.2) gm/dL Globulin (2.2-3.7) gm/dL Albumin/Globulin Ratio (1.0-2.3) Urine Color Laure Urine Appearance Cloudy Urine pH 7.0 (5.0-9.0) Ur Specific [place] 1.019 (1.000-1.035) Urine Protein 100 A (NEG) mg/dL Urine Glucose (UA) Negative (NEG) mg/dL Urine Ketones Neg (NEG) mg/dL Urine Occult Blood 0.03 A (<0.03) mg/dL Urine Nitrate Neg (NEG) Urine Bilirubin Neg (NEG) mg/dL Urine Urobilinogen Neg (NEG) mg/dL Ur Leukocyte Esterase 250 A (NEG) /uL Urine RBC 5 H (0-1) /hpf Urine WBC > 182 H (0-4) /hpf Ur Squamous Epith Cells 0 (0-4) /hpf Urine Bacteria Many A (0) /hpf Ur Culture Indicated? Yes - EKG Data EKG results narrative: EKG: Rate: 107, [place]: N/a, rhythm: Atrial fibrillation RVR, patient without ST elevations to suggest STEMI, patient without concerning T wave inversions or other findings to suggest NSTEMI Disposition Pt seen by [facility] [employer] [facility]/PA only: No Clinical Impression: Sepsis Qualifiers: Sepsis type: sepsis due to unspecified organism Sepsis acute organ dysfunction status: unspecified Qualified Code(s): A41.9 - Sepsis, unspecified organism Disposition: Xfer As Inpt ([facility]) Condition: Undetermined Referrals: Naila Savage ARNP [Primary Care Provider] -
[2019-11-21 22:38] LABS: Appearance,Urine CLOUDY; Bacteria,Urine MANY /hpf (0); Bilirubin,Urine NEG (NEG); Color,Urine AMBER; Culture Indicated,Urine YES; Glucose,Urine (UA) NEGATIVE (NEG); Ketones,Urine NEG (NEG); Leukocyte Esterase,Urine 250 /uL (NEG); Nitrate,Urine NEG (NEG); Protein,Urine 100 mg/dL (NEG); Specific Gravity,Urine 1.019 (1.000-1.035); Urine Blood 0.03 mg/dL (<0.03); Urine RBC 5 /hpf (0-1); Urine Squamous Epithelial Cell 0 /hpf (0-4); Urine WBC > 182 /hpf (0-4); Urobilinogen,Urine NEG (NEG)
[2019-11-21 22:46] LABS: Basophils # (Auto) 0.02 K/mcL (0.00-0.30); Basophils % (Auto) 0.1 % (0.0-2.0); Eosinophils # (Auto) 0.01 K/mcL (0.00-0.70); Eosinophils % (Auto) 0.1 % (0.0-7.0); Granulocytes % (Auto) 88.8 % (38.0-78.0); Hematocrit 32.3 % (40.1-51.0); Hemoglobin 10.8 g/dL (13.7-17.5); Lymphocytes # (Auto) 0.69 K/mcL (1.50-4.80); Lymphocytes % (Auto) 4.6 % (15.5-49.0); Mean Cell Volume 91.5 fL (80.0-100.0); Mean Corpuscular HGB Conc 33.4 g/dL (31.0-36.0); Monocytes # (Auto) 0.96 K/mcL (0.10-0.90); Monocytes % (Auto) 6.4 % (1.0-12.0); Platelet Count 230 K/mcL (140-440); RBC 3.53 M/mcL (4.63-6.08); Red Cell Distribution Width 18.8 % (11.5-14.5)
[2019-11-21 22:57] LABS: ALT/SGPT 36 U/l (0-40); AST/SGOT 40 U/l (0-37); Albumin/Globulin Ratio 0.8 (1.0-2.3); Alkaline Phosphatase 185 U/L (39-117); Bilirubin,Total 1.2 mg/dL (0.0-1.0); Blood Urea Nitrogen 32 mg/dl (8-23); Calcium 8.6 mg/dl (8.6-10.4); Carbon Dioxide 25 mmol/L (22-30); Chloride 94 mmol/L (96-108); Globulin 3.6 gm/dL (2.2-3.7); Glomerular Filtration Rate 23; Glucose 92 mg/dL (70-105)
[2019-11-21] MEDS ORDERED: VANCOMYCIN 1,000 MG in 0.9 % SODIUM CHLORIDE 250 ML IV ONE (23:30)
--- NOTE | 2019-11-21 23:38 | Internal Med History&Physical ---
Medical - H&P: [facility] Patient information: Note initiated : 11/21/19 at 11:38 pm Service Date, if different from initiated Date: [] Patient: Marcello Nelson a 79 y/o M admitted on for fever UTI. Chief Complaint: [] Chief complaint: weakness, fever and confusion History of present illness: Mr. Nelson is a 79 year old with a history of dementia, A. fib, paraplegia wheelchair-bound and ESRD on hemodialysis managed by Dr. Cintron. Patient lives with his Sister Cathy and undergoes hemodialysis 3 times a week at [facility]. For the last couple of days he has been getting increasingly weak fatigue lethargic and has spiked a fever of 102 after dialysis today. Patient was subsequently brought into the ER for evaluation. Initial work-up was consistent with severe sepsis with endorgan dysfunction white count 15,000, pyuria, acute change in mental status and a fever of 102. Following initial work-up including blood cultures antibiotics were instituted. Hospital service was consulted for admission. At evaluation patient is more alert and able to answer some of the questions. Most of the history was obtained from review of medical record, ER physician, patient's Sister Cathy. Endorses history as above but denies recent diarrhea, headache, photophobia. She endorses the patient complaining of dysuria and lower abdominal discomfort. Medical - H&P: [facility] Medical history: Paraplegic now wheelchair-bound ESRD on HD Hyperparathyroidism due to renal insufficiency Renal artery stenosis Secondary hyperparathyroidism of renal origin Pulmonary hypertension Peripheral vascular disease Onychomycosis Neuropathy Hypertension Hyperlipemia Depressive disorder Disc degeneration CAD (coronary artery disease) Atrial fibrillation Past Surgical History History of knee surgery (Acute) History of total knee arthroplasty (Acute) History of coronary artery bypass graft (Acute) History of colonoscopy (Acute 01/02/91) History of back surgery (Acute) History of aortic aneurysm repair (Acute) Family History Brother Alcohol abuse Family history of lung disease Family history of coronary artery disease Father Congestive heart failure Family history of coronary artery disease Mother Family history of malignant neoplasm of breast Acute myocardial infarction Sister Essential hypertension Social History Patient quit smoking 1997 Denies alcohol use Patient until recently used a walker and a cane to walk outside now essentially bedridden and requires full assistance from transfer to bed to wheelchair. Used to live by himself at [facility] however now [place] and lives with Sister Cathy Medical - H&P: Meds Home Medications Medication Instructions Recorded Confirmed Type atorvastatin 20 mg tablet 80 mg PO HS tab 01/01/18 11/21/19 Rx sertraline 50 mg tablet 100 mg PO BID #60 tab 03/10/18 11/21/19 Rx folic acid 1 mg tablet 1 mg PO QDAY #90 tab 04/20/18 11/21/19 Rx Gabapentin [Neurontin] 300 mg PO TID 06/05/18 11/21/19 History Aspirin 81 mg PO DAILY 05/04/19 11/21/19 History Memantine [Namenda] 10 mg PO BID 05/04/19 11/21/19 History Pantoprazole Sodium [Protonix] 40 mg PO QAMAC 05/04/19 11/21/19 History Apixaban [Eliquis] 1 tab PO DAILY 05/07/19 11/21/19 History Donepezil [Aricept] 1 tab PO DAILY 05/07/19 11/21/19 History busPIRone [Buspar] 1 tab PO BID 05/07/19 11/21/19 History Cephalexin [Keflex] 500 mg PO BID 11/21/19 11/21/19 History Metoprolol Succinate 25 mg PO QDAY 11/22/19 11/22/19 History Mupirocin Oint 2% [Bactroban Oint 1 applic TOPICAL BID 11/22/19 11/22/19 History 2%] Allergies Allergy/AdvReac Type Severity Reaction Status Date / Time Penicillins Allergy Mild Hives Verified 11/21/19 21:10 Medical - H&P: Exam - Constitutional Vitals: Temp Pulse Resp BP Pulse Ox 101.7 F H 30 L 20 132/65 94 11/21/19 23:01 11/21/19 22:46 11/21/19 23:01 11/21/19 23:01 11/21/19 22:46 General appearance: no acute distress Exam: Confused/disoriented but alert and respond to commands Head normocephalic Oral cavity dry No ear nose discharge Dry mucous membranes Neck no lymphadenopathy or JVD S1-S2 tachycardia, irregular rhythm Diminished breath sounds bases Abdomen soft tenderness suprapubic/umbilical area Lower extremity no cyanosis clubbing ,nt swelling or erythema Skin no suspicious lesion Psych disoriented but cooperative Neuro higher functions could not be performed. Bilateral lower extremity symmetrical weakness Medical - H&P: Reslt - Labs CBC & Chem 7: 11/22/19 05:00 11/22/19 05:00 Labs: Short CBC 11/21/19 Range/Units 21:30 WBC 15.0 H (4.50-11.00) K/mcL Hgb 10.8 L (13.7-17.5) g/dL Hct 32.3 L (40.1-51.0) % Plt Count 230 (140-440) K/mcL BMP 11/21/19 21:30 Sodium 137 Potassium 3.4 Chloride 94 L Carbon Dioxide 25 BUN 32 H Creatinine 2.6 H Glucose 92 Calcium 8.6 Liver Function 11/21/19 Range/Units 21:30 Total Bilirubin 1.2 H (0.0-1.0) mg/dL AST 40 H (0-37) U/l ALT 36 (0-40) U/l Alkaline Phosphatase 185 H (39-117) U/L Albumin 3.0 L (3.2-5.2) gm/dL Urine 11/21/19 Range/Units 21:45 Urine Color Laure Urine Appearance Cloudy Urine pH 7.0 (5.0-9.0) Ur Specific [place] 1.019 (1.000-1.035) Urine Protein 100 A (NEG) mg/dL Urine Glucose (UA) Negative (NEG) mg/dL Medical - H&P: A/P (1) Severe sepsis with acute organ dysfunction Current visit: Yes Status: Acute * Severe sepsis with acute organ dysfunction including acute change mental status. Broad antibiotic coverage/pancultures. Trend venous lactate and initiate vasopressors to keep map at goal * Complicated UTI continue antibiotic coverage and de-escalate based on sensitivities * Atrial fibrillation currently rate controlled. Restart home medications, on apixaban for CVA prophylaxis * Acute change in mental status secondary to sepsis endorgan dysfunction * History of dementia continue donepezil * Neuropathy restart home gabapentin * Dialysis managed per nephrology * Anxiety disorder initiate home sertraline/BuSpar * Hyperlipidemia continue statin * History of CAD on aspirin statin/apixaban/Coreg * History of hypertension continue Coreg/amlodipine once patient is able take orally * Full code * DVT prophylaxis on anticoagulation Plan * Inpatient admission ICU. * Vasopressors if indicated * Broad antibiotic coverage * Renal imaging * Nephrology consult for HD * Restart home medications for pre-existing medical disorders once patient able to take orally * PT OT/nutrition support * Discharge planning per case management will likely require SNF in light of wheelchair dependency and multiple comorbidities.
[2019-11-22] MEDS ORDERED: VANCOMYCIN PER PHARMACY IV SCH (01:47)
[2019-11-22] MEDS ORDERED: ONDANSETRON 4 MG ODT TABLET SL PRN (01:47)
[2019-11-22] MEDS ORDERED: ONDANSETRON 4 MG/2 ML VIAL IV PRN (01:47)
[2019-11-22] MEDS ORDERED: CEFEPIME 2 GM in DEXTROSE 5% IN WATER 50 ML IV SCH (01:47)
[2019-11-22] MEDS ORDERED: POLYETHYLENE GLYCOL 3350 17 GM PACKET PO PRN (01:47)
[2019-11-22] MEDS ORDERED: BISACODYL 10 MG SUPP.RECT PR PRN (01:47)
[2019-11-22] MEDS ORDERED: 0.9 % SODIUM CHLORIDE 1,000 ML IV SCH (01:47)
[2019-11-22] MEDS ORDERED: CEFEPIME 1 GM VIAL ONE (02:07)
[2019-11-22] MEDS: NOREPINEPHRINE BITARTRATE 16 MG in 0.9 % SODIUM CHLORIDE 234 ML IV SCH (02:16)
[2019-11-22] MEDS: 0.9 % SODIUM CHLORIDE 10 ML SYRINGE IV SCH ×4 (02:16→22:08)
[2019-11-22] MEDS: ACETAMINOPHEN 650 MG/65 ML BOTTLE IV PRN ×2 (02:56→19:48)
[2019-11-22] MEDS ORDERED: ACETAMINOPHEN 1,000 MG/100 ML BOTTLE IV ONE (02:57)
[2019-11-22 06:45] LABS: Hematocrit 27.4 % (40.1-51.0); Hemoglobin 9.1 g/dL (13.7-17.5); Mean Cell Volume 90.7 fL (80.0-100.0); Mean Corpuscular HGB Conc 33.2 g/dL (31.0-36.0); Mean Platelet Volume 10.7 fL (7.4-10.4); Platelet Count 172 K/mcL (140-440); RBC 3.02 M/mcL (4.63-6.08); Red Cell Distribution Width 18.9 % (11.5-14.5); WBC 12.3 K/mcL (4.50-11.00)
[2019-11-22 07:16] LABS: ALT/SGPT 29 U/l (0-40); AST/SGOT 32 U/l (0-37); Albumin 2.4 gm/dL (3.2-5.2); Albumin/Globulin Ratio 0.8 (1.0-2.3); Alkaline Phosphatase 145 U/L (39-117); Bilirubin,Direct 0.5 mg/dL (0.0-0.3); Bilirubin,Total 0.9 mg/dL (0.0-1.0); Blood Urea Nitrogen 36 mg/dl (8-23); Calcium 7.9 mg/dl (8.6-10.4); Carbon Dioxide 25 mmol/L (22-30); Chloride 101 mmol/L (96-108); Globulin 3.2 gm/dL (2.2-3.7); Glomerular Filtration Rate 19; Glucose 89 mg/dL (70-105); Lactate Dehydrogenase 175 U/L (94-250); Phosphorous 2.6 mg/dL (2.7-4.5); Triglycerides 74 mg/dl (<150); Uric Acid 3.3 mg/dL (2.5-8.0)
[2019-11-22 07:34] LABS: Anisocytosis 1+ (NONE SEEN); Lymphocytes % 9 % (15-49); Monocytes % (Manual) 4 % (1-12); Platelet Estimate NORMAL (NORMAL); RBC Morphology ABNORM (NORMAL); Segmented Neutrophils % 87 % (38-78)
[2019-11-22] MEDS ORDERED: POTASSIUM CHLORIDE 20 MEQ TABLET PO ONE (07:40)
--- NOTE | 2019-11-22 08:43 | XRay Report ---
CLINICAL INFORMATION: CP/dyspnea COMPARISON: 05/03/2019 FINDINGS: Moderate cardiomegaly is unchanged. Left subclavian large caliber venous catheter overlies the SVC right atrial junction satisfactory position. No complication from catheter placement. Mediastinum and pulmonary vessels are normal. Small infiltrate has developed in the right base. There is minor atelectasis in the left base. A small right pleural effusion noted IMPRESSION: New small right basilar infiltrate and small effusion. Moderate cardiomegaly - stable. Interpreted and Authenticated by: Dwight Nguyen 11/22/19
[2019-11-22] MEDS ORDERED: HEPARIN 5,000 UNIT/ML VIAL SQ SCH (09:00)
--- NOTE | 2019-11-22 09:51 | Internal Med Progress Note ---
Medical - PN: Subj Patient information: Note initiated : 11/22/19 at 9:48 am Service Date, if different from initiated Date: [] Patient: Marcello Nelson 79 y/o M admitted on 11/22/19 for fever UTI. Chief Complaint: [] Interval history: Mr. Nelson is a 79 year old with a history of dementia, A. fib, paraplegia wheelchair-bound and ESRD on hemodialysis managed by Dr. Cintron. Patient lives with his Sister Cathy and undergoes hemodialysis 3 times a week at [facility] office. For the last couple of days he has been getting increasingly weak fatigue lethargic and has spiked a fever of 102 after dialysis today. Patient was subsequently brought into the ER for evaluation. Initial work-up was consistent with severe sepsis with endorgan dysfunction white count 15,000, pyuria, acute change in mental status and a fever of 102. Following initial work-up including blood cultures antibiotics were instituted. Hospital service was consulted for admission. At evaluation patient is more alert and able to answer some of the questions. Most of the history was obtained from review of medical record, ER physician, patient's Sister Cathy. Endorses history as above but denies recent diarrhea, headache, photophobia. She endorses the patient complaining of dysuria and lower abdominal discomfort. 11/21-patient clinically improving. Improved vitals/map. Improving white count. Febrile at 102. Improved mental status change, potassium at 2.9. Nephrology consulted. On potassium replacement. Urine and blood cultures pending. - Constitutional Vitals: Vital Signs Temp Pulse Resp BP Pulse Ox 97.7 F 63 18 109/61 99 11/22/19 07:00 11/22/19 07:00 11/22/19 07:00 11/22/19 07:00 11/22/19 07:00 Period Temp Pulse Resp BP Sys/Whittaker Pulse Ox Last 24 Hr 97.7 F-103.0 F 30-118 17-29 102-133/44-82 88-100 Intake and Output 11/21/19 11/22/19 11/22/19 21:59 05:59 13:59 Intake Total 1365 Output Total 1350 Balance 15 Weight 188 lb 172 lb 8 oz Intake & Output: Intake & Output 11/21/19 11/22/19 11/22/19 21:59 05:59 13:59 Intake Total 1365 Output Total 1350 Balance 15 Weight 188 lb 172 lb 8 oz Intake: IV 1365 Sodium Chloride 0.9% 1,000 ml @ 1000 Wide Open IV B[facility] ONE Rx#: [id number] Maxipime 2 gm In Dextrose 5% in 50 Water 50 ml @ 100 mls/hr IV Q12H [facility] Rx#:[id number] Vancomycin 1,000 mg In Sodium 250 Chloride 0.9% 250 ml @ 250 mls/ hr IV ONCE ONE Rx#:[id number] Output: Urine Catheter Amount 1350 Other: Urine Appearance Cloudy Sediment Mucous Threads Purulent Small Blood Clots Uretheral ([place]) Cloudy Cloudy Sediment Mucous Threads Purulent Urine Color Light Laure Uretheral ([place]) Tea Colored Light Laure Stool Size Moderate Stool Color Brown Stool Consistency Soft General appearance: no acute distress Exam: Alert and respond to commands Nonlabored breathing No anxiety no telemetry events except for atrial fibrillation rate controlled around 110 Medical - PN: Obj Da - Labs CBC & Chem 7: 11/22/19 05:00 11/22/19 05:00 Labs: Abnormal Lab Results 11/22/19 11/22/19 11/21/19 05:00 05:00 21:45 WBC 12.3 H RBC 3.02 L Hgb 9.1 L Hct 27.4 L RDW 18.9 H MPV 10.7 H Gran % Lymph % (Auto) Gran # Lymph # (Auto) [place] # (Auto) Seg Neutrophils % 87 H Lymphocytes % 9 L RBC Morphology Abnorm A Anisocytosis 1+ A Potassium 2.9 L* Chloride Anion Gap BUN 36 H Creatinine 3.0 H Calcium 7.9 L Phosphorus 2.6 L Total Bilirubin Direct Bilirubin 0.5 H AST Alkaline Phosphatase 145 H Total Protein 5.6 L Albumin 2.4 L Albumin/Globulin Ratio 0.8 L Urine Protein 100 A Urine Occult Blood 0.03 A Ur Leukocyte Esterase 250 A Urine RBC 5 H Urine WBC > 182 H Urine Bacteria Many A 11/21/19 11/21/19 21:30 21:30 WBC 15.0 H RBC 3.53 L Hgb 10.8 L Hct 32.3 L RDW 18.8 H MPV 11.0 H Gran % 88.8 H Lymph % (Auto) 4.6 L Gran # 13.33 H Lymph # (Auto) 0.69 L [place] # (Auto) 0.96 H Seg Neutrophils % Lymphocytes % RBC Morphology Anisocytosis Potassium Chloride 94 L Anion Gap 18.0 H BUN 32 H Creatinine 2.6 H Calcium Phosphorus Total Bilirubin 1.2 H Direct Bilirubin AST 40 H Alkaline Phosphatase 185 H Total Protein Albumin 3.0 L Albumin/Globulin Ratio 0.8 L Urine Protein Urine Occult Blood Ur Leukocyte Esterase Urine RBC Urine WBC Urine Bacteria Meds: Medications Acetaminophen (Tylenol) 650 mg PO Q4-6HP PRN; Protocol PRN Reason: Per Pain Protocol/Fever > 101 Bisacodyl (Dulcolax) 10 mg DC Q2-3DAYS PRN PRN Reason: Constipation Cefepime HCl (Maxipime) 1 gm IV Q24H [facility] Docusate Sodium (Colace) 100 mg PO BID [facility] Heparin Sodium (Porcine) (Heparin) 5,000 unit SQ Q12 [facility] Sodium Chloride (Sodium Chloride 0.9%) 1,000 mls @ 50 mls/hr IV .Q20H [facility] Stop: 11/22/19 21:46 Last Admin: 11/22/19 02:13 Dose: 50 mls/hr Documented by: Norepinephrine Bitartrate 16 (mg/ Sodium Chloride) 250 mls @ 9.375 mls/hr IV Q24H [facility]; Protocol Last Admin: 11/22/19 02:16 Dose: Not Given Documented by: Acetaminophen (Ofirmev) 650 mg in 65 mls @ 130 mls/hr IV Q6HP PRN; Protocol PRN Reason: PAIN/FEVER > 101 Last Infusion: 11/22/19 05:30 Dose: Infused Documented by: Vancomycin HCl 1,000 mg/ (Sodium Chloride) 250 mls @ 250 mls/hr IV TODAY@1200 [facility] Stop: 11/22/19 12:59 Iron Carb/Multivit/[place]rill/Folic Acid (Multivitamin W/Minerals) 1 tab PO DAILY [facility] Melatonin (Melatonin 3mg Tablet) 3 mg PO HSP PRN PRN Reason: Insomnia Ondansetron HCl (Zofran Odt) 4 mg SL Q4-6HP PRN; Protocol PRN Reason: Nausea And Vomiting Ondansetron HCl (Zofran) 4 mg IV Q4-6HP PRN; Protocol PRN Reason: Nausea And Vomiting Polyethylene Glycol (Miralax) 17 gm PO DAILYP PRN PRN Reason: Constipation Senna/Docusate Sodium (Senna Plus Tablet) 1 tab PO HS [facility] Sodium Chloride (Saline Flush) 10 ml IV Q8 [facility] Last Admin: 11/22/19 05:31 Dose: 10 ml Documented by: Vancomycin HCl (Vancomycin Per Pharmacy) 1 order IV UD [facility]; Protocol Medical - PN: A/P - Time Spent With Patient Total time spent is greater than 50% in coordination of care (as documented) at patient's floor/unit and/or counseling patient: 25 - 35 minutes (1) Severe sepsis with acute organ dysfunction Status: Acute Assessment and plan: * Severe sepsis with acute organ dysfunction including acute change mental status. Clinically improving. Downtrending white count. On broad antibiotic coverage/pancultures. * Complicated UTI continue antibiotic coverage and de-escalate based on sensitivities. Renal ultrasound rule out obstructive uropathy * Atrial fibrillation currently rate controlled. Restart home medications, on apixaban for CVA prophylaxis * Acute change in mental status secondary to sepsis endorgan dysfunction * History of dementia continue donepezil * Neuropathy continue home gabapentin * Dialysis managed per nephrology * Anxiety disorder continue home sertraline/BuSpar * Hyperlipidemia continue statin * History of CAD on aspirin statin/apixaban/Coreg * History of hypertension continue Coreg/amlodipine * History of severe neuropathy/paraparesis [id number] directed therapy/SNF transfer coordination * Full code * DVT prophylaxis on anticoagulation Plan * Continue broad antibiotic * Renal ultrasound * Nephrology consult for HD * pre-existing medical disorders management on home meds * PT OT/nutrition support * Discharge planning per case management will likely require SNF in light of wheelchair dependency and multiple comorbidities. Current Visit: Yes
[2019-11-22] MEDS: MULTIVIT,THER IRON,CA,FA & MIN 1 TABLET PO SCH (10:09)
[2019-11-22] MEDS: DOCUSATE SODIUM 100 MG CAPSULE PO SCH ×2 (10:09→22:08)
--- NOTE | 2019-11-22 10:34 | Consultation ---
DATE OF CONSULTATION: 11/22/2019 REFERRING PHYSICIAN: Flip Campos M.D. REASON FOR CONSULTATION: End-stage renal disease. REASON FOR HOSPITALIZATION: The patient is a 79-year-old gentleman with history of dementia, end-stage renal disease on hemodialysis. He dialyzes Thursday, Thursday, and Thursday. He has been progressively getting weaker over the last several weeks. He apparently had a decubitus ulcer for which he has been referred to Wound Care. Yesterday he presented with a fever of 102 and back pain. For that reason, he was brought in to the emergency room. He was found to have a urinary tract infection. For that reason, he is hospitalized. PAST MEDICAL HISTORY: Significant for: 1. End-stage renal disease on hemodialysis. 2. Anemia of chronic kidney disease. 3. Secondary hyperparathyroidism. 4. Pulmonary hypertension. 5. Peripheral vascular disease. 6. Hypertension. 7. Depression. 8. Coronary artery disease. 9. Atrial fibrillation. PAST SURGICAL HISTORY: 1. History of knee surgery. 2. Coronary artery disease status post bypass graft. 3. Back surgeries. 4. History of aortic aneurysm repair. FAMILY HISTORY: History of alcohol use and history of coronary artery disease in the family and hypertension in the family. SOCIAL HISTORY: The patient quit smoking in 1997. He gave no history of alcohol use or drug use. MEDICATIONS ON ADMISSION: 1. Nephro-Vera one tablet once daily. 2. Atorvastatin 80 mg tablet at night. 3. Sertraline 100 mg twice daily, 50 mg tablet. 4. Folic acid 1 mg once daily. 5. Gabapentin 300 mg three times daily. 6. Aspirin 81 mg daily. 7. Carvedilol 12.5 mg twice daily. 8. Protonix 40 mg daily. 9. Renvela 800 mg three times daily. 10. Rifaximin 800 mg one tablet once daily. 11. Amlodipine 2.5 mg once daily. ALLERGIES: PENICILLIN. REVIEW OF SYSTEMS: Ten systems were reviewed and as indicated in history of present illness. PHYSICAL EXAMINATION: GENERAL: Alert, oriented x3, not in any distress. VITAL SIGNS: Blood pressures have been 130 to 140s systolic with diastolic in 60s. Pulse rates have been in the 90s. Temperature of 101.7 with a pulse oximetry of 94%. HEENT: NC/AT. Pupils are reactive. External auditory canal appears normal. Ear canal appears normal. Oral cavity appears normal. NECK: Supple. No jugular venous distention. LUNGS: Decreased air entry bilaterally. No rales or rhonchi heard. CARDIAC: S1 and S2. No S3, S4. No murmurs. No rubs. ABDOMEN: Soft, nontender. No organomegaly. Positive bowel sounds. No mass. No rebound. EXTREMITIES: Did not show evidence of edema. Difficult to palpate his dorsalis pedis and posterior tibials. No skin rash or joint swelling is noted. NEUROLOGIC: Grossly intact. LABORATORY DATA: White count is 12.3 with a hemoglobin of 9.1 and a platelet count of 172. Sodium 138, potassium 2.9. Chloride of 101, CO2 25, BUN of 36 with a creatinine of 3.0, calcium 7.9 with a phosphorus of 2.6. ASSESSMENT AND PLAN: 1. End-stage renal disease. He is hypokalemic. We will replace. We will plan for dialysis tomorrow with a potassium of 3.0. 2. Urinary tract infection. He is currently on antibiotics per Dr. Campos. 3. Hypophosphatemia. We will hold his binders. Layo Job ID: [id number] Doc ID: [id number] Frank KELLER
--- NOTE | 2019-11-22 11:36 | General Surgery Consult Note ---
History of Present Illness Patient information: Note initiated : 11/22/19 at 11:32 am Service Date, if different from initiated Date: [] Patient: Marcello Nelson 79 y/o M admitted on 11/22/19 for fever UTI. Chief Complaint: [] Consult date: 11/22/19 Requesting physician: Flip Campos (Sacral PU . Sepsis ) History of present illness: I saw this 79/M in room 118 along with [facility] wound care nurse. CC: Currently recovering form AMS with SEPSIS, presumed to be of renal UTI origin. He also has a chronic Sacral PU Stage 3. Undergoing appropriate medical management. O/E Noted to have a pressure ulcer in sacral area. Wound Care / Service consulted for evaluation and management. Comorbid conditions: ESRD on HD, Paraplegia, Dementia, AF on anticoagulants, CHF, AAA repair, DM and Hypertension. Medications and Allergies Home Medications Medication Instructions Recorded Confirmed Type atorvastatin 20 mg tablet 80 mg PO HS tab 01/01/18 11/21/19 Rx sertraline 50 mg tablet 100 mg PO BID #60 tab 03/10/18 11/21/19 Rx folic acid 1 mg tablet 1 mg PO QDAY #90 tab 04/20/18 11/21/19 Rx Gabapentin [Neurontin] 300 mg PO TID 06/05/18 11/21/19 History Aspirin 81 mg PO DAILY 05/04/19 11/21/19 History Memantine [Namenda] 10 mg PO BID 05/04/19 11/21/19 History Pantoprazole Sodium [Protonix] 40 mg PO QAMAC 05/04/19 11/21/19 History Apixaban [Eliquis] 1 tab PO DAILY 05/07/19 11/21/19 History Donepezil [Aricept] 1 tab PO DAILY 05/07/19 11/21/19 History busPIRone [Buspar] 1 tab PO BID 05/07/19 11/21/19 History Cephalexin [Keflex] 500 mg PO BID 11/21/19 11/21/19 History Metoprolol Succinate 25 mg PO QDAY 11/22/19 11/22/19 History Mupirocin Oint 2% [Bactroban Oint 1 applic TOPICAL BID 11/22/19 11/22/19 History 2%] Allergies Allergy/AdvReac Type Severity Reaction Status Date / Time Penicillins Allergy Mild Hives Verified 11/21/19 21:10 Exam Temp Pulse Resp BP Pulse Ox 98.2 F 91 H 18 110/58 96 11/22/19 10:00 11/22/19 10:00 11/22/19 10:00 11/22/19 10:00 11/22/19 10:00 - General physical appearance well developed, well nourished, no distress, no pain - Eyes PERRL, normal ocular movement - ENT normal pinna, normal nares, normal mucosa, no congestion - Head Head exam IM: Present: atraumatic, normocephalic - Neck no masses, trachea midline, no venous distension - Cardiovascular Cardiovascular exam IM: Present: normal rate and rhythm - Respiratory normal expansion, normal respiratory effort, clear to auscultation - Abdomen Abdomen: Present: soft, non tender, bowel sounds - Integumentary Present: other (Sacral pressure ulcer Stage 3. Approx 5 x 4 x 1.5 CM No pururlence, NO drainage, No undermining, Periwound skin ans subcutaneous texture at baseline. Bone and synovial tissue is NOT exposed. ) - Neurologic Present: other (NO new acute findings. H/O paraplegia. ) - Musculoskeletal Present: other (Non Ambulatory. ) - Psychiatric Present: oriented to time, oriented to person, oriented to place, speech is normal Results - Labs 11/23/19 05:05 11/23/19 05:05 Abnormal lab results 11/21/19 11/21/19 11/21/19 Range/Units 21:30 21:30 21:45 WBC 15.0 H (4.50-11.00) K/mcL RBC 3.53 L (4.63-6.08) M/mcL Hgb 10.8 L (13.7-17.5) g/dL Hct 32.3 L (40.1-51.0) % RDW 18.8 H (11.5-14.5) % MPV 11.0 H (7.4-10.4) fL Gran % 88.8 H (38.0-78.0) % Lymph % (Auto) 4.6 L (15.5-49.0) % Gran # 13.33 H (1.80-8.00) K/mcL Lymph # (Auto) 0.69 L (1.50-4.80) K/mcL [place] # (Auto) 0.96 H (0.10-0.90) K/mcL Seg Neutrophils % (38-78) % Lymphocytes % (15-49) % RBC Morphology (NORMAL) Anisocytosis (NONE SEEN) Potassium (3.3-5.1) mmol/L Chloride 94 L (96-108) mmol/L Anion Gap 18.0 H (8-16) BUN 32 H (8-23) mg/dl Creatinine 2.6 H (0.7-1.2) mg/dl Calcium (8.6-10.4) mg/dl Phosphorus (2.7-4.5) mg/dL Total Bilirubin 1.2 H (0.0-1.0) mg/dL Direct Bilirubin (0.0-0.3) mg/dL AST 40 H (0-37) U/l Alkaline Phosphatase 185 H (39-117) U/L Total Protein (5.9-8.4) gm/dL Albumin 3.0 L (3.2-5.2) gm/dL Albumin/Globulin Ratio 0.8 L (1.0-2.3) Urine Protein 100 A (NEG) mg/dL Urine Occult Blood 0.03 A (<0.03) mg/dL Ur Leukocyte Esterase 250 A (NEG) /uL Urine RBC 5 H (0-1) /hpf Urine WBC > 182 H (0-4) /hpf Urine Bacteria Many A (0) /hpf 11/22/19 11/22/19 Range/Units 05:00 05:00 WBC 12.3 H (4.50-11.00) K/mcL RBC 3.02 L (4.63-6.08) M/mcL Hgb 9.1 L (13.7-17.5) g/dL Hct 27.4 L (40.1-51.0) % RDW 18.9 H (11.5-14.5) % MPV 10.7 H (7.4-10.4) fL Gran % (38.0-78.0) % Lymph % (Auto) (15.5-49.0) % Gran # (1.80-8.00) K/mcL Lymph # (Auto) (1.50-4.80) K/mcL [place] # (Auto) (0.10-0.90) K/mcL Seg Neutrophils % 87 H (38-78) % Lymphocytes % 9 L (15-49) % RBC Morphology Abnorm A (NORMAL) Anisocytosis 1+ A (NONE SEEN) Potassium 2.9 L* (3.3-5.1) mmol/L Chloride (96-108) mmol/L Anion Gap (8-16) BUN 36 H (8-23) mg/dl Creatinine 3.0 H (0.7-1.2) mg/dl Calcium 7.9 L (8.6-10.4) mg/dl Phosphorus 2.6 L (2.7-4.5) mg/dL Total Bilirubin (0.0-1.0) mg/dL Direct Bilirubin 0.5 H (0.0-0.3) mg/dL AST (0-37) U/l Alkaline Phosphatase 145 H (39-117) U/L Total Protein 5.6 L (5.9-8.4) gm/dL Albumin 2.4 L (3.2-5.2) gm/dL Albumin/Globulin Ratio 0.8 L (1.0-2.3) Urine Protein (NEG) mg/dL Urine Occult Blood (<0.03) mg/dL Ur Leukocyte Esterase (NEG) /uL Urine RBC (0-1) /hpf Urine WBC (0-4) /hpf Urine Bacteria (0) /hpf Diabetes panel 11/21/19 11/22/19 Range/Units 21:30 05:00 Sodium 137 138 (133-145) mmol/L Potassium 3.4 2.9 L* (3.3-5.1) mmol/L Chloride 94 L 101 (96-108) mmol/L Carbon Dioxide 25 25 (22-30) mmol/L BUN 32 H 36 H (8-23) mg/dl Creatinine 2.6 H 3.0 H (0.7-1.2) mg/dl Glucose 92 89 (70-105) mg/dL Calcium 8.6 7.9 L (8.6-10.4) mg/dl AST 40 H 32 (0-37) U/l ALT 36 29 (0-40) U/l Alkaline Phosphatase 185 H 145 H (39-117) U/L Total Protein 6.6 5.6 L (5.9-8.4) gm/dL Albumin 3.0 L 2.4 L (3.2-5.2) gm/dL Triglycerides 74 (<150) mg/dl Calcium panel 11/21/19 11/22/19 Range/Units 21:30 05:00 Calcium 8.6 7.9 L (8.6-10.4) mg/dl Phosphorus 2.6 L (2.7-4.5) mg/dL Albumin 3.0 L 2.4 L (3.2-5.2) gm/dL Pituitary panel 11/21/19 11/22/19 Range/Units 21:30 05:00 Sodium 137 138 (133-145) mmol/L Potassium 3.4 2.9 L* (3.3-5.1) mmol/L Chloride 94 L 101 (96-108) mmol/L Carbon Dioxide 25 25 (22-30) mmol/L BUN 32 H 36 H (8-23) mg/dl Creatinine 2.6 H 3.0 H (0.7-1.2) mg/dl Glucose 92 89 (70-105) mg/dL Calcium 8.6 7.9 L (8.6-10.4) mg/dl Adrenal panel 11/21/19 11/22/19 Range/Units 21:30 05:00 Sodium 137 138 (133-145) mmol/L Potassium 3.4 2.9 L* (3.3-5.1) mmol/L Chloride 94 L 101 (96-108) mmol/L Carbon Dioxide 25 25 (22-30) mmol/L BUN 32 H 36 H (8-23) mg/dl Creatinine 2.6 H 3.0 H (0.7-1.2) mg/dl Glucose 92 89 (70-105) mg/dL Calcium 8.6 7.9 L (8.6-10.4) mg/dl Total Bilirubin 1.2 H 0.9 (0.0-1.0) mg/dL AST 40 H 32 (0-37) U/l ALT 36 29 (0-40) U/l Alkaline Phosphatase 185 H 145 H (39-117) U/L Total Protein 6.6 5.6 L (5.9-8.4) gm/dL Albumin 3.0 L 2.4 L (3.2-5.2) gm/dL All other labs normal. Assessment and Plan (1) Pressure ulcer of sacral region, stage 3 Assessment: Chronic pressure ulcer sacral region. Stage 3 Stable. Present at time of admission for urosepsis. Plan: Conservative wound care management. See orders. Following patient during his hospitalization. Status: Chronic Priority: Low (2) Sepsis due to Escherichia coli with acute renal failure Status: Acute Priority: High Comment: Responded to voulme replesion, vasopressors and intrvenous antibiotics. Qualifiers: Severe sepsis shock status: without septic shock (3) ESRD (end stage renal disease) on dialysis Status: Chronic Priority: Medium (4) Chronic kidney disease, stage IV (severe) Status: Chronic Priority: Medium (5) Atrial fibrillation Status: Chronic Priority: Medium (6) Hemodialysis patient Status: Acute
[2019-11-22] MEDS: APIXABAN 2.5 MG TABLET PO SCH (11:42)
[2019-11-22] MEDS ORDERED: VANCOMYCIN 1,000 MG in 0.9 % SODIUM CHLORIDE 250 ML IV SCH (12:00)
--- NOTE | 2019-11-22 15:55 | Ultrasound Report ---
CLINICAL INFORMATION: r/o obstr uropathy. Fever COMPARISON: 08/15/2013 renal ultrasound. FINDINGS: Left knee is normal in size - 10 x 6 cm. The right kidney is mildly atrophic: 8.8 x 5 cm. Left kidney echotexture is normal but the right kidney is hyperechoic. No solid/cystic lesions, stones or hydronephrosis. [place] catheter decompresses the bladder, but no focal lesion. Scattered hepatic cysts incidentally noted IMPRESSION: Mild atrophy right kidney with elevated echotexture suggesting medical renal disease. The left kidney is normal. No evidence of infection source Interpreted and Authenticated by: Dwight Nguyen 11/22/19
[2019-11-22] MEDS: COLLAGENASE TOP OINT TUBE 30GM TOPICAL SCH (17:08)
[2019-11-22] MEDS: GABAPENTIN 300 MG CAPSULE PO SCH (17:09)
[2019-11-22] MEDS: CEFEPIME 1 GM VIAL IV SCH (17:09)
[2019-11-22] MEDS: ATORVASTATIN 40 MG TABLET PO SCH (22:07)
[2019-11-22] MEDS: SENNOSIDES/DOCUSATE SODIUM 1 TAB TABLET PO SCH (22:08)
[2019-11-22] MEDS: SERTRALINE 50 MG TABLET PO SCH (22:08)
[2019-11-22] MEDS: MEMANTINE 10 MG TABLET PO SCH (22:08)
[2019-11-22] MEDS: busPIRone 15 MG TABLET PO SCH (22:08)
[2019-11-22] MEDS: MELATONIN 3 MG TABLET PO PRN (22:08)
[2019-11-23] MEDS: NOREPINEPHRINE BITARTRATE 16 MG in 0.9 % SODIUM CHLORIDE 234 ML IV SCH (02:38)
[2019-11-23] MEDS: 0.9 % SODIUM CHLORIDE 10 ML SYRINGE IV SCH ×3 (04:52→20:30)
[2019-11-23 07:01] LABS: Hematocrit 28.8 % (40.1-51.0); Hemoglobin 9.3 g/dL (13.7-17.5); Mean Corpuscular HGB Conc 32.3 g/dL (31.0-36.0); Mean Platelet Volume 11.3 fL (7.4-10.4); Platelet Count 152 K/mcL (140-440); RBC 3.13 M/mcL (4.63-6.08); Red Cell Distribution Width 19.3 % (11.5-14.5); WBC 9.9 K/mcL (4.50-11.00)
[2019-11-23 07:54] LABS: ALT/SGPT 29 U/l (0-40); AST/SGOT 35 U/l (0-37); Albumin 2.4 gm/dL (3.2-5.2); Albumin/Globulin Ratio 0.8 (1.0-2.3); Alkaline Phosphatase 146 U/L (39-117); Anisocytosis 2+ (NONE SEEN); Band Neutrophils % 1 % (0-10); Bilirubin,Direct 0.5 mg/dL (0.0-0.3); Bilirubin,Total 0.9 mg/dL (0.0-1.0); Blood Urea Nitrogen 43 mg/dl (8-23); Calcium 8.1 mg/dl (8.6-10.4); Carbon Dioxide 23 mmol/L (22-30); Chloride 98 mmol/L (96-108); Globulin 2.9 gm/dL (2.2-3.7); Glomerular Filtration Rate 16; Glucose 78 mg/dL (70-105); Lactate Dehydrogenase 199 U/L (94-250); Lymphocytes % 6 % (15-49); Monocytes % (Manual) 1 % (1-12); Myelocytes % 1 % (0-0); Ovalocytes 1+ (NONE SEEN); Phosphorous 2.6 mg/dL (2.7-4.5); Platelet Estimate NORMAL (NORMAL); RBC Morphology ABNORM (NORMAL); Segmented Neutrophils % 91 % (38-78); Triglycerides 86 mg/dl (<150); Uric Acid 4.1 mg/dL (2.5-8.0)
[2019-11-23] MEDS: PANTOPRAZOLE 40 MG TABLET PO SCH (08:33)
[2019-11-23] MEDS: DONEPEZIL 10 MG TABLET PO SCH (08:33)
[2019-11-23] MEDS: busPIRone 15 MG TABLET PO SCH ×2 (08:33→20:29)
[2019-11-23] MEDS: SERTRALINE 50 MG TABLET PO SCH ×2 (08:33→20:29)
[2019-11-23] MEDS ORDERED: APIXABAN 2.5 MG TABLET PO SCH (09:00)
--- NOTE | 2019-11-23 09:41 | Nephrology Progress Note ---
Subjective Patient information: Note initiated : 11/23/19 at 9:39 am Service Date, if different from initiated Date: [] Patient: Marcello Nelson 79 y/o M admitted on 11/22/19 for fever UTI. Chief Complaint: [] He is better than yesterday. Has not had any fever. RIght arm is swollen. Objective - Vital Signs Vital signs: Vital Signs Temp Pulse Pulse Resp BP BP Pulse Ox 11/23/19 06:01 98.7 F 24 H 110/66 96 11/23/19 05:31 98.6 F 17 125/77 95 11/23/19 05:01 98.5 F 21 132/65 97 11/23/19 04:31 98.4 F 20 127/78 92 11/23/19 04:01 98.3 F 18 123/77 95 11/23/19 03:31 98.2 F 18 129/65 96 11/23/19 03:01 98.1 F 17 130/75 98 11/23/19 02:31 97.9 F 19 139/75 96 11/23/19 02:03 97.9 F 89 19 100/47 94 11/23/19 02:00 96 11/23/19 01:01 98.1 F 22 113/64 94 11/23/19 00:01 98.5 F 102 H 18 113/63 96 11/22/19 23:31 98.8 F 19 105/62 11/22/19 23:16 98.8 F 72 19 117/68 96 11/22/19 23:01 98.9 F 118 H 17 114/64 95 11/22/19 22:46 99.1 F H 101 H 16 114/62 94 11/22/19 22:31 99.3 F H 20 112/78 11/22/19 22:16 99.4 F H 22 109/80 11/22/19 22:01 99.5 F H 108 H 19 112/69 94 11/22/19 21:46 99.7 F H 94 H 17 111/78 94 11/22/19 21:35 99.8 F H 110 H 22 103/70 95 11/22/19 21:16 100.1 F H 19 110/47 11/22/19 21:01 100.2 F H 103 H 20 104/65 98 11/22/19 20:46 100.4 F H 87 23 H 110/66 96 11/22/19 20:33 100.1 F H 11/22/19 20:31 100.6 F H 103 H 15 111/70 94 11/22/19 20:16 100.7 F H 108 H 20 120/75 94 11/22/19 20:01 100.7 F H 94 H 20 132/66 98 11/22/19 20:00 98 11/22/19 19:48 100.8 F H 11/22/19 19:46 100.8 F H 99 H 20 129/75 93 11/22/19 19:31 100.8 F H 21 117/66 11/22/19 19:16 100.7 F H 20 120/81 11/22/19 19:01 100.7 F H 21 121/66 11/22/19 18:46 100.8 F H 16 108/61 11/22/19 18:31 100.7 F H 21 115/75 11/22/19 18:16 100.5 F H 19 117/79 11/22/19 18:01 100.4 F H 16 127/71 11/22/19 16:00 100.0 F H 75 15 130/84 96 11/22/19 14:00 98.2 F 86 16 107/62 93 11/22/19 12:00 98.3 F 77 16 133/68 94 11/22/19 10:00 98.2 F 91 H 18 110/58 96 Intake and Output 11/22/19 11/23/19 11/23/19 21:59 05:59 13:59 Intake Total 535 1240 Output Total 225 200 Balance 310 1040 Intake: IV 315 1000 Sodium Chloride 0.9% 1,000 ml @ 1000 50 mls/hr IV .Q20H [facility] Rx#: [id number] Vancomycin 1,000 mg In Sodium 250 Chloride 0.9% 250 ml @ 250 mls/ hr IV TODAY@1200 [facility] Rx#: [id number] Oral 220 240 Output: Urine Catheter Amount 225 200 Other: Meal Dinner Percent of Meal Consumed 25% Urine Appearance Cloudy Cloudy Sediment Mucous Threads Uretheral ([place]) Cloudy Sediment Mucous Threads Purulent Urine Color Red Brown Light Laure Uretheral ([place]) Light Laure Stool Size Small Moderate Stool Color Brown Brown Stool Consistency Soft Soft Loose Loose # of times incontinent of 1 Bowels Weight 179 lb 8 oz Intake & Output: Intake & Output 11/22/19 11/23/19 11/23/19 21:59 05:59 13:59 Intake Total 535 1240 Output Total 225 200 Balance 310 1040 Weight 179 lb 8 oz Intake: IV 315 1000 Sodium Chloride 0.9% 1,000 ml @ 1000 50 mls/hr IV .Q20H [facility] Rx#: [id number] Vancomycin 1,000 mg In Sodium 250 Chloride 0.9% 250 ml @ 250 mls/ hr IV TODAY@1200 [facility] Rx#: [id number] Oral 220 240 Output: Urine Catheter Amount 225 200 Other: Meal Dinner Percent of Meal Consumed 25% Urine Appearance Cloudy Cloudy Sediment Mucous Threads Uretheral ([place]) Cloudy Sediment Mucous Threads Purulent Urine Color Red Brown Light Laure Uretheral ([place]) Light Laure Stool Size Small Moderate Stool Color Brown Brown Stool Consistency Soft Soft Loose Loose # of times incontinent of 1 Bowels - General Appearance General appearance: cachectic EENT: ATNC Neck: no JVD Respiratory: no kyphosis Cardiology: mid-systolic murmur Gastrointestinal: normoactive bowel sounds - Lab 11/23/19 05:05 11/23/19 05:05 Most recent lab results Calcium 8.1 mg/dl (8.6-10.4) L 11/23/19 05:05 Phosphorus 2.6 mg/dL (2.7-4.5) L 11/23/19 05:05 Magnesium 1.7 mg/dL (1.6-2.5) 11/23/19 05:05 Assessment and Plan (1) ESRD (end stage renal disease) on dialysis Status: Acute Comment: Will have dialysis today. Hemodynamically stable. Potassium is ok Low phos, continue to hold binders.
[2019-11-23] MEDS: DOCUSATE SODIUM 100 MG CAPSULE PO SCH ×2 (09:44→20:19)
[2019-11-23] MEDS ORDERED: VANCOMYCIN 750 MG in 0.9 % SODIUM CHLORIDE 250 ML IV ONE (10:00)
--- NOTE | 2019-11-23 10:07 | Internal Med Progress Note ---
Medical - PN: Subj Patient information: Note initiated : 11/23/19 at 10:04 am Service Date, if different from initiated Date: [] Patient: Marcello Nelson 79 y/o M admitted on 11/22/19 for fever UTI. Chief Complaint: [] Interval history: Mr. Nelson is a 79 year old with a history of dementia, A. fib, paraplegia wheelc hair-bound and ESRD on hemodialysis managed by Dr. Cintron. Patient lives with his Sister Cathy and undergoes hemodialysis 3 times a week at [facility] office. For the last couple of days he has been getting increasingly weak fatigue lethargic and has spiked a fever of 102 after dialysis today. Patient was subsequently brought into the ER for evaluation. Initial work-up was consistent with severe sepsis with endorgan dysfunction white count 15,000, pyuria, acute change in mental status and a fever of 102. Following initial work-up including blood cultures antibiotics were instituted. Hospital service was consulted for admission. At evaluation patient is more alert and able to answer some of the questions. Most of the history was obtained from review of medical record, ER physician, patient's Sister Cathy. Endorses history as above but denies recent diarrhea, headache, photophobia. She endorses the patient complaining of dysuria and lower abdominal discomfort. 11/21-patient clinically improving. Improved vitals/map. Improving white count. Febrile at 102. Improved mental status change, potassium at 2.9. Nephrology consulted. On potassium replacement. Urine and blood cultures pending. 11/22- sacral decubitus ulcer managed per wound care. On antibiotic coverage. Gram-positive cocci in blood. Surveillance cultures pending. Currently afebrile. Klebsiella pneumonia on urine culture, sensitivities pending. Off pressors. Ongoing hemodialysis. Alert lucid and respond to commands. - Constitutional Vitals: Vital Signs Temp Pulse Resp BP Pulse Ox 98.7 F 89 24 H 110/66 96 11/23/19 06:01 11/23/19 02:03 11/23/19 06:01 11/23/19 06:01 11/23/19 06:01 Period Temp Pulse Resp BP Sys/Whittaker Pulse Ox Last 24 Hr 97.9 F-100.8 F 72-118 15-24 100-139/47-84 92-98 Intake and Output 11/22/19 11/23/1920 21:59 05:59 13:59 Intake Total 535 1240 Output Total 225 200 Balance 310 1040 Weight 179 lb 8 oz Intake & Output: Intake & Output 11/22/19 11/23/19 11/23/19 21:59 05:59 13:59 Intake Total 535 1240 Output Total 225 200 Balance 310 1040 Weight 179 lb 8 oz Intake: IV 315 1000 Sodium Chloride 0.9% 1,000 ml @ 1000 50 mls/hr IV .Q20H [facility] Rx#: [id number] Vancomycin 1,000 mg In Sodium 250 Chloride 0.9% 250 ml @ 250 mls/ hr IV TODAY@1200 [facility] Rx#: [id number] Oral 220 240 Output: Urine Catheter Amount 225 200 Other: Meal Dinner Percent of Meal Consumed 25% Urine Appearance Cloudy Cloudy Sediment Mucous Threads Uretheral ([place]) Cloudy Sediment Mucous Threads Purulent Urine Color Red Brown Light Laure Uretheral ([place]) Light Laure Stool Size Small Moderate Stool Color Brown Brown Stool Consistency Soft Soft Loose Loose # of times incontinent of 1 Bowels General appearance: no acute distress Exam: Alert oriented nonlabored breathing No anxiety Nondistended abdomen Medical - PN: Obj Da - Labs CBC & Chem 7: 11/23/19 05:05 11/23/19 05:05 Labs: Abnormal Lab Results 11/23/19 11/23/19 11/22/19 05:05 05:05 05:00 WBC RBC 3.13 L Hgb 9.3 L Hct 28.8 L RDW 19.3 H MPV 11.3 H Gran % Lymph % (Auto) Gran # Lymph # (Auto) [place] # (Auto) Seg Neutrophils % 91 H Lymphocytes % 6 L Myelocytes % 1 H RBC Morphology Abnorm A Anisocytosis 2+ A Ovalocytes 1+ A Potassium 2.9 L* Chloride Anion Gap BUN 43 H 36 H Creatinine 3.4 H 3.0 H Calcium 8.1 L 7.9 L Phosphorus 2.6 L 2.6 L Total Bilirubin Direct Bilirubin 0.5 H 0.5 H AST Alkaline Phosphatase 146 H 145 H Total Protein 5.3 L 5.6 L Albumin 2.4 L 2.4 L Albumin/Globulin Ratio 0.8 L 0.8 L Urine Protein Urine Occult Blood Ur Leukocyte Esterase Urine RBC Urine WBC Urine Bacteria 11/22/19 11/21/1920 05:00 21:45 21:30 WBC 12.3 H RBC 3.02 L Hgb 9.1 L Hct 27.4 L RDW 18.9 H MPV 10.7 H Gran % Lymph % (Auto) Gran # Lymph # (Auto) [place] # (Auto) Seg Neutrophils % 87 H Lymphocytes % 9 L Myelocytes % RBC Morphology Abnorm A Anisocytosis 1+ A Ovalocytes Potassium Chloride 94 L Anion Gap 18.0 H BUN 32 H Creatinine 2.6 H Calcium Phosphorus Total Bilirubin 1.2 H Direct Bilirubin AST 40 H Alkaline Phosphatase 185 H Total Protein Albumin 3.0 L Albumin/Globulin Ratio 0.8 L Urine Protein 100 A Urine Occult Blood 0.03 A Ur Leukocyte Esterase 250 A Urine RBC 5 H Urine WBC > 182 H Urine Bacteria Many A 11/21/19 21:30 WBC 15.0 H RBC 3.53 L Hgb 10.8 L Hct 32.3 L RDW 18.8 H MPV 11.0 H Gran % 88.8 H Lymph % (Auto) 4.6 L Gran # 13.33 H Lymph # (Auto) 0.69 L [place] # (Auto) 0.96 H Seg Neutrophils % Lymphocytes % Myelocytes % RBC Morphology Anisocytosis Ovalocytes Potassium Chloride Anion Gap BUN Creatinine Calcium Phosphorus Total Bilirubin Direct Bilirubin AST Alkaline Phosphatase Total Protein Albumin Albumin/Globulin Ratio Urine Protein Urine Occult Blood Ur Leukocyte Esterase Urine RBC Urine WBC Urine Bacteria Meds: Medications Acetaminophen (Tylenol) 650 mg PO Q4-6HP PRN; Protocol PRN Reason: Per Pain Protocol/Fever > 101 Apixaban (Eliquis) 2.5 mg PO DAILY [facility] Last Admin: 11/22/19 11:42 Dose: 2.5 mg Documented by: Aspirin (Aspirin) 81 mg PO DAILY [facility] Atorvastatin Calcium (Lipitor) 80 mg PO HS [facility] Last Admin: 11/22/19 22:07 Dose: 80 mg Documented by: Bisacodyl (Dulcolax) 10 mg [place] Q2-3DAYS PRN PRN Reason: Constipation Buspirone HCl (Buspar) 15 mg PO BID [facility] Last Admin: 11/23/19 08:33 Dose: 15 mg Documented by: Cefepime HCl (Maxipime) 1 gm IV Q24H [facility] Last Admin: 11/22/19 17:09 Dose: 1 gm Documented by: Collagenase (Santyl Top Oint) 1 dose TOPICAL DAILY [facility] Last Admin: 11/22/19 17:08 Dose: Not Given Documented by: Docusate Sodium (Colace) 100 mg PO BID [facility] Last Admin: 11/23/19 09:44 Dose: Not Given Documented by: Donepezil HCl (Aricept) 10 mg PO DAILY [facility] Last Admin: 11/23/19 08:33 Dose: 10 mg Documented by: Gabapentin (Neurontin) 300 mg PO DAILY [facility] Last Admin: 11/22/19 17:09 Dose: 300 mg Documented by: Norepinephrine Bitartrate 16 (mg/ Sodium Chloride) 250 mls @ 9.375 mls/hr IV Q24H [facility]; Protocol Last Admin: 11/23/19 02:38 Dose: Not Given Documented by: Acetaminophen (Ofirmev) 650 mg in 65 mls @ 130 mls/hr IV Q6HP PRN; Protocol PRN Reason: PAIN/FEVER > 101 Last Infusion: 11/22/19 21:13 Dose: Infused Documented by: Vancomycin HCl 750 mg/ Sodium (Chloride) 250 mls @ 250 mls/hr IV ONCE ONE Stop: 11/23/19 10:59 Iron Carb/Multivit/[place]/Folic Acid (Multivitamin W/Minerals) 1 tab PO DAILY [facility] Last Admin: 11/22/19 10:09 Dose: 1 tab Documented by: Melatonin (Melatonin 3mg Tablet) 3 mg PO HSP PRN PRN Reason: Insomnia Last Admin: 11/22/19 22:08 Dose: 3 mg Documented by: Memantine (Namenda) 10 mg PO BID [facility] Last Admin: 11/22/19 22:08 Dose: 10 mg Documented by: Metoprolol Succinate (Toprol Xl) 25 mg PO QDAY [facility] Ondansetron HCl (Zofran Odt) 4 mg SL Q4-6HP PRN; Protocol PRN Reason: Nausea And Vomiting Ondansetron HCl (Zofran) 4 mg IV Q4-6HP PRN; Protocol PRN Reason: Nausea And Vomiting Pantoprazole Sodium (Protonix) 40 mg PO QAMAC [facility] Last Admin: 11/23/19 08:33 Dose: 40 mg Documented by: Polyethylene Glycol (Miralax) 17 gm PO DAILYP PRN PRN Reason: Constipation Senna/Docusate Sodium (Senna Plus Tablet) 1 tab PO HS [facility] Last Admin: 11/22/19 22:08 Dose: Not Given Documented by: Sertraline HCl (Zoloft) 100 mg PO BID [facility] Last Admin: 11/23/19 08:33 Dose: 100 mg Documented by: Sodium Chloride (Saline Flush) 10 ml IV Q8 [facility] Last Admin: 11/23/19 04:52 Dose: 10 ml Documented by: Vancomycin HCl (Vancomycin Per Pharmacy) 1 order IV UD [facility]; Protocol Medical - PN: A/P - Time Spent With Patient Total time spent is greater than 50% in coordination of care (as documented) at patient's floor/unit and/or counseling patient: 25 - 35 minutes (1) Severe sepsis with acute organ dysfunction Status: Acute Assessment and plan: * Severe sepsis with acute organ dysfunction including acute change mental status. Clinically improving. Downtrending white count 9.9 from 15. * Gram-positive cocci bacteremia. Surveillance cultures pending. * Complicated UTI continue antibiotic coverage. No evidence of obstructive uropathy * Acute change in mental status -resolved now at baseline * Sacral decubitus ulcer managed per wound care Dr. Westbrook * Atrial fibrillation currently rate controlled. Continue home medications, on apixaban for CVA prophylaxis * History of dementia continue donepezil * Neuropathy continue home gabapentin * Dialysis managed per nephrology * Anxiety disorder continue home sertraline/BuSpar * Hyperlipidemia continue statin * History of CAD on aspirin statin/apixaban/Coreg * History of hypertension continue Coreg/amlodipine * History of severe neuropathy/paraparesis [id number] directed therapy/SNF transfer coordination * Full code * DVT prophylaxis on anticoagulation Plan * Continue broad antibiotic * Repeat surveillance cultures * Wound care per wound physician * HD per nephrology * pre-existing medical disorders management on home meds * PT OT/nutrition support * Discharge planning per case management will likely require SNF in light of wheelchair dependency, sacral decubiti/wound care needs and multiple comorbidities. Current Visit: Yes
[2019-11-23] MEDS: ACETAMINOPHEN 325 MG TABLET PO PRN (14:24)
[2019-11-23] MEDS: COLLAGENASE TOP OINT TUBE 30GM TOPICAL SCH (14:24)
[2019-11-23] MEDS: APIXABAN 2.5 MG TABLET PO SCH (14:25)
[2019-11-23] MEDS: METOPROLOL SUCCINATE 25 MG TAB.XL.24H PO SCH (14:25)
[2019-11-23] MEDS: MULTIVIT,THER IRON,CA,FA & MIN 1 TABLET PO SCH (14:25)
[2019-11-23] MEDS: MEMANTINE 10 MG TABLET PO SCH ×2 (14:25→20:29)
[2019-11-23] MEDS: ASPIRIN 81 MG TAB.CHEW PO SCH (14:25)
[2019-11-23] MEDS: GABAPENTIN 300 MG CAPSULE PO SCH (14:26)
--- NOTE | 2019-11-23 19:14 | Ultrasound Report ---
CLINICAL INFORMATION: Radial artery to basilic vein fistula. Increased venous outflow pressure COMPARISON: None. FINDINGS: There is a high-grade greater than 80%) stenosis at the brachial artery to basilic vein fistula at the anastomosis. A second high-grade stenosis seen 2 cm from the anastomosis in the outflow basilic vein. IMPRESSION: Two high-grade stenoses both approximating 80%: One at the brachial artery to cephalic vein anastomosis and the second 2 cm in the upstream basilic vein Interpreted and Authenticated by: Dwight Nguyen 11/23/19
[2019-11-23] MEDS: CEFEPIME 1 GM VIAL IV SCH (19:23)
[2019-11-23] MEDS: SENNOSIDES/DOCUSATE SODIUM 1 TAB TABLET PO SCH (20:20)
[2019-11-23] MEDS: MELATONIN 3 MG TABLET PO PRN (20:29)
[2019-11-23] MEDS: ATORVASTATIN 40 MG TABLET PO SCH (20:29)
[2019-11-24] MEDS: 0.9 % SODIUM CHLORIDE 10 ML SYRINGE IV SCH ×4 (05:16→23:13)
[2019-11-24] MEDS: NOREPINEPHRINE BITARTRATE 16 MG in 0.9 % SODIUM CHLORIDE 234 ML IV SCH (05:16)
[2019-11-24 06:26] LABS: Hematocrit 30.5 % (40.1-51.0); Hemoglobin 9.8 g/dL (13.7-17.5); Mean Cell Volume 92.4 fL (80.0-100.0); Mean Corpuscular HGB Conc 32.1 g/dL (31.0-36.0); Mean Platelet Volume 11.3 fL (7.4-10.4); Platelet Count 163 K/mcL (140-440); Red Cell Distribution Width 19.7 % (11.5-14.5); WBC 10.5 K/mcL (4.50-11.00)
[2019-11-24 06:55] LABS: ALT/SGPT 34 U/l (0-40); AST/SGOT 46 U/l (0-37); Albumin 2.4 gm/dL (3.2-5.2); Albumin/Globulin Ratio 0.6 (1.0-2.3); Alkaline Phosphatase 193 U/L (39-117); Bilirubin,Direct 0.4 mg/dL (0.0-0.3); Bilirubin,Total 0.8 mg/dL (0.0-1.0); Calcium 8.2 mg/dl (8.6-10.4); Carbon Dioxide 23 mmol/L (22-30); Chloride 99 mmol/L (96-108); Globulin 3.7 gm/dL (2.2-3.7); Glucose 90 mg/dL (70-105); Lactate Dehydrogenase 189 U/L (94-250); Triglycerides 109 mg/dl (<150); Uric Acid 2.7 mg/dL (2.5-8.0)
[2019-11-24 06:56] LABS: Blood Urea Nitrogen 19 mg/dl (8-23); Glomerular Filtration Rate 25; Phosphorous 2.1 mg/dL (2.7-4.5)
[2019-11-24] MEDS: PANTOPRAZOLE 40 MG TABLET PO SCH (07:35)
[2019-11-24] MEDS: ACETAMINOPHEN 325 MG TABLET PO PRN ×2 (07:35→16:19)
[2019-11-24] MEDS: busPIRone 15 MG TABLET PO SCH ×2 (08:08→21:17)
[2019-11-24] MEDS: DONEPEZIL 10 MG TABLET PO SCH (08:08)
[2019-11-24] MEDS: METOPROLOL SUCCINATE 25 MG TAB.XL.24H PO SCH (08:08)
[2019-11-24] MEDS: APIXABAN 2.5 MG TABLET PO SCH (08:08)
[2019-11-24] MEDS: SERTRALINE 50 MG TABLET PO SCH ×2 (08:08→21:14)
[2019-11-24] MEDS: MULTIVIT,THER IRON,CA,FA & MIN 1 TABLET PO SCH (08:08)
[2019-11-24] MEDS: COLLAGENASE TOP OINT TUBE 30GM TOPICAL SCH (08:08)
[2019-11-24] MEDS: GABAPENTIN 300 MG CAPSULE PO SCH (08:09)
[2019-11-24] MEDS: MEMANTINE 10 MG TABLET PO SCH ×2 (08:09→21:13)
[2019-11-24] MEDS: DOCUSATE SODIUM 100 MG CAPSULE PO SCH ×2 (08:09→21:15)
[2019-11-24] MEDS: ASPIRIN 81 MG TAB.CHEW PO SCH (08:09)
[2019-11-24 08:31] LABS: Anisocytosis 2+ (NONE SEEN); Lymphocytes % 7 % (15-49); Monocytes % (Manual) 2 % (1-12); Ovalocytes FEW (NONE SEEN); Platelet Estimate NORMAL (NORMAL); RBC Morphology ABNORM (NORMAL); Segmented Neutrophils % 91 % (38-78)
--- NOTE | 2019-11-24 09:36 | Nephrology Progress Note ---
Subjective Patient information: Note initiated : 11/24/19 at 9:34 am Service Date, if different from initiated Date: [] Patient: Marcello Nelson 79 y/o M admitted on 11/22/19 for fever UTI. Chief Complaint: [] No complaints. No fever or chills. Objective - Vital Signs Vital signs: Vital Signs Temp Pulse Pulse Resp BP Pulse Ox 11/24/19 08:01 97.8 F 99 H 14 117/78 94 11/24/19 06:01 72 117/71 97 11/24/19 04:01 98.2 F 51 L 115/65 95 11/24/19 02:01 56 L 96/61 96 11/24/19 02:00 96 H 18 96 11/24/19 00:01 98.5 F 106 H 18 115/69 96 11/23/19 22:04 95 H 18 90/53 94 11/23/19 20:01 91 H 19 98/64 94 11/23/19 18:01 97.6 F 100 H 20 116/67 95 11/23/19 16:01 98.3 F 71 19 100/58 96 11/23/19 14:31 98.8 F 18 137/67 93 11/23/19 13:31 17 122/64 11/23/19 13:20 19 118/61 11/23/19 13:16 97.7 F 98 H 118/61 11/23/19 13:02 103 H 117/56 11/23/19 13:01 19 117/56 11/23/19 12:31 99 H 14 116/62 11/23/19 12:22 22 11/23/19 12:03 104 H 136/72 11/23/19 12:01 98.4 F 17 136/72 11/23/19 11:31 98.6 F 19 118/83 11/23/19 11:29 95 H 118/83 11/23/19 11:01 98.7 F 98 H 19 111/75 97 11/23/19 11:00 105 H 111/75 11/23/19 10:31 98.9 F 89 21 121/60 100 11/23/19 10:30 97 H 121/60 11/23/19 10:20 90 108/70 11/23/19 10:13 99.0 F 18 11/23/19 10:01 99.1 F H 20 108/70 11/23/19 09:45 99.2 F H 106 H 115/69 Intake and Output 11/23/19 11/24/19 11/24/19 21:59 05:59 13:59 Intake Total 480 300 Output Total 0 Balance 480 300 Intake: Oral 480 300 Output: # of times incontinent of urine 0 Other: Meal Dinner Percent of Meal Consumed 50% Feeding Ability Assist with Tray Set Up Stool Size Small Moderate Stool Color Brown Brown Stool Consistency Soft Soft # Bowel Movements 1 # of times incontinent of 1 1 Bowels Weight 174 lb 8 oz Intake & Output: Intake & Output 11/23/19 11/24/19 11/24/19 21:59 05:59 13:59 Intake Total 480 300 Output Total 0 Balance 480 300 Weight 174 lb 8 oz Intake: Oral 480 300 Output: # of times incontinent of urine 0 Other: Meal Dinner Percent of Meal Consumed 50% Feeding Ability Assist with Tray Set Up Stool Size Small Moderate Stool Color Brown Brown Stool Consistency Soft Soft # Bowel Movements 1 # of times incontinent of 1 1 Bowels - General Appearance General appearance: cachectic EENT: ATNC Neck: no JVD Respiratory: no kyphosis Cardiology: no murmurs Gastrointestinal: normoactive bowel sounds Neurologic: no focal deficit - Lab 11/24/19 05:05 11/24/19 05:05 Most recent lab results Calcium 8.2 mg/dl (8.6-10.4) L 11/24/19 05:05 Phosphorus 2.1 mg/dL (2.7-4.5) L 11/24/19 05:05 Magnesium 1.8 mg/dL (1.6-2.5) 11/24/19 05:05 Assessment and Plan (1) ESRD (end stage renal disease) on dialysis Status: Acute Comment: Will have dialysis tomorrow. Hemodynamically stable. Potassium is ok Low phos, continue to hold binders. Replace. GPC on blood cultures, ? cath infection. Will culture from the catheter tomorrow. Continued vancomycin.
--- NOTE | 2019-11-24 10:08 | Internal Med Progress Note ---
Medical - PN: Subj Patient information: Note initiated : 11/24/19 at 10:05 am Service Date, if different from initiated Date: [] Patient: Marcello Nelson 79 y/o M admitted on 11/22/19 for fever UTI. Chief Complaint: [] Interval history: Mr. Nelson is a 79 year old with a history of dementia, A. fib, paraplegia wheelc hair-bound and ESRD on hemodialysis managed by Dr. Cintron. Patient lives with his Sister Cathy and undergoes hemodialysis 3 times a week at [facility] office. For the last couple of days he has been getting increasingly weak fatigue lethargic and has spiked a fever of 102 after dialysis today. Patient was subsequently brought into the ER for evaluation. Initial work-up was consistent with severe sepsis with endorgan dysfunction white count 15,000, pyuria, acute change in mental status and a fever of 102. Following initial work-up including blood cultures antibiotics were instituted. Hospital service was consulted for admission. At evaluation patient is more alert and able to answer some of the questions. Most of the history was obtained from review of medical record, ER physician, patient's Sister Cathy. Endorses history as above but denies recent diarrhea, headache, photophobia. She endorses the patient complaining of dysuria and lower abdominal discomfort. 11/21-patient clinically improving. Improved vitals/map. Improving white count. Febrile at 102. Improved mental status change, potassium at 2.9. Nephrology consulted. On potassium replacement. Urine and blood cultures pending. 11/22- sacral decubitus ulcer managed per wound care. On antibiotic coverage. Gram-positive cocci in blood. Surveillance cultures pending. Currently afebrile. Klebsiella pneumonia on urine culture, sensitivities pending. Off pressors. Ongoing hemodialysis. Alert lucid and respond to commands. 11/23-patient seen in room. 2 out of 2 gram-positive cocci 11/20. Surveillance cultures 11/21 pending. ID consulted. White count down to 10.5. Potassium 3.4. Ongoing hemodialysis per nephrology. Further work-up per ID for source evaluation - Constitutional Vitals: Vital Signs Temp Pulse Resp BP Pulse Ox 97.8 F 99 H 14 117/78 94 11/24/19 08:01 11/24/19 08:01 11/24/19 08:01 11/24/19 08:01 11/24/19 08:01 Period Temp Pulse Resp BP Sys/Whittaker Pulse Ox Last 24 Hr 97.6 F-99.0 F 51-106 14-22 90-137/53-83 93-100 Intake and Output 11/23/19 11/24/19 11/24/19 21:59 05:59 13:59 Intake Total 480 300 340 Output Total 0 Balance 480 300 340 Weight 174 lb 8 oz Intake & Output: Intake & Output 11/23/19 11/24/19 11/24/19 21:59 05:59 13:59 Intake Total 480 300 340 Output Total 0 Balance 480 300 340 Weight 174 lb 8 oz Intake: Oral 480 300 340 Output: # of times incontinent of urine 0 Other: Meal Dinner Breakfast Percent of Meal Consumed 50% 50% Feeding Ability Assist with Tray Set Up Assist with Tray Set Up Stool Size Small Moderate Smear Stool Color Brown Brown Brown Stool Consistency Soft Soft Soft # Bowel Movements 1 # of times incontinent of 1 1 Bowels General appearance: no acute distress Exam: Alert responding commands Nonlabored breathing No anxiety Nondistended abdomen Decubitus ulcer Left subclavian HD catheter Medical - PN: Obj Da - Labs CBC & Chem 7: 11/24/19 05:05 11/24/19 05:05 Labs: Abnormal Lab Results 11/24/19 11/24/19 11/23/19 05:05 05:05 05:05 WBC RBC 3.30 L Hgb 9.8 L Hct 30.5 L RDW 19.7 H MPV 11.3 H Gran % Lymph % (Auto) Gran # Lymph # (Auto) [place] # (Auto) Seg Neutrophils % 91 H Lymphocytes % 7 L Myelocytes % RBC Morphology Abnorm A Anisocytosis 2+ A Ovalocytes Few A Potassium Chloride Anion Gap BUN 43 H Creatinine 2.4 H 3.4 H Calcium 8.2 L 8.1 L Phosphorus 2.1 L 2.6 L Total Bilirubin Direct Bilirubin 0.4 H 0.5 H AST 46 H Alkaline Phosphatase 193 H 146 H Total Protein 5.3 L Albumin 2.4 L 2.4 L Albumin/Globulin Ratio 0.6 L 0.8 L Urine Protein Urine Occult Blood Ur Leukocyte Esterase Urine RBC Urine WBC Urine Bacteria 11/23/19 11/22/19 11/22/19 05:05 05:00 05:00 WBC 12.3 H RBC 3.13 L 3.02 L Hgb 9.3 L 9.1 L Hct 28.8 L 27.4 L RDW 19.3 H 18.9 H MPV 11.3 H 10.7 H Gran % Lymph % (Auto) Gran # Lymph # (Auto) [place] # (Auto) Seg Neutrophils % 91 H 87 H Lymphocytes % 6 L 9 L Myelocytes % 1 H RBC Morphology Abnorm A Abnorm A Anisocytosis 2+ A 1+ A Ovalocytes 1+ A Potassium 2.9 L* Chloride Anion Gap BUN 36 H Creatinine 3.0 H Calcium 7.9 L Phosphorus 2.6 L Total Bilirubin Direct Bilirubin 0.5 H AST Alkaline Phosphatase 145 H Total Protein 5.6 L Albumin 2.4 L Albumin/Globulin Ratio 0.8 L Urine Protein Urine Occult Blood Ur Leukocyte Esterase Urine RBC Urine WBC Urine Bacteria 11/21/19 11/21/19 11/21/19 21:45 21:30 21:30 WBC 15.0 H RBC 3.53 L Hgb 10.8 L Hct 32.3 L RDW 18.8 H MPV 11.0 H Gran % 88.8 H Lymph % (Auto) 4.6 L Gran # 13.33 H Lymph # (Auto) 0.69 L [place] # (Auto) 0.96 H Seg Neutrophils % Lymphocytes % Myelocytes % RBC Morphology Anisocytosis Ovalocytes Potassium Chloride 94 L Anion Gap 18.0 H BUN 32 H Creatinine 2.6 H Calcium Phosphorus Total Bilirubin 1.2 H Direct Bilirubin AST 40 H Alkaline Phosphatase 185 H Total Protein Albumin 3.0 L Albumin/Globulin Ratio 0.8 L Urine Protein 100 A Urine Occult Blood 0.03 A Ur Leukocyte Esterase 250 A Urine RBC 5 H Urine WBC > 182 H Urine Bacteria Many A Meds: Medications Acetaminophen (Tylenol) 650 mg PO Q4-6HP PRN; Protocol PRN Reason: Per Pain Protocol/Fever > 101 Last Admin: 11/24/19 07:35 Dose: 650 mg Documented by: Apixaban (Eliquis) 2.5 mg PO DAILY [facility] Last Admin: 11/24/19 08:08 Dose: 2.5 mg Documented by: Aspirin (Aspirin) 81 mg PO DAILY [facility] Last Admin: 11/24/19 08:09 Dose: 81 mg Documented by: Atorvastatin Calcium (Lipitor) 80 mg PO [facility] Last Admin: 11/23/19 20:29 Dose: 80 mg Documented by: Bisacodyl (Dulcolax) 10 mg [place] Q2-3DAYS PRN PRN Reason: Constipation Buspirone HCl (Buspar) 15 mg PO BID [facility] Last Admin: 11/24/19 08:08 Dose: 15 mg Documented by: Cefepime HCl (Maxipime) 1 gm IV Q24H [facility] Last Admin: 11/23/19 19:23 Dose: 1 gm Documented by: Collagenase (Santyl Top Oint) 1 dose TOPICAL DAILY [facility] Last Admin: 11/24/19 08:08 Dose: 1 dose Documented by: Docusate Sodium (Colace) 100 mg PO BID [facility] Last Admin: 11/24/19 08:09 Dose: Not Given Documented by: Donepezil HCl (Aricept) 10 mg PO DAILY [facility] Last Admin: 11/24/19 08:08 Dose: 10 mg Documented by: Gabapentin (Neurontin) 300 mg PO DAILY [facility] Last Admin: 11/24/19 08:09 Dose: 300 mg Documented by: Norepinephrine Bitartrate 16 (mg/ Sodium Chloride) 250 mls @ 9.375 mls/hr IV Q24H [facility]; Protocol Last Admin: 11/24/19 05:16 Dose: Not Given Documented by: Acetaminophen (Ofirmev) 650 mg in 65 mls @ 130 mls/hr IV Q6HP PRN; Protocol PRN Reason: PAIN/FEVER > 101 Last Infusion: 11/22/19 21:13 Dose: Infused Documented by: Iron Carb/Multivit/[place]/Folic Acid (Multivitamin W/Minerals) 1 tab PO DAILY [facility] Last Admin: 11/24/19 08:08 Dose: 1 tab Documented by: Melatonin (Melatonin 3mg Tablet) 3 mg PO HSP PRN PRN Reason: Insomnia Last Admin: 11/23/19 20:29 Dose: 3 mg Documented by: Memantine (Namenda) 10 mg PO BID [facility] Last Admin: 11/24/19 08:09 Dose: 10 mg Documented by: Metoprolol Succinate (Toprol Xl) 25 mg PO QDAY [facility] Last Admin: 11/24/19 08:08 Dose: 25 mg Documented by: Ondansetron HCl (Zofran Odt) 4 mg SL Q4-6HP PRN; Protocol PRN Reason: Nausea And Vomiting Last Admin: 11/23/19 12:00 Dose: 4 mg Documented by: Ondansetron HCl (Zofran) 4 mg IV Q4-6HP PRN; Protocol PRN Reason: Nausea And Vomiting Pantoprazole Sodium (Protonix) 40 mg PO QAMAC [facility] Last Admin: 11/24/19 07:35 Dose: 40 mg Documented by: Polyethylene Glycol (Miralax) 17 gm PO DAILYP PRN PRN Reason: Constipation Potassium/Phosphorus/Sodium (Neutra Phos) 1 packet PO BID [facility] Stop: 11/28/19 23:59 Senna/Docusate Sodium (Senna Plus Tablet) 1 tab PO HS [facility] Last Admin: 11/23/19 20:20 Dose: Not Given Documented by: Sertraline HCl (Zoloft) 100 mg PO BID [facility] Last Admin: 11/24/19 08:08 Dose: 100 mg Documented by: Sodium Chloride (Saline Flush) 10 ml IV Q8 [facility] Last Admin: 11/24/19 05:16 Dose: 10 ml Documented by: Vancomycin HCl (Vancomycin Per Pharmacy) 1 order IV UD [facility]; Protocol Medical - PN: A/P - Time Spent With Patient Total time spent is greater than 50% in coordination of care (as documented) at patient's floor/unit and/or counseling patient: 25 - 35 minutes (1) Severe sepsis with acute organ dysfunction Status: Acute Assessment and plan: * Severe sepsis with acute organ dysfunction - Clinically improved * Gram-positive cocci bacteremia 2/2 sets. Surveillance cultures pending 11/21. ID consulted. high probability left subclavian HD catheter infection. Echocardiogram pending * Complicated Klebsiella UTI -on antibiotics * New onset lower back pain suspect hematogenous seeding. CT thoracolumbar spine * Acute change in mental status -resolved now at baseline * Sacral decubitus ulcer managed per wound care Dr. Westbrook * Atrial fibrillation currently rate controlled. Continue home medications, on apixaban for CVA prophylaxis * History of dementia continue donepezil * Neuropathy continue home gabapentin * Dialysis managed per nephrology * Anxiety disorder continue home sertraline/BuSpar * Hyperlipidemia continue statin * History of CAD on aspirin statin/apixaban/Coreg * History of hypertension continue Coreg/amlodipine * History of severe neuropathy/paraparesis [id number] directed therapy/SNF transfer coordination * Full code * DVT prophylaxis on anticoagulation Plan * Continue broad antibiotic * Repeat surveillance cultures * ID consult * Wound care per wound physician * Suspect dialysis catheter infection/hematogenous seeding with back pain. * CT thoracolumbar spine to rule out vertebral abscess * Echocardiogram * HD per nephrology * pre-existing medical disorders management on home meds * PT OT/nutrition support Time spent on evaluation/treatment planning, coordination with physician in excess of 70 minutes Current Visit: Yes
[2019-11-24] MEDS ORDERED: EPINEPHrine 1 MG/ML AMPUL IM PRN (10:59)
[2019-11-24] MEDS ORDERED: 0.9 % SODIUM CHLORIDE 500 ML IV PRN (10:59)
[2019-11-24] MEDS ORDERED: AMOXICILLIN 250 MG CAPSULE PO ONE (11:00)
--- NOTE | 2019-11-24 11:39 | Infectious Disease Consult ---
History of Present Illness Patient information: Note initiated : 11/24/19 at 11:29 am Service Date, if different from initiated Date: [] Patient: Marcello Nelson 79 y/o M admitted on 11/22/19 for fever UTI. Chief Complaint: [] Consult date: 11/24/19 Requesting Physician: Frank Cintron Reason for Consult: GPC bacteremia Chief complaint: I was not feeling well History of present illness: 79 year old man admitted after spiking a fever of 102F, along with few day Hx of weakness, fatigue. Per sister pt had been feeling lethargic and tired as well. He didnot miss any dialysis sessions recently. In ED, initial eval and w/u revealed: VS: temp 103F, HR 118, RR 25, BP 131/69, 93% on RA. Labs: WBC 15k, Cr 2.6, Lactic acid 1.4. Admitted to ICU. 2 sets of blood Cx sent. Pt started on IV vanc and IV Zosyn. Blood Cx became +ve on 11/22 with GPC, found to be Staph epi with neg mecA gene. Pt required vasopressors until 11/22. Wound care consulted for sacral decubitus ulcer. At time of visit, pt confirmed the above Hx. Added that he feels better now. Has been afebrile, and off pressors. Denied any pain at the left chest wall tunnelled dialysis catheter site. Mentioned that he had a HD catheter on right side which was pulled out few months ago due to concerns for infection. Asked about penicillin allergy: pt mentions that his allergic reaction to penicillin consisted of hives, and happened many years ago (probably in 1960s) after a penicillin shot. Review of Systems All systems PM: reviewed and no additional remarkable complaints except as stated Constitutional: as per HPI Past History Past medical history: dementia, A. fib, paraplegia wheelchair-bound and ESRD on hemodialysis Past family history: lives in [facility] Sister is POA Medications and Allergies Home Medications Medication Instructions Recorded Confirmed Type atorvastatin 20 mg tablet 80 mg PO HS tab 01/01/18 11/21/19 Rx sertraline 50 mg tablet 100 mg PO BID #60 tab 03/10/18 11/21/19 Rx folic acid 1 mg tablet 1 mg PO QDAY #90 tab 04/20/18 11/21/19 Rx Gabapentin [Neurontin] 300 mg PO TID 06/05/18 11/21/19 History Aspirin 81 mg PO DAILY 05/04/19 11/21/19 History Memantine [Namenda] 10 mg PO BID 05/04/19 11/21/19 History Pantoprazole Sodium [Protonix] 40 mg PO QAMAC 05/04/19 11/21/19 History Apixaban [Eliquis] 1 tab PO DAILY 05/07/19 11/21/19 History Donepezil [Aricept] 1 tab PO DAILY 05/07/19 11/21/19 History busPIRone [Buspar] 1 tab PO BID 05/07/19 11/21/19 History Cephalexin [Keflex] 500 mg PO BID 11/21/19 11/21/19 History Metoprolol Succinate 25 mg PO QDAY 11/22/19 11/22/19 History Mupirocin Oint 2% [Bactroban Oint 1 applic TOPICAL BID 11/22/19 11/22/19 History 2%] Allergies Allergy/AdvReac Type Severity Reaction Status Date / Time No Known Drug Allergies Allergy Verified 11/24/19 14:34 Physical Examination Vital signs: Temp Pulse Resp BP Pulse Ox 36.6 C 83 20 100/62 95 11/24/19 08:01 11/24/19 10:01 11/24/19 10:01 11/24/19 10:01 11/24/19 10:01 General appearance: no acute distress Eyes pulmonary: nonicteric ENT: other (no thrush) Auscultation: bilateral: diminished breath sounds (at bases) Cardiovascular: other (has irregularly irregular heart beat, s1 soft, s2 normal, has a systolic murmur over apex) Gastrointestinal: normoactive bowel sounds, other (mild abdominal tenderness without rebound or guarding) Extremities: no edema, other (no thrill over right arm AV fistula. Left chest wall TDC: no tenderness, discharge) Results - Laboratory Findings CBC and BMP: 11/25/19 05:00 11/25/19 05:00 Abnormal lab findings: Abnormal Labs 11/21/19 11/21/19 11/21/19 21:30 21:30 21:45 WBC 15.0 H RBC 3.53 L Hgb 10.8 L Hct 32.3 L RDW 18.8 H MPV 11.0 H Gran % 88.8 H Lymph % (Auto) 4.6 L Gran # 13.33 H Lymph # (Auto) 0.69 L [place] # (Auto) 0.96 H Seg Neutrophils % Lymphocytes % Myelocytes % RBC Morphology Anisocytosis Ovalocytes Potassium Chloride 94 L Anion Gap 18.0 H BUN 32 H Creatinine 2.6 H Calcium Phosphorus Total Bilirubin 1.2 H Direct Bilirubin AST 40 H Alkaline Phosphatase 185 H Total Protein Albumin 3.0 L Albumin/Globulin Ratio 0.8 L Urine Protein 100 A Urine Occult Blood 0.03 A Ur Leukocyte Esterase 250 A Urine RBC 5 H Urine WBC > 182 H Urine Bacteria Many A 11/22/19 11/22/19 11/23/19 05:00 05:00 05:05 WBC 12.3 H RBC 3.02 L 3.13 L Hgb 9.1 L 9.3 L Hct 27.4 L 28.8 L RDW 18.9 H 19.3 H MPV 10.7 H 11.3 H Gran % Lymph % (Auto) Gran # Lymph # (Auto) [place] # (Auto) Seg Neutrophils % 87 H 91 H Lymphocytes % 9 L 6 L Myelocytes % 1 H RBC Morphology Abnorm A Abnorm A Anisocytosis 1+ A 2+ A Ovalocytes 1+ A Potassium 2.9 L* Chloride Anion Gap BUN 36 H Creatinine 3.0 H Calcium 7.9 L Phosphorus 2.6 L Total Bilirubin Direct Bilirubin 0.5 H AST Alkaline Phosphatase 145 H Total Protein 5.6 L Albumin 2.4 L Albumin/Globulin Ratio 0.8 L Urine Protein Urine Occult Blood Ur Leukocyte Esterase Urine RBC Urine WBC Urine Bacteria 11/23/19 11/24/19 11/24/19 05:05 05:05 05:05 WBC RBC 3.30 L Hgb 9.8 L Hct 30.5 L RDW 19.7 H MPV 11.3 H Gran % Lymph % (Auto) Gran # Lymph # (Auto) [place] # (Auto) Seg Neutrophils % 91 H Lymphocytes % 7 L Myelocytes % RBC Morphology Abnorm A Anisocytosis 2+ A Ovalocytes Few A Potassium Chloride Anion Gap BUN 43 H Creatinine 3.4 H 2.4 H Calcium 8.1 L 8.2 L Phosphorus 2.6 L 2.1 L Total Bilirubin Direct Bilirubin 0.5 H 0.4 H AST 46 H Alkaline Phosphatase 146 H 193 H Total Protein 5.3 L Albumin 2.4 L 2.4 L Albumin/Globulin Ratio 0.8 L 0.6 L Urine Protein Urine Occult Blood Ur Leukocyte Esterase Urine RBC Urine WBC Urine Bacteria Microbiology: Microbiology 11/21/19 21:40 Blood Blood Culture - Preliminary Gram positive cocci 11/22/19 21:45 Blood Blood Culture - Preliminary 11/22/19 21:55 Blood Blood Culture - Preliminary 11/21/19 21:45 Urine - Catheterized Urine Culture - Final Klebsiella pneumoniae 11/21/19 21:30 Blood Blood Culture - Preliminary Gram positive cocci 11/22/19 02:53 Nose MRSA (PCR) - Final Assessment and Plan - Narrative A/P Narrative: A: 1. Staph epidermidis bacteremia: 3/4 bottles from 2 sets (peripheral stick) +ve on 11/20, mec A gene neg - likely source catheter access and skin colonization - septic shock resolved - blood Cx from 11/21 NGTD - TTE pending. Pt has a systolic murmur over cardiac apex 2. Stage 2 pressure sore over sacrum - adherent exudate over the ulcer 3. Penicillin allergy: pt tolerated PO Amoxicillin challenge without any allergic reactions - Reaction was >10 years ago, included hives after some type of penicillin. - Pt and POA (his sister Cathy) consented 4. Asymptomatic bacteriuria: urine Cx growing Klebsiella pneumoniae - pt denies any UTI symptoms Recommendations: - Stop current antibiotics - Start IV Cefazolin 2 gm after HD on Thursday and Thursday respectively and 3 gm after HD on Thursday - Ideally the left chest wall TDC should be removed given the bacteria causing bacteremia, but after discussion with pt and Dr Cintron (odd piece checker) it seems that catheter needs to be salvaged. Discussed risks vs benefits with them, including 80% chance of cure with antibiotic lock therapy. Spoke with pharmacy about antibiotic lock therapy as follows: Cefazolin 2 gm in 100 ml of NS, combined with heparin to make a final solution concentration of 5mg/ml. Instill 5 ml of this solution after each HD session, leave it until the next HD session, and withdraw before catheter is used for HD. - Anticipated duration of treatment 3 weeks from 1st day of neg blood Cx - await TTE this afternoon - penicillin allergy taken off the chart will follow Javier Perkins MD Infectious diseases
[2019-11-24] MEDS ORDERED: ceFAZolin 1 GM VIAL IV ONE ×2 (13:00→15:45)
--- NOTE | 2019-11-24 14:50 | General Surgery Progress Note ---
Subjective Narrative: Note initiated : 11/24/19 at 2:46 pm Service Date, if different from initiated Date: [] Patient: Marcello Nelson 79 y/o M admitted on 11/22/19 for fever UTI. Chief Complaint: [] Saw patient on rounds with nurse. Progress reviewed. Objective Temp Pulse Resp BP Pulse Ox 97.8 F 100 H 23 H 103/66 95 11/24/19 08:01 11/24/19 14:01 11/24/19 14:01 11/24/19 14:01 11/24/19 14:01 AVSS. HD stable. AAOx3. Lucid and conversational. HD for ESRD. Moves both LE, but c/o weakness. Reviewed Physical Therapy note. SACRAL wound site is unchanged. Responding to local wound care. Patient is able to move in bed. TAPS and offloading as instructed. - Additional Data Intake & Output - Last 24 hours: Intake & Output 11/22/19 11/23/19 11/24/19 11/25/19 05:59 05:59 05:59 05:59 Intake Total 1365 1775 1020 580 Output Total 5270 220 5836 Balance 15 1350 -1580 580 Weight 172 lb 8 oz 179 lb 8 oz 174 lb 8 oz - Labs 11/24/19 05:05 11/24/19 05:05 Diabetes panel 11/24/19 Range/Units 05:05 Sodium 137 (133-145) mmol/L Potassium 3.4 (3.3-5.1) mmol/L Chloride 99 (96-108) mmol/L Carbon Dioxide 23 (22-30) mmol/L BUN 19 (8-23) mg/dl Creatinine 2.4 H (0.7-1.2) mg/dl Glucose 90 (70-105) mg/dL Calcium 8.2 L (8.6-10.4) mg/dl AST 46 H (0-37) U/l ALT 34 (0-40) U/l Alkaline Phosphatase 193 H (39-117) U/L Total Protein 6.1 (5.9-8.4) gm/dL Albumin 2.4 L (3.2-5.2) gm/dL Triglycerides 109 (<150) mg/dl Calcium panel 11/24/19 Range/Units 05:05 Calcium 8.2 L (8.6-10.4) mg/dl Phosphorus 2.1 L (2.7-4.5) mg/dL Albumin 2.4 L (3.2-5.2) gm/dL Pituitary panel 11/24/19 Range/Units 05:05 Sodium 137 (133-145) mmol/L Potassium 3.4 (3.3-5.1) mmol/L Chloride 99 (96-108) mmol/L Carbon Dioxide 23 (22-30) mmol/L BUN 19 (8-23) mg/dl Creatinine 2.4 H (0.7-1.2) mg/dl Glucose 90 (70-105) mg/dL Calcium 8.2 L (8.6-10.4) mg/dl Adrenal panel 11/24/19 Range/Units 05:05 Sodium 137 (133-145) mmol/L Potassium 3.4 (3.3-5.1) mmol/L Chloride 99 (96-108) mmol/L Carbon Dioxide 23 (22-30) mmol/L BUN 19 (8-23) mg/dl Creatinine 2.4 H (0.7-1.2) mg/dl Glucose 90 (70-105) mg/dL Calcium 8.2 L (8.6-10.4) mg/dl Total Bilirubin 0.8 (0.0-1.0) mg/dL AST 46 H (0-37) U/l ALT 34 (0-40) U/l Alkaline Phosphatase 193 H (39-117) U/L Total Protein 6.1 (5.9-8.4) gm/dL Albumin 2.4 L (3.2-5.2) gm/dL Assessment and Plan (1) Pressure ulcer of sacral region, stage 3 Status: Chronic Current Visit: Yes (2) Sepsis due to Escherichia coli with acute renal failure Problem details: Responded to voulme replesion, vasopressors and intrvenous antibiotics. Status: Acute Current Visit: Yes (3) ESRD (end stage renal disease) on dialysis Status: Chronic Current Visit: No (4) Chronic kidney disease, stage IV (severe) Status: Chronic Current Visit: No (5) Atrial fibrillation Status: Chronic Current Visit: No (6) Hemodialysis patient Status: Acute Current Visit: Yes - Narrative A/P Narrative: Assessment: Resolved UROSEPSIS. Spoke with ID Dr. Perkins. Plan: Continue local wound care. Following patient intermittently. - Time Spent With Patient Total time spent is greater than 50% in coordination of care (as documented) at patient's floor/unit and/or counseling patient: 15 - 24 minutes
--- NOTE | 2019-11-24 17:29 | Cat Scan Report ---
CLINICAL INFORMATION: Bacteremia and back pain. Evaluate for infection source COMPARISON: Chest CT 05/03/2015 TECHNIQUE: 0.625 mm helical slices were obtained from the mid T12 through mid S2 vertebral bodies. Following reconstruction, 2.5 mm coronal, sagittal, and axial reformations (angle to the disc spaces) were processed. Exam was reviewed at bone and soft tissue windows.The exam was performed using radiation dose optimization techniques including, but not limited to, automated exposure control, adjustment of the mA and/or kV according to patient size and use of iterative reconstruction technique. FINDINGS: Moderate idiopathic dextroscoliotic curve shows slight worsening since chest CT 2014. Mild chronic left lateral T6, T7 and T8 wedging is slightly accentuated. There is moderate degenerative disc disease at T6-7 through T9-10 and mild degenerative disease T10-11 and T11-T12 show slight progression. No evidence of focal disc extrusion or protrusion. The central canal, lateral recesses and IV foraminal are normal at each level. There is no evidence of osteomyelitis. Solid posterior fusion T10-11 and T11-T12 due to bone chips over the posterior elements and long rods are appreciated. The thoracic cord is normal in contour and caliber without focal lesion. Moderate consolidated infiltrate in the right lower lobe with small right pleural effusion and small left pleural effusion are incompletely imaged. IMPRESSION: 1. No evidence of osteomyelitis or other spine source for infection. 2. Moderate solid infiltrate in the right lower lobe with small effusion and small left pleural effusion are incompletely imaged. The findings are new from a 01/09/[address] Consider repeat chest CT: this may represent the source of sepsis. Interpreted and Authenticated by: Dwight gNuyen 11/24/19
--- NOTE | 2019-11-24 17:37 | Cat Scan Report ---
CLINICAL INFORMATION: Bacterial sepsis evaluate source COMPARISON: None. TECHNIQUE: 0.625 mm helical slices were obtained from the mid T12 through mid S2 vertebral bodies. Following reconstruction, 2.5 mm coronal, sagittal, and axial reformations (angle to the disc spaces) were processed. Exam was reviewed at bone and soft tissue windows.The exam was performed using radiation dose optimization techniques including, but not limited to, automated exposure control, adjustment of the mA and/or kV according to patient size and use of iterative reconstruction technique. FINDINGS: Long interbody rods and laminar hooks support posterior fusion from T10 through L3. There is also solid facet fusion via bone chips. Alignment is anatomic throughout the lumbar spine. Vertebroplasty as arrested arrested a mild L1 compression fracture. Small amount of methacrylate as extravasated into the posterior L1-2 disc and central T12-L1 disc. No evidence of osteomyelitis. The paraspinous soft tissues are significant for an endovascular graft treating a large infrarenal abdominal aortic aneurysm diameter 8 cm. Presumably, the [place] aorta is thrombosed around the graft, however this cannot be ascertained without contrast. There is marked diffuse wall thickening the urinary bladder suggesting cystitis. There is moderate atrophy of the right kidney with compensatory hypertrophy of the left kidney. There is a stent in the right renal artery. There is mild degenerative disc disease present T10-11 through L2-3. At L3-4, mild broad disc protrusion with facet arthropathy result in moderate central canal and bilateral IV foraminal narrowing. At L4-5 moderate broad disc protrusion results in mild central canal and bilateral IV foraminal narrowing right laminectomy changes noted At L5-S1, mild broad disc protrusion left-sided asymmetry and facet arthropathy noted at blebectomy changes appreciated. IMPRESSION: 1. No evidence of lumbar spine source for infection. 2. Diffuse wall thickening urinary bladder: consider cystitis. 3. Moderate right renal atrophy with compensatory hypertrophy of the left kidney. Stent is seen in the right renal artery 4. Endovascular aorta biiliac graft within a infrarenal abdominal aortic aneurysm [place] aortic diameter 8 cm. 5. Multilevel mild degeneration. Posterior fusion T10-L3 with solid anatomically aligned Interpreted and Authenticated by: Dwight Nguyen 11/24/19
[2019-11-24] MEDS: NEUTRA PHOS 1 PACKET PO SCH ×2 (21:14→21:21)
[2019-11-24] MEDS: ATORVASTATIN 40 MG TABLET PO SCH (21:14)
[2019-11-24] MEDS: SENNOSIDES/DOCUSATE SODIUM 1 TAB TABLET PO SCH (21:15)
[2019-11-25] MEDS: NOREPINEPHRINE BITARTRATE 16 MG in 0.9 % SODIUM CHLORIDE 234 ML IV SCH (04:17)
[2019-11-25 06:40] LABS: Hematocrit 30.5 % (40.1-51.0); Hemoglobin 9.8 g/dL (13.7-17.5); Mean Cell Volume 92.7 fL (80.0-100.0); Mean Corpuscular HGB Conc 32.1 g/dL (31.0-36.0); Mean Platelet Volume 11.8 fL (7.4-10.4); Platelet Count 145 K/mcL (140-440); RBC 3.29 M/mcL (4.63-6.08); Red Cell Distribution Width 19.4 % (11.5-14.5); WBC 7.9 K/mcL (4.50-11.00)
[2019-11-25] MEDS: 0.9 % SODIUM CHLORIDE 10 ML SYRINGE IV SCH ×3 (06:43→20:09)
[2019-11-25 07:00] LABS: ALT/SGPT 26 U/l (0-40); AST/SGOT 46 U/l (0-37); Albumin 2.3 gm/dL (3.2-5.2); Albumin/Globulin Ratio 0.7 (1.0-2.3); Alkaline Phosphatase 193 U/L (39-117); Bilirubin,Total 0.7 mg/dL (0.0-1.0); Calcium 8.1 mg/dl (8.6-10.4); Carbon Dioxide 23 mmol/L (22-30); Chloride 98 mmol/L (96-108); Globulin 3.3 gm/dL (2.2-3.7); Glucose 86 mg/dL (70-105); Lactate Dehydrogenase 178 U/L (94-250); Triglycerides 75 mg/dl (<150)
[2019-11-25 07:02] LABS: Bilirubin,Direct 0.3 mg/dL (0.0-0.3); Blood Urea Nitrogen 28 mg/dl (8-23); Glomerular Filtration Rate 20; Phosphorous 2.6 mg/dL (2.7-4.5)
[2019-11-25] MEDS: PANTOPRAZOLE 40 MG TABLET PO SCH (07:22)
[2019-11-25] MEDS: ACETAMINOPHEN 325 MG TABLET PO PRN ×2 (07:49→20:09)
[2019-11-25 08:06] LABS: Anisocytosis 2+ (NONE SEEN); Lymphocytes % 6 % (15-49); Monocytes % (Manual) 5 % (1-12); Platelet Estimate NORMAL (NORMAL); RBC Morphology ABNORM (NORMAL); Segmented Neutrophils % 89 % (38-78)
[2019-11-25] MEDS: DONEPEZIL 10 MG TABLET PO SCH (08:16)
[2019-11-25] MEDS: ASPIRIN 81 MG TAB.CHEW PO SCH (08:16)
[2019-11-25] MEDS: busPIRone 15 MG TABLET PO SCH ×2 (08:16→20:09)
[2019-11-25] MEDS: GABAPENTIN 300 MG CAPSULE PO SCH (08:17)
[2019-11-25] MEDS: NEUTRA PHOS 1 PACKET PO SCH ×2 (08:17→20:09)
[2019-11-25] MEDS: MULTIVIT,THER IRON,CA,FA & MIN 1 TABLET PO SCH (08:17)
[2019-11-25] MEDS: MEMANTINE 10 MG TABLET PO SCH ×2 (08:17→20:09)
[2019-11-25] MEDS: APIXABAN 2.5 MG TABLET PO SCH (08:17)
[2019-11-25] MEDS: DOCUSATE SODIUM 100 MG CAPSULE PO SCH ×2 (08:17→20:10)
[2019-11-25] MEDS: SERTRALINE 50 MG TABLET PO SCH ×2 (08:18→20:09)
[2019-11-25] MEDS: METOPROLOL SUCCINATE 25 MG TAB.XL.24H PO SCH (08:18)
[2019-11-25] MEDS: COLLAGENASE TOP OINT TUBE 30GM TOPICAL SCH (08:57)
--- NOTE | 2019-11-25 10:20 | Internal Med Progress Note ---
Medical - PN: Subj Patient information: Note initiated : 11/25/19 at 10:18 am Service Date, if different from initiated Date: [] Patient: Marcello Nelson a 79 y/o M admitted on 11/22/19 for fever UTI. Chief Complaint: [] Interval history: Mr. Nelson is a 79 year old with a history of dementia, A. fib, paraplegia wheelc hair-bound and ESRD on hemodialysis managed by Dr. Cintron. Patient lives with his Sister Cathy and undergoes hemodialysis 3 times a week at [facility]. For the last couple of days he has been getting increasingly weak fatigue lethargic and has spiked a fever of 102 after dialysis today. Patient was subsequently brought into the ER for evaluation. Initial work-up was consistent with severe sepsis with endorgan dysfunction white count 15,000, pyuria, acute change in mental status and a fever of 102. Following initial work-up including blood cultures antibiotics were instituted. Hospital service was consulted for admission. At evaluation patient is more alert and able to answer some of the questions. Most of the history was obtained from review of medical record, ER physician, patient's Sister Cathy. Endorses history as above but denies recent diarrhea, headache, photophobia. She endorses the patient complaining of dysuria and lower abdominal discomfort. 11/21-patient clinically improving. Improved vitals/map. Improving white count. Febrile at 102. Improved mental status change, potassium at 2.9. Nephrology consulted. On potassium replacement. Urine and blood cultures pending. 11/22- sacral decubitus ulcer managed per wound care. On antibiotic coverage. Gram-positive cocci in blood. Surveillance cultures pending. Currently afebrile. Klebsiella pneumonia on urine culture, sensitivities pending. Off pressors. Ongoing hemodialysis. Alert lucid and respond to commands. 11/23-patient seen in room. 2 out of 2 gram-positive cocci 11/20. Surveillance cultures 11/21 pending. ID consulted. White count down to 10.5. Potassium 3.4. Ongoing hemodialysis per nephrology. Further work-up per ID for source evaluation 11/24-patient doing well. Ongoing hemodialysis. CT spine no evidence of abscess however right lower lobe infiltrate noted. On antibiotic coverage. Staph epi bacteremia on antibiotics per ID. Attempting to salvage hemodialysis catheter per nephrology. Echocardiogram pending. No overnight fever chills. White count down to 7.9. - Constitutional Vitals: Vital Signs Temp Pulse Resp BP Pulse Ox 97.9 F 89 19 111/65 99 11/25/19 09:10 11/25/19 10:04 11/25/19 10:00 11/25/19 10:04 11/25/19 10:00 Period Temp Pulse Resp BP Sys/Whittaker Pulse Ox Last 24 Hr 97.6 F-100.3 F 67-116 14-23 98-146/54-89 91-100 Intake and Output 11/24/19 11/25/19 11/25/19 21:59 05:59 13:59 Intake Total 630 360 240 Balance 630 360 240 Weight 181 lb Intake & Output: Intake & Output 11/24/19 11/25/19 11/25/19 21:59 05:59 13:59 Intake Total 630 360 240 Balance 630 360 240 Weight 181 lb Intake: Oral 630 360 240 Other: Meal Dinner Percent of Meal Consumed 5% Stool Size Smear Smear Stool Color Brown Brown Stool Consistency Soft Soft General appearance: no acute distress Exam: Alert oriented No telemetry events No anxiety Left subclavian HD catheter no surrounding erythema Nonlabored breathing Medical - PN: Obj Da - Labs CBC & Chem 7: 11/25/19 05:00 11/25/19 05:00 Labs: Abnormal Lab Results 11/25/19 11/25/19 11/24/19 05:00 05:00 05:05 RBC 3.29 L Hgb 9.8 L Hct 30.5 L RDW 19.4 H MPV 11.8 H Seg Neutrophils % 89 H Lymphocytes % 6 L Myelocytes % RBC Morphology Abnorm A Anisocytosis 2+ A Ovalocytes BUN 28 H Creatinine 2.9 H 2.4 H Calcium 8.1 L 8.2 L Phosphorus 2.6 L 2.1 L Direct Bilirubin 0.4 H AST 46 H 46 H Alkaline Phosphatase 193 H 193 H Total Protein 5.6 L Albumin 2.3 L 2.4 L Albumin/Globulin Ratio 0.7 L 0.6 L 11/24/19 11/23/19 11/23/19 05:05 05:05 05:05 RBC 3.30 L 3.13 L Hgb 9.8 L 9.3 L Hct 30.5 L 28.8 L RDW 19.7 H 19.3 H MPV 11.3 H 11.3 H Seg Neutrophils % 91 H 91 H Lymphocytes % 7 L 6 L Myelocytes % 1 H RBC Morphology Abnorm A Abnorm A Anisocytosis 2+ A 2+ A Ovalocytes Few A 1+ A BUN 43 H Creatinine 3.4 H Calcium 8.1 L Phosphorus 2.6 L Direct Bilirubin 0.5 H AST Alkaline Phosphatase 146 H Total Protein 5.3 L Albumin 2.4 L Albumin/Globulin Ratio 0.8 L Meds: Medications Acetaminophen (Tylenol) 650 mg PO Q4-6HP PRN; Protocol PRN Reason: Per Pain Protocol/Fever > 101 Last Admin: 11/25/19 07:49 Dose: 650 mg Documented by: Apixaban (Eliquis) 2.5 mg PO DAILY [facility] Last Admin: 11/25/19 08:17 Dose: 2.5 mg Documented by: Aspirin (Aspirin) 81 mg PO DAILY [facility] Last Admin: 11/25/19 08:16 Dose: 81 mg Documented by: Atorvastatin Calcium (Lipitor) 80 mg PO HS [facility] Last Admin: 11/24/19 21:14 Dose: 80 mg Documented by: Bisacodyl (Dulcolax) [address] Q2-3DAYS PRN PRN Reason: Constipation Buspirone HCl (Buspar) 15 mg PO BID [facility] Last Admin: 11/25/19 08:16 Dose: 15 mg Documented by: Cefazolin Sodium (Ancef) 2 gm IV MoWe@1600 [facility] Cefazolin Sodium (Ancef) 3 gm IV Fr@1600 [facility] Cefazolin Sodium (Ancef) 0 gm IV MoWeFr@1600 [facility] Collagenase (Santyl Top Oint) 1 dose TOPICAL DAILY [facility] Last Admin: 11/25/19 08:57 Dose: 1 dose Documented by: Docusate Sodium (Colace) 100 mg PO BID [facility] Last Admin: 11/25/19 08:17 Dose: 100 mg Documented by: Donepezil HCl (Aricept) 10 mg PO DAILY [facility] Last Admin: 11/25/19 08:16 Dose: 10 mg Documented by: Gabapentin (Neurontin) 300 mg PO DAILY [facility] Last Admin: 11/25/19 08:17 Dose: 300 mg Documented by: Norepinephrine Bitartrate 16 (mg/ Sodium Chloride) 250 mls @ 9.375 mls/hr IV Q24H [facility]; Protocol Last Admin: 11/25/19 04:17 Dose: Not Given Documented by: Acetaminophen (Ofirmev) 650 mg in 65 mls @ 130 mls/hr IV Q6HP PRN; Protocol PRN Reason: PAIN/FEVER > 101 Last Infusion: 11/22/19 21:13 Dose: Infused Documented by: Iron Carb/Multivit/[place]/Folic Acid (Multivitamin W/Minerals) 1 tab PO DAILY [facility] Last Admin: 11/25/19 08:17 Dose: 1 tab Documented by: Melatonin (Melatonin 3mg Tablet) 3 mg PO HSP PRN PRN Reason: Insomnia Last Admin: 11/23/19 20:29 Dose: 3 mg Documented by: Memantine (Namenda) 10 mg PO BID [facility] Last Admin: 11/25/19 08:17 Dose: 10 mg Documented by: Metoprolol Succinate (Toprol Xl) 25 mg PO QDAY [facility] Last Admin: 11/25/19 08:18 Dose: 25 mg Documented by: Ondansetron HCl (Zofran Odt) 4 mg SL Q4-6HP PRN; Protocol PRN Reason: Nausea And Vomiting Last Admin: 11/23/19 12:00 Dose: 4 mg Documented by: Ondansetron HCl (Zofran) 4 mg IV Q4-6HP PRN; Protocol PRN Reason: Nausea And Vomiting Pantoprazole Sodium (Protonix) 40 mg PO QAMAC [facility] Last Admin: 11/25/19 07:22 Dose: 40 mg Documented by: Polyethylene Glycol (Miralax) 17 gm PO DAILYP PRN PRN Reason: Constipation Potassium/Phosphorus/Sodium (Neutra Phos) 1 packet PO BID [facility] Stop: 11/28/19 23:59 Last Admin: 11/25/19 08:17 Dose: 1 packet Documented by: Senna/Docusate Sodium (Senna Plus Tablet) 1 tab PO HS [facility] Last Admin: 11/24/19 21:15 Dose: Not Given Documented by: Sertraline HCl (Zoloft) 100 mg PO BID [facility] Last Admin: 11/25/19 08:18 Dose: 100 mg Documented by: Sodium Chloride (Saline Flush) 10 ml IV Q8 [facility] Last Admin: 11/25/19 06:43 Dose: Not Given Documented by: Medical - PN: A/P - Time Spent With Patient Total time spent is greater than 50% in coordination of care (as documented) at patient's floor/unit and/or counseling patient: 25 - 35 minutes (1) Severe sepsis with acute organ dysfunction Status: Acute Assessment and plan: * Severe sepsis with acute organ dysfunction - Clinically improved * Staph epidermidis bacteremia 2/2 sets. Surveillance cultures 11/21 negative so far. On antibiotics per ID. Echocardiogram pending * Complicated Klebsiella UTI -asymptomatic now off antibiotics * New onset lower back pain suspect hematogenous seeding. CT thoracolumbar spine no evidence of abscess * Right lower lobe dense infiltrates on CT-continue antibiotic coverage * Acute change in mental status -resolved now at baseline * Sacral decubitus ulcer managed per wound care Dr. Westbrook * Atrial fibrillation currently rate controlled. Continue home medications, on apixaban for CVA prophylaxis * History of dementia continue donepezil * Neuropathy continue home gabapentin * ESRD -hemodialysis managed per nephrology. Nephrology attempting to salvage HD catheter * Anxiety disorder continue home sertraline/BuSpar * Hyperlipidemia continue statin * History of CAD on aspirin statin/apixaban/Coreg * History of hypertension continue Coreg/amlodipine * History of severe neuropathy/paraparesis [id number] directed therapy/SNF transfer coordination * Full code * DVT prophylaxis on anticoagulation Plan * Continue antibiotics per ID IV cefazolin for 3 weeks * ID consult * Wound care per wound physician * Await echocardiogram * HD per nephrology * pre-existing medical disorders management on home meds * PT OT/nutrition support Current Visit: Yes
[2019-11-25] MEDS: ceFAZolin 1 GM VIAL IV SCH ×2 (13:03→15:47)
--- NOTE | 2019-11-25 15:27 | Infectious Disease Prog Note ---
Subjective Patient information: Note initiated : 11/25/19 at 2:58 pm Service Date, if different from initiated Date: [] Patient: Marcello Nelson 79 y/o M admitted on 11/22/19 for fever UTI. Chief Complaint: [] Interval history: pt feeling fine. denied any symptoms except for chronic back pain. No fever overnight. Objective Objective Narrative: ao x 3, in nad, no thrush chest has decreased to absent BS at bases s1 soft, s2 normal, has 2/6 mid systolic murmur best heard at cardiac apex and right parasternal area. - Vital Signs Vital signs: Vital Signs Temp Pulse Pulse Resp BP BP Pulse Ox 11/25/19 12:34 36.5 C 99 H 126/65 11/25/19 12:00 97 H 18 106/61 97 11/25/19 11:59 95 H 106/61 11/25/19 11:30 100 H 107/74 11/25/19 10:59 87 111/71 11/25/19 10:29 107 H 112/71 11/25/19 10:04 89 111/65 11/25/19 10:00 95 H 19 111/65 99 11/25/19 09:34 93 H 105/68 11/25/19 09:10 36.6 C 96 H 146/89 11/25/19 08:00 37.3 C H 105 H 22 146/89 94 11/25/19 06:01 69 17 116/76 93 11/25/19 04:12 18 11/25/19 04:01 37.9 C H 18 101/54 93 11/25/19 02:01 103 H 18 99/57 91 11/25/19 00:01 86 17 114/70 96 11/24/19 23:48 87 17 97 11/24/19 23:45 36.8 C 16 118/62 97 11/24/19 23:33 92 H 16 118/62 100 11/24/19 22:01 78 14 104/59 97 11/24/19 22:00 36.4 C 14 104/59 97 11/24/19 20:01 86 17 109/75 97 11/24/19 20:00 37.0 C 16 109/75 100 11/24/19 18:08 36.5 C 17 120/72 97 11/24/19 16:04 67 17 101/65 97 11/24/19 16:01 36.9 C 94 H 16 98/62 94 11/24/19 15:37 93 H 14 111/67 96 Intake and Output 11/25/19 11/25/19 11/25/19 05:59 13:59 21:59 Intake Total 360 380 Output Total 2500 Balance 360 -2120 Intake: Nourishment/Supplement quantity 20 (ml) Oral 360 360 Output: Hemodialysis UF 2500 Other: Meal Lunch Percent of Meal Consumed 75% Feeding Ability Assist with Tray Set Up Nourishment/Supplement name Nephrovite Stool Size Smear Stool Color Brown Stool Consistency Soft Weight 82.1 kg Patient Weight 11/26/19 05:59 Weight 82.1 kg Intake & Output: Intake & Output 11/25/19 11/25/19 11/25/19 05:59 13:59 21:59 Intake Total 360 380 Output Total 2500 Balance 360 -2120 Weight 82.1 kg Intake: Nourishment/Supplement quantity 20 (ml) Oral 360 360 Output: Hemodialysis UF 2500 Other: Meal Lunch Percent of Meal Consumed 75% Feeding Ability Assist with Tray Set Up Nourishment/Supplement name Nephrovite Stool Size Smear Stool Color Brown Stool Consistency Soft - Lab 11/25/19 05:00 11/25/19 05:00 Most recent lab results Calcium 8.1 mg/dl (8.6-10.4) L 11/25/19 05:00 Phosphorus 2.6 mg/dL (2.7-4.5) L 11/25/19 05:00 Magnesium 1.9 mg/dL (1.6-2.5) 11/25/19 05:00 Microbiology 11/22/19 21:55 Blood Blood Culture - Preliminary Gram positive cocci 11/22/19 21:45 Blood Blood Culture - Preliminary 11/21/19 21:40 Blood Blood Culture - Preliminary Gram positive cocci 11/21/19 21:45 Urine - Catheterized Urine Culture - Final Klebsiella pneumoniae 11/21/19 21:30 Blood Blood Culture - Preliminary Gram positive cocci 11/22/19 02:53 Nose MRSA (PCR) - Final Medications Active Medications: Acetaminophen (Tylenol) 650 mg PO Q4-6HP PRN; Protocol PRN Reason: Per Pain Protocol/Fever > 101 Last Admin: 11/25/19 07:49 Dose: 650 mg Documented by: Admin: 11/24/19 16:19 Dose: 650 mg Documented by: Admin: 11/24/19 07:35 Dose: 650 mg Documented by: Admin: 11/23/19 14:24 Dose: 650 mg Documented by: JAIME Apixaban (Eliquis) 2.5 mg PO DAILY [facility] Last Admin: 11/25/19 08:17 Dose: 2.5 mg Documented by: Admin: 11/24/19 08:08 Dose: 2.5 mg Documented by: Admin: 11/23/19 14:25 Dose: 2.5 mg Documented by: Admin: 11/22/19 11:42 Dose: 2.5 mg Documented by: JOSE JUAN Aspirin (Aspirin) 81 mg PO DAILY [facility] Admin: 11/25/19 08:16 Dose: 81 mg Documented by: Admin: 11/24/19 08:09 Dose: 81 mg Documented by: Admin: 11/23/19 14:25 Dose: 81 mg Documented by: JAIME Atorvastatin Calcium (Lipitor) 80 mg PO HS [facility] Last Admin: 11/24/19 21:14 Dose: 80 mg Documented by: Admin: 11/23/19 20:29 Dose: 80 mg Documented by: Admin: 11/22/19 22:07 Dose: 80 mg Documented by: GIO Bisacodyl (Dulcolax) 10 mg AL Q2-3DAYS PRN PRN Reason: Constipation Buspirone HCl (Buspar) 15 mg PO BID [facility] Last Admin: 11/25/19 08:16 Dose: 15 mg Documented by: Admin: 11/24/19 21:17 Dose: 15 mg Documented by: Admin: 11/24/19 08:08 Dose: 15 mg Documented by: Admin: 11/23/19 20:29 Dose: 15 mg Documented by: Admin: 11/23/19 08:33 Dose: 15 mg Documented by: Admin: 11/22/19 22:08 Dose: 15 mg Documented by: GIO Cefazolin Sodium (Ancef) 2 gm IV MoWe@1600 [facility] Cefazolin Sodium (Ancef) 3 gm IV Fr@1600 [facility] Cefazolin Sodium (Ancef) 0 gm IV MoWeFr@1600 [facility] Admin: 11/25/19 13:03 Dose: 1 gm Documented by: WANDA Comments: Administered by dialysis nurse at end of dialysis at 1240 Collagenase (Santyl Top Oint) 1 dose TOPICAL DAILY [facility] Admin: 11/25/19 08:57 Dose: 1 dose Documented by: Admin: 11/24/19 08:08 Dose: 1 dose Documented by: Admin: 11/23/19 14:24 Dose: 1 dose Documented by: Admin: 11/22/19 17:08 Dose: Not Given Documented by: JOSE JUAN Non-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 Docusate Sodium (Colace) 100 mg PO BID [facility] Admin: 11/25/19 08:17 Dose: 100 mg Documented by: Admin: 11/24/19 21:15 Dose: Not Given Documented by: PAULINE Non-Admin Reason: Multiple soft BMs Admin: 11/24/19 08:09 Dose: Not Given Documented by: JAIME Non-Admin Reason: soft stools Admin: 11/23/19 20:19 Dose: Not Given Documented by: [email or web address] Non-Admin Reason: Loose Stool Admin: 11/23/19 09:44 Dose: Not Given Documented by: JAIME Non-Admin Reason: Loose Stool Admin: 11/22/19 22:08 Dose: Not Given Documented by: GIO Non-Admin Reason: Loose Stool Admin: 11/22/19 10:09 Dose: 100 mg Documented by: JOSE JUAN Donepezil HCl (Aricept) 10 mg PO DAILY [facility] Admin: 11/25/19 08:16 Dose: 10 mg Documented by: Admin: 11/24/19 08:08 Dose: 10 mg Documented by: Admin: 11/23/19 08:33 Dose: 10 mg Documented by: JAIME Gabapentin (Neurontin) 300 mg PO DAILY [facility] Admin: 11/25/19 08:17 Dose: 300 mg Documented by: Admin: 11/24/19 08:09 Dose: 300 mg Documented by: Admin: 11/23/19 14:26 Dose: 300 mg Documented by: Admin: 11/22/19 17:09 Dose: 300 mg Documented by: JOSE JUAN Norepinephrine Bitartrate 16 (mg/ Sodium Chloride) 250 mls @ 9.375 mls/hr IV Q24H [facility]; Protocol Last Admin: 11/25/19 04:17 Dose: Not Given Documented by: PAULINE Non-Admin Reason: No Coverage Needed Admin: 11/24/19 05:16 Dose: Not Given Documented by: JESSICA Non-Admin Reason: not needed Admin: 11/23/19 02:38 Dose: Not Given Documented by: GIO Non-Admin Reason: Clinical Judgement Admin: 11/22/19 02:16 Dose: Not Given Documented by: GIO Non-Admin Reason: not needed at this time Acetaminophen (Ofirmev) 650 mg in 65 mls @ 130 mls/hr IV Q6HP PRN; Protocol PRN Reason: PAIN/FEVER > 101 Last Infusion: 11/22/19 21:13 Dose: 0 mls/hr Documented by: Admin: 11/22/19 19:48 Dose: 130 mls/hr Documented by: Infusion: 11/22/19 05:30 Dose: 0 mls/hr Documented by: Admin: 11/22/19 02:56 Dose: 130 mls/hr Documented by: GIO Iron Carb/Multivit/[place]/Folic Acid (Multivitamin W/Minerals) 1 tab PO DAILY [facility] Last Admin: 11/25/19 08:17 Dose: 1 tab Documented by: Admin: 11/24/19 08:08 Dose: 1 tab Documented by: Admin: 11/23/19 14:25 Dose: 1 tab Documented by: Admin: 11/22/19 10:09 Dose: 1 tab Documented by: JOSE JUAN Melatonin (Melatonin 3mg Tablet) 3 mg PO HSP PRN PRN Reason: Insomnia Last Admin: 11/23/19 20:29 Dose: 3 mg Documented by: Admin: 11/22/19 22:08 Dose: 3 mg Documented by: GIO Memantine (Namenda) 10 mg PO BID [facility] Last Admin: 11/25/19 08:17 Dose: 10 mg Documented by: Admin: 11/24/19 21:13 Dose: 10 mg Documented by: Admin: 11/24/19 08:09 Dose: 10 mg Documented by: Admin: 11/23/19 20:29 Dose: 10 mg Documented by: Admin: 11/23/19 14:25 Dose: 10 mg Documented by: Admin: 11/22/19 22:08 Dose: 10 mg Documented by: GIO Metoprolol Succinate (Toprol Xl) 25 mg PO QDAY [facility] Last Admin: 11/25/19 08:18 Dose: 25 mg Documented by: Admin: 11/24/19 08:08 Dose: 25 mg Documented by: Admin: 11/23/19 14:25 Dose: 25 mg Documented by: JAIME Ondansetron HCl (Zofran Odt) 4 mg SL Q4-6HP PRN; Protocol PRN Reason: Nausea And Vomiting Last Admin: 11/23/19 12:00 Dose: 4 mg Documented by: JAIME Ondansetron HCl (Zofran) 4 mg IV Q4-6HP PRN; Protocol PRN Reason: Nausea And Vomiting Pantoprazole Sodium (Protonix) 40 mg PO QAMAC [facility] Last Admin: 11/25/19 07:22 Dose: 40 mg Documented by: Admin: 11/24/19 07:35 Dose: 40 mg Documented by: Admin: 11/23/19 08:33 Dose: 40 mg Documented by: JAIME Polyethylene Glycol (Miralax) 17 gm PO DAILYP PRN PRN Reason: Constipation Potassium/Phosphorus/Sodium (Neutra Phos) 1 packet PO BID [facility] Stop: 11/28/19 23:59 Last Admin: 11/25/19 08:17 Dose: 1 packet Documented by: Admin: 11/24/19 21:21 Dose: Not Given Documented by: PAULINE Non-Admin Reason: Patient Refused Senna/Docusate Sodium (Senna Plus Tablet) 1 tab PO HS [facility] Last Admin: 11/24/19 21:15 Dose: Not Given Documented by: PAULINE Non-Admin Reason: Multiple soft BMs Admin: 11/23/19 20:20 Dose: Not Given Documented by: JESSICA Non-Admin Reason: Loose Stool Admin: 11/22/19 22:08 Dose: Not Given Documented by: GIO Non-Admin Reason: Loose Stool Sertraline HCl (Zoloft) 100 mg PO BID [facility] Admin: 11/25/19 08:18 Dose: 100 mg Documented by: Admin: 11/24/19 21:14 Dose: 100 mg Documented by: Admin: 11/24/19 08:08 Dose: 100 mg Documented by: Admin: 11/23/19 20:29 Dose: 100 mg Documented by: Admin: 11/23/19 08:33 Dose: 100 mg Documented by: Admin: 11/22/19 22:08 Dose: 100 mg Documented by: GIO Sodium Chloride (Saline Flush) 10 ml IV Q8 [facility] Admin: 11/25/19 13:04 Dose: 10 ml Documented by: Admin: 11/25/19 06:43 Dose: Not Given Documented by: PAULINE Non-Admin Reason: Duplicate Admin: 11/24/19 23:13 Dose: 10 ml Documented by: Admin: 11/24/19 16:19 Dose: 10 ml Documented by: Admin: 11/24/19 13:24 Dose: 10 ml Documented by: Admin: 11/24/19 05:16 Dose: 10 ml Documented by: Admin: 11/23/19 20:30 Dose: 10 ml Documented by: Admin: 11/23/19 14:26 Dose: 10 ml Documented by: Admin: 11/23/19 04:52 Dose: 10 ml Documented by: Admin: 11/22/19 22:08 Dose: Not Given Documented by: GIO Non-Admin Reason: Continuous IV Admin: 11/22/19 17:08 Dose: Not Given Documented by: JOSE JUAN Non-Admin Reason: Continuous IV Admin: 11/22/19 05:31 Dose: 10 ml Documented by: Admin: 11/22/19 02:16 Dose: 10 ml Documented by: GIO Assessment and Plan - Narrative A/P Narrative: A: 1. Staph epidermidis bacteremia: mec A gene neg - likely source catheter access and skin colonization. No signs of catheter exit site infection - septic shock resolved - blood Cx from 11/20 and 11/21 positive - TTE neg for IE. Pt has a systolic murmur over cardiac apex and at left parasternal border 2. Stage 2 pressure sore over sacrum - adherent exudate over the ulcer 3. Penicillin allergy: pt tolerated PO Amoxicillin challenge yesterday without any allergic reactions. Penicillin allergy taken off the chart - Reaction was >10 years ago, included hives after some type of penicillin. - Pt and POA (his sister Cathy) consented 4. Asymptomatic bacteriuria: urine Cx growing Klebsiella pneumoniae - pt denies any UTI symptoms 5. Right LL infiltrate with small effusion and small left pleural effusion: absence of SOB, O2 req suggest possible lung collapse due to adjoining effusion and/or atlectesis. If febrile again, would broaden antibiotics to include PO Doxycycline or Levofloxacin. Recommendations: - Repeat 2 sets of blood Cx, one from HD line and other from peripheral stick every other day until negative for 48 hrs. - Continue IV Cefazolin 2 gm after HD on Thursday and Thursday respectively and 3 gm after HD on Thursday - Recommend removal of left chest wall tunnelled dialysis catheter, as Cx from 11/21 are also positive. Spoke with Dr Campos and Dr Cintron. Once the HD catheter is removed, blood Cx sent afterwards could be followed. Once blood Cx neg for 48 hrs, a new catheter could be placed. - Anticipated duration of treatment 3 weeks from 1st day of neg blood Cx will follow Javier Perkins MD Infectious diseases
[2019-11-25] MEDS ORDERED: ceFAZolin 1 GM VIAL IV SCH (16:00)
[2019-11-25] MEDS: ATORVASTATIN 40 MG TABLET PO SCH (20:09)
[2019-11-25] MEDS: SENNOSIDES/DOCUSATE SODIUM 1 TAB TABLET PO SCH (20:10)
[2019-11-26] MEDS: NOREPINEPHRINE BITARTRATE 16 MG in 0.9 % SODIUM CHLORIDE 234 ML IV SCH (04:19)
[2019-11-26] MEDS: ACETAMINOPHEN 325 MG TABLET PO PRN (04:38)
[2019-11-26] MEDS: 0.9 % SODIUM CHLORIDE 10 ML SYRINGE IV SCH ×3 (04:38→20:18)
[2019-11-26 06:46] LABS: Hematocrit 28.8 % (40.1-51.0); Hemoglobin 9.3 g/dL (13.7-17.5); Mean Cell Volume 92.6 fL (80.0-100.0); Mean Corpuscular HGB Conc 32.3 g/dL (31.0-36.0); Mean Platelet Volume 11.6 fL (7.4-10.4); Platelet Count 119 K/mcL (140-440); RBC 3.11 M/mcL (4.63-6.08); Red Cell Distribution Width 19.4 % (11.5-14.5); WBC 7.6 K/mcL (4.50-11.00)
[2019-11-26 07:10] LABS: Chloride 98 mmol/L (96-108)
[2019-11-26 07:22] LABS: ALT/SGPT 11 U/l (0-40); AST/SGOT 46 U/l (0-37); Albumin 2.4 gm/dL (3.2-5.2); Albumin/Globulin Ratio 0.8 (1.0-2.3); Alkaline Phosphatase 201 U/L (39-117); Bilirubin,Direct 0.3 mg/dL (0.0-0.3); Bilirubin,Total 0.6 mg/dL (0.0-1.0); Blood Urea Nitrogen 17 mg/dl (8-23); Carbon Dioxide 25 mmol/L (22-30); Globulin 3.2 gm/dL (2.2-3.7); Glomerular Filtration Rate 25; Glucose 87 mg/dL (70-105); Lactate Dehydrogenase 210 U/L (94-250); Phosphorous 2.4 mg/dL (2.7-4.5); Triglycerides 87 mg/dl (<150); Uric Acid 2.9 mg/dL (2.5-8.0)
--- NOTE | 2019-11-26 08:03 | Internal Med Progress Note ---
Medical - PN: Subj Patient information: Note initiated : 11/26/19 at 8:00 am Service Date, if different from initiated Date: [] Patient: Marcello Nelson 79 y/o M admitted on 11/22/19 for fever UTI. Chief Complaint: [] Interval history: Mr. Nelson is a 79 year old with a history of dementia, A. fib, paraplegia wheelchair-bound and ESRD on hemodialysis managed by Dr. Cintron. Patient lives with his Sister Cathy and undergoes hemodialysis 3 times a week at [facility] office. For the last couple of days he has been getting increasingly weak fatigue lethargic and has spiked a fever of 102 after dialysis today. Patient was subsequently brought into the ER for evaluation. Initial work-up was consistent with severe sepsis with endorgan dysfunction white count 15,000, pyuria, acute change in mental status and a fever of 102. Following initial work-up including blood cultures antibiotics were instituted. Hospital service was consulted for admission. At evaluation patient is more alert and able to answer some of the questions. Most of the history was obtained from review of medical record, ER physician, patient's Sister Cathy. Endorses history as above but denies recent diarrhea, headache, photophobia. She endorses the patient complaining of dysuria and lower abdominal discomfort. 11/21-patient clinically improving. Improved vitals/map. Improving white count. Febrile at 102. Improved mental status change, potassium at 2.9. Nephrology consulted. On potassium replacement. Urine and blood cultures pending. 11/22- sacral decubitus ulcer managed per wound care. On antibiotic coverage. Gram-positive cocci in blood. Surveillance cultures pending. Currently afebrile. Klebsiella pneumonia on urine culture, sensitivities pending. Off pressors. Ongoing hemodialysis. Alert lucid and respond to commands. 11/23-patient seen in room. 2 out of 2 gram-positive cocci 11/20. Surveillance cultures 11/21 pending. ID consulted. White count down to 10.5. Potassium 3.4. Ongoing hemodialysis per nephrology. Further work-up per ID for source evaluation 11/24-patient doing well. Ongoing hemodialysis. CT spine no evidence of abscess however right lower lobe infiltrate noted. On antibiotic coverage. Staph epi bacteremia on antibiotics per ID. Attempting to salvage hemodialysis catheter per nephrology. Echocardiogram pending. No overnight fever chills. White count down to 7.9. 11/25-blood cultures +11/21. ID recommends removal of hemodialysis catheter. Will undergo tunneled catheter removal today by surgery. On antibiotic coverage. Patient will likely discharge on Thursday for outpatient catheter placement followed by outpatient dialysis. Case management coordinating SNF transfer. Stable hemodynamics. On IV cefazolin Thursday 2/2/3 gram per ID for 3 weeks. Transthoracic echocardiogram negative. - Constitutional Vitals: Vital Signs Temp Pulse Resp BP Pulse Ox 98.7 F 87 14 115/71 96 11/26/19 04:01 11/26/19 06:01 11/26/19 06:01 11/26/19 06:01 11/26/19 06:01 Period Temp Pulse Resp BP Sys/Whittaker Pulse Ox Last 24 Hr 97.6 F-98.7 F 68-107 14-20 99-146/53-89 93-99 Intake and Output 11/25/19 11/26/19 11/26/19 21:59 05:59 13:59 Intake Total 660 100 Balance 660 100 Weight 174 lb 8 oz Intake & Output: Intake & Output 11/25/19 11/26/19 11/26/19 21:59 05:59 13:59 Intake Total 660 100 Balance 660 100 Weight 174 lb 8 oz Intake: Oral 660 100 Other: Meal Dinner Percent of Meal Consumed 25% Feeding Ability Assist with Tray Set Up Urine Appearance Cloudy Mucous Threads Urine Color Bright Yellow Urine Odor Strong Stool Size Small Small Stool Color Brown Brown Stool Consistency Soft Soft # Bowel Movements 1 General appearance: no acute distress Exam: Alert oriented Nonlabored breathing No anxiety Nondistended abdomen Medical - PN: Obj Da - Labs CBC & Chem 7: 11/26/19 05:00 11/26/19 05:00 Labs: Abnormal Lab Results 11/26/19 11/26/19 11/25/19 05:00 05:00 05:00 RBC 3.11 L Hgb 9.3 L Hct 28.8 L RDW 19.4 H Plt Count 119 L MPV 11.6 H Seg Neutrophils % Lymphocytes % RBC Morphology Anisocytosis Ovalocytes BUN 28 H Creatinine 2.4 H 2.9 H Calcium 8.0 L 8.1 L Phosphorus 2.4 L 2.6 L Direct Bilirubin AST 46 H 46 H Alkaline Phosphatase 201 H 193 H Total Protein 5.6 L 5.6 L Albumin 2.4 L 2.3 L Albumin/Globulin Ratio 0.8 L 0.7 L 11/25/19 11/24/19 11/24/19 05:00 05:05 05:05 RBC 3.29 L 3.30 L Hgb 9.8 L 9.8 L Hct 30.5 L 30.5 L RDW 19.4 H 19.7 H Plt Count MPV 11.8 H 11.3 H Seg Neutrophils % 89 H 91 H Lymphocytes % 6 L 7 L RBC Morphology Abnorm A Abnorm A Anisocytosis 2+ A 2+ A Ovalocytes Few A BUN Creatinine 2.4 H Calcium 8.2 L Phosphorus 2.1 L Direct Bilirubin 0.4 H AST 46 H Alkaline Phosphatase 193 H Total Protein Albumin 2.4 L Albumin/Globulin Ratio 0.6 L Meds: Medications Acetaminophen (Tylenol) 650 mg PO Q4-6HP PRN; Protocol PRN Reason: Per Pain Protocol/Fever > 101 Last Admin: 11/26/19 04:38 Dose: 650 mg Documented by: Apixaban (Eliquis) 2.5 mg PO DAILY [facility] Last Admin: 11/25/19 08:17 Dose: 2.5 mg Documented by: Aspirin (Aspirin) 81 mg PO DAILY [facility] Last Admin: 11/25/19 08:16 Dose: 81 mg Documented by: Atorvastatin Calcium (Lipitor) 80 mg PO [facility] Last Admin: 11/25/19 20:09 Dose: 80 mg Documented by: Bisacodyl (Dulcolax) 10 mg HI Q2-3DAYS PRN PRN Reason: Constipation Buspirone HCl (Buspar) 15 mg PO BID [facility] Last Admin: 11/25/19 20:09 Dose: 15 mg Documented by: Cefazolin Sodium (Ancef) 2 gm IV MoWe@1600 [facility] Cefazolin Sodium (Ancef) 3 gm IV Fr@1600 [facility] Last Admin: 11/25/19 15:47 Dose: 3 gm Documented by: Cefazolin Sodium (Ancef) 0 gm IV MoWeFr@1600 [facility] Last Admin: 11/25/19 15:47 Dose: Not Given Documented by: Collagenase (Santyl Top Oint) 1 dose TOPICAL DAILY [facility] Last Admin: 11/25/19 08:57 Dose: 1 dose Documented by: Docusate Sodium (Colace) 100 mg PO BID [facility] Last Admin: 11/25/19 20:10 Dose: Not Given Documented by: Donepezil HCl (Aricept) 10 mg PO DAILY [facility] Last Admin: 11/25/19 08:16 Dose: 10 mg Documented by: Gabapentin (Neurontin) 300 mg PO DAILY [facility] Last Admin: 11/25/19 08:17 Dose: 300 mg Documented by: Norepinephrine Bitartrate 16 (mg/ Sodium Chloride) 250 mls @ 9.375 mls/hr IV Q24H [facility]; Protocol Last Admin: 11/26/19 04:19 Dose: Not Given Documented by: Acetaminophen (Ofirmev) 650 mg in 65 mls @ 130 mls/hr IV Q6HP PRN; Protocol PRN Reason: PAIN/FEVER > 101 Last Infusion: 11/22/19 21:13 Dose: Infused Documented by: Iron Carb/Multivit/[place]/Folic Acid (Multivitamin W/Minerals) 1 tab PO DAILY [facility] Last Admin: 11/25/19 08:17 Dose: 1 tab Documented by: Melatonin (Melatonin 3mg Tablet) 3 mg PO HSP PRN PRN Reason: Insomnia Last Admin: 11/23/19 20:29 Dose: 3 mg Documented by: Memantine (Namenda) 10 mg PO BID [facility] Last Admin: 11/25/19 20:09 Dose: 10 mg Documented by: Metoprolol Succinate (Toprol Xl) 25 mg PO QDAY [facility] Last Admin: 11/25/19 08:18 Dose: 25 mg Documented by: Ondansetron HCl (Zofran Odt) 4 mg SL Q4-6HP PRN; Protocol PRN Reason: Nausea And Vomiting Last Admin: 11/23/19 12:00 Dose: 4 mg Documented by: Ondansetron HCl (Zofran) 4 mg IV Q4-6HP PRN; Protocol PRN Reason: Nausea And Vomiting Pantoprazole Sodium (Protonix) 40 mg PO QAMAC [facility] Last Admin: 11/25/19 07:22 Dose: 40 mg Documented by: Polyethylene Glycol (Miralax) 17 gm PO DAILYP PRN PRN Reason: Constipation Potassium/Phosphorus/Sodium (Neutra Phos) 1 packet PO BID [facility] Stop: 11/28/19 23:59 Last Admin: 11/25/19 20:09 Dose: 1 packet Documented by: Senna/Docusate Sodium (Senna Plus Tablet) 1 tab PO HS [facility] Last Admin: 11/25/19 20:10 Dose: Not Given Documented by: Sertraline HCl (Zoloft) 100 mg PO BID [facility] Last Admin: 11/25/19 20:09 Dose: 100 mg Documented by: Sodium Chloride (Saline Flush) 10 ml IV Q8 [facility] Last Admin: 11/26/19 04:38 Dose: 10 ml Documented by: Medical - PN: A/P - Time Spent With Patient Total time spent is greater than 50% in coordination of care (as documented) at patient's floor/unit and/or counseling patient: 25 - 35 minutes (1) Severe sepsis with acute organ dysfunction Status: Acute Assessment and plan: * Severe sepsis secondary to staph epidermidis bacteremia with acute organ dysfunction - Clinically improved on antibiotic coverage * Staph epidermidis bacteremia 4/ sets. Surveillance cultures negative so far. On IV cefazolin per ID. Echocardiogram negative for valvular vegetation. Dialysis catheter removal today. * Complicated Klebsiella UTI -asymptomatic now off antibiotics * Lwer back pain suspect hematogenous seeding. CT thoracolumbar spine no evidence of abscess * Right lower lobe dense infiltrates on CT-off antibiotics however ID recommends doxycycline or levofloxacin if patient spikes fever/symptoms of pneumonia * Acute change in mental status -resolved now at baseline * Sacral decubitus ulcer managed per wound care Dr. Westbrook * Atrial fibrillation currently rate controlled. Continue home medications, on apixaban for CVA prophylaxis * History of dementia continue donepezil * Neuropathy continue home gabapentin * ESRD -hemodialysis managed per nephrology. Nephrology attempting to salvage HD catheter * Anxiety disorder continue home sertraline/BuSpar * Hyperlipidemia continue statin * History of CAD on aspirin statin/apixaban/Coreg * History of hypertension continue Coreg/amlodipine * History of severe neuropathy/paraparesis [id number] directed therapy/SNF transfer coordination * Full code * DVT prophylaxis on anticoagulation Plan * Continue antibiotics per ID IV cefazolin for 3 weeks * HD catheter removal today * Wound care per wound physician * pre-existing medical disorders management on home meds * PT OT/nutrition support * Discharge planning likely in 48 hours to SNF with outpatient dialysis catheter placement scheduling Current Visit: Yes
[2019-11-26 08:23] LABS: Anisocytosis 1+ (NONE SEEN); Lymphocytes % 11 % (15-49); Monocytes % (Manual) 5 % (1-12); Platelet Estimate DECREASED (NORMAL); RBC Morphology ABNORM (NORMAL); Segmented Neutrophils % 84 % (38-78)
[2019-11-26] MEDS: PANTOPRAZOLE 40 MG TABLET PO SCH (09:31)
[2019-11-26] MEDS ORDERED: NOREPINEPHRINE BITARTRATE 16 MG in 0.9 % SODIUM CHLORIDE 234 ML IV PRN (10:30)
[2019-11-26] MEDS: GABAPENTIN 300 MG CAPSULE PO SCH (10:41)
[2019-11-26] MEDS: SERTRALINE 50 MG TABLET PO SCH ×2 (10:41→20:18)
[2019-11-26] MEDS: NEUTRA PHOS 1 PACKET PO SCH ×2 (10:41→20:18)
[2019-11-26] MEDS: DONEPEZIL 10 MG TABLET PO SCH (10:42)
[2019-11-26] MEDS: ASPIRIN 81 MG TAB.CHEW PO SCH (10:42)
[2019-11-26] MEDS: APIXABAN 2.5 MG TABLET PO SCH (10:42)
[2019-11-26] MEDS: COLLAGENASE TOP OINT TUBE 30GM TOPICAL SCH (10:42)
[2019-11-26] MEDS: METOPROLOL SUCCINATE 25 MG TAB.XL.24H PO SCH (10:42)
[2019-11-26] MEDS: MEMANTINE 10 MG TABLET PO SCH ×2 (10:42→20:18)
[2019-11-26] MEDS: busPIRone 15 MG TABLET PO SCH ×2 (10:42→20:18)
[2019-11-26] MEDS: MULTIVIT,THER IRON,CA,FA & MIN 1 TABLET PO SCH (10:42)
[2019-11-26] MEDS: DOCUSATE SODIUM 100 MG CAPSULE PO SCH ×2 (10:51→20:18)
--- NOTE | 2019-11-26 14:18 | General Surgery Procedure Note ---
Date of procedure: Note initiated : 11/26/19 at 2:16 pm Service Date, if different from initiated Date: [] Pre-op diagnosis: dialysis catheter infection Post-op diagnosis: other (dialysis catheter infection) Procedure: removal of tunneled dialysis catheter, left Findings: N/A Anesthesia: local (1%XYLOCAINE WITH EPINEPHRINE) Surgeon: Lorena Park Pathology: other (CATHETER TIP) Description of procedure: The patient has persistent bacteremia due to Staphylococcus epidermidis. I have been asked to remove his tunnel dialysis catheter in the left neck. The patient was counseled for remove the catheter. The area was prepped with ChloraPrep including the end of the catheter. Dissection was carried out around the end of the catheter and the retaining collar. The entire catheter was removed and the tract was closed with 2-0 Monocryl. Sterile dressing was placed. Patient tolerated procedure without any difficulty. Condition: stable Disposition: ICU
[2019-11-26] MEDS ORDERED: METOPROLOL TARTRATE 5 MG/5 ML VIAL IV ONE (14:30)
[2019-11-26] MEDS: METOPROLOL TARTRATE 5 MG/5 ML VIAL IV SCH ×3 (14:30→15:01)
[2019-11-26] MEDS: SENNOSIDES/DOCUSATE SODIUM 1 TAB TABLET PO SCH (20:18)
[2019-11-26] MEDS: ATORVASTATIN 40 MG TABLET PO SCH (20:18)
[2019-11-27 06:12] LABS: Basophils # (Auto) 0.02 K/mcL (0.00-0.30); Basophils % (Auto) 0.2 % (0.0-2.0); Eosinophils # (Auto) 0.01 K/mcL (0.00-0.70); Eosinophils % (Auto) 0.1 % (0.0-7.0); Granulocytes % (Auto) 79.4 % (38.0-78.0); Hematocrit 28.8 % (40.1-51.0); Hemoglobin 9.5 g/dL (13.7-17.5); Lymphocytes # (Auto) 1.06 K/mcL (1.50-4.80); Lymphocytes % (Auto) 12.1 % (15.5-49.0); Mean Cell Volume 91.4 fL (80.0-100.0); Mean Platelet Volume 11.2 fL (7.4-10.4); Monocytes # (Auto) 0.72 K/mcL (0.10-0.90); Monocytes % (Auto) 8.2 % (1.0-12.0); Platelet Count 114 K/mcL (140-440); RBC 3.15 M/mcL (4.63-6.08); Red Cell Distribution Width 19.4 % (11.5-14.5); WBC 8.8 K/mcL (4.50-11.00)
[2019-11-27] MEDS: 0.9 % SODIUM CHLORIDE 10 ML SYRINGE IV SCH ×4 (06:13→20:58)
[2019-11-27 06:41] LABS: Chloride 97 mmol/L (96-108)
[2019-11-27 06:43] LABS: ALT/SGPT < 5 U/l (0-40); AST/SGOT 37 U/l (0-37); Albumin 2.4 gm/dL (3.2-5.2); Albumin/Globulin Ratio 0.7 (1.0-2.3); Alkaline Phosphatase 196 U/L (39-117); Bilirubin,Direct 0.3 mg/dL (0.0-0.3); Bilirubin,Total 0.7 mg/dL (0.0-1.0); Blood Urea Nitrogen 24 mg/dl (8-23); Calcium 8.2 mg/dl (8.6-10.4); Carbon Dioxide 26 mmol/L (22-30); Globulin 3.3 gm/dL (2.2-3.7); Glomerular Filtration Rate 17; Glucose 90 mg/dL (70-105); Lactate Dehydrogenase 140 U/L (94-250); Phosphorous 2.6 mg/dL (2.7-4.5); Triglycerides 83 mg/dl (<150); Uric Acid 4.4 mg/dL (2.5-8.0)
[2019-11-27] MEDS: ACETAMINOPHEN 650 MG/65 ML BOTTLE IV PRN (06:58)
[2019-11-27] MEDS: PANTOPRAZOLE 40 MG TABLET PO SCH (07:00)
--- NOTE | 2019-11-27 08:00 | Internal Med Progress Note ---
Medical - PN: Subj Patient information: Note initiated : 11/27/19 at 7:58 am Service Date, if different from initiated Date: [] Patient: Marcello Nelson 79 y/o M admitted on 11/22/19 for fever UTI. Chief Complaint: [] Interval history: Mr. Nelson is a 79 year old with a history of dementia, A. fib, paraplegia wheelchair-bound and ESRD on hemodialysis managed by Dr. Cintron. Patient lives with his Sister Cathy and undergoes hemodialysis 3 times a week at [facility] office. For the last couple of days he has been getting increasingly weak fatigue lethargic and has spiked a fever of 102 after dialysis today. Patient was subsequently brought into the ER for evaluation. Initial work-up was consistent with severe sepsis with endorgan dysfunction white count 15,000, pyuria, acute change in mental status and a fever of 102. Following initial work-up including blood cultures antibiotics were instituted. Hospital service was consulted for admission. At evaluation patient is more alert and able to answer some of the questions. Most of the history was obtained from review of medical record, ER physician, patient's Sister Cathy. Endorses history as above but denies recent diarrhea, headache, photophobia. She endorses the patient complaining of dysuria and lower abdominal discomfort. 11/21-patient clinically improving. Improved vitals/map. Improving white count. Febrile at 102. Improved mental status change, potassium at 2.9. Nephrology consulted. On potassium replacement. Urine and blood cultures pending. 11/22- sacral decubitus ulcer managed per wound care. On antibiotic coverage. Gram-positive cocci in blood. Surveillance cultures pending. Currently afebrile. Klebsiella pneumonia on urine culture, sensitivities pending. Off pressors. Ongoing hemodialysis. Alert lucid and respond to commands. 11/23-patient seen in room. 2 out of 2 gram-positive cocci 11/20. Surveillance cultures 11/21 pending. ID consulted. White count down to 10.5. Potassium 3.4. Ongoing hemodialysis per nephrology. Further work-up per ID for source evaluation 11/24-patient doing well. Ongoing hemodialysis. CT spine no evidence of abscess however right lower lobe infiltrate noted. On antibiotic coverage. Staph epi bacteremia on antibiotics per ID. Attempting to salvage hemodialysis catheter per nephrology. Echocardiogram pending. No overnight fever chills. White count down to 7.9. 11/25-blood cultures +11/21. ID recommends removal of hemodialysis catheter. Will undergo tunneled catheter removal today by surgery. On antibiotic coverage. Patient will likely discharge on Thursday for outpatient catheter placement followed by outpatient dialysis. Case management coordinating SNF transfer. Stable hemodynamics. On IV cefazolin Thursday 2/2/3 gram per ID for 3 weeks. Transthoracic echocardiogram negative. 11/26-patient doing well. No overnight events. No concerns per staff. No fever chills. Status post HD catheter removal by surgery. Will undergo catheter placement in 24 hours [facility] On antibiotic coverage. Catheter tip culture pending. - Constitutional Vitals: Vital Signs Temp Pulse Resp BP Pulse Ox 99.2 F H 96 H 16 110/64 94 11/27/19 06:01 11/27/19 06:05 11/27/19 06:05 11/27/19 06:03 11/27/19 06:05 Period Temp Pulse Resp BP Sys/Whittaker Pulse Ox Last 24 Hr 97.8 F-100.4 F 45-106 -19 106-149/56-92 92-98 Intake and Output 11/26/19 11/27/19 11/27/19 21:59 05:59 13:59 Intake Total 200 100 65 Balance 200 100 65 Weight 175 lb Intake & Output: Intake & Output 11/26/19 11/27/19 11/27/19 21:59 05:59 13:59 Intake Total 200 100 65 Balance 200 100 65 Weight 175 lb Intake: Nourishment/Supplement quantity 200 (ml) IV 65 GI Tube Flush 100 Other: Meal Lunch Percent of Meal Consumed Refused Nourishment/Supplement name nepro Stool Size Small Stool Color Brown Yellow # of times incontinent of 1 Bowels Medical - PN: Obj Da - Labs CBC & Chem 7: 11/27/19 05:05 11/27/19 05:05 Labs: Abnormal Lab Results 11/27/19 11/27/19 11/26/19 05:05 05:05 05:00 RBC 3.15 L Hgb 9.5 L Hct 28.8 L RDW 19.4 H Plt Count 114 L MPV 11.2 H Gran % 79.4 H Lymph % (Auto) 12.1 L Lymph # (Auto) 1.06 L Seg Neutrophils % Lymphocytes % Platelet Estimate RBC Morphology Anisocytosis Ovalocytes BUN 24 H Creatinine 3.3 H 2.4 H Calcium 8.2 L 8.0 L Phosphorus 2.6 L 2.4 L AST 46 H Alkaline Phosphatase 196 H 201 H Total Protein 5.7 L 5.6 L Albumin 2.4 L 2.4 L Albumin/Globulin Ratio 0.7 L 0.8 L 11/26/19 11/25/19 11/25/19 05:00 05:00 05:00 RBC 3.11 L 3.29 L Hgb 9.3 L 9.8 L Hct 28.8 L 30.5 L RDW 19.4 H 19.4 H Plt Count 119 L MPV 11.6 H 11.8 H Gran % Lymph % (Auto) Lymph # (Auto) Seg Neutrophils % 84 H 89 H Lymphocytes % 11 L 6 L Platelet Estimate Decreased A RBC Morphology Abnorm A Abnorm A Anisocytosis 1+ A 2+ A Ovalocytes BUN 28 H Creatinine 2.9 H Calcium 8.1 L Phosphorus 2.6 L AST 46 H Alkaline Phosphatase 193 H Total Protein 5.6 L Albumin 2.3 L Albumin/Globulin Ratio 0.7 L 11/24/19 05:05 RBC Hgb Hct RDW Plt Count MPV Gran % Lymph % (Auto) Lymph # (Auto) Seg Neutrophils % 91 H Lymphocytes % 7 L Platelet Estimate RBC Morphology Abnorm A Anisocytosis 2+ A Ovalocytes Few A BUN Creatinine Calcium Phosphorus AST Alkaline Phosphatase Total Protein Albumin Albumin/Globulin Ratio Meds: Medications Acetaminophen (Tylenol) 650 mg PO Q4-6HP PRN; Protocol PRN Reason: Per Pain Protocol/Fever > 101 Last Admin: 11/26/19 04:38 Dose: 650 mg Documented by: Apixaban (Eliquis) 2.5 mg PO DAILY [facility] Last Admin: 11/26/19 10:42 Dose: 2.5 mg Documented by: Aspirin (Aspirin) 81 mg PO DAILY [facility] Last Admin: 11/26/19 10:42 Dose: 81 mg Documented by: Atorvastatin Calcium (Lipitor) 80 mg PO HS [facility] Last Admin: 11/26/19 20:18 Dose: 80 mg Documented by: Bisacodyl (Dulcolax) [address] Q2-3DAYS PRN PRN Reason: Constipation Buspirone HCl (Buspar) 15 mg PO BID [facility] Last Admin: 11/26/19 20:18 Dose: 15 mg Documented by: Cefazolin Sodium (Ancef) 2 gm IV MoWe@1600 [facility] Cefazolin Sodium (Ancef) 3 gm IV Fr@1600 [facility] Last Admin: 11/25/19 15:47 Dose: 3 gm Documented by: Cefazolin Sodium (Ancef) 0 gm IV MoWeFr@1600 [facility] Last Admin: 11/25/19 15:47 Dose: Not Given Documented by: Collagenase (Santyl Top Oint) 1 dose TOPICAL DAILY [facility] Last Admin: 11/26/19 10:42 Dose: 1 dose Documented by: Docusate Sodium (Colace) 100 mg PO BID [facility] Last Admin: 11/26/19 20:18 Dose: Not Given Documented by: Donepezil HCl (Aricept) 10 mg PO DAILY [facility] Last Admin: 11/26/19 10:42 Dose: 10 mg Documented by: Gabapentin (Neurontin) 300 mg PO DAILY [facility] Last Admin: 11/26/19 10:41 Dose: 300 mg Documented by: Acetaminophen (Ofirmev) 650 mg in 65 mls @ 130 mls/hr IV Q6HP PRN; Protocol PRN Reason: PAIN/FEVER > 101 Last Infusion: 11/27/19 07:35 Dose: Infused Documented by: Norepinephrine Bitartrate 16 (mg/ Sodium Chloride) 250 mls @ 9.375 mls/hr IV Q 24HP PRN; Protocol PRN Reason: TITRATE TO KEEP MAP > 65 Iron Carb/Multivit/[place]ependence/Folic Acid (Multivitamin W/Minerals) 1 tab PO DAILY [facility] Last Admin: 11/26/19 10:42 Dose: 1 tab Documented by: Melatonin (Melatonin 3mg Tablet) 3 mg PO HSP PRN PRN Reason: Insomnia Last Admin: 11/23/19 20:29 Dose: 3 mg Documented by: Memantine (Namenda) 10 mg PO BID [facility] Last Admin: 11/26/19 20:18 Dose: 10 mg Documented by: Metoprolol Succinate (Toprol Xl) 25 mg PO QDAY [facility] Last Admin: 11/26/19 10:42 Dose: 25 mg Documented by: Ondansetron HCl (Zofran Odt) 4 mg SL Q4-6HP PRN; Protocol PRN Reason: Nausea And Vomiting Last Admin: 11/23/19 12:00 Dose: 4 mg Documented by: Ondansetron HCl (Zofran) 4 mg IV Q4-6HP PRN; Protocol PRN Reason: Nausea And Vomiting Pantoprazole Sodium (Protonix) 40 mg PO QAMAC [facility] Last Admin: 11/27/19 07:00 Dose: 40 mg Documented by: Polyethylene Glycol (Miralax) 17 gm PO DAILYP PRN PRN Reason: Constipation Potassium/Phosphorus/Sodium (Neutra Phos) 1 packet PO BID [facility] Stop: 11/28/19 23:59 Last Admin: 11/26/19 20:18 Dose: 1 packet Documented by: Senna/Docusate Sodium (Senna Plus Tablet) 1 tab PO HS [facility] Last Admin: 11/26/19 20:18 Dose: Not Given Documented by: Sertraline HCl (Zoloft) 100 mg PO BID [facility] Last Admin: 11/26/19 20:18 Dose: 100 mg Documented by: Sodium Chloride (Saline Flush) 10 ml IV Q8 [facility] Last Admin: 11/27/19 06:13 Dose: 10 ml Documented by: Medical - PN: A/P - Time Spent With Patient Total time spent is greater than 50% in coordination of care (as documented) at patient's floor/unit and/or counseling patient: 15 - 24 minutes (1) Severe sepsis with acute organ dysfunction Status: Acute Assessment and plan: * Severe sepsis secondary to staph epidermidis bacteremia with acute organ d ysfunction - Clinically improved on antibiotic coverage * Staph epidermidis bacteremia 4/ sets. Surveillance cultures negative so far. On IV cefazolin per ID. Echocardiogram negative for valvular vegetation. Dialysis catheter removed 11/25. Plan to undergo catheter placement 11/27 at [place] being coordinated by nephrology service. * Complicated Klebsiella UTI -asymptomatic now off antibiotics * Lwer back pain suspect hematogenous seeding. CT thoracolumbar spine no evidence of abscess * Right lower lobe dense infiltrates on CT-off antibiotics however ID recommends doxycycline or levofloxacin if patient spikes fever/symptoms of pneumonia * Acute change in mental status -resolved now at baseline * Sacral decubitus ulcer managed per wound care Dr. Westbrook * Atrial fibrillation currently rate controlled. Continue home medications, on apixaban for CVA prophylaxis * History of dementia continue donepezil * Neuropathy continue home gabapentin * ESRD -HD per nephrology. Dialysis catheter removed and will be placed in 24 hours will be coordinated by nephrology * Anxiety disorder continue home sertraline/BuSpar * Hyperlipidemia continue statin * History of CAD on aspirin statin/apixaban/Coreg * History of hypertension continue Coreg/amlodipine * History of severe neuropathy/paraparesis [id number] directed therapy/SNF transfer coordination * Full code * DVT prophylaxis on anticoagulation Plan * Continue antibiotics per ID IV cefazolin for 3 weeks * HD catheter placement coordination by nephrology * Wound care per wound physician * pre-existing medical disorders management on home meds * PT OT/nutrition support * Discharge planning likely in 24 hours to SNF Current Visit: Yes
[2019-11-27] MEDS: DOCUSATE SODIUM 100 MG CAPSULE PO SCH ×2 (08:21→20:58)
[2019-11-27] MEDS: SERTRALINE 50 MG TABLET PO SCH ×2 (08:29→20:57)
[2019-11-27] MEDS: DONEPEZIL 10 MG TABLET PO SCH (08:29)
[2019-11-27] MEDS: APIXABAN 2.5 MG TABLET PO SCH (08:29)
[2019-11-27] MEDS: GABAPENTIN 300 MG CAPSULE PO SCH (08:29)
[2019-11-27] MEDS: MULTIVIT,THER IRON,CA,FA & MIN 1 TABLET PO SCH (08:29)
[2019-11-27] MEDS: busPIRone 15 MG TABLET PO SCH ×2 (08:29→20:57)
[2019-11-27] MEDS: METOPROLOL SUCCINATE 25 MG TAB.XL.24H PO SCH (08:29)
[2019-11-27] MEDS: ASPIRIN 81 MG TAB.CHEW PO SCH (08:29)
[2019-11-27] MEDS: NEUTRA PHOS 1 PACKET PO SCH ×2 (08:30→20:57)
[2019-11-27] MEDS: MEMANTINE 10 MG TABLET PO SCH ×2 (08:30→20:58)
[2019-11-27] MEDS: COLLAGENASE TOP OINT TUBE 30GM TOPICAL SCH (09:19)
[2019-11-27] MEDS: ACETAMINOPHEN 325 MG TABLET PO PRN (12:44)
[2019-11-27] MEDS ORDERED: BISACODYL 10 MG SUPP.RECT PR PRN (16:23)
[2019-11-27] MEDS ORDERED: POLYETHYLENE GLYCOL 3350 17 GM PACKET PO PRN (16:23)
[2019-11-27] MEDS ORDERED: NOREPINEPHRINE BITARTRATE 16 MG in 0.9 % SODIUM CHLORIDE 234 ML IV PRN (16:23)
[2019-11-27] MEDS ORDERED: ACETAMINOPHEN 325 MG TABLET PO PRN (16:23)
[2019-11-27] MEDS ORDERED: ONDANSETRON 4 MG ODT TABLET SL PRN (16:23)
[2019-11-27] MEDS ORDERED: ONDANSETRON 4 MG/2 ML VIAL IV PRN (16:23)
[2019-11-27] MEDS ORDERED: ACETAMINOPHEN 650 MG/65 ML BOTTLE IV PRN (16:23)
[2019-11-27] MEDS ORDERED: MELATONIN 3 MG TABLET PO PRN (16:23)
[2019-11-27] MEDS ORDERED: SENNOSIDES/DOCUSATE SODIUM 1 TAB TABLET PO SCH (21:00)
[2019-11-27] MEDS ORDERED: ATORVASTATIN 40 MG TABLET PO SCH (21:00)
[2019-11-28] MEDS ORDERED: PANTOPRAZOLE 40 MG TABLET PO SCH (07:30)
--- NOTE | 2019-11-28 07:30 | Discharge Summary ---
Medical - DS: Prov Patient information: Note initiated : 11/28/19 at 7:28 am Service Date, if different from initiated Date: [] Patient: Marcello Nelson 79 y/o M admitted on 11/22/19 for fever UTI. Chief Complaint: [] Date of admission: 11/22/19 01:27 Discharge date: 11/28/19 Primary care physician: Naila Savage Consults: 11/21/19 Consult to Physician [CONS] Stat Comment: Consulting Provider: Flip Campos Reason For Exam: Physician to Consult 11/22/19 09:49 Consult to Physician [CONS] Urgent Comment: Consulting Provider: Frank Cintron Reason For Exam: Physician to Consult 11/22/19 11:01 Consult to Physician [CONS] Routine Comment: sacral wound Consulting Provider: Flavio Westbrook Reason For Exam: Physician to Consult 11/24/19 10:08 Consult to Physician [CONS] Urgent Comment: Consulting Provider: Javier Perkins Reason For Exam: Physician to Consult Medical - DS: Meds - Discharge Medications Prescriptions: ceFAZolin [Ancef] 3 gm IV Fr@1600 #3 vial Prescription Printed ceFAZolin [Ancef] 2 gm IV MoWe@1600 #9 vial Prescription Printed Sodium Polystyrene Sulfonate [Kayexalate] 30 gm PO ONCE #1 suspension Prescription Printed Active and Home Medications: Home Medications atorvastatin 20 mg tablet 80 mg PO HS tab 01/01/18 [Rx Confirmed 11/21/19 Last Taken 06/03/18 21:00] sertraline 50 mg tablet 100 mg PO BID #60 tab 03/10/18 [Rx Confirmed 11/21/19 Last Taken 06/04/18 09:00] folic acid 1 mg tablet 1 mg PO QDAY #90 tab 04/20/18 [Rx Confirmed 11/21/19 Last Taken 06/04/18 09:00] Gabapentin [Neurontin] 300 mg PO TID 06/05/18 [History Confirmed 11/21/19 Last Taken Unknown] Aspirin 81 mg PO DAILY 05/04/19 [History Confirmed 11/21/19 Last Taken Unknown] Memantine [Namenda] 10 mg PO BID 05/04/19 [History Confirmed 11/21/19 Last Taken Unknown] Pantoprazole Sodium [Protonix] 40 mg PO QAMAC 05/04/19 [History Confirmed 11/21/19 Last Taken Unknown] Apixaban [Eliquis] 1 tab PO DAILY 05/07/19 [History Confirmed 11/21/19 Last Taken Unknown] Donepezil [Aricept] 1 tab PO DAILY 05/07/19 [History Confirmed 11/21/19 Last Taken Unknown] busPIRone [Buspar] 1 tab PO BID 05/07/19 [History Confirmed 11/21/19 Last Taken Unknown] Cephalexin [Keflex] 500 mg PO BID 11/21/19 [History Confirmed 11/21/19 Last Taken Unknown] Metoprolol Succinate 25 mg PO QDAY 11/22/19 [History Confirmed 11/22/19 Last Taken Unknown] Mupirocin Oint 2% [Bactroban Oint 2%] 1 applic TOPICAL BID 11/22/19 [History Confirmed 11/22/19 Last Taken Unknown] ceFAZolin [Ancef] 2 gm IV MoWe@1600 #9 vial 11/28/19 [Rx Last Taken Unknown] ceFAZolin [Ancef] 3 gm IV Fr@1600 #3 vial 11/28/19 [Rx Last Taken Unknown] Medical - DS: Hosp Hospital Course: Discharge diagnosis * Severe sepsis secondary to staph epidermidis bacteremia with acute organ dysfunction -clinically resolved with antibiotic coverage * Staph epidermidis bacteremia 4/ sets. Surveillance cultures and 11-25 and catheter tip negative so far. On 3 times a week IV cefazolin per ID. Echocardiogram negative for valvular vegetation. Dialysis catheter removed 11/25. Pt will get tunneled dialysis catheter placed at [facility] by IR Dr. Javier 11/29. Hold aspirin/Eliquis until HD catheter placement. Coordinated by nephrology. * Complicated Klebsiella UTI -asymptomatic now off antibiotics * Lwer back pain -CT thoracolumbar spine no evidence of abscess * Right lower lobe dense infiltrates on CT-off antibiotics, afebrile with negative however ID recommends doxycycline or levofloxacin if patient spikes fever/symptoms of pneumonia * Acute change in mental status -resolved now at baseline * Sacral decubitus ulcer Unstageable. continue outpatient management/wound care Dr. Westbrook * Atrial fibrillation currently rate controlled. Continue home medications, on apixaban for CVA prophylaxis * History of dementia continue donepezil * Neuropathy continue home gabapentin * ESRD -HD per nephrology. Patient undergo dialysis catheter placement today as angios of * Anxiety disorder continue home sertraline/BuSpar * Hyperlipidemia continue statin * History of CAD on aspirin statin/apixaban/Coreg(aspirin Eliquis held until HD catheter placement) * History of hypertension continue Coreg/amlodipine * History of severe neuropathy/paraparesis [id number] directed therapy/SNF transfer coordination Brief hospital course Mr. Nelson is a 79 year old with a history of dementia, A. fib, paraplegia wheelchair-bound and ESRD on hemodialysis managed by Dr. Cintron. Patient lives with his Sister Cathy and undergoes hemodialysis 3 times a week at [facility] office. For the last couple of days he has been getting increasingly weak fatigue lethargic and has spiked a fever of 102 after dialysis today. Patient was subsequently brought into the ER for evaluation. Initial work-up was consistent with severe sepsis with endorgan dysfunction white count 15,000, pyuria, acute change in mental status and a fever of 102. Following initial work-up including blood cultures antibiotics were instituted. Hospital service was consulted for admission. At evaluation patient is more alert and able to answer some of the questions. Most of the history was obtained from review of medical record, ER physician, patient's Sister Cathy. Endorses history as above but denies recent diarrhea, headache, photophobia. She endorses the patient complaining of dysuria and lower abdominal discomfort. 11/21-patient clinically improving. Improved vitals/map. Improving white count. Febrile at 102. Improved mental status change, potassium at 2.9. Nephrology consulted. On potassium replacement. Urine and blood cultures pending. 11/22- sacral decubitus ulcer managed per wound care. On antibiotic coverage. Gram-positive cocci in blood. Surveillance cultures pending. Currently afebrile. Klebsiella pneumonia on urine culture, sensitivities pending. Off pressors. Ongoing hemodialysis. Alert lucid and respond to commands. 11/23-patient seen in room. 2 out of 2 gram-positive cocci 11/20. Surveillance cultures 11/21 pending. ID consulted. White count down to 10.5. Potassium 3.4. Ongoing hemodialysis per nephrology. Further work-up per ID for source evaluation 11/24-patient doing well. Ongoing hemodialysis. CT spine no evidence of abscess however right lower lobe infiltrate noted. On antibiotic coverage. Staph epi bacteremia on antibiotics per ID. Attempting to salvage hemodialysis catheter per nephrology. Echocardiogram pending. No overnight fever chills. White count down to 7.9. 11/25-blood cultures +11/21. ID recommends removal of hemodialysis catheter. Will undergo tunneled catheter removal today by surgery. On antibiotic coverage. Patient will likely discharge on Thursday for outpatient catheter placement followed by outpatient dialysis. Case management coordinating SNF transfer. Stable hemodynamics. On IV cefazolin Thursday 2/2/3 gram per ID for 3 weeks. Transthoracic echocardiogram negative. 11/26-patient doing well. No overnight events. No concerns per staff. No fever chills. Status post HD catheter removal by surgery. Will undergo catheter placement in 24 hours [facility]. On antibiotic coverage. Catheter tip culture pending. 11/27-patient doing well. Will undergo hemodialysis catheter placement by Dwight Javier at [facility] IR this known. Appointment scheduled by Dr. Cintron nephrology. Patient discharging on 3 times a week cefazolin during hemodialysis as per ID recommendations. Detailed IV recommendations as below ID Recommendations: - Continue IV Cefazolin 2 gm after HD on Thursday and Thursday respectively and 3 gm after HD on Thursday - Once blood Cx neg for 48 hrs, a new catheter could be placed. - Anticipated duration of treatment 3 weeks from 1st day of neg blood Cx Discharge diagnosis: . - Time Spent with Patient Total time spent providing and/or coordinating discharge services: Greater than 30 minutes Medical - DS: Exam - Constitutional Vitals: Vital Signs Temp Pulse Resp BP BP Pulse Ox 11/28/19 04:00 98.3 F 94 H 16 125/69 92 11/28/19 00:00 98.7 F 83 12 114/65 96 11/27/19 19:52 98.8 F 88 14 104/54 96 11/27/19 15:39 98.1 F 14 101/59 97 11/27/19 14:01 98.2 F 14 105/57 95 11/27/19 14:00 95 11/27/19 12:01 97.8 F 20 109/66 94 11/27/19 10:34 14 11/27/19 10:32 97.4 F 20 111/78 95 11/27/19 08:01 98.8 F 23 H 105/73 96 11/27/19 08:00 96 Intake and Output 11/27/19 11/28/19 11/28/19 21:59 05:59 13:59 Intake Total 840 Output Total 650 Balance 190 Intake: Oral 840 Output: Urine Catheter Amount 650 Straight 650 Other: Meal Dinner Percent of Meal Consumed 100% Feeding Ability Independent Urine Appearance Straight Cloudy Urine Color Straight Tea Colored Urine Odor Straight Strong Weight 174 lb 8 oz Medical - DS: Data Labs on day of discharge: Preliminary micro results at discharge 11/25/19 15:40 Blood Culture - Preliminary Blood 11/25/19 15:46 Blood Culture - Preliminary Blood 11/26/19 18:53 Catheter Tip Culture - Preliminary Catheter Tip - Optiflow 11/21/19 21:40 Blood Culture - Preliminary Blood Staphylococcus epidermidis 11/22/19 21:55 Blood Culture - Preliminary Blood Gram positive cocci 11/21/19 21:30 Blood Culture - Preliminary Blood Gram positive cocci Medical - DS: A/P - Patient/Caregiver Discharge Instructions Activity: as per physical therapy, increase activity as tolerated Diet: Renal Additional Instructions: Wound Care Orders: Daily Santyl to Sacral Wound, cover with bordered foam sacral dressing. Change daily. Follow-up wound care clinic--See scheduled appointment. ID Recommendations: - Continue IV Cefazolin 2 gm after HD on Thursday and Thursday respectively and 3 gm after HD on Thursday -Once blood Cx neg for 48 hrs, a new catheter could be placed. - Anticipated duration of treatment 3 weeks from 1st day of neg blood Cx Instructions from nephrology -Kayexalate 30 g one-time 11/28 a.m. -Cefazolin 2 g prior to discharge 11/27 -Hold apixaban/aspirin until dialysis catheter placement Follow-up PCP in 5 days HD catheter placement by Dr. Javier at [facility] on 11/[address] [facility] physician to check CBC BMP UA as a posthospital follow-up in 1 week. Antibiotics for 3 weeks per ID IV cefazolin during dialysis Continue aggressive bowel regimen to prevent constipation Continue fall precautions Continue aggressive PT OT evaluation and treatment at [facility]. eval and treatment if indicated All meals on chair sitting upright at 90 degrees to prevent aspiration Return to ER if worsening fever chills shortness of breath, diarrhea, bleeding Review risk and side effect profile of medications including antibiotics. Side effect may include mild to severe reaction including rash, diarrhea, cdiff and even which can be prevented by close follow-up with PCP and monitoring for side effects Continue renal diet and activity as advised Prescriptions: ceFAZolin [Ancef] 3 gm IV Fr@1600 #3 vial Prescription Printed ceFAZolin [Ancef] 2 gm IV MoWe@1600 #9 vial Prescription Printed Sodium Polystyrene Sulfonate [Kayexalate] 30 gm PO ONCE #1 suspension Prescription Printed Other Amb Orders: OT Discharge Order Facility: [facility], Location: [facility] at Discharge - General Facility: [facility], Location: [facility] - Problem Maintenance (1) Severe sepsis with acute organ dysfunction Status: Acute - Follow up Plan Follow up with: Flavio Westbrook MD [Physician] - 11/29/19 10:00 am () Naila Savage ARNP [Primary Care Provider] - Disposition: Xfer SNF Prognosis: Undetermined Rehab Potential: Fair I certify that the patient requires SNF services: Yes Overall status at discharge: patient is progressing back to baseline
[2019-11-28] MEDS: SERTRALINE 50 MG TABLET PO SCH (08:49)
[2019-11-28] MEDS: DOCUSATE SODIUM 100 MG CAPSULE PO SCH (08:49)
[2019-11-28] MEDS: NEUTRA PHOS 1 PACKET PO SCH (08:49)
[2019-11-28] MEDS: MEMANTINE 10 MG TABLET PO SCH (08:50)
[2019-11-28] MEDS: busPIRone 15 MG TABLET PO SCH (08:50)
[2019-11-28] MEDS: 0.9 % SODIUM CHLORIDE 10 ML SYRINGE IV SCH (08:51)
[2019-11-28] MEDS ORDERED: DONEPEZIL 10 MG TABLET PO SCH (09:00)
[2019-11-28] MEDS ORDERED: GABAPENTIN 300 MG CAPSULE PO SCH (09:00)
[2019-11-28] MEDS ORDERED: MULTIVIT,THER IRON,CA,FA & MIN 1 TABLET PO SCH (09:00)
[2019-11-28] MEDS ORDERED: ASPIRIN 81 MG TAB.CHEW PO SCH (09:00)
[2019-11-28] MEDS ORDERED: APIXABAN 5 MG TABLET PO SCH ×2 (09:00)
[2019-11-28] MEDS ORDERED: METOPROLOL SUCCINATE 25 MG TAB.XL.24H PO SCH (09:00)
[2019-11-28] MEDS ORDERED: COLLAGENASE TOP OINT TUBE 30GM TOPICAL SCH (09:00)
--- NOTE | 2019-11-28 11:53 | Infectious Disease Prog Note ---
Subjective Patient information: Note initiated : 11/28/19 at 11:50 am Service Date, if different from initiated Date: [] Patient: Marcello Nelson 79 y/o M admitted on 11/22/19 for fever UTI. Chief Complaint: [] Interval history: doing fine. denied any fever, chills, n/v, diarrhea. Endorses mild belly discomfort. is to go to [facility] [place] for new HD catheter insertion. Objective Objective Narrative: awake, alert, oriented x person no thrush chest has decreased BS at bases, no signs of resp distress left chest wall HD catheter removal site: mildly tender. covered with dressing, no soakage s1 soft, s2 normal, has a 2/6 systolic murmur bets heard at left parasternal border non tender abd no swelling over both knees - Vital Signs Vital signs: Vital Signs Temp Pulse Resp BP BP Pulse Ox 11/28/19 08:00 37.2 C 16 124/62 98 11/28/19 04:00 36.8 C 94 H 16 125/69 92 11/28/19 00:00 37.1 C 83 12 114/65 96 11/27/19 19:52 37.1 C 88 14 104/54 96 11/27/19 15:39 36.7 C 14 101/59 97 11/27/19 14:01 36.8 C 14 105/57 95 11/27/19 14:00 95 11/27/19 12:01 36.6 C 20 109/66 94 Intake and Output 11/27/19 11/28/19 11/28/19 21:59 05:59 13:59 Intake Total 840 Output Total 650 Balance 190 Intake: Oral 840 Output: Urine Catheter Amount 650 Straight 650 Other: Meal Dinner Percent of Meal Consumed 100% Feeding Ability Independent Urine Appearance Cloudy Mucous Threads Straight Cloudy Urine Color Bright Yellow Straight Tea Colored Urine Odor Strong Straight Strong Stool Size Small Stool Color Brown Yellow Stool Consistency Soft Weight 79.152 kg Intake & Output: Intake & Output 11/27/19 11/28/19 11/28/19 21:59 05:59 13:59 Intake Total 840 Output Total 650 Balance 190 Weight 79.152 kg Intake: Oral 840 Output: Urine Catheter Amount 650 Straight 650 Other: Meal Dinner Percent of Meal Consumed 100% Feeding Ability Independent Urine Appearance Cloudy Mucous Threads Straight Cloudy Urine Color Bright Yellow Straight Tea Colored Urine Odor Strong Straight Strong Stool Size Small Stool Color Brown Yellow Stool Consistency Soft - Lab 11/27/19 05:05 11/27/19 05:05 Most recent lab results Calcium 8.2 mg/dl (8.6-10.4) L 11/27/19 05:05 Phosphorus 2.6 mg/dL (2.7-4.5) L 11/27/19 05:05 Magnesium 1.8 mg/dL (1.6-2.5) 11/27/19 05:05 Microbiology 11/21/19 21:40 Blood Blood Culture - Preliminary Staphylococcus epidermidis Coagulase negative staph 11/22/19 21:55 Blood Blood Culture - Preliminary Staphylococcus epidermidis 11/21/19 21:30 Blood Blood Culture - Preliminary Staphylococcus epidermidis 11/22/19 21:45 Blood Blood Culture - Final 11/25/19 15:40 Blood Blood Culture - Preliminary 11/25/19 15:46 Blood Blood Culture - Preliminary 11/26/19 18:53 Catheter Tip - Optiflow Catheter Tip Culture - Preliminary 11/21/19 21:45 Urine - Catheterized Urine Culture - Final Klebsiella pneumoniae 11/22/19 02:53 Nose MRSA (PCR) - Final Medications Active Medications: Acetaminophen (Tylenol) 650 mg PO Q4-6HP PRN; Protocol PRN Reason: Per Pain Protocol/Fever > 101 Apixaban (Eliquis) 2.5 mg PO DAILY [facility] Last Admin: 11/28/19 08:58 Dose: Not Given Documented by: [id number] Non-Admin Reason: hold for procedure Aspirin (Aspirin) 81 mg PO DAILY [facility] Last Admin: 11/28/19 08:58 Dose: Not Given Documented by: [id number] Non-Admin Reason: hold for procedure Atorvastatin Calcium (Lipitor) [address] [facility] Last Admin: 11/27/19 20:57 Dose: 80 mg Documented by: WAYNE Bisacodyl (Dulcolax) 10 mg NM Q2-3DAYS PRN PRN Reason: Constipation Buspirone HCl (Buspar) 15 mg PO BID [facility] Last Admin: 11/28/19 08:50 Dose: 15 mg Documented by: [id number] Admin: 11/27/19 20:57 Dose: 15 mg Documented by: WAYNE Cefazolin Sodium (Ancef) 2 gm IV MoWe@1600 [facility] Cefazolin Sodium (Ancef) 3 gm IV Fr@1600 [facility] Cefazolin Sodium (Ancef) 0 gm IV MoWeFr@1600 [facility] Collagenase (Santyl Top Oint) 1 dose TOPICAL DAILY [facility] Last Admin: 11/28/19 09:29 Dose: 1 dose Documented by: PARKER Docusate Sodium (Colace) 100 mg PO BID [facility] Last Admin: 11/28/19 08:49 Dose: 100 mg Documented by: Admin: 11/27/19 20:58 Dose: Not Given Documented by: WAYNE Non-Admin Reason: Clinical Judgement Donepezil HCl (Aricept) 10 mg PO DAILY [facility] Last Admin: 11/28/19 08:50 Dose: 10 mg Documented by: PARKER Gabapentin (Neurontin) 300 mg PO DAILY [facility] Last Admin: 11/28/19 08:50 Dose: 300 mg Documented by: PARKER Norepinephrine Bitartrate 16 (mg/ Sodium Chloride) 250 mls @ 9.375 mls/hr IV Q24HP PRN; Protocol PRN Reason: TITRATE TO KEEP MAP > 65 Acetaminophen (Ofirmev) 650 mg in 65 mls @ 130 mls/hr IV Q6HP PRN; Protocol PRN Reason: PAIN/FEVER > 101 Iron Carb/Multivit/Beltrami/Folic Acid (Multivitamin W/Minerals) 1 tab PO DAILY [facility] Last Admin: 11/28/19 08:50 Dose: 1 tab Documented by: PARKER Melatonin (Melatonin 3mg Tablet) 3 mg PO HSP PRN PRN Reason: Insomnia Memantine (Namenda) 10 mg PO BID [facility] Last Admin: 11/28/19 08:50 Dose: 10 mg Documented by: Admin: 11/27/19 20:58 Dose: 10 mg Documented by: WAYNE Metoprolol Succinate (Toprol Xl) 25 mg PO QDAY [facility] Last Admin: 11/28/19 08:50 Dose: 25 mg Documented by: PARKER Ondansetron HCl (Zofran Odt) 4 mg SL Q4-6HP PRN; Protocol PRN Reason: Nausea And Vomiting Ondansetron HCl (Zofran) 4 mg IV Q4-6HP PRN; Protocol PRN Reason: Nausea And Vomiting Pantoprazole Sodium (Protonix) 40 mg PO QAMAC [facility] Last Admin: 11/28/19 08:50 Dose: 40 mg Documented by: PARKER Polyethylene Glycol (Miralax) 17 gm PO DAILYP PRN PRN Reason: Constipation Potassium/Phosphorus/Sodium (Neutra Phos) 1 packet PO BID [facility] Stop: 11/28/19 23:59 Last Admin: 11/28/19 08:49 Dose: 1 packet Documented by: Admin: 11/27/19 20:57 Dose: 1 packet Documented by: WAYNE Senna/Docusate Sodium (Senna Plus Tablet) 1 tab PO HS [facility] Last Admin: 11/27/19 20:58 Dose: Not Given Documented by: WAYNE Non-Admin Reason: Clinical Judgement Sertraline HCl (Zoloft) 100 mg PO BID [facility] Last Admin: 11/28/19 08:49 Dose: 100 mg Documented by: Admin: 11/27/19 20:57 Dose: 100 mg Documented by: WAYNE Sodium Chloride (Saline Flush) 10 ml IV Q8 [facility] Last Admin: 11/28/19 08:51 Dose: 10 ml Documented by: Admin: 11/27/19 20:58 Dose: 10 ml Documented by: WAYNE Assessment and Plan - Narrative A/P Narrative: A: 1. Staph epidermidis bacteremia: mec A gene neg - likely source catheter access and/or sacral ulcer and skin colonization. No signs of catheter exit site infection - septic shock resolved - blood Cx from 11/20 and 11/21 positive, blood Cx from 11/24 : 1st day of negative blood Cx - TTE neg for IE. Pt has a systolic murmur over cardiac apex and at left parasternal border - MRSA nasal PCR neg 2. Stage 2 pressure sore over sacrum - adherent exudate over the ulcer 3. Penicillin allergy: pt tolerated PO Amoxicillin challenge yesterday without any allergic reactions. Penicillin allergy taken off the chart - Reaction was >10 years ago, included hives after some type of penicillin. - Pt and POA (his sister Cathy) consented 4. Asymptomatic bacteriuria: urine Cx growing Klebsiella pneumoniae - pt denies any UTI symptoms 5. Right LL infiltrate with small effusion and small left pleural effusion: absence of SOB, O2 req suggest possible lung collapse due to adjoining effusion and/or atlectesis. If febrile again, would broaden antibiotics to include PO Doxycycline or Levofloxacin. Recommendations: - Continue IV Cefazolin 2 gm after HD on Thursday and Thursday respectively and 3 gm after HD on Thursday. Tentative stop date of 12/16/2019 - new HD catheter to be placed at [facility] [place] today - no need for blood Cx after finishing antibiotic therapy as the infected catheter has been removed No ID f/u needed. I am available for any questions. Javier Perkins MD Infectious diseases
[2019-11-28] MEDS ORDERED: ceFAZolin 1 GM VIAL IV SCH ×3 (16:00)
[2019-12-02] MEDS ORDERED: ceFAZolin 1 GM VIAL IV SCH (16:00)
== END 2019-11-28 14:00 | DRG 853 ==
LOC: ED 21:02 → ICU 11-22 01:27 → SUATTDRO 11-22 01:27 → ICU 11-22 13:33
PROVIDERS: ADMIT Internal Medicine; ATTEND Internal Medicine Nephrology